=== PATIENT | female | born 1955 | race Caucasian/White ===

== ENCOUNTER 2022-01-23 13:53 | Inpatient (IN) | payer OTHER, SELFPAY ==
[2022-01-23] VITALS (9 sets, daily range): BP systolic 102–128; BP diastolic 35–80; PULSE 83–95; RESP 15–20; TEMP 36.3–36.8; O2SAT 94–96; BMI 39.2
--- NOTE | ~2022-01-23 | XR_ITS ---
EXAMINATION: XR chest 1V portable Exam Date/Time: 01/26/2022 15:45 CDT HISTORY: Hypoxia Comparison: 01/23/2022. RESULT: Lines, tubes, and devices: None. Lungs and pleura: Somewhat improved aeration, persistent reticular and ill-defined patchy groundglas s opacities. Cardiomediastinal silhouette: Stable. Other: No acute osseous or upper abdominal finding. IMPRESSION: Persistent findings of bronchiolitis versus atypical/viral pneumonia. Reviewed, dictated and finalized at location K.
--- NOTE | ~2022-01-23 | MR_ITS ---
EXAMINATION: MR brain/brain stem wo/w con DATE: 01/24/2022 13:14 INDICATION: New onset seizure. TECHNIQUE: Magnetic resonance imaging (MRI) of the brain and brainstem was performed without intraven ous contrast. The patient was unable to complete the imaging. COMPARISON: Head CT 01/23/2022 FINDINGS: There is no intracranial hemorrhage, acute infarction, or abnormal intracranial mass lesion . The ventricles are normal in size. The paranasal sinuses are clear. The orbits are normal. The mast oid air cells are normal. IMPRESSION: 1. Normal brain. Not all of the typical sequences were performed, which mildly decreases sensitivity. Reviewed, dictated and finalized at location A.
--- NOTE | ~2022-01-23 | XR_ITS ---
EXAMINATION: XR chest 1V portable DATE: 01/30/2022 06:19 INDICATION: Abnormal chest radiograph. TECHNIQUE: A single frontal view of the chest was obtained. COMPARISON: Chest single view 01/26/2022 FINDINGS: There is mild atelectasis at left lung base. No pleural effusion or pneumothorax. The heart size is normal. IMPRESSION: 1. Mild atelectasis at left lung base. Reviewed, dictated and finalized at location A.
--- NOTE | ~2022-01-23 | XR_ITS ---
XR chest 1V portable INDICATION: Seizure-like activity TECHNIQUE: 2 view chest. FINDINGS: 01/01/2005 There is mild bilateral interstitial prominence and peribronchial cuffing. There is no focal consoli dation, pleural effusion, or pneumothorax. The cardiomediastinal silhouette is normal. Shallow inspiration. IMPRESSION: 1. Findings most consistent with bronchiolitis versus an atypical or viral pneumonia. Reviewed, dictated and finalized at location B. IMPRESSION: 1. Findings most consistent with bronchiolitis versus an atypical or viral pne [facility].
--- NOTE | ~2022-01-23 | CT_ITS ---
EXAMINATION: CT brain wo con DATE: 01/23/2022 15:07 INDICATION: New onset seizure TECHNIQUE: Computed tomography (CT) of the head was performed without intravenous contrast. The mA wa s adjusted according to patient size. Iterative reconstruction technique was employed. Exam dose: 60 5.33 mGy-cm total exam DLP. COMPARISON: 07/20/2013 CT brain FINDINGS: No intracranial mass lesion or hemorrhage or cerebrovascular accident. No midline shift or mass effect normal ventricular size. No subdural or epidural hematoma. No fracture or bone destruction of the cranial vault. Mastoid air cells and paranasal sinuses are nor sanjuana developed and aerated. IMPRESSION: No significant abnormality Reviewed, dictated and finalized at Location A. Reviewed, dictated and finalized at location A. IMPRESSION: No significant abnormality
--- NOTE | 2022-01-23 14:09 | ECG_ITS ---
Measurements Intervals [place] Rate: 88 P: 46 NE: 127 QRS: 59 QRSD: 93 T: 31 QT: 375 QTc: 454 Interpretive Statements SINUS RHYTHM WITH FREQUENT VENTRICULAR PREMATURE COMPLEXES ABNORMAL RHYTHM ECG NO PREVIOUS ECG AVAILABLE FOR COMPARISON Electronically Signed On 01-23-2022 14:41:29 CDT by Juventino Aquino M.D.
--- NOTE | 2022-01-23 14:32 | ED.SEIZURE ---
HPI - Seizure General Chief Complaint: Seizure Stated Complaint: witnessed seizure like activity Time Seen by Provider: 01/23/22 14:31 History of Present Illness HPI Narrative: 66 years old white female came by ambulance from residential with new onset seizure. Patient was found sitting in her chair by housekeeping at the facility with seizure-like activities, tonic-clonic, lasted approximately 30 seconds, Followed by confusion and change of mental status. Patient is awake, alert and oriented to her name only on arrival to the emergency room. Her baseline is awake and oriented x4. Patient denies any fever, chills, nausea, vomiting, complaining of headache and cramps of the lower extremities MD complaint: other Related Data Home Medications Medication Instructions Recorded Confirmed calcium carbonate 600 mg-vitamin tablet 01/23/22 01/23/22 D3 20 mcg (800 unit) tablet (Caltrate with Vitamin D3) ergocalciferol (vitamin D2) 1,250 01/23/22 mcg (50,000 unit) capsule (Vitamin D2) rosuvastatin 40 mg tablet 40 mg PO DAILY 01/23/22 01/23/22 Review of Systems Review of Systems: All systems reviewed & are unremarkable except as noted in HPI and below Exam Narrative: General appearance: Well-developed, well-nourished Skin: Normal color Head: Normocephalic, nontraumatic Eyes: Clear conjunctiva ENT: Oropharynx normal, ears normal, nose normal Neck: Supple, nontender Chest and respiratory: Airway patent, no respiratory distress, no accessory muscle use Heart: Regular rate/rhythm Abdomen: Soft, nontender, no organomegaly, quiet bowel sounds Vascular: Normal peripheral pulses, normal capillary refill. Musculoskeletal: Normal range of motion, nontender back Neurologic: Alert and oriented to her name only Course Consultations Consultation #1: Dr. Zheng Date: 01/23/22 Time: 16:24 Vital Signs Vital signs: Vital Signs Temperature 36.5 C 01/23/22 13:55 Pulse Rate 95 01/23/22 13:55 Respiratory Rate 16 01/23/22 13:55 Pulse Oximetry 96 01/23/22 13:55 Oxygen Delivery Room Air 01/23/22 13:55 Temperature 36.5 C 01/23/22 13:55 Pulse Rate 95 01/23/22 14:05 Respiratory Rate 16 01/23/22 14:05 Blood Pressure 107/35 L 01/23/22 14:05 Pulse Oximetry 94 01/23/22 14:05 Oxygen Delivery Room Air 01/23/22 13:55 MDM - Seizure Differential Diagnosis Differential diagnosis: Likely generalized seizure and new onset seizure Lab Data Result diagrams: 01/23/22 14:27 01/23/22 14:27 Labs: Lab Results 01/23/22 01/23/22 01/23/22 Range/Units 14:27 14:27 14:27 WBC 4.6 (4.5-10.0) K/mm3 RBC 3.58 L (4.2-5.4) M/mm3 Hgb 11.8 L (12.0-15.0) g/dL Hct 34.5 L (37.0-47.0) % MCV 96.4 (80-100) fl MCH 33.0 (26-34) pg MCHC 34.2 (32-36) g/dl RDW 15.1 H (11.5-14.5) % Plt Count 105 L (150-375) k/mm3 MPV 10.8 H (7.4-10.4) fl Immature Gran % (Auto) 0.4 (0-0.5) % Neut % (Auto) 74.8 H (45.5-73.1) % Lymph % (Auto) 17.1 L (18.3-44.2) % [place] % (Auto) 7.1 (2.6-8.5) % Eos % (Auto) 0.2 (0-4.4) % Baso % (Auto) 0.4 (0.2-1.2) % Lymph # (Auto) 0.79 L (0.9-3.2) K/mm3 [place] # (Auto) 0.3 (0.1-0.6) K/mm3 Eos # (Auto) 0.0 (0-0.3) K/mm3 Baso # (Auto) 0.0 (0.0-0.1) K/mm3 Abs Immat Gran (auto) 0.02 (0.00-0.031) K/mm3 Absolute Neuts (auto) 3.5 (1.3-6.7) K/mm3 Absolute Nucleated RBC 0.0 (0.0-0.012) K/mm3 Nucleated RBC % 0.4 H (0.0-0.2) % PT 19.0 H (11.1-14.7) Seconds INR 1.7 APTT 31.7 (22.3-36.8) SECONDS Sodium 133 L (137-145) mmol/L Potassium 3.3 L (3.4-5.0) mmol/L Chloride
[2022-01-23 14:35] LABS: Basophils Percent Auto 0.4 % (0.2-1.2); Eosinophils Percent Auto 0.2 % (0-4.4); Hematocrit 34.5 % (37.0-47.0); Hemoglobin 11.8 g/dL (12.0-15.0); Immature Granulocyte Absolute 0.02 K/mm3 (0.00-0.031); Immature Granulocyte Percent A 0.4 % (0-0.5); Lymphocytes Absolute Auto 0.79 K/mm3 (0.9-3.2); Lymphocytes Percent Auto 17.1 % (18.3-44.2); Mean Corpuscular HGB Conc 34.2 g/dl (32-36); Mean Corpuscular Volume 96.4 fl (80-100); Mean Platelet Volume 10.8 fl (7.4-10.4); Monocytes Absolute Auto 0.3 K/mm3 (0.1-0.6); Monocytes Percent Auto 7.1 % (2.6-8.5); Neutrophils Absolute Auto 3.5 K/mm3 (1.3-6.7); Neutrophils Percent Auto 74.8 % (45.5-73.1); Nucleated Red Blood Cells Perc 0.4 % (0.0-0.2); Platelet Count Result 105 k/mm3 (150-375); Red Blood Count 3.58 M/mm3 (4.2-5.4); Red Cell Distribution Width 15.1 % (11.5-14.5); White Blood Count 4.6 K/mm3 (4.5-10.0)
[2022-01-23 14:45] LABS: Alanine Aminotransferase 22 U/L (6-35); Albumin Level 3.5 g/dL (3.5-5.1); Alkaline Phosphatase 71 U/L (38-126); Anion Gap 13 mmol/L (8-16); Aspartate Amino Transferase 80 U/L (14-36); Bilirubin,Total 0.4 mg/dL (0.2-1.3); Blood Urea Nitrogen 15 mg/dL (7-17); Calcium 7.5 mg/dL (8.4-10.2); Carbon Dioxide 22 mmol/L (22-30); Chloride 98 mmol/L (98-107); Estimated Glomerular Filt Rate > 60; Glucose 105 mg/dL (65-110); Potassium 3.3 mmol/L (3.4-5.0); Sodium 133 mmol/L (137-145)
[2022-01-23 14:49] LABS: INR 1.7
[2022-01-23 14:50] LABS: Partial Thromboplastin Time 31.7 SECONDS (22.3-36.8)
[2022-01-23 16:26] LABS: Add Urine Microscopic? YES; Appearance Urine Clear (Clear); Bilirubin Urine Negative (Negative); Blood Urine 2+ (Negative); Color Urine Yellow (Yellow); Glucose Urine UA Negative (Negative); Ketones Urine 2+ mg/dL (Negative); Leukocyte Esterase Ur Negative LEU/UL (Negative); Nitrate Urine Negative (Negative); Protein Urine 1+ mg/dL (Negative); Specific Grav Ur 1.025 (1.001-1.035); Urobilinogen Urine Negative mg/dL (<2.0); WBC Urine 0-3 /hpf
[2022-01-23] MEDS: CALCIUM GLUC 2,000 MG/NS 100ML 2,000 MG/100 ML BAG 100 MG IVPB (17:38)
--- NOTE | 2022-01-23 18:16 | ADMGEN ---
This patient, Samantha Rojas, was admitted to Medical Room 258-. Patient/family oriented to hospital policies and general routines including ID bracelet, bed and alarms, visiting hours, pain management, procedures, bathroom and other care routines, personal items, smoking policy, room service/diet, and visiting hours. Information on how to activate the Rapid Response Team has been discussed. Patient/Family are encouraged to report perceived risks to care and to ask questions if they do not understand what they are told or what they should do.
--- NOTE | 2022-01-23 23:45 | PM.IMHP ---
H&P: HPI History of Present Illness Date/Time: 01/23/22 23:45 Chief Complaint: Seizure Narrative: This is a 66-year-old female patient who is very hard of hearing and comes from [facility]. She has no prior history of having any seizures. The patient was found sitting in her chair by housekeeping at the facility where she comes from with the seizure-like activity. They noted that it was tonic clonic and lasted for about 30 seconds. Patient was followed by confusion and change of mental status. She is awake and orientated upon arrival to the emergency room. Her baseline is a and O x4. She denies any fever chills. H&H is 11.8 and 34.5. Her sodium is 133 and her potassium is 3.3. Her calcium was found to be 7.5. Her UA was negative for UTI. Chest x-ray was read as findings most consistent with bronchiolectasis versus an atypical or viral pneumonia. Head CT was read as no significant abnormality. The patient tells me that she was just having a coughing fit at the half-way. She stated she was not having seizures she was just having a coughing fit. However the patient does not remember much about what happened after that. The patient was given potassium, calcium carbonate and calcium gluconate. Neurology has been consulted. The patient was being admitted for observation status on the date of service of 01/23/2022. Review of Systems Review of Systems: See HPI All systems reviewed & are unremarkable except as noted in HPI and below Constitutional: Constitutional: Reports as per HPI and Reports no additional constitutional complaints Eyes: Eyes: Reports as per HPI and Reports no additional eye complaints ENT: Reports system reviewed and no additional complaints, except as documented and Reports Normal hearing present Cardiovascular: Cardiovascular: Reports no additional cardiovascular complaints Respiratory: Respiratory: Reports no additional respiratory complaints and Reports no additional respiratory complaints Gastrointestinal: Gastrointestinal: Reports as per HPI and Reports no additional gastrointestinal complaints Musculoskeletal: Musculoskeletal: Reports no additional musculoskeletal complaints Integumentary/Breasts: Skin/Breast: Reports system reviewed and no additional complaints, except as docu and Reports as per HPI Neurologic: Reports system reviewed and no additional complaints, except as documented, Reports as per HPI and Reports Normal hearing present Psychiatric: Psychiatric: Reports no additional psychiatric complaints and Reports as per HPI Endocrine: Endocrine: Reports no additional endocrine complaints Hematologic/Lymphatic: Hematologic/Lymphatic: Reports no additional hematologic/lymphatic complaints Allergic/Immunologic: Allergic/Immunologic: Reports no additional allergic/immunologic complaints [facility] Past Medical History Medical History (Updated 01/24/22 @ 00:05 by Vi Parker NP) History of CVA (cerebrovascular accident) History of hypertension Hyperlipidemia Surgical History Surgical History (Updated 01/24/22 @ 00:05 by Vi Parker NP) H/O right wrist surgery H/O tubal ligation Family History Family History (Updated 01/24/22 @ 00:07 by Vi Parker NP) Father Cancer Mother Cancer Social History Social History (Updated 01/24/22 @ 00:08 by Vi Parker NP) Social History: The patient is single. She has 1 child. Patient quit smoking many years ago. She does not use any alcohol marijuana or illicit drugs. The patient does not have a durable power title attorney for healthcare. The patient stated that she has from [facility]. 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 Code status full code Smoking status: Former smoker Tobacco type: cigarettes Alcohol intake: never Substance use: never Has the Lack of Transportation Kept You From Medical Appointments or From Getting Medications?: No Within the Past 12 Months, Were Y
[2022-01-24] VITALS (9 sets, daily range): BP systolic 116–120; BP diastolic 34–68; PULSE 71–97; RESP 16–20; TEMP 36.1–36.4; O2SAT 91–95
[2022-01-24 01:16] LABS: Basophils Percent Auto 0.2 % (0.2-1.2); Eosinophils Percent Auto 0.2 % (0-4.4); Hematocrit 33.3 % (37.0-47.0); Hemoglobin 11.3 g/dL (12.0-15.0); Immature Granulocyte Absolute 0.01 K/mm3 (0.00-0.031); Immature Granulocyte Percent A 0.2 % (0-0.5); Lymphocytes Absolute Auto 1.25 K/mm3 (0.9-3.2); Lymphocytes Percent Auto 25.8 % (18.3-44.2); Mean Corpuscular HGB Conc 33.9 g/dl (32-36); Mean Corpuscular Hemoglobin 32.6 pg (26-34); Mean Platelet Volume 11.3 fl (7.4-10.4); Monocytes Absolute Auto 0.5 K/mm3 (0.1-0.6); Monocytes Percent Auto 9.9 % (2.6-8.5); Neutrophils Absolute Auto 3.1 K/mm3 (1.3-6.7); Neutrophils Percent Auto 63.7 % (45.5-73.1); Nucleated Red Blood Cells Perc 0.4 % (0.0-0.2); Platelet Count Result 102 k/mm3 (150-375); Red Blood Count 3.47 M/mm3 (4.2-5.4); Red Cell Distribution Width 15.1 % (11.5-14.5); White Blood Count 4.8 K/mm3 (4.5-10.0)
[2022-01-24 01:28] LABS: Lactic Acid Reflex 0.9 mmol/L (0.7-2.0)
[2022-01-24 01:31] LABS: Alanine Aminotransferase 23 U/L (6-35); Albumin Level 3.5 g/dL (3.5-5.1); Alkaline Phosphatase 61 U/L (38-126); Anion Gap 17 mmol/L (8-16); Aspartate Amino Transferase 57 U/L (14-36); Bilirubin,Total 0.4 mg/dL (0.2-1.3); Blood Urea Nitrogen 16 mg/dL (7-17); Calcium 5.8 mg/dL (8.4-10.2); Carbon Dioxide 20 mmol/L (22-30); Chloride 97 mmol/L (98-107); Estimated CRCL calculation 74 ml/min; Estimated Glomerular Filt Rate > 60; Glucose 96 mg/dL (65-110); Magnesium 2.3 mg/dL (1.6-2.3); Potassium 7.2 mmol/L (3.4-5.0); Sodium 134 mmol/L (137-145)
[2022-01-24 02:19] LABS: Potassium 2.9 mmol/L (3.4-5.0)
[2022-01-24 02:51] LABS: Thyroid Stimulating Hormone Reflex 0.061 uIU/mL (0.465-4.68)
--- NOTE | 2022-01-24 03:31 | PC.NURSE ---
critical potassium level received from lab. Results called to Dr. Xie. Result outside of expected range due to previously low potassium. Dr Xie ordered repeat lab draw stat and lokelma to be available but held until 2nd result received. Redraw of potassium came back low. New orders received. Beny d/c.
[2022-01-24 03:56] LABS: Vitamin D 25 Hydroxy 30.1 ng/mL
[2022-01-24] MEDS: POTASSIUM CHLORIDE 20 MEQ TABLET 40 MEQ PO (04:15)
[2022-01-24 06:03] LABS: Free T4 Free Thyroxine Reflex 1.27 ng/dL (0.78-2.19)
[2022-01-24] MEDS: ROSUVASTATIN 10 MG TABLET 40 MG PO (08:42)
[2022-01-24 09:01] LABS: Parathyroid Intact 116.6 pg/mL (7.5-53.5)
[2022-01-24 09:25] LABS: Total Triiodothyronine (T3) 0.48 NG/ML (0.97-1.69)
[2022-01-24] MEDS: CALCIUM GLUC 2,000 MG/NS 100ML 2,000 MG/100 ML BAG 100 MG IVPB (10:43)
[2022-01-24] MEDS: POTASSIUM CHLORIDE INJ 40 MEQ in SODIUM CHLORIDE 0.9% IV 500 ML 130 MEQ IVPB (10:44)
[2022-01-24 11:29] LABS: Phosphorus 2.4 mg/dL (2.5-4.5)
--- NOTE | 2022-01-24 11:49 | WPDNEURCNPN ---
Assessment and Plan Assessment and plan (1) New onset seizure: Code(s): R56.9 - Unspecified convulsions Status: Acute (2) Hypocalcemia: Code(s): E83.51 - Hypocalcemia Status: Acute (3) History of CVA (cerebrovascular accident): Code(s): Z86.73 - Personal history of transient ischemic attack (TIA), and cerebral infarction without residual deficits Status: Acute Plan Ms. Roajs is a 66 year old female with a reported history of prior stroke presenting with first time seizure. Seemingly unprovoked. Calcium was a little low on day of presentation at 7.5, but doesn't seem significant enough to cause seizure. Patient is at increased risk for seizures given prior history of stroke. - Start Keppra 500mg BID - MRI brain w/o contrast - Routine EEG can be done as outpatient - Follow-up in Neurology clinic in 3 months Consult date: 01/24/22 Time Seen: 11:49 Reason for consult: Seizure HPI: Samantha Rojas is a 66 year old female with a history of hearing loss, prior stroke, HTN, and HLD who presented due to concerns for seizure. [facility] a [facility]. Per chart review she is AOx4 at baseline. She has no recollection of having a seizure yesterday. She remembers going to the dining room to eat her meal, and the next thing she remembers is being in the ambulance. Staff at [facility] witnessed seizure described as generalized tonic-clonic activity that resolved after 30 seconds. Afterwards she seemed to be post-ictal. On arrival to the emergency department she was only oriented to self. Basic labs were obtained, she had calcium of 7.5 on admission, which dropped to 5.8 this morning. Other labs including UA were negative. CT head was negative as well. There is no prior history of seizure and there is no family history of seizure as far as patient is aware. Review of Systems Constitutional: Constitutional: Reports no additional constitutional complaints Eyes: Eyes: Reports no additional eye complaints ENT: Comments: hearing loss (chronic) Cardiovascular: Cardiovascular: Reports no additional cardiovascular complaints Respiratory: Respiratory: Reports no additional respiratory complaints Gastrointestinal: Gastrointestinal: Reports no additional gastrointestinal complaints Genitourinary: Genitourinary: Reports no additional female genitourinary complaints Musculoskeletal: Musculoskeletal: Reports arthralgias Integumentary/Breasts: Skin/Breast: Reports system reviewed and no additional complaints, except as docu Neurologic: Reports as per HPI Psychiatric: Psychiatric: Reports no additional psychiatric complaints PMF Past Medical History Medical History (Updated 01/24/22 @ 11:58 by Riya Zheng MD) History of CVA (cerebrovascular accident) History of hypertension Hyperlipidemia Surgical History Surgical History H/O right wrist surgery H/O tubal ligation Family History Family History Father Cancer Mother Cancer Social History Social History (Updated 01/24/22 @ 00:08 by Vi Parker NP) Social History: The patient is single. She has 1 child. Patient quit smoking many years ago. She does not use any alcohol marijuana or illicit drugs. The patient does not have a durable power attorney law clerk for healthcare. The patient stated that she has from [employer]. 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 Code status full code Smoking status: Former smoker Tobacco type: cigarettes Alcohol intake: never Substance use: never Has the Lack of Transportation Kept You From Medical Appointments or From Getting Medications?: No Within the Past 12 Months, Were You Worried Whether Your Food Would Run Out Before You Got Money to Buy More?: Never True What is Your Housing Situation Today?: I Have Housing Are You Worried That in the Next 2 Month
--- NOTE | 2022-01-24 16:56 | PM.IMPN ---
Progress Note: A&P Assessment and Plan (1) New onset seizure: Code(s): R56.9 - Unspecified convulsions Status: Acute Assessment and Plan: Witnessed seizure-like activity at assisted living facility Head CT with no acute finding Brain MRI shows normal brain Appreciate neurology consultation Begin Keppra 500 mg b.i.d. Seizure precautions Will need outpatient EEG Etiology of seizure unclear. No alcohol use. No hypoglycemia. Patient is at risk for seizures due to history of CVA (2) Hypocalcemia: Code(s): E83.51 - Hypocalcemia Status: Acute Assessment and Plan: Acute hypocalcemia. Calcium 7.5 on presentation, declined to 5.8 today 2 g IV Calcium gluconate Ionized calcium pending Vitamin-D levels are sufficient PTH level slightly increased, which is expected date hypocalcemia Not on any medications that would lower calcium. Albumin is normal Magnesium is normal Calcium improved with supplementation to 8.7 this afternoon (3) Hypokalemia: Code(s): E87.6 - Hypokalemia Status: Acute Assessment and Plan: Potassium 3.3 on presentation and was supplemented. Repeat potassium level was 7.2, however suspect this was hemolyzed specimen. Repeat potassium 2.9. 40 mEq IV Kcl Repeat potassium this afternoon stable at 4.2 Monitor BMP (4) Abnormal TSH: Code(s): R79.89 - Other specified abnormal findings of blood chemistry Status: Acute Assessment and Plan: TSH is low at 0.061 with T4 Will need outpatient reflex TSH in 4-6 weeks (5) Generalized weakness: Code(s): R53.1 - Weakness Status: Acute Assessment and Plan: Noted by nursing staff to have difficulty with ambulation. Appreciate PT/OT evals Implement fall precautions (6) History of CVA (cerebrovascular accident): Code(s): Z86.73 - Personal history of transient ischemic attack (TIA), and cerebral infarction without residual deficits Status: Chronic Assessment and Plan: Appears to have residual aphasia Subjective Date/time seen: 01/24/22 16:56 Interval history: Date of service: 01/24/2022 Samantha Rojas is a 66-year-old female with a history of CVA, hypertension, hyperlipidemia who is seen in follow-up for suspected seizure. The patient is a fairly poor historian. She states she is here in the hospital because of a fall. She has some expressive aphasia. She denies headache, confusion, dizziness, lightheadedness, weakness, visual changes, speech changes, dysphagia, shortness of breath, cough, chest pain, palpitations, nausea, vomiting, abdominal pain, dysuria. She does note some difficulty with ambulation and feels unsteady when walking. Review of Systems Review of Systems: All systems reviewed & are unremarkable except as noted in HPI and below Exam Narrative: General: Obese well-appearing 66-year-old female, sitting up in bed, comfortable, NARD Neuro: awake, alert and oriented x3 (initially states she is at [facility], then corrects to [facility]), speech clear, no focal neuro deficits noted, exhibit confusion. [place] sign negative. HEENMT: normocephalic, atraumatic, EOMI, sclerae anicteric, moist oral mucosa Respiratory: clear to auscultation bilaterally, nonlabored breathing Cardio: regular rate, regular rhythm with S1-S2 Abdomen: nondistended, normoactive bowel sounds, soft, nontender to palpation Extremities: no edema, erythema, or tenderness to palpation, DP pulses 2+ bilaterally Skin: no rashes or lesions, warm and dry Psych: appropriate mood and affect, judgment and insight intact Objective Data Vital Signs Vital Signs: Vital Signs - 24 hr 01/23/22 17:54 01/23/22 17:00 01/23/22 18:25 Temperature 98.3 F 97.7 F Pulse Rate 83 86 92 Respiratory Rate 18 16 15 Blood Pressure 118/64 120/68 128/60 Pulse Oximetry 95 96 94 Oxygen Delivery 01/23/22 20:00 01/23/22 20:00 01/23/22
[2022-01-24 16:59] LABS: Potassium 4.2 mmol/L (3.4-5.0)
[2022-01-24 17:02] LABS: Calcium 8.7 mg/dL (8.4-10.2)
[2022-01-24] MEDS: ACETAMINOPHEN 325 MG TABLET 650 MG PO ×2 (18:04→21:24)
[2022-01-24] MEDS: levETIRAcetam 500 MG TABLET PO (21:24)
[2022-01-25] VITALS (9 sets, daily range): BP systolic 123–150; BP diastolic 37–68; PULSE 70–85; RESP 14–22; TEMP 36.1–36.6; O2SAT 90–92
[2022-01-25 06:21] LABS: Hematocrit 33.6 % (37.0-47.0); Immature Platelet Fraction Pct 12.6 % (0.9-11.2); Mean Corpuscular HGB Conc 32.7 g/dl (32-36); Mean Corpuscular Hemoglobin 32.4 pg (26-34); Mean Corpuscular Volume 99.1 fl (80-100); Mean Platelet Volume 11.8 fl (7.4-10.4); Platelet Count Result 104 k/mm3 (150-375); Red Blood Count 3.39 M/mm3 (4.2-5.4); Red Cell Distribution Width 15.2 % (11.5-14.5); White Blood Count 5.8 K/mm3 (4.5-10.0)
[2022-01-25 06:39] LABS: Alanine Aminotransferase 20 U/L (6-35); Albumin Level 3.5 g/dL (3.5-5.1); Alkaline Phosphatase 57 U/L (38-126); Anion Gap 9 mmol/L (8-16); Aspartate Amino Transferase 55 U/L (14-36); Bilirubin,Total 0.3 mg/dL (0.2-1.3); Blood Urea Nitrogen 18 mg/dL (7-17); Calcium 8.1 mg/dL (8.4-10.2); Carbon Dioxide 26 mmol/L (22-30); Chloride 99 mmol/L (98-107); Estimated CRCL calculation 74 ml/min; Estimated Glomerular Filt Rate > 60; Glucose 89 mg/dL (65-110); Magnesium 2.1 mg/dL (1.6-2.3); Phosphorus 2.7 mg/dL (2.5-4.5); Potassium 3.3 mmol/L (3.4-5.0); Sodium 134 mmol/L (137-145)
[2022-01-25] MEDS: levETIRAcetam 500 MG TABLET PO ×2 (09:17→20:36)
[2022-01-25] MEDS: ROSUVASTATIN 10 MG TABLET 40 MG PO (09:18)
[2022-01-25] MEDS: POTASSIUM CHLORIDE 20 MEQ TABLET 40 MEQ PO (09:18)
--- NOTE | 2022-01-25 14:40 | PM.IMPN ---
Progress Note: A&P Assessment and Plan (1) New onset seizure: Code(s): R56.9 - Unspecified convulsions Status: Acute Assessment and Plan: Witnessed seizure-like activity at assisted living facility Head CT with no acute finding Brain MRI shows normal brain Appreciate neurology consultation Started on Keppra 500 mg b.i.d. per neurology recommendations Seizure precautions Will need outpatient EEG Etiology of seizure unclear. No alcohol use. No hypoglycemia. Possibly due to history of CVA (2) Generalized weakness: Code(s): R53.1 - Weakness Status: Acute Assessment and Plan: Noted by nursing staff to have difficulty with ambulation. Appreciate PT/OT evals Implement fall precautions Patient not at functional level to return to assisted living. Will need SNF placement. Appreciate care coordination assistance (3) Hypocalcemia: Code(s): E83.51 - Hypocalcemia Status: Acute Assessment and Plan: Resolved. Ionized calcium pending Vitamin-D levels are sufficient PTH level slightly increased, which is expected date hypocalcemia Not on any medications that would lower calcium. Albumin is normal Magnesium is normal Calcium improved with supplementation Continue home PO calcium supplement (4) Hypokalemia: Code(s): E87.6 - Hypokalemia Status: Acute Assessment and Plan: Potassium 3.3 today Supplement potassium 40 mEq PO Kcl Monitor BMP (5) Hemorrhoid: Code(s): K64.9 - Unspecified hemorrhoids Status: Acute Assessment and Plan: Patient complains of pain from hemorrhoids with bleeding per rectum on tissue with wiping Supportive care. Anusol suppository prn Colace bid No active bleeding with stable H&H (6) Abnormal TSH: Code(s): R79.89 - Other specified abnormal findings of blood chemistry Status: Acute Assessment and Plan: TSH is low at 0.061 with T4 Will need outpatient reflex TSH in 4-6 weeks (7) History of CVA (cerebrovascular accident): Code(s): Z86.73 - Personal history of transient ischemic attack (TIA), and cerebral infarction without residual deficits Status: Chronic Assessment and Plan: Appears to have residual expressive aphasia Subjective Date/time seen: 01/25/22 14:40 Interval history: Date of service: 01/25/2022 Samantha Rojas is a 66-year-old female with a history of CVA, hypertension, hyperlipidemia who is seen in follow-up for suspected seizure. The patient is a fairly poor historian. Today she complains of rectal pain secondary to hemorrhoids. When asked about blood in stools, the patient is not able to answer and she turned to the occupational therapist who was present in the room to answer for her. OT reports she had blood on her tissue paper when she wiped today. Patient reports her last bowel movement was yesterday. She reports normal, formed stool. Denies straining or passage of hard bowel movements. Patient feels very weak. She is having difficulty with ambulation. She denies shortness breath, cough, chest pain, dizziness, lightheadedness, palpitations. Reports a fair appetite. Denies urinary symptoms. Review of Systems Review of Systems: All systems reviewed & are unremarkable except as noted in HPI and below Exam Narrative: General: Obese well-appearing 66-year-old female, sitting up in a chair by the bedside, comfortable, NARD Neuro: awake, alert and oriented x3, speech clear, no focal neuro deficits noted, exhibit confusion HEENMT: normocephalic, atraumatic, EOMI, sclerae anicteric, moist oral mucosa Respiratory: clear to auscultation bilaterally, nonlabored breathing Cardio: regular rate, regular rhythm with S1-S2 Abdomen: nondistended, normoactive bowel sounds, soft, nontender to palpation Extremities: no edema, erythema, or tenderness to palpation, DP pulses 2+ bilaterally Skin: no rashes or lesi
[2022-01-25] MEDS: ACETAMINOPHEN 325 MG TABLET 650 MG PO (17:55)
[2022-01-25] MEDS: DOCUSATE SODIUM 100 MG CAPSULE PO (20:36)
[2022-01-25 20:45] LABS: Glucose Point of Care 108 mg/dl (65-105)
[2022-01-26] VITALS (12 sets, daily range): BP systolic 109–116; BP diastolic 45–64; PULSE 71–85; RESP 18–22; TEMP 36.4–36.9; O2SAT 90–99
[2022-01-26 05:21] LABS: Hematocrit 33.5 % (37.0-47.0); Hemoglobin 10.6 g/dL (12.0-15.0); Immature Platelet Fraction Pct 12.6 % (0.9-11.2); Mean Corpuscular HGB Conc 31.6 g/dl (32-36); Mean Corpuscular Hemoglobin 32.1 pg (26-34); Mean Corpuscular Volume 101.5 fl (80-100); Mean Platelet Volume 11.8 fl (7.4-10.4); Platelet Count Result 94 k/mm3 (150-375); Red Cell Distribution Width 15.2 % (11.5-14.5); White Blood Count 4.7 K/mm3 (4.5-10.0)
[2022-01-26 05:38] LABS: Alanine Aminotransferase 19 U/L (6-35); Albumin Level 3.3 g/dL (3.5-5.1); Alkaline Phosphatase 63 U/L (38-126); Anion Gap 11 mmol/L (8-16); Aspartate Amino Transferase 45 U/L (14-36); Bilirubin,Total 0.2 mg/dL (0.2-1.3); Blood Urea Nitrogen 13 mg/dL (7-17); Calcium 8.2 mg/dL (8.4-10.2); Carbon Dioxide 27 mmol/L (22-30); Chloride 99 mmol/L (98-107); Estimated CRCL calculation 85 ml/min; Estimated Glomerular Filt Rate > 60; Glucose 96 mg/dL (65-110); Magnesium 1.9 mg/dL (1.6-2.3); Potassium 3.8 mmol/L (3.4-5.0); Sodium 137 mmol/L (137-145)
[2022-01-26] MEDS: ROSUVASTATIN 10 MG TABLET 40 MG PO (08:53)
[2022-01-26] MEDS: DOCUSATE SODIUM 100 MG CAPSULE PO (08:53)
[2022-01-26] MEDS: levETIRAcetam 500 MG TABLET PO ×2 (08:53→20:50)
[2022-01-26] MEDS: ACETAMINOPHEN 325 MG TABLET 650 MG PO (08:53)
[2022-01-26] MEDS: ALBUTEROL SULFATE (*SP) AEROSOL 1 PUFF 2 PUFF INHALATION (13:33)
--- NOTE | 2022-01-26 14:01 | PM.IMPN ---
Progress Note: A&P Assessment and Plan (1) New onset seizure: Code(s): R56.9 - Unspecified convulsions Status: Acute Assessment and Plan: Witnessed seizure-like activity at assisted living facility Head CT with no acute finding Brain MRI shows normal brain Appreciate neurology consultation Started on Keppra 500 mg b.i.d. per neurology recommendations Seizure precautions Will need outpatient EEG Etiology of seizure unclear. No alcohol use. No hypoglycemia. Possibly due to history of CVA (2) Generalized weakness: Code(s): R53.1 - Weakness Status: Acute Assessment and Plan: Noted by nursing staff to have difficulty with ambulation. Appreciate PT/OT evals Implement fall precautions Patient not at functional level to return to assisted living. Will need SNF placement. Appreciate care coordination assistance. Not able to start SNF authorization until tomorrow (3) Hypocalcemia: Code(s): E83.51 - Hypocalcemia Status: Acute Assessment and Plan: Resolved. Ionized calcium pending Vitamin-D levels are sufficient PTH level slightly increased, which is expected date hypocalcemial Calcium improved with supplementation Continue home PO calcium supplement (4) Hypokalemia: Code(s): E87.6 - Hypokalemia Status: Acute Assessment and Plan: Resolved. Potassium 3.8 today Monitor BMP (5) Hemorrhoid: Code(s): K64.9 - Unspecified hemorrhoids Status: Acute Assessment and Plan: Patient complains of pain from hemorrhoids with bleeding per rectum on tissue with wiping Supportive care. Anusol suppository prn Colace bid No active bleeding with stable H&H (6) Abnormal TSH: Code(s): R79.89 - Other specified abnormal findings of blood chemistry Status: Acute Assessment and Plan: TSH is low at 0.061 with normal free T4 Will need outpatient reflex TSH in 4-6 weeks (7) History of CVA (cerebrovascular accident): Code(s): Z86.73 - Personal history of transient ischemic attack (TIA), and cerebral infarction without residual deficits Status: Chronic Assessment and Plan: Appears to have residual expressive aphasia Subjective Date/time seen: 01/26/22 14:01 Interval history: Date of service: 01/26/2022 Samantha Rojas is a 66-year-old female with a history of CVA, hypertension, hyperlipidemia who is seen in follow-up for suspected seizure. The patient is a poor historian. She is doing well today and offers no complaints. Her hemorrhoids are not bothersome today. She has not noticed any rectal bleeding. States she has not really been out of bed today. She did not eat much for breakfast because she states she did not like it. She denies abdominal pain, nausea, vomiting, fever, chills, shortness of breath, chest pain, dizziness, lightheadedness. She does endorse feeling weak and having difficulty getting around. Review of Systems Review of Systems: All systems reviewed & are unremarkable except as noted in HPI and below Exam Narrative: General: Obese well-appearing 66-year-old female, sitting up in bed, comfortable, NARD Neuro: awake, alert and oriented x3 (initially stated the year was 1921, then corrected to 2021), speech clear, expressive aphasia noted, no focal neuro deficits noted HEENMT: normocephalic, atraumatic, EOMI, sclerae anicteric, moist oral mucosa Respiratory: clear to auscultation bilaterally, nonlabored breathing Cardio: regular rate, regular rhythm with S1-S2 Abdomen: nondistended, normoactive bowel sounds, soft, nontender to palpation Extremities: no edema, erythema, or tenderness to palpation, DP pulses 2+ bilaterally Skin: no rashes or lesions, warm and dry Psych: appropriate mood, odd affect, judgment and insight fair Objective Data Vital Signs Vital Signs: Vital Signs - 24 hr 01/25/22 16:00 01/25/22 20:00 01/25/22 20:00 Temper
[2022-01-26] MEDS: IPRATROPIUM BR 0.02% INH SOLN 0.5 MG/2.5 ML VIAL INHALATION (20:10)
[2022-01-26] MEDS: ALBUTEROL SULFATE NEB 2.5 MG/3 ML INH INHALATION (20:10)
[2022-01-27] VITALS (13 sets, daily range): BP systolic 104–151; BP diastolic 53–59; PULSE 70–89; RESP 18–20; TEMP 36.8–37.1; O2SAT 92–97
[2022-01-27] MEDS: IPRATROPIUM BR 0.02% INH SOLN 0.5 MG/2.5 ML VIAL INHALATION ×4 (02:30→20:43)
[2022-01-27] MEDS: ALBUTEROL SULFATE NEB 2.5 MG/3 ML INH INHALATION ×4 (02:30→20:43)
[2022-01-27] MEDS: ACETAMINOPHEN 325 MG TABLET 650 MG PO ×2 (03:24→23:13)
[2022-01-27 06:47] LABS: Hematocrit 32.4 % (37.0-47.0); Hemoglobin 10.5 g/dL (12.0-15.0); Immature Platelet Fraction Pct 13.2 % (0.9-11.2); Mean Corpuscular HGB Conc 32.4 g/dl (32-36); Mean Corpuscular Volume 101.9 fl (80-100); Platelet Count Result 94 k/mm3 (150-375); Red Blood Count 3.18 M/mm3 (4.2-5.4); Red Cell Distribution Width 14.7 % (11.5-14.5); White Blood Count 4.7 K/mm3 (4.5-10.0)
[2022-01-27 06:51] LABS: Alanine Aminotransferase 19 U/L (6-35); Albumin Level 3.2 g/dL (3.5-5.1); Alkaline Phosphatase 64 U/L (38-126); Anion Gap 6 mmol/L (8-16); Aspartate Amino Transferase 28 U/L (14-36); Bilirubin,Total 0.3 mg/dL (0.2-1.3); Blood Urea Nitrogen 12 mg/dL (7-17); Calcium 8.3 mg/dL (8.4-10.2); Carbon Dioxide 29 mmol/L (22-30); Chloride 99 mmol/L (98-107); Estimated CRCL calculation 85 ml/min; Estimated Glomerular Filt Rate > 60; Glucose 96 mg/dL (65-110); Magnesium 1.7 mg/dL (1.6-2.3); Potassium 4.2 mmol/L (3.4-5.0); Sodium 134 mmol/L (137-145)
[2022-01-27 08:25] LABS: Influenza Control Positive
[2022-01-27 08:48] LABS: SARS-CoV-2 RNA PCR Negative
[2022-01-27] MEDS: DOCUSATE SODIUM 100 MG CAPSULE PO (10:01)
[2022-01-27] MEDS: levETIRAcetam 500 MG TABLET PO ×2 (10:01→20:58)
[2022-01-27] MEDS: ROSUVASTATIN 10 MG TABLET 40 MG PO (10:01)
--- NOTE | 2022-01-27 10:33 | WPDNEUROLOGY ---
Neurology EEG Report General Information Date of Study: 01/27/22 TEST EEG DIAGNOSIS seizure CONDITION OF RECORDING awake and drowsy EEG NUMBER [id number] CLINICAL HISTORY patient unable to give any history, slept most of the setup and tracing. EEG DESCRIPTION background rhythm consists of low to medium voltage 5 to 7 hertz per 2nd theta admixed with low to medium voltage 3 to 4 hertz per 2nd delta activity, bilateral symmetrical sleep activity seen during sleep, hyperventilation not done, photic stimulation not done, non paroxysmal .nonfocal .nonlateralizing. IMPRESSION abnormal record due to the absence of normal background rhythm and due to the presence of bihemispheric theta and delta activity, these abnormalities are consistent with diffuse organic or metabolic encephalopathy or postictal state. clinical correlation recommended .there is no evidence of paroxysmal activity throughout the tracing.
--- NOTE | 2022-01-27 12:11 | WPDNEUROPN ---
Subjective Date/time seen: 01/27/22 12:11 Interval history: 66 years old right-handed female admitted to the hospital with ongoing diagnosis of 1. Previous stroke 2. Unprovoked seizure and initial calcium of 7.5 3 started on Keppra 500 mg p.o. b.i.d. 4 initial some confusion on neurological examination. Normal MRI of the brain on 01/[address] scan of the head on 01/23 x-ray chest revealing persistent findings of atypical viral pneumonia or bronchiolitis and EEG consistent with postictal state or encephalopathy. Continues to have non for neuro exam with generalized deconditioning. Objective Data Vital Signs Vital Signs: Vital Signs - 24 hr 01/26/22 15:09 01/26/22 15:18 01/26/22 20:10 Temperature 36.4 C L Pulse Rate 83 80 Respiratory Rate 22 H 20 Blood Pressure 109/54 L Pulse Oximetry 90 97 Oxygen Delivery Nasal Cannula Oxygen Flow Rate 1 01/26/22 20:25 01/26/22 20:20 01/26/22 22:00 Temperature 36.6 C Pulse Rate 83 80 79 Respiratory Rate 20 18 Blood Pressure 111/45 L Pulse Oximetry 92 98 Oxygen Delivery Oxygen Flow Rate 1 01/26/22 20:47 01/27/22 02:30 01/27/22 02:37 Temperature Pulse Rate 84 83 Respiratory Rate 20 20 Blood Pressure Pulse Oximetry 99 Oxygen Delivery Nasal Cannula Oxygen Flow Rate 1 01/27/22 06:00 01/27/22 10:28 01/27/22 10:29 Temperature 36.9 C Pulse Rate 72 76 Respiratory Rate 20 18 Blood Pressure 104/59 L Pulse Oximetry 94 93 Oxygen Delivery Nasal Cannula Oxygen Flow Rate 1 01/27/22 10:37 01/27/22 10:01 Temperature Pulse Rate 70 70 Respiratory Rate 18 18 Blood Pressure Pulse Oximetry 93 Oxygen Delivery Nasal Cannula Oxygen Flow Rate 1 Intake/Output Intake/Output: Intake & Output 01/24/22 01/25/22 01/26/22 01/27/22 23:59 23:59 23:59 23:59 Intake Total 2230 1110 1400 Output Total 400 850 400 Balance 2230 710 550 -400 Meds/Results Medications: Active Medications Generic Name Dose Route Start Last Admin Trade Name Freq PRN Reason Stop Dose Admin Acetaminophen 650 mg 01/23/22 16:31 01/27/22 03:24 Acetaminophen 325 Mg Tablet PO 650 mg Q4H PRN Administration Mild Pain (1-3) or Fever Albuterol 2 puff 01/25/22 14:51 01/26/22 13:33 Albuterol Sulfate (*Sp) Aerosol 1 Puff INHALATION 2 puff Q6HRT PRN Administration Shortness Of Breath Albuterol 2.5 mg 01/26/22 20:00 01/27/22 10:27 Albuterol Sulfate Neb 2.5 Mg/3 Ml Inh INHALATION 2.5 mg Q6HRT SOFIYA Administration Calcium Carbonate 500 mg 01/24/22 09:00 01/27/22 10:01 Calcium/Vitamin D 500 Mg Tablet PO 500 mg QAM SOFIYA Administration Docusate Sodium 100 mg 01/25/22 21:00 01/27/22 10:01 Docusate Sodium 100 Mg Capsule PO 100 mg Q12HR SOFIYA Administration Ergocalciferol 50,000 units 01/29/22 09:00 Ergocalciferol 50,000 Units Capsule PO We@0900 [facility] Hydrocortisone Acetate 25 mg 01/25/22 14:46 Hydrocortisone Acetate 25 Mg Suppository RECTAL Q12HR PRN Hemorrhoids Ipratropium [place] 0.5 mg 01/26/22 20:00 01/27/22 10:27 Ipratropium Br 0.02% Inh Soln 0.5 Mg/2.5 Ml Vial INHALATION 0.5 mg Q6HRT SOFIYA Administration Levetiracetam 500 mg 01/24/22 21:00 01/27/22 10:01 Levetiracetam 500 Mg Tablet PO 500 mg Q12HR [facility] Administration Lorazepam 0.5 mg 01/24/22 00:11 Lorazepam Inj (*Crx) 2 Mg/Ml Vial IV PUSH Q6H PRN Anxiety Rosuvastatin Calcium 40 mg 01/24/22 09:00 01/27/22 10:01 Rosuvastatin 10 Mg Tablet PO 40 mg DAILY SOFIYA Administration Radiology Results: ITS Impressions Head CT 01/23/22 15:09 IMPRESSION: No significant abnormality Brain MRI 01/24/22 13:32 IMPRESSION: 1. Normal brain. Not all of the typical sequences were performed, which mildly decreases sensitivity. Chest X-Ray 01/26/22 16:59 IMPRESSION: Persistent findings of bronchiolitis versus atypical/viral pneumonia.
--- NOTE | 2022-01-27 13:08 | P.PNIM_ITS ---
Progress Note: A&P Assessment and Plan (1) New onset seizure: Code(s): R56.9 - Unspecified convulsions Status: Acute Assessment and Plan: Witnessed seizure-like activity at assisted living facility * Etiology of seizure unclear. No alcohol use. No hypoglycemia. Possibly due to history of CVA * Head CT with no acute finding * Brain MRI shows normal brain * EEG completed today which was abnormal, findings may be related to metabolic encephalopathy vs post-ictal state * Appreciate neurology consultation * Started on Keppra 500 mg b.i.d. per neurology recommendations * Seizure precautions (2) Hypoxia: Code(s): R09.02 - Hypoxemia Status: Acute Assessment and Plan: Patient hypoxic yesterday in the upper 80s, currently requiring 1 L supplemental O2 * CXR reveals findings of bronchiolitis vs atypical/viral pneumonia * COVID and influenza negative * No signs/symptoms to suggest acute infection. No indication for antibiotics. * Patient with diffuse wheezing on exam, concerning for COPD exacerbation. No formal diagnosis of COPD, however reports smoking history and wheezing episodes * Will begin albuterol and ipratropium nebs q6h * Will give a dose of prednisone 40 mg * Supportive care. Expectorants, incentive spirometry, Cornet valve * Continue supplemental oxygen as needed. Wean to goal 92% or above (3) Generalized weakness: Code(s): R53.1 - Weakness Status: Acute Assessment and Plan: Noted by nursing staff to have difficulty with ambulation. * Appreciate PT/OT evals * Implement fall precautions * Patient not at functional level to return to assisted living. Will need SNF placement. Appreciate care coordination assistance. (4) Hypocalcemia: Code(s): E83.51 - Hypocalcemia Status: Acute Assessment and Plan: Resolved. * Ionized calcium pending * Vitamin-D levels are sufficient * PTH level slightly increased, which is expected date hypocalcemial * Calcium improved with supplementation * Continue home PO calcium supplement (5) Hypokalemia: Code(s): E87.6 - Hypokalemia Status: Acute Assessment and Plan: Resolved. Potassium 4.2 today * Monitor BMP (6) Hemorrhoid: Code(s): K64.9 - Unspecified hemorrhoids Status: Acute Assessment and Plan: Patient complains of pain from hemorrhoids with bleeding per rectum on tissue with wiping * Supportive care. * Anusol suppository prn * Begin metamucil daily * No active bleeding with stable H&H (7) Abnormal TSH: Code(s): R79.89 - Other specified abnormal findings of blood chemistry Status: Acute Assessment and Plan: TSH is low at 0.061 with normal free T4 * Will need outpatient reflex TSH in 4-6 weeks (8) History of CVA (cerebrovascular accident): Code(s): Z86.73 - Personal history of transient ischemic attack (TIA), and cerebral infarction without residual deficits Status: Chronic Assessment and Plan: Appears to have residual expressive aphasia Subjective Date/time seen: 01/27/22 13:08 Interval history: Date of service: 01/27/2022 Samantha Rojas is a 66-year-old female with a history of CVA, hypertension, hyperlipidemia who is seen in follow-up for suspected seizure. The patient is a somewhat poor historian. Her 3 sisters are present at the bedside today.Samantha states she is doing fairly well today. Yesterday she felt short of breath after getting up and
--- NOTE | 2022-01-27 13:08 | PM.IMPN ---
Progress Note: A&P Assessment and Plan (1) New onset seizure: Code(s): R56.9 - Unspecified convulsions Status: Acute Assessment and Plan: Witnessed seizure-like activity at assisted living facility Etiology of seizure unclear. No alcohol use. No hypoglycemia. Possibly due to history of CVA Head CT with no acute finding Brain MRI shows normal brain EEG completed today which was abnormal, findings may be related to metabolic encephalopathy vs post-ictal state Appreciate neurology consultation Started on Keppra 500 mg b.i.d. per neurology recommendations Seizure precautions (2) Hypoxia: Code(s): R09.02 - Hypoxemia Status: Acute Assessment and Plan: Patient hypoxic yesterday in the upper 80s, currently requiring 1 L supplemental O2 CXR reveals findings of bronchiolitis vs atypical/viral pneumonia COVID and influenza negative No signs/symptoms to suggest acute infection. No indication for antibiotics. Patient with diffuse wheezing on exam, concerning for COPD exacerbation. No formal diagnosis of COPD, however reports smoking history and wheezing episodes Will begin albuterol and ipratropium nebs q6h Will give a dose of prednisone 40 mg Supportive care. Expectorants, incentive spirometry, Cornet valve Continue supplemental oxygen as needed. Wean to goal 92% or above (3) Generalized weakness: Code(s): R53.1 - Weakness Status: Acute Assessment and Plan: Noted by nursing staff to have difficulty with ambulation. Appreciate PT/OT evals Implement fall precautions Patient not at functional level to return to assisted living. Will need SNF placement. Appreciate care coordination assistance. (4) Hypocalcemia: Code(s): E83.51 - Hypocalcemia Status: Acute Assessment and Plan: Resolved. Ionized calcium pending Vitamin-D levels are sufficient PTH level slightly increased, which is expected date hypocalcemial Calcium improved with supplementation Continue home PO calcium supplement (5) Hypokalemia: Code(s): E87.6 - Hypokalemia Status: Acute Assessment and Plan: Resolved. Potassium 4.2 today Monitor BMP (6) Hemorrhoid: Code(s): K64.9 - Unspecified hemorrhoids Status: Acute Assessment and Plan: Patient complains of pain from hemorrhoids with bleeding per rectum on tissue with wiping Supportive care. Anusol suppository prn Begin metamucil daily No active bleeding with stable H&H (7) Abnormal TSH: Code(s): R79.89 - Other specified abnormal findings of blood chemistry Status: Acute Assessment and Plan: TSH is low at 0.061 with normal free T4 Will need outpatient reflex TSH in 4-6 weeks (8) History of CVA (cerebrovascular accident): Code(s): Z86.73 - Personal history of transient ischemic attack (TIA), and cerebral infarction without residual deficits Status: Chronic Assessment and Plan: Appears to have residual expressive aphasia Subjective Date/time seen: 01/27/22 13:08 Interval history: Date of service: 01/27/2022 Samantha Rojas is a 66-year-old female with a history of CVA, hypertension, hyperlipidemia who is seen in follow-up for suspected seizure. The patient is a somewhat poor historian. Her 3 sisters are present at the bedside today.Samantha states she is doing fairly well today. Yesterday she felt short of breath after getting up and walking to and from the bathroom. Today she complains of wheezing. She denies cough. No chest pain. She still endorses weakness. Had a headache yesterday that has resolved. Denies confusion. No N/V/F/C. Denies dizziness or lightheadedness. Still having some hemorrhoid related pain which she states is worse with wiping her bottom. Review of Systems Review of Systems: All systems reviewed & are unremarkable except as noted in HPI and below Exam Narrative: General: Obese w
[2022-01-27] MEDS: predniSONE 20 MG TABLET 40 MG PO (14:42)
[2022-01-27 17:53] LABS: Ionized Calcium 4.7 mg/dL (4.8-5.6)
[2022-01-27] MEDS: guaiFENesin 12 HR 600 MG TABCR PO (20:58)
[2022-01-28] VITALS (15 sets, daily range): BP systolic 133–144; BP diastolic 48–67; PULSE 70–791; RESP 16–20; TEMP 36–36.6; O2SAT 93–98
[2022-01-28] MEDS: ALBUTEROL SULFATE NEB 2.5 MG/3 ML INH INHALATION ×4 (02:22→22:25)
[2022-01-28] MEDS: IPRATROPIUM BR 0.02% INH SOLN 0.5 MG/2.5 ML VIAL INHALATION ×4 (02:22→22:25)
[2022-01-28 05:33] LABS: Hematocrit 35.8 % (37.0-47.0); Hemoglobin 11.5 g/dL (12.0-15.0); Immature Platelet Fraction Pct 12.8 % (0.9-11.2); Mean Corpuscular HGB Conc 32.1 g/dl (32-36); Mean Corpuscular Hemoglobin 32.8 pg (26-34); Mean Platelet Volume 11.8 fl (7.4-10.4); Platelet Count Result 100 k/mm3 (150-375); Red Blood Count 3.51 M/mm3 (4.2-5.4); Red Cell Distribution Width 14.6 % (11.5-14.5); White Blood Count 4.3 K/mm3 (4.5-10.0)
[2022-01-28 05:37] LABS: Anion Gap 8 mmol/L (8-16); Blood Urea Nitrogen 10 mg/dL (7-17); Carbon Dioxide 28 mmol/L (22-30); Chloride 98 mmol/L (98-107); Estimated CRCL calculation 85 ml/min; Estimated Glomerular Filt Rate > 60; Glucose 152 mg/dL (65-110); Potassium 4.4 mmol/L (3.4-5.0); Sodium 134 mmol/L (137-145)
[2022-01-28] MEDS: levETIRAcetam 500 MG TABLET PO ×2 (08:36→20:18)
[2022-01-28] MEDS: ROSUVASTATIN 10 MG TABLET 40 MG PO (08:37)
[2022-01-28] MEDS: predniSONE 20 MG TABLET 40 MG PO (08:37)
[2022-01-28] MEDS: guaiFENesin 12 HR 600 MG TABCR PO ×2 (08:37→20:18)
[2022-01-28] MEDS: PSYLLIUM POWDER PACKET 1 PACKET PO (08:37)
--- NOTE | 2022-01-28 15:22 | PCOTNOTE ---
Patient not seen for OT this date. Will continue plan of care.
[2022-01-28] MEDS: ACETAMINOPHEN 325 MG TABLET 650 MG PO (15:50)
--- NOTE | 2022-01-28 15:52 | P.PNIM_ITS ---
Progress Note: A&P Assessment and Plan (1) New onset seizure: Code(s): R56.9 - Unspecified convulsions Status: Acute Assessment and Plan: Witnessed seizure-like activity at assisted living facility * Etiology of seizure unclear. No alcohol use. No hypoglycemia. Possibly due to history of CVA * Head CT with no acute finding * Brain MRI shows normal brain * EEG completed 01/27 which was abnormal, findings may be related to metabolic encephalopathy vs post-ictal state * Appreciate neurology consultation * Started on Keppra 500 mg b.i.d. per neurology recommendations * Seizure precautions (2) Hypoxia: Code(s): R09.02 - Hypoxemia Status: Acute Assessment and Plan: Patient hypoxic in the upper 80s requiring 1 L supplemental O2 * CXR reveals findings of bronchiolitis vs atypical/viral pneumonia * COVID and influenza negative * No signs/symptoms to suggest acute infection. No indication for antibiotics. * Patient with diffuse wheezing on exam, concerning for COPD exacerbation. No formal diagnosis of COPD, however reports smoking history and wheezing episo henrietta * Symptomatic improvement with albuterol and ipratropium nebs q6h * Continue prednisone 40 mg daily x5 days. First dose 01/27 * Supportive care. Expectorants, incentive spirometry, Cornet valve * Weaned to room air today and maintaing adequate O2 sats. * Continue supplemental oxygen as needed with goal sats 92% or above (3) Generalized weakness: Code(s): R53.1 - Weakness Status: Acute Assessment and Plan: Noted by nursing staff to have difficulty with ambulation. * Appreciate PT/OT evals * Implement fall precautions * Patient not at functional level to return to assisted living. Will need SNF placement. Appreciate care coordination assistance. Awaiting insurance authorization (4) Hypocalcemia: Code(s): E83.51 - Hypocalcemia Status: Acute Assessment and Plan: Resolved. * Ionized calcium 4.7 * Vitamin-D levels are sufficient * PTH level slightly increased, which is expected date hypocalcemial * Calcium improved with supplementation. 9.0 today * Continue home PO calcium supplement (5) Hypokalemia: Code(s): E87.6 - Hypokalemia Status: Acute Assessment and Plan: Resolved. Potassium 4.4 today * Monitor BMP (6) Hemorrhoid: Code(s): K64.9 - Unspecified hemorrhoids Status: Acute Assessment and Plan: Patient complains of pain from hemorrhoids with bleeding per rectum on tissue with wiping * Supportive care. * Anusol suppository prn * Metamucil daily * No active bleeding with stable H&H (7) Abnormal TSH: Code(s): R79.89 - Other specified abnormal findings of blood chemistry Status: Acute Assessment and Plan: TSH is low at 0.061 with normal free T4 * Will need outpatient reflex TSH in 4-6 weeks (8) History of CVA (cerebrovascular accident): Code(s): Z86.73 - Personal history of transient ischemic attack (TIA), and cerebral infarction without residual deficits Status: Chronic Assessment and Plan: Appears to have residual expressive aphasia Subjective Date/time seen: 01/28/22 15:52 Interval history: Date of service: 01/28/2022 Samantha Rojas is a 66-year-old female with a history of CVA, hypertension, hyperlipidemia who is seen in follow-up for suspected seizure. She is feeling well today. She states that her breathing is much improved. sh
--- NOTE | 2022-01-28 15:52 | PM.IMPN ---
Progress Note: A&P Assessment and Plan (1) New onset seizure: Code(s): R56.9 - Unspecified convulsions Status: Acute Assessment and Plan: Witnessed seizure-like activity at assisted living facility Etiology of seizure unclear. No alcohol use. No hypoglycemia. Possibly due to history of CVA Head CT with no acute finding Brain MRI shows normal brain EEG completed 01/27 which was abnormal, findings may be related to metabolic encephalopathy vs post-ictal state Appreciate neurology consultation Started on Keppra 500 mg b.i.d. per neurology recommendations Seizure precautions (2) Hypoxia: Code(s): R09.02 - Hypoxemia Status: Acute Assessment and Plan: Patient hypoxic in the upper 80s requiring 1 L supplemental O2 CXR reveals findings of bronchiolitis vs atypical/viral pneumonia COVID and influenza negative No signs/symptoms to suggest acute infection. No indication for antibiotics. Patient with diffuse wheezing on exam, concerning for COPD exacerbation. No formal diagnosis of COPD, however reports smoking history and wheezing episodes Symptomatic improvement with albuterol and ipratropium nebs q6h Continue prednisone 40 mg daily x5 days. First dose 01/27 Supportive care. Expectorants, incentive spirometry, Cornet valve Weaned to room air today and maintaing adequate O2 sats. Continue supplemental oxygen as needed with goal sats 92% or above (3) Generalized weakness: Code(s): R53.1 - Weakness Status: Acute Assessment and Plan: Noted by nursing staff to have difficulty with ambulation. Appreciate PT/OT evals Implement fall precautions Patient not at functional level to return to assisted living. Will need SNF placement. Appreciate care coordination assistance. Awaiting insurance authorization (4) Hypocalcemia: Code(s): E83.51 - Hypocalcemia Status: Acute Assessment and Plan: Resolved. Ionized calcium 4.7 Vitamin-D levels are sufficient PTH level slightly increased, which is expected date hypocalcemial Calcium improved with supplementation. 9.0 today Continue home PO calcium supplement (5) Hypokalemia: Code(s): E87.6 - Hypokalemia Status: Acute Assessment and Plan: Resolved. Potassium 4.4 today Monitor BMP (6) Hemorrhoid: Code(s): K64.9 - Unspecified hemorrhoids Status: Acute Assessment and Plan: Patient complains of pain from hemorrhoids with bleeding per rectum on tissue with wiping Supportive care. Anusol suppository prn Metamucil daily No active bleeding with stable H&H (7) Abnormal TSH: Code(s): R79.89 - Other specified abnormal findings of blood chemistry Status: Acute Assessment and Plan: TSH is low at 0.061 with normal free T4 Will need outpatient reflex TSH in 4-6 weeks (8) History of CVA (cerebrovascular accident): Code(s): Z86.73 - Personal history of transient ischemic attack (TIA), and cerebral infarction without residual deficits Status: Chronic Assessment and Plan: Appears to have residual expressive aphasia Subjective Date/time seen: 01/28/22 15:52 Interval history: Date of service: 01/28/2022 Samantha Rojas is a 66-year-old female with a history of CVA, hypertension, hyperlipidemia who is seen in follow-up for suspected seizure. She is feeling well today. She states that her breathing is much improved. she notes improvement with breathing treatments.She denies wheezing. She does have an occasional cough that is not very bothersome to her. She is tolerating her diet. Still feeling weak and having some trouble with ambulation. She denies dizziness or lightheadedness. No headache. No nausea, vomiting, fever, chills. Review of Systems Review of Systems: All systems reviewed & are unremarkable except as noted in HPI and below Exam Narrative: General: Obese well-appearin
[2022-01-29] VITALS (16 sets, daily range): BP systolic 125–132; BP diastolic 40–48; PULSE 70–78; RESP 12–20; TEMP 36.1–36.5; O2SAT 93–99
[2022-01-29] MEDS: IPRATROPIUM BR 0.02% INH SOLN 0.5 MG/2.5 ML VIAL INHALATION ×4 (03:07→20:25)
[2022-01-29] MEDS: ALBUTEROL SULFATE NEB 2.5 MG/3 ML INH INHALATION ×4 (03:07→20:25)
[2022-01-29 04:03] LABS: Prolactin 13.2 ng/mL (***)
[2022-01-29 09:05] LABS: Alanine Aminotransferase 18 U/L (6-35); Albumin Level 3.7 g/dL (3.5-5.1); Alkaline Phosphatase 63 U/L (38-126); Anion Gap 9 mmol/L (8-16); Aspartate Amino Transferase 18 U/L (14-36); Bilirubin,Total 0.3 mg/dL (0.2-1.3); Blood Urea Nitrogen 11 mg/dL (7-17); Calcium 8.9 mg/dL (8.4-10.2); Carbon Dioxide 33 mmol/L (22-30); Chloride 95 mmol/L (98-107); Estimated CRCL calculation 74 ml/min; Estimated Glomerular Filt Rate > 60; Glucose 92 mg/dL (65-110); Potassium 4.3 mmol/L (3.4-5.0); Sodium 137 mmol/L (137-145)
[2022-01-29 09:20] LABS: Hematocrit 37.6 % (37.0-47.0); Hemoglobin 11.7 g/dL (12.0-15.0); Immature Platelet Fraction Pct 14.5 % (0.9-11.2); Mean Corpuscular HGB Conc 31.1 g/dl (32-36); Mean Corpuscular Hemoglobin 32.5 pg (26-34); Mean Corpuscular Volume 104.4 fl (80-100); Mean Platelet Volume 12.2 fl (7.4-10.4); Platelet Count Result 106 k/mm3 (150-375); Red Cell Distribution Width 14.8 % (11.5-14.5); White Blood Count 7.6 K/mm3 (4.5-10.0)
[2022-01-29] MEDS: predniSONE 20 MG TABLET 40 MG PO (09:21)
[2022-01-29] MEDS: ROSUVASTATIN 10 MG TABLET 40 MG PO (09:22)
[2022-01-29] MEDS: levETIRAcetam 500 MG TABLET PO ×2 (09:22→21:33)
[2022-01-29] MEDS: ERGOCALCIFEROL 50,000 UNITS CAPSULE 50000 UNITS PO (09:22)
[2022-01-29] MEDS: guaiFENesin 12 HR 600 MG TABCR PO ×2 (09:22→21:33)
[2022-01-29] MEDS: PSYLLIUM POWDER PACKET 1 PACKET PO (09:22)
--- NOTE | 2022-01-29 12:59 | PC.NURSE ---
On 01/29/22, the student, [Tano Tony], provided care and completed [facility] documentation on this patient. I have reviewed the student's documentation and agree with the findings.
--- NOTE | 2022-01-29 13:39 | P.PNIM_ITS ---
Progress Note: A&P Assessment and Plan (1) New onset seizure: Code(s): R56.9 - Unspecified convulsions Status: Acute Assessment and Plan: Witnessed seizure-like activity at assisted living facility * Etiology of seizure unclear. No alcohol use. No hypoglycemia. Likely due to history of CVA * Head CT with no acute finding * Brain MRI shows normal brain and no acute findings * EEG completed 01/27 which was abnormal, findings may be related to metabolic encephalopathy vs post-ictal state * Neurology consulted and appreciate recommendations. * Continue Keppra 500 mg b.i.d. per neurology recommendations * Seizure precautions * Follow up in the Neurology clinic in 3 months (2) Hypoxia: Code(s): R09.02 - Hypoxemia Status: Acute Assessment and Plan: Patient hypoxic in the upper 80s requiring 1 L supplemental O2 * CXR reveals findings of bronchiolitis vs atypical/viral pneumonia * COVID and influenza negative * Patient is afebrile without sputum changes or leukocytosis to suggest acute infection. No indication for antibiotics. * Patient with diffuse wheezing on exam. No formal diagnosis of COPD, however reports smoking history and wheezing episodes * Continue albuterol and ipratropium nebs q4h scheduled. * Continue prednisone 40 mg daily x5 days. First dose 01/27 (day 3 of 5) * Supportive care. Expectorants, incentive spirometry, Cornet valve * Weaned supplemental oxygen to keep sats>92%. * Repeat chest x-ray in am. (3) Generalized weakness: Code(s): R53.1 - Weakness Status: Acute Assessment and Plan: Noted by nursing staff to have difficulty with ambulation. * Appreciate PT/OT evals * Implement fall precautions * Patient not at functional level to return to assisted living. Will need SNF placement. Appreciate care coordination assistance. Awaiting insurance authorization (4) Hypocalcemia: Code(s): E83.51 - Hypocalcemia Status: Acute Assessment and Plan: Resolved. * Ionized calcium 4.7 * Vitamin D 25-OH level 30. * PTH level slightly increased, which is expected date hypocalcemia * Calcium improved with supplementation. 9.0 today * Continue home PO calcium/vitamin D3 daily supplement (5) Hypokalemia: Code(s): E87.6 - Hypokalemia Status: Acute Assessment and Plan: Resolved. Potassium 4.4 today * Monitor BMP (6) Hemorrhoid: Qualifiers: Hemorrhoid type: unspecified Qualified Code(s): K64.9 - Unspecified hemorrhoids Code(s): K64.9 - Unspecified hemorrhoids Status: Acute Assessment and Plan: Patient complains of pain from hemorrhoids with bleeding per rectum on tissue with wiping * Supportive care. * Anusol suppository prn * Metamucil daily * No active bleeding with stable H&H (7) Abnormal TSH: Code(s): R79.89 - Other specified abnormal findings of blood chemistry Status: Acute Assessment and Plan: TSH is low at 0.061 with normal free T4 and low total T3. * repeat reflex TSH in 4-6 weeks for further monitoring outpatient. (8) History of CVA (cerebrovascular accident): Code(s): Z86.73 - Personal history of transient ischemic attack (TIA), and cerebral infarction without residual deficits Status: Chronic Assessment and Plan: Appears to have residual expressive aphasia. appears at baseline. Plan CODE STATUS; FULL CODE Disposition: [facility] pending authorization Time Spent With Patient Time with patient: 15 - 25 minutes
--- NOTE | 2022-01-29 13:39 | PM.IMPN ---
Progress Note: A&P Assessment and Plan (1) New onset seizure: Code(s): R56.9 - Unspecified convulsions Status: Acute Assessment and Plan: Witnessed seizure-like activity at assisted living facility Etiology of seizure unclear. No alcohol use. No hypoglycemia. Likely due to history of CVA Head CT with no acute finding Brain MRI shows normal brain and no acute findings EEG completed 01/27 which was abnormal, findings may be related to metabolic encephalopathy vs post-ictal state Neurology consulted and appreciate recommendations. Continue Keppra 500 mg b.i.d. per neurology recommendations Seizure precautions Follow up in the Neurology clinic in 3 months (2) Hypoxia: Code(s): R09.02 - Hypoxemia Status: Acute Assessment and Plan: Patient hypoxic in the upper 80s requiring 1 L supplemental O2 CXR reveals findings of bronchiolitis vs atypical/viral pneumonia COVID and influenza negative Patient is afebrile without sputum changes or leukocytosis to suggest acute infection. No indication for antibiotics. Patient with diffuse wheezing on exam. No formal diagnosis of COPD, however reports smoking history and wheezing episodes Continue albuterol and ipratropium nebs q4h scheduled. Continue prednisone 40 mg daily x5 days. First dose 01/27 (day 3 of 5) Supportive care. Expectorants, incentive spirometry, Cornet valve Weaned supplemental oxygen to keep sats>92%. Repeat chest x-ray in am. (3) Generalized weakness: Code(s): R53.1 - Weakness Status: Acute Assessment and Plan: Noted by nursing staff to have difficulty with ambulation. Appreciate PT/OT evals Implement fall precautions Patient not at functional level to return to assisted living. Will need SNF placement. Appreciate care coordination assistance. Awaiting insurance authorization (4) Hypocalcemia: Code(s): E83.51 - Hypocalcemia Status: Acute Assessment and Plan: Resolved. Ionized calcium 4.7 Vitamin D 25-OH level 30. PTH level slightly increased, which is expected date hypocalcemia Calcium improved with supplementation. 9.0 today Continue home PO calcium/vitamin D3 daily supplement (5) Hypokalemia: Code(s): E87.6 - Hypokalemia Status: Acute Assessment and Plan: Resolved. Potassium 4.4 today Monitor BMP (6) Hemorrhoid: Qualifiers: Hemorrhoid type: unspecified Qualified Code(s): K64.9 - Unspecified hemorrhoids Code(s): K64.9 - Unspecified hemorrhoids Status: Acute Assessment and Plan: Patient complains of pain from hemorrhoids with bleeding per rectum on tissue with wiping Supportive care. Anusol suppository prn Metamucil daily No active bleeding with stable H&H (7) Abnormal TSH: Code(s): R79.89 - Other specified abnormal findings of blood chemistry Status: Acute Assessment and Plan: TSH is low at 0.061 with normal free T4 and low total T3. repeat reflex TSH in 4-6 weeks for further monitoring outpatient. (8) History of CVA (cerebrovascular accident): Code(s): Z86.73 - Personal history of transient ischemic attack (TIA), and cerebral infarction without residual deficits Status: Chronic Assessment and Plan: Appears to have residual expressive aphasia. appears at baseline. Plan CODE STATUS; FULL CODE Disposition: [facility] pending authorization Time Spent With Patient Time with patient: 15 - 25 minutes Subjective Date/time seen: 01/29/22 13:39 Interval history: Patient sitting up in the bed. She reports persistent wheezing. No chest pain. Her cough is nonproductive. No fever, chills, rigors or diaphoresis. Review of Systems Review of Systems: All systems reviewed & are unremarkable except as noted in HPI and below Exam Narrative: General: Well-developed older adult female, sitting up in bed, no acute distress. Neuro: awake, alert and kevin
[2022-01-30] VITALS (11 sets, daily range): BP systolic 135–154; BP diastolic 51–67; PULSE 65–87; RESP 16–20; TEMP 35.5–36.6; O2SAT 91–98
[2022-01-30] MEDS: ALBUTEROL SULFATE NEB 2.5 MG/3 ML INH INHALATION ×4 (00:48→11:39)
[2022-01-30] MEDS: IPRATROPIUM BR 0.02% INH SOLN 0.5 MG/2.5 ML VIAL INHALATION ×4 (00:48→11:39)
[2022-01-30] MEDS: ACETAMINOPHEN 325 MG TABLET 650 MG PO (04:34)
[2022-01-30] MEDS: guaiFENesin 12 HR 600 MG TABCR PO ×2 (08:34→20:46)
[2022-01-30] MEDS: predniSONE 20 MG TABLET 40 MG PO (08:34)
[2022-01-30] MEDS: levETIRAcetam 500 MG TABLET PO ×2 (08:35→20:46)
[2022-01-30] MEDS: PSYLLIUM POWDER PACKET 1 PACKET PO (08:35)
[2022-01-30] MEDS: ROSUVASTATIN 10 MG TABLET 40 MG PO (08:35)
--- NOTE | 2022-01-30 14:44 | PC.NURSE ---
On 01/30/22, the student, [Kay Santos], provided care and completed [facility] documentation on this patient. I have reviewed the student's documentation and agree with the findings.
--- NOTE | 2022-01-30 15:38 | P.PNIM_ITS ---
Progress Note: A&P Assessment and Plan (1) New onset seizure: Code(s): R56.9 - Unspecified convulsions Status: Acute Assessment and Plan: Witnessed seizure-like activity at assisted living facility * Etiology of seizure unclear. No alcohol use. No hypoglycemia. Likely due to history of CVA * Head CT with no acute finding * Brain MRI shows normal brain and no acute findings * EEG completed 01/27 which was abnormal, findings may be related to metabolic encephalopathy vs post-ictal state * Neurology consulted and appreciate recommendations. * Continue Keppra 500 mg b.i.d. per neurology recommendations * Seizure precautions * Follow up in the Neurology clinic in 3 months (2) Bronchiolitis: Code(s): J21.9 - Acute bronchiolitis, unspecified Status: Acute Assessment and Plan: Patient hypoxic in the upper 80s requiring 1 L supplemental O2 * CXR reveals findings of bronchiolitis vs atypical/viral pneumonia * COVID and influenza negative * Patient is afebrile without sputum changes or leukocytosis to suggest acute infection. No indication for antibiotics. * Patient with diffuse wheezing on exam. No formal diagnosis of COPD, however reports smoking history and wheezing episodes * Continue albuterol and ipratropium nebs q4h scheduled. * Continue prednisone 40 mg daily x5 days. First dose 01/27 (day 4 of 5) * Supportive care. Expectorants, incentive spirometry, Cornet valve * Weaned supplemental oxygen to keep sats>92%. * 01/30/22 Repeat chest x-ray with mild atelectasis in left lung base, but no acute infection * 01/30/22 Add Incruse Ellipta 1 puff daily. She reports smoking 2 packs of cigarettes since age 16 yo and quit several months ago, suggesting underlying COPD. Continue duonebs QID PRN. * Recommend outpatient PFT testing at discharge (3) Hypoxia: Code(s): R09.02 - Hypoxemia Status: Acute (4) Generalized weakness: Code(s): R53.1 - Weakness Status: Acute Assessment and Plan: Noted by nursing staff to have difficulty with ambulation. * Appreciate PT/OT evals * Implement fall precautions * Patient not at functional level to return to assisted living. Will need SNF placement. Appreciate care coordination assistance. Awaiting insurance authorization (5) Hypocalcemia: Code(s): E83.51 - Hypocalcemia Status: Acute Assessment and Plan: Resolved. * Ionized calcium 4.7 * Vitamin D 25-OH level 30. * PTH level slightly increased, which is expected date hypocalcemia * Calcium improved with supplementation. 9.0 today * Continue home PO calcium/vitamin D3 daily supplement (6) Hypokalemia: Code(s): E87.6 - Hypokalemia Status: Acute Assessment and Plan: Potassium 4.3 * Stable. (7) Hemorrhoid: Qualifiers: Hemorrhoid type: unspecified Qualified Code(s): K64.9 - Unspecified hemorrhoids Code(s): K64.9 - Unspecified hemorrhoids Status: Acute Assessment and Plan: Patient complains of pain from hemorrhoids with bleeding per rectum on tissue with wiping * Supportive care. * Anusol suppository prn * Metamucil daily * No active bleeding with stable H&H (8) Abnormal TSH: Code(s): R79.89 - Other specified abnormal findings of blood chemistry Status: Acute Assessment and Plan: TSH is low at 0.061 with normal free T4 and low total T3. * repeat reflex TSH in 4-6 weeks for further monitoring outpatient. (9) History of CVA (cerebrovascular accident): Code(s):
--- NOTE | 2022-01-30 15:38 | PM.IMPN ---
Progress Note: A&P Assessment and Plan (1) New onset seizure: Code(s): R56.9 - Unspecified convulsions Status: Acute Assessment and Plan: Witnessed seizure-like activity at assisted living facility Etiology of seizure unclear. No alcohol use. No hypoglycemia. Likely due to history of CVA Head CT with no acute finding Brain MRI shows normal brain and no acute findings EEG completed 01/27 which was abnormal, findings may be related to metabolic encephalopathy vs post-ictal state Neurology consulted and appreciate recommendations. Continue Keppra 500 mg b.i.d. per neurology recommendations Seizure precautions Follow up in the Neurology clinic in 3 months (2) Bronchiolitis: Code(s): J21.9 - Acute bronchiolitis, unspecified Status: Acute Assessment and Plan: Patient hypoxic in the upper 80s requiring 1 L supplemental O2 CXR reveals findings of bronchiolitis vs atypical/viral pneumonia COVID and influenza negative Patient is afebrile without sputum changes or leukocytosis to suggest acute infection. No indication for antibiotics. Patient with diffuse wheezing on exam. No formal diagnosis of COPD, however reports smoking history and wheezing episodes Continue albuterol and ipratropium nebs q4h scheduled. Continue prednisone 40 mg daily x5 days. First dose 01/27 (day 4 of 5) Supportive care. Expectorants, incentive spirometry, Cornet valve Weaned supplemental oxygen to keep sats>92%. 01/30/22 Repeat chest x-ray with mild atelectasis in left lung base, but no acute infection 01/30/22 Add Incruse Ellipta 1 puff daily. She reports smoking 2 packs of cigarettes since age 16 yo and quit several months ago, suggesting underlying COPD. Continue duonebs QID PRN. Recommend outpatient PFT testing at discharge (3) Hypoxia: Code(s): R09.02 - Hypoxemia Status: Acute (4) Generalized weakness: Code(s): R53.1 - Weakness Status: Acute Assessment and Plan: Noted by nursing staff to have difficulty with ambulation. Appreciate PT/OT evals Implement fall precautions Patient not at functional level to return to assisted living. Will need SNF placement. Appreciate care coordination assistance. Awaiting insurance authorization (5) Hypocalcemia: Code(s): E83.51 - Hypocalcemia Status: Acute Assessment and Plan: Resolved. Ionized calcium 4.7 Vitamin D 25-OH level 30. PTH level slightly increased, which is expected date hypocalcemia Calcium improved with supplementation. 9.0 today Continue home PO calcium/vitamin D3 daily supplement (6) Hypokalemia: Code(s): E87.6 - Hypokalemia Status: Acute Assessment and Plan: Potassium 4.3 Stable. (7) Hemorrhoid: Qualifiers: Hemorrhoid type: unspecified Qualified Code(s): K64.9 - Unspecified hemorrhoids Code(s): K64.9 - Unspecified hemorrhoids Status: Acute Assessment and Plan: Patient complains of pain from hemorrhoids with bleeding per rectum on tissue with wiping Supportive care. Anusol suppository prn Metamucil daily No active bleeding with stable H&H (8) Abnormal TSH: Code(s): R79.89 - Other specified abnormal findings of blood chemistry Status: Acute Assessment and Plan: TSH is low at 0.061 with normal free T4 and low total T3. repeat reflex TSH in 4-6 weeks for further monitoring outpatient. (9) History of CVA (cerebrovascular accident): Code(s): Z86.73 - Personal history of transient ischemic attack (TIA), and cerebral infarction without residual deficits Status: Chronic Assessment and Plan: Appears to have residual expressive aphasia. appears at baseline. Plan CODE STATUS; FULL CODE Disposition: SNF pending authorization Subjective Date/time seen: 01/30/22 15:38 Interval history: Patient sitting up in the bed. She reports her breathing is improved today and she
[2022-01-31 04:30] VITALS: BP 100/73; PULSE 83; RESP 18; TEMP 36; O2SAT 98
--- NOTE | 2022-01-31 08:21 | PM.DS ---
DS: Admitting Diagnosis Discharge Date 01/31/22820 Admitting Diagnosis New onset seizure Hypocalcemia Hypokalemia TIA, history of Hypertension, chronic Hyperlipidemia, chronic DS: Discharge Diagnosis Discharge Diagnosis (1) New onset seizure: Code(s): R56.9 - Unspecified convulsions Status: Acute (2) Bronchiectasis: Qualifiers: Bronchiectasis type: with acute exacerbation Qualified Code(s): J47.1 - Bronchiectasis with (acute) exacerbation Code(s): J47.9 - Bronchiectasis, uncomplicated Status: Acute (3) Hypoxia: Code(s): R09.02 - Hypoxemia Status: Acute (4) Generalized weakness: Code(s): R53.1 - Weakness Status: Acute (5) Hypocalcemia: Code(s): E83.51 - Hypocalcemia Status: Acute (6) Hypokalemia: Code(s): E87.6 - Hypokalemia Status: Acute (7) Hemorrhoid: Qualifiers: Hemorrhoid type: unspecified Qualified Code(s): K64.9 - Unspecified hemorrhoids Code(s): K64.9 - Unspecified hemorrhoids Status: Acute (8) Abnormal TSH: Code(s): R79.89 - Other specified abnormal findings of blood chemistry Status: Acute (9) History of CVA (cerebrovascular accident): Code(s): Z86.73 - Personal history of transient ischemic attack (TIA), and cerebral infarction without residual deficits Status: Chronic DS: Summary Hospital Course Reason for hospitalization: Seizure Hospital Course: Samantha Rojas is a ?66-year-old female patient with history of TIA, hypertension and hyperlipidemia. She is a former smoker with approximate 100 pack-year smoking history. She presented to the ED for evaluation of possible seizure. The patient was found sitting in her chair by housekeeping at [facility] [employer] and thought to have had seizure-like activity.?Reportedly, she had tonic-clonic activity, lasting for about 30 seconds.?She has no prior history of seizures. Following this, the patient was confused. Upon arrival to the ED, she was awake and orientated. Her baseline is a and O x4.? She denied fever or chills.? Lab work showed H&H is 11.8 and 34.5, sodium is 133 and potassium is 3.3.? Her calcium was 7.5.? Her UA was negative for acute infection.? Chest x-ray was consistent with bronchiolectasis versus an atypical or viral pneumonia.? Head CT was negative to acute abnormality.? The patient reported she was just having a coughing fit and not having seizures, however the patient does not remember much about what happened after that.? She was given potassium, calcium carbonate and calcium gluconate.? Neurology was consulted in the ED.? She was admitted to the medical floor for further evaluation of possible new onset seizures. New onset seizure The patient presented to the ED with witnessed seizure-like activity at assisted living facility. Initial etiology of seizure unclear but thought to be related to prior stroke. The patient has no alcohol use and was not hypoglycemic. Head CT was with no acute finding. Brain MRI showed normal brain and no acute findings. EEG completed 01/27 was abnormal, showed findings possibly related to metabolic encephalopathy vs post-ictal state. Neurology was consulted and assisted with management. She was continued on keppra 1000 mg po BID. She had no further seizure-like activity. She was recommended to follow- up in the Neurology clinic in 3 months. Bronchiectasis The patient was reportedly hypoxic with SpO2 in the upper 80s requiring 1 L supplemental O2. Chest x-ray revealed findings of bronchiolitis vs atypical/viral pneumonia. COVID and influenza testes were negative. Patient was afebrile without sputum changes or leukocytosis to suggest acute infection.? No indication for antibiotics was found. She was noted to have diffuse wheezing on exam, however.? No formal diagnosis of COPD has been made, however, she has an extensive smoking history of 2 packs per day since the age of 16. She report
[2022-01-31] MEDS: ROSUVASTATIN 10 MG TABLET 40 MG PO (08:41)
[2022-01-31] MEDS: levETIRAcetam 500 MG TABLET PO (08:41)
[2022-01-31] MEDS: PSYLLIUM POWDER PACKET 1 PACKET PO (08:41)
[2022-01-31] MEDS: predniSONE 20 MG TABLET 40 MG PO (08:41)
[2022-01-31] MEDS: guaiFENesin 12 HR 600 MG TABCR PO (08:41)
[2022-01-31] MEDS: UMECLIDINIUM BROMIDE 62.5 MCG ELLIPTA 1 PUFF INHALATION (09:28)
[2022-01-31] MEDS: ACETAMINOPHEN 325 MG TABLET 650 MG PO (09:58)
[2022-01-31 11:33] LABS: EDCOVIDSCREEN Negative (Negative)
--- NOTE | 2022-01-31 13:17 | PC.NURSE ---
On 01/31/22, the student, [Clemencia Mayorga], provided care and completed [facility] documentation on this patient. I have reviewed the student's documentation and agree with the findings.
== END 2022-01-31 13:25 | DRG 192 ==
LOC: ANHED 16:14 → ANH2MED 17:37
PROVIDERS: Internal Medicine; Nurse Practitioner; Physician Assistant; Admitting Provider Student in an Organized Health Care Education/Training Program; Emergency Provider Emergency Medicine; PCP Internal Medicine Infectious Disease; Visit Provider Nurse Practitioner Family
DX: J47.1 Bronchiectasis with (acute) exacerbation (principal); I69.398 Other sequelae of cerebral infarction; R56.9 Unspecified convulsions; R09.02 Hypoxemia; R53.1 Weakness; I10 Essential (primary) hypertension; E78.5 Hyperlipidemia, unspecified; E83.51 Hypocalcemia; E87.6 Hypokalemia; K64.9 Unspecified hemorrhoids; R79.89 Other specified abnormal findings of blood chemistry; Z20.822 Contact with and (suspected) exposure to COVID-19; Z87.891 Personal history of nicotine dependence
CPT/HCPCS: 36415; 51701; 70450; 70553; 71045; 80048; 80053; 80069; 81001; 82306; 82310; 82330; 82948; 83605; 83735; 83970; 84100; 84132; 84146; 84439; 84443; 84480; 85025; 85027; 85055; 85610; 85730; 87426; 87804; 93005; 94640; 94667; 94668; 95816; 96366; 96367; 96374; 97110; 97161; 97165; 97530; 97535; 99285; A9270; C9803; G0378; J0610; J3480; J7040; J7512; U0003; U0005

== ENCOUNTER 2024-02-19 02:05 | Inpatient (IN) | payer OTHER, SELFPAY ==
[2024-02-19] VITALS (34 sets, daily range): BP systolic 79–139; BP diastolic 35–110; PULSE 74–178; RESP 15–25; TEMP 36.2–37.1; O2SAT 86–100; BMI 35.9
--- NOTE | 2024-02-19 | ECHO_ITS ---
Patient Info Name: Samantha Rojas Age: 68 years : 1955 Gender: Female Ht: 63 in Wt: 202 lbs BSA: 2.06 m2 HR: 82 bpm BP: 134 / 40 mmHg Technical Quality: Poor Exam Date: 02/19/2024 4:02 PM Exam Location: Echo Lab Patient Status: Outpatient Admit Date: 02/19/2024 Staff Ordering Physician: Vasyl Michaels MD Coat Repair Inspector: Alondra Marin RDCS Attending Provider: Teddy Xie MD Exam Type: CA echo dop color flow w con Study Info Indications - A-FIB Complete two-dimensional, color flow and Doppler transthoracic echocardiogram is performed with contrast to opacify the left ventricle and to improve the deliniation of the left ventricle endocardial borders. Contrast/Agitated Saline Contrast/Ag. Saline: Definity Amount: 2.00 ml Existing IV Access: Yes Reason for Poor Study: patient body habitus Summary 1. This is a technically difficult study. 2. The left and right ventricular systolic function is normal in the available views. 3. There is no significant valvular disease in available views. Left Ventricle The left ventricle is normal in size and systolic function. The left ventricular ejection fraction is visually estimated to be 50-55%. Right Ventricle The right ventricle is normal in size and systolic function. Left Atria Left atrium was not well visualized. Right Atria Right atrium was not well visualized. Atrial Septum The atrial septum visually appears intact. Aortic Valve The aortic valve is probably trileaflet and opens well. There is no aortic regurgitation. Pulmonic Valve The pulmonic valve is not well visualized. There is no color Doppler evidence of pulmonic valve regurgitation. Mitral Valve The mitral valve is grossly normal. There is no mitral regurgitation. Tricuspid Valve The tricuspid valve is grossly normal. There is trace tricuspid regurgitation. Pericardium/Pleural Pericardium is normal in appearance with no evidence for significant pericardial effusion. Inferior Vena Cava Dilated inferior vena cava with <50% collapse upon inspiration consistent with elevated right atrial pressure, 10 mmHg. Aorta The aortic root is not well visualized. Left Ventricular Outflow Tract Name Value Normal LVOT 2D LVOT Diameter 1.77 cm LVOT Doppler LVOT Peak Gradient 2 mmHg LVOT Mean Gradient 1 mmHg LVOT VTI 15.93 cm LVOT VTI/AV VTI Ratio 0.81 LVOT Stroke Volume 39.22 ml LVOT CO 3.44 l/min LVOT CI 1.67 L/min/m2 Pulmonic Valve Name Value Normal RVOT Doppler RVOT Peak Gradient 1 mmHg PV Doppler PV Peak Gradient 2 mmHg Mitral Valve Name Value Normal MV Doppler MV Decel [place] 693.64 cm/s2 MV PHT 0 s MV Area (PHT) 6.41 cm2 4.00-5.00 MV Diastolic Function MV E Peak Velocity 82.04 cm/s MV A Peak Velocity 75.11 cm/s MV E/A 1.09 MV Decel Time 0 s Tricuspid Valve Name Value Normal TV Regurgitation Doppler TR Peak Velocity 274.16 cm/s TR Peak Gradient 30 mmHg Estimated PAP/RSVP RA Pressure 10 mmHg <=5 PA Systolic Pressure 40 mmHg <36 RV Systolic Pressure 40 mmHg <36 Aorta Name Value Normal Ascending Aorta Ao Root Diameter (MM) 2.66 cm Ao Root Diam Index (MM) 1.29 cm/m2 Aortic Valve Name Value Normal AV Doppler AV Peak Velocity 95.11 cm/s AV Peak Gradient 3 mmHg AV Mean Gradient 1 mmHg AV VTI 19.67 cm AV Area (Cont Eq VTI) 1.99 cm2 >=3.00 AV Area (Cont Eq Reza) 2.16 cm2 AV Regurgitation 2D LVOT Area 2.46 cm2 Ventricles Name Value Normal LV Dimensions 2D/MM IVS Diastolic Thickness (2D) 0.98 cm 0.60-1.00 LVID Diastole (2D) 4.24 cm 3.80-5.20 LVIW Diastolic Thickness (2D) 1.42 cm 0.60-0.90 LVID Systole (2D) 2.94 cm 2.20-3.50 LVOT Diameter 1.77 cm LV Mass (2D Cubed) 181.17 g 67.00-162.00 LV Mass Index (2D Cubed) 0.01 g/cm2 0.00-0.01 Relative Wall Thickness (2D) 0.67 LV Fractional Shortening/Ejection Fraction 2D/MM LV Fractional Shortening (2D) 35 % 27-45 LV EF (2D Teicholz) 65 % 54-74 LV Diastolic Volume (4C MOD) 91.51 ml LV EF (4C MOD) 53 % LV Diastolic Volume (2C MOD) 60.31 ml LV EF (2C MOD) 69 % LV Diastolic Volume (BP MOD) 74.35 ml 46.00-106.00 LV Diastolic Volume Index (BP MOD) 0.04 l/m2 0.03-0.06 LV Systolic Volume (BP MOD) 29.25 ml 14.00-42.00 LV Systolic Volume Index (BP MOD) 0.01 l/m2 0.01-0.02 LV EF (BP MOD) 61 % 54-74 LV Diastolic Length (4C) 7.18 cm LV Systolic Length (4C) 6.41 cm LV Stroke Volume (4C MOD) 48.38 ml Atria Name Value Normal LA Dimensions LA Dimension (MM) 4.07 cm 2.70-3.80 Report Signatures
--- NOTE | ~2024-02-19 | CT_ITS ---
Non-contrast Head CT History: Head injury COMPARISON: 01/23/2022 Technique: Axial non-contrast imaging of the brain was performed. Dose reduction technique was used on this scan by utilizing automated exposure control and iterative reconstruction technique. The dose -length product (DLP) was 681.00 mGy-cm. Findings: There is no evidence of intracranial hemorrhage, mass lesion, or acute infarct. Brain par enchyma appears normal. The ventricles and subarachnoid spaces are normal in size. The calvarium ap pears normal. The visualized paranasal sinuses and mastoid air cells are clear. Impression: No significant abnormality seen. Reviewed, dictated and finalized at location . MACY TECHNICIAN TRAINEE Impression: No significant abnormality seen.
--- NOTE | ~2024-02-19 | US_ITS ---
EXAMINATION: US abdomen limited DATE: 02/22/2024 18:51 INDICATION: Increased AST and LFT TECHNIQUE: Multiple grayscale and Doppler ultrasound images of limited portions of the abdomen were o btained. COMPARISON: None available. FINDINGS: Pancreas poorly visualized. Liver poorly visualized. Normal hepatopetal flow in the main po rtal vein. The gallbladder is grossly normal with no abnormal wall thickening, pericholecystic fluid or stones. Likely gallbladder sludge. The common bile duct measures 3 mm. There was no sonographic Mu rphy sign. IMPRESSION: Limited visualization of the pancreas and liver. Biliary sludge, otherwise normal-appearing gallbladd er. Reviewed, dictated and finalized at location K. S SUPPORT ADMINISTRATOR IMPRESSION: Limited visualization of the pancreas and liver. Biliary sludge, otherwise norm al-appearing gallbladder.
--- NOTE | ~2024-02-19 | XR_ITS ---
Lumbosacral Spine: AP and lateral views Clinical History: Pain Findings: There is mild dextroscoliosis. There is moderate compression fracture of what is probably L 1. There is severe facet arthropathy throughout the lumbar spine. There is moderate advanced degenera tive disc change throughout the lumbar spine. There is extensive atherosclerotic change of the aorta. The sacroiliac joints are normally outlined. Impression: Moderate compression fracture of probably L1. Severe degenerative spondylosis in the lumbar spine. Reviewed, dictated and finalized at location M. STORE MANAGER Impression: Moderate compression fracture of probably L1. Severe degenerative spondylosis in the lumbar spine.
--- NOTE | ~2024-02-19 | XR_ITS ---
Clinical Indication: Palpitations AP and lateral views of the chest: Comparison: 01/30/2022 Findings: The lungs are clear, without evidence of focal consolidation or pleural effusion. Cardiome diastinal silhouette is within normal limits. Bones and soft tissues are unremarkable. Impression: Normal chest. Reviewed, dictated and finalized at [facility]. TY COURT JUDGE Impression: Normal chest.
[2024-02-19] MEDS: dilTIAZem HCl INJ 25 MG/5 ML VIAL 10 MG IV PUSH (02:19)
[2024-02-19 02:28] LABS: Basophils Percent Auto 0.2 % (0.2-1.2); Eosinophils Absolute Auto 0.1 K/mm3 (0-0.3); Eosinophils Percent Auto 0.3 % (0-4.4); Hematocrit 36.9 % (37.0-47.0); Hemoglobin 12.5 g/dL (12.0-15.0); Lymphocytes Absolute Auto 1.46 K/mm3 (0.9-3.2); Lymphocytes Percent Auto 7.6 % (18.3-44.2); Mean Corpuscular HGB Conc 33.9 g/dl (32-36); Mean Corpuscular Hemoglobin 33.4 pg (26-34); Mean Corpuscular Volume 98.7 fl (80-100); Mean Platelet Volume 10.4 fl (7.4-10.4); Monocytes Absolute Auto 1.9 K/mm3 (0.1-0.6); Monocytes Percent Auto 9.9 % (2.6-8.5); Neutrophils Absolute Auto 15.6 K/mm3 (1.3-6.7); Platelet Count Result 229 k/mm3 (150-375); Red Blood Count 3.74 M/mm3 (4.2-5.4); Red Cell Distribution Width 14.7 % (11.5-14.5); White Blood Count 19.2 K/mm3 (4.5-10.0)
[2024-02-19 02:41] LABS: Albumin Level 3.6 g/dL (3.5-5.1); Alkaline Phosphatase 100 U/L (38-126); Anion Gap 14 mmol/L (4-12); Aspartate Amino Transferase 82 U/L (14-36); Bilirubin,Total 1.2 mg/dL (0.2-1.3); Blood Urea Nitrogen 7 mg/dL (7-17); Calcium 8.5 mg/dL (8.4-10.2); Carbon Dioxide 22 mmol/L (22-30); Chloride 85 mmol/L (98-107); Estimated CRCL calculation 81 ml/min; Estimated Glomerular Filt Rate > 60; Glucose 129 mg/dL (65-110); Potassium 3.4 mmol/L (3.4-5.0); Sodium 121 mmol/L (137-145)
[2024-02-19] MEDS: SODIUM CHLORIDE 0.9% IV 1,000 ML 999 ML IV CONT ×2 (02:43→05:21)
[2024-02-19 02:44] LABS: Alanine Aminotransferase 33 U/L (6-35)
[2024-02-19 02:52] LABS: NT Pro B Type Natriuretic Pept 5470 pg/mL (19.9-100)
[2024-02-19] MEDS: AMIODARONE 150 MG/D5W 100 ML 150 MG/100 ML BAG 600 MG IV CONT (03:07)
[2024-02-19 03:16] LABS: Add Urine Microscopic? YES; Appearance Urine Cloudy (Clear); Bacteria Urine 4+ /hpf; Bilirubin Urine Negative (Negative); Blood Urine 3+ (Negative); Budding Yeast Urine Present /hpf; Color Urine Yellow (Yellow); Glucose Urine UA Negative (Negative); Hyaline Casts Urine Present /lpf; Ketones Urine 2+ mg/dL (Negative); Leukocyte Esterase Ur 1+ LEU/UL (Negative); Mucus Urine Present /lpf; Need Manual Microscopic Reviewed; Nitrate Urine Positive (Negative); Non Pathogenic Casts 0-2; Protein Urine 2+ mg/dL (Negative); RBC Urine 21-50 /hpf (0-2); Specific Grav Ur 1.015 (1.001-1.035); Squamous Epithelial Cell Urine None Seen /hpf (Few); WBC Urine 21-50 /hpf (0-3); pH Urine 6.5 (5.0-9.0)
[2024-02-19] MEDS: AMIODARONE 360 MG/D5W 200 ML 360 MG/200 ML BAG 33.33 MG IV CONT (03:16)
--- NOTE | 2024-02-19 03:21 | ECG_ITS ---
Test Date: 2024-02-19 02:10:51 Measurements Intervals [place] Rate: 185 P: 0 ID: 0 QRS: 68 QRSD: 91 T: 26 QT: 233 QTc: 409 Interpretive Statements ATRIAL FIBRILLATION WITH RAPID VENTRICULAR RESPONSE WITH FREQUENT ABERRANT CONDUCTION OR VENTRICULAR PREMATURE COMPLEXES INCOMPLETE RIGHT BUNDLE BRANCH BLOCK NONSPECIFIC ST & T-WAVE ABNORMALITY- INFERIOR LEADS ABNORMAL ECG No previous ECG available for comparison Electronically Signed On 02-19-2024 06:24:54 DIRECTOR ERP by Lemuel Thompson D.O.
[2024-02-19 04:02] LABS: Lactic Acid Reflex 2.7 mmol/L (0.7-2.0)
--- NOTE | 2024-02-19 04:27 | ED_ITS ---
HPI - General Adult General Chief complaint: Weakness Stated complaint: weakness x 3d, diarrhea Time Seen by Provider: 02/19/24 02:10 Related Data Allergies Allergy/AdvReac Type Severity Reaction Status Date / Time No Known Allergies Allergy Verified 02/16/24 11:06 [facility] Past Medical History Medical History History of CVA (cerebrovascular accident) History of hypertension Hyperlipidemia Surgical History Surgical History H/O right wrist surgery H/O tubal ligation Family History Family History Father Cancer Mother Cancer Grandparent Diabetes mellitus Social History Social History Social History: The patient is single. She has 1 child. Patient quit smoking many years ago. She does not use any alcohol marijuana or illicit drugs. The patient does not have a durable power associate attorney for healthcare. The patient stated that she has from [facility]. 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 Code status full code Smoking status: Former smoker Tobacco type: cigarettes Alcohol intake: never Substance use: never Do You Feel Safe in your Home?: Yes Lack of Transportation: No Lack of Food: Never True Current Housing: I Have Housing Concerned About Future Housing: No Difficulty Paying Gas/Electric Bills: No Difficulty Paying for Meds: No Currently Unemployed: No Education: High School Diploma/GED Difficulty w/ Childcare or Family Care: No Spiritual care concerns: No Course Course Emergency Course: Heart rate improved with amiodarone. Blood pressure also improved with rate control. IV antibiotics started in regards to patient's UTI, elevated lactate, and white blood cell count. 30 milliliter/kilogram bolus was not initially given due to concerns for potential heart failure, but now we have rate control and we will give the remaining fluid. Vital Signs Vital signs: Vital Signs Temperature 98.7 F 02/19/24 02:06 Pulse Rate 178 H 02/19/24 02:06 Respiratory Rate 20 02/19/24 02:06 Blood Pressure 132/110 H 02/19/24 02:06 Pulse Oximetry 100 02/19/24 02:06 Oxygen Delivery Room Air 11/22/24 02:06 Temperature 98.7 F 02/19/24 02:06 Pulse Rate 80 02/19/24 06:48 Respiratory Rate 18 02/19/24 06:48 Blood Pressure 97/46 L 02/19/24 06:48 Pulse Oximetry 97 02/19/24 06:48 Oxygen Delivery Room Air 02/19/24 06:08 Oxygen Flow Rate 2 02/19/24 05:30 Medical Decision Making Vital Signs Vital Signs: Vital Signs Temperature 98.7 F 02/19/24 02:06 Pulse Rate 178 H 02/19/24 02:06 Respiratory Rate 20 02/19/24 02:06 Blood Pressure 132/110 H 02/19/24 02:06 Pulse Oximetry 100 02/19/24 02:06 Oxygen Delivery Room Air 02/19/24 02:06 Temperature 98.7 F 02/19/24 02:06 Pulse Rate 80 02/19/24 06:48 Respiratory Rate 18 02/19/24 06:48 Blood Pressure 97/46 L 02/19/24 06:48 Pulse Oximetry 97 02/19/24 06:48 Oxygen Delivery Room Air 02/19/24 06:08 Oxygen Flow Rate 2 02/19/24 05:30 Lab Data 02/19/24 02:20 02/19/24 02:20 Labs: Lab Results 02/19/24 02/19/24 02/19/24 Range/Units 02:20 02:55 03:48 WBC 19.2 H (4.5-10.0) K/mm3 RBC 3.74 L (4.2-5.4) M/mm3 Hgb 12.5 (12.0-15.0) g/dL Hct 36.9 L (37.0-47.0) % MCV 98.7 (80-100) fl MCH 33.4 (26-34) pg MCHC 33.9 (32-36) g/dl RDW 14.7 H (11.5-14.5) % Plt Count 229 D (150-375) k/mm3 MPV 10.4 (7.4-10.4) fl Immature Gran % (Auto) 1.0 H (0-0.5) % Neut % (Auto) 81.0 H (45.5-73.1) % Lymph % (Auto) 7.6 L (18.3-44.2) % [place] % (Auto) 9.9 H (2.6-8.5) % Eos % (Auto) 0.3 (0-4.4) % Baso % (Auto) 0.2 (0.2-1.2) % Lymph # (Auto) 1.46 (0.9-3.2) K/mm3 [place] # (Auto) 1.9 H (0.1-0.6) K/mm3 Eos # (Auto) 0.1 (0-0.3) K/mm3 Baso # (Auto) 0.0 (0.0-0.1) K/mm3 Abs Immat Gran (auto) 0.20 H (0.00-0.031) K/mm3 Absolute Neuts (auto) 15.6 H (1.3-6.7) K/mm3 Absolute Nucleated RBC 0.000 (0.0-0.012) K/mm3 Nucleated RBC % 0.0 (0.0-0.2) % Sodium 121 L (137-145) mmol/L Potassium 3.4 (3.4-5.0) mmol/L Chloride 85 L (98-107) mmol/L Carbon Dioxide 22 (22-30) mmol/L Anion Gap 14 H (4-12) mmol/L BUN 7 (7-17) mg/dL Creatinine 0.60 L (0.7-1.0) mg/dL Estim Creat Clear Calc 81 ml/min Estimated GFR > 60 (59 - ) Glucose 129 H (65-110) mg/dL Lactic Acid 2.7 H (0.7-2.0) mmol/L Calcium 8.5 (8.4-10.2) mg/dL Total Bilirubin 1.2 (0.2-1.3) mg/dL AST 82 H (14-36) U/L ALT 33 (6-35) U/L Alkaline Phosphatase 100 (38-126) U/L Troponin I 0.060 H* (0.000-0.034) ng/mL NT-Pro-B Natriuret Pep 5470 H (19.9-100) pg/mL Total Protein 7.0 (6.3-8.2) g/dL Albumin 3.6 (3.5-5.1) g/dL Urine Color Yellow (Yellow) Urine Appearance Cloudy H (Clear) Urine pH 6.5 (5.0-9.0) Ur Specific [place] 1.015 (1.001-1.035) Urine Protein 2+ H (Negative) mg/dL Urine Glucose (UA) Negative (Negative) mg/dL Urine Ketones 2+ H (Negative) mg/dL Ur Blood (Man) 3+ H (Negative) Urine Nitrate Positive H (Negative) Urine Bilirubin Negative (Negative) Urine Urobilinogen 1.0 (<2.0) mg/dL Add Ur Microanalysis Reviewed Leukocyte Esterase Rfl 1+ H (Negative) [place]/UL Urine RBC 21-50 H (0-2) /hpf Urine WBC 21-50 H (0-3) /hpf Ur Squamous Epith Cells None seen (Few) /hpf Urine Bacteria 4+ H /hpf Urine Casts 0-2 Hyaline Casts Present (None) /lpf Urine Mucus Present /lpf Urine Yeast (Budding) Present H (None) /hpf Imaging Data Radiologist's impression: CT head: No ICH, mass effect or edema, no skull fracture. Lumbar x-ray: No acute fracture noted. Chest x-ray: No acute cardiopulmonary process. ECG Data EKG #1: ECG completion date: 02/19/24 ECG completion time: 02:10 EKG Interpretation: tachycardia (185), atrial fibrillation, PVCs, non- specific ST changes, normal QT and NL axis Critical Care Time Critical Care Time Critical Care Time: Yes Total Critical Care Time: 35 Discharge Plan Discharge Clinical Impression: Acute UTI, Atrial fibrillation with RVR, Elevated troponin Patient Disposition: Still a Patient Condition: Stable
--- NOTE | 2024-02-19 04:38 | ECG_ITS ---
Test Date: 2024-02-19 04:43:41 Measurements Intervals [place] Rate: 89 P: 20 ND: 130 QRS: 60 QRSD: 97 T: 35 QT: 383 QTc: 467 Interpretive Statements SINUS RHYTHM WITH FREQUENT VENTRICULAR PREMATURE COMPLEXES INCOMPLETE RIGHT BUNDLE BRANCH BLOCK BASELINE ARTIFACT- I, II, AVR ABNORMAL ECG Compared to ECG 02/19/2024 02:10:51 Atrial fibrillation no longer present Electronically Signed On 02-19-2024 06:26:58 [employer] [employer] [place] by Lemuel Thompson D.O.
[2024-02-19] MEDS: fentaNYL CITRATE INJ (*CRX) 100 MCG/2 ML VIAL 50 MCG IV PUSH (05:18)
[2024-02-19] MEDS: SODIUM CHLORIDE 0.9% IV 900 ML 999 ML IV CONT (05:20)
--- NOTE | 2024-02-19 05:24 | PC.NURSE ---
Patient to receive 1900 mL to sepsis protocol per EDP; total 2900 mL Normal Saline.
--- NOTE | 2024-02-19 05:31 | PC.NURSE ---
EDP aware of desaturation to 85% after Fentanyl administration; placed on 2 LPM via nasal cannula.
[2024-02-19 06:51] LABS: Reflex Lactic Acid Yes or No Add Lactic
--- NOTE | 2024-02-19 07:00 | ADMGEN ---
This patient, Samantha Rojas, was admitted to IMU Room 231-01. Patient/family oriented to hospital policies and general routines including ID bracelet, bed and alarms, visiting hours, pain management, procedures, bathroom and other care routines, personal items, smoking policy, room service/diet, and visiting hours. Information on how to activate the Rapid Response Team has been discussed. Patient/Family are encouraged to report perceived risks to care and to ask questions if they do not understand what they are told or what they should do.
[2024-02-19 07:52] LABS: Lactic Acid 1.5 mmol/L (0.7-2.0)
[2024-02-19] MEDS: AMIODARONE 360 MG/D5W 200 ML 360 MG/200 ML BAG 16.67 MG IV CONT (09:21)
[2024-02-19] MEDS: ACETAMINOPHEN 325 MG TABLET 650 MG PO (11:25)
[2024-02-19] MEDS: SODIUM CHLORIDE 0.9% IV 1,000 ML 125 ML IV CONT ×2 (13:26→21:02)
[2024-02-19] MEDS: ENOXAPARIN 100 MG/ML SYRINGE 90 MG SUB-Q ×2 (13:27→23:41)
--- NOTE | 2024-02-19 15:24 | P.HP_ITS ---
H&P: HPI History of Present Illness Date/Time: 02/19/24 15:24 Chief Complaint: Weakness Narrative: patient is 68 y/o female a resident of assisted living came to ER with c/o weakness upon arrival patient was found to A. Fib with RVR rate of 185 and was started amiodarone and patient concerted to NSR and today after discssing with the handmade tile artist patient was started on Lovenox for anticoagulation. the amiodar one was discontinued and started patient on metoprolol and rate is uncontrolled, patient stats she had one episode of seizures several years ago and taking keppra. patient UA is suspicious for UTI and being treated with ceftriaxone will follow up on urine c/s [facility] Past Medical History Medical History History of CVA (cerebrovascular accident) History of hypertension Hyperlipidemia Surgical History Surgical History H/O right wrist surgery H/O tubal ligation Family History Family History Father Cancer Mother Cancer Grandparent Diabetes mellitus Social History Social History Social History: The patient is single. She has 1 child. Patient quit smoking many years ago. She does not use any alcohol marijuana or illicit drugs. The patient does not have a durable power vessel specialist for healthcare. The patient stated that she has from [facility]. 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 Code status full code Smoking packs per day: 2 Smoking cigarettes per day: 40.0 Years smoked: 45 Smoking pack-years: 90.00 Smoking status: Former smoker Tobacco type: cigarettes Alcohol intake: never Substance use: never Substance use type: does not use Do You Feel Safe in your Home?: Yes Lack of Transportation: No Lack of Food: Never True Current Housing: I Have Housing Concerned About Future Housing: No Difficulty Paying Gas/Electric Bills: No Difficulty Paying for Meds: No Currently Unemployed: No Education: High School Diploma/GED Difficulty w/ Childcare or Family Care: No Spiritual care concerns: No Meds Home Medications and Allergies Home Medications Medication Instructions Recorded Confirmed Type atorvastatin 80 mg tablet 80 mg PO QHS #30 tabs 02/16/24 02/19/24 Rx calcium 600 mg (as 1 tablet PO DAILY #30 tabs 02/16/24 02/19/24 Rx carbonate)-vitamin D3 20 mcg (800 unit) tablet (Caltrate with Vitamin D3) ergocalciferol (vitamin D2) 1,250 1 unit PO WEEKLY #7 caps 02/16/24 02/19/24 Rx mcg (50,000 unit) capsule (Vitamin D2) levetiracetam 500 mg tablet 500 mg PO Q12HR #60 tabs 02/16/24 02/19/24 Rx (Keppra) acetaminophen 325 mg tablet 650 mg PO Q6H PRN fever or pain 02/17/24 02/19/24 Rx #180 tabs umeclidinium 62.5 mcg/actuation 1 inh inhalation Q24H #30 ea 02/17/24 02/19/24 Rx blister powder for inhalation (Incruse Ellipta) albuterol sulfate 2.5 mg/3 mL 2.5 mg inhalation Q4H PRN sob 02/19/24 02/19/24 History (0.083 %) solution for nebulization bisacodyl 10 mg rectal suppository 10 mg RECTAL DAILY PRN constipation 02/19/24 02/19/24 History hydrocortisone acetate 25 mg 25 mg RECTAL DAILY PRN hemmorids 02/19/24 02/19/24 History rectal suppository (Anusol-HC) magnesium citrate 150 ml PO DAILY PRN constipation 02/19/24 02/19/24 History pseudoephedrine-guaifenesin ER 60 1 tablet PO Q12H PRN congestion 02/19/24 02/19/24 History mg-600 mg tablet,extend release 12hr (Mucinex D) psyllium 1 packet PO DAILY 02/19/24 02/19/24 History sodium phosphates 19 gram-7 118 ml RECTAL DAILY PRN 02/19/24 02/19/24 History gram/118 mL enema (Fleet Enema) Constipation Allergies Allergy/AdvReac Type Severity Reaction Status Date / Time No Known Allergies Allergy Verified 02/16/24 11:06 Vital Signs Vital Signs - 24 hr 02/19/24 02:06 02/19/24 02:59 02/19/24 03:07 Temperature 37.1 C Pulse Rate 178 H 161 H 166 H Respiratory Rate 20 20 Blood Pressure 132/110 H 86/60 L 79/35 L Pulse Oximetry 100 97 Oxygen Delivery Room Air Oxygen Flow Rate 02/19/24 03:16 02/19/24 03:19 02/19/24 03:19 Temperature Pulse Rate 138 H 126 H 138 H Respiratory Rate 19 Blood Pressure 92/42 L 92/42 L 92/42 L Pulse Oximetry 99 Oxygen Delivery Oxygen Flow Rate 02/19/24 04:47 02/19/24 04:54 02/19/24 05:27 Temperature Pulse Rate 90 91 Respiratory Rate 15 15 Blood Pressure 94/46 L 102/42 L Pulse Oximetry 97 97 86 L Oxygen Delivery Room Air Oxygen Flow Rate 02/19/24 05:31 02/19/24 05:30 02/19/24 06:08 Temperature Pulse Rate 76 Respiratory Rate 15 Blood Pressure 102/42 L Pulse Oximetry 99 97 97 Oxygen Delivery Nasal Cannula Room Air Oxygen Flow Rate 2 02/19/24 06:20 02/19/24 06:48 02/19/24 07:12 Temperature Pulse Rate 74 80 80 Respiratory Rate 18 18 Blood Pressure 94/52 L 97/46 L 116/56 L Pulse Oximetry 97 97 Oxygen Delivery Oxygen Flow Rate 02/19/24 07:00 02/19/24 06:51 02/19/24 09:21 Temperature 36.9 C Pulse Rate 81 89 Respiratory Rate 18 Blood Pressure 116/56 L 126/43 L Pulse Oximetry 91 Oxygen Delivery Room Air Oxygen Flow Rate 02/19/24 09:22 02/19/24 09:00 02/19/24 10:00 Temperature Pulse Rate 90 90 Respiratory Rate Blood Pressure Pulse Oximetry 96 Oxygen Delivery Room Air Oxygen Flow Rate 02/19/24 10:00 02/19/24 11:57 02/19/24 14:00 Temperature 36.3 C L Pulse Rate 84 82 75 Respiratory Rate 20 18 Blood Pressure 124/49 L 134/40 L 101/38 L Pulse Oximetry 100 Oxygen Delivery Oxygen Flow Rate Exam Narrative: Patient is comfortable, NAD HEENT: eyes are clear and none icteric LUNGS: Bilateral fair air with rales and rhonchi HEART: RR S1S2 ABD: BS+, Soft and nontender Lower extremities: edema SKIN: nonjaundiced Neuro: grossly intact. H&P: Results Labs Labs: Short CBC 02/19/24 Range/Units 02:20 WBC 19.2 H (4.5-10.0) K/mm3 Hgb 12.5 (12.0-15.0) g/dL Hct 36.9 L (37.0-47.0) % Plt Count 229 D (150-375) k/mm3 BMP 02/19/24 02:20 Sodium 121 L Potassium 3.4 Chloride 85 L Carbon Dioxide 22 BUN 7 Creatinine 0.60 L Glucose 129 H Calcium 8.5 Cardiac Enzymes 02/19/24 Range/Units 02:20 Troponin I 0.060 H* (0.000-0.034) ng/mL Liver Function 02/19/24 Range/Units 02:20 Total Bilirubin 1.2 (0.2-1.3) mg/dL AST 82 H (14-36) U/L ALT 33 (6-35) U/L Alkaline Phosphatase 100 (38-126) U/L Albumin 3.6 (3.5-5.1) g/dL Urine 02/19/24 Range/Units 02:55 Urine Color Yellow (Yellow) Urine Appearance Cloudy H (Clear) Urine pH 6.5 (5.0-9.0) Ur Specific [place] 1.015 (1.001-1.035) Urine Protein 2+ H (Negative) mg/dL Urine Glucose (UA) Negative (Negative) mg/dL Assessment and Plan Assessment and plan (1) Atrial fibrillation with RVR: Code(s): I48.91 - Unspecified atrial fibrillation Status: Acute Assessment and Plan: patient is 68 y/o female a resident of assisted living came to ER with c/o weakness upon arrival patient was found to A. Fib with RVR rate of 185 and was started amiodarone and patient concerted to NSR and today after discssing with the handmade tile artist patient was started on Lovenox for anticoagulation. the amiodarone was discontinued and started patient on metoprolol and rate is uncontrolled, (2) Seizure: Code(s): R56.9 - Unspecified convulsions Status: Acute Assessment and Plan: patient stats she had one episode of seizures several years ago and taking keppra. patient UA is suspicious for UTI and being treated with ceftriaxone will follow up on urine c/s (3) Acute UTI: Code(s): N39.0 - Urinary tract infection, site not specified Status: Acute Assessment and Plan: patient UA is suspicious for UTI and being treated with ceftriaxone will follow up on urine c/s (4) Pressure ulcer of left buttock: Code(s): L89.329 - Pressure ulcer of left buttock, unspecified stage Status: Acute Assessment and Plan: patient is bedridden and has wound on her buttock and feet, will have wound team evaluate the patient. (5) Generalized weakness: Code(s): R53.1 - Weakness Status: Acute Assessment and Plan: Mostlikely multifactorial with A. Fib RVR, UTI, and several skin lesions, will have PT/OT evaluate the patient. Plan patient is 68 y/o female a resident of assisted living came to ER with c/o weakness upon arrival patient was found to A. Fib with RVR rate of 185 and was started amiodarone and patient concerted to NSR and today after discssing with the handmade tile artist patient was started on Lovenox for anticoagulation. the amiodarone was discontinued and started patient on metoprolol and rate is uncontrolled, patient stats she had one episode of seizures several years ago and taking keppra. patient UA is suspicious for UTI and being treated with ceftriaxone will follow up on urine c/s Quality VTE Prophylaxis VTE prophylaxis: pharmacologic ordered Hospitalist [facility] Advance Care Plan I have confirmed that the patient's Advanced Care Plan is present, code status is documented, or surrogate decision maker is listed in patient medical record.: Yes Medication Reconciliation The patient is not eligible for med reconciliation; the patient is in a emergent medical situation where delaying treatment would jeopardize the patients health.: Yes
--- NOTE | 2024-02-19 15:52 | PM.CNCAR ---
Assessment and Plan Assessment and plan (1) Atrial fibrillation with RVR: Code(s): I48.91 - Unspecified atrial fibrillation Status: Acute (2) Elevated troponin: Code(s): R79.89 - Other specified abnormal findings of blood chemistry Status: Acute (3) History of CVA (cerebrovascular accident): Code(s): Z86.73 - Personal history of transient ischemic attack (TIA), and cerebral infarction without residual deficits Status: Chronic Plan 1. Paroxysmal AFib CHADS2 Vasc 5 2. NSTEMI, most likely type 2 LA - She has most likely type 2 LA in the setting of AFib RVR. No chest pain. Repeat 1 more troponin level - Will keep on aspirin, start beta-rosalind and statin - Will DC amiodarone - Consider starting DOAC from tomorrow, apixaban 5 mg twice daily. Patient is currently on therapeutic Lovenox - Echo History of Present Illness History of Present Illness Consult date/time: 02/19/24 15:52 Reason For Visit: Afib RVR/ UTI/Elevated Troponin Narrative: Ms Samantha Rojas is a pleasant 68-year-old lady is known to have hypertension, hyperlipidemia and a prior history of stroke. She was admitted from the ED after episodes of diarrhea. At presentation she was found to be in AFib RVR and was given amiodarone in the ED. the EKG showed AFib with RVR and the subsequent ECG showed normal sinus rhythm with no ST Or T-wave changes She denies any chest pain No dizziness, lightheadedness, syncope No prior CAD No bleeding from any source ON LICENSE OF [facility] Past Medical History Medical History History of CVA (cerebrovascular accident) History of hypertension Hyperlipidemia Surgical History Surgical History H/O right wrist surgery H/O tubal ligation Family History Family History Father Cancer Mother Cancer Grandparent Diabetes mellitus Social History Social History Social History: The patient is single. She has 1 child. Patient quit smoking many years ago. She does not use any alcohol marijuana or illicit drugs. The patient does not have a durable power consumer attorney for healthcare. The patient stated that she has from [facility]. 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 Code status full code Smoking packs per day: 2 Smoking cigarettes per day: 40.0 Years smoked: 45 Smoking pack-years: 90.00 Smoking status: Former smoker Tobacco type: cigarettes Alcohol intake: never Substance use: never Substance use type: does not use Do You Feel Safe in your Home?: Yes Lack of Transportation: No Lack of Food: Never True Current Housing: I Have Housing Concerned About Future Housing: No Difficulty Paying Gas/Electric Bills: No Difficulty Paying for Meds: No Currently Unemployed: No Education: High School Diploma/GED Difficulty w/ Childcare or Family Care: No Spiritual care concerns: No Meds Home Medications and Allergies Home Medications Medication Instructions Recorded Confirmed Type atorvastatin 80 mg tablet 80 mg PO QHS #30 tabs 02/16/24 02/19/24 Rx calcium 600 mg (as 1 tablet PO DAILY #30 tabs 02/16/24 02/19/24 Rx carbonate)-vitamin D3 20 mcg (800 unit) tablet (Caltrate with Vitamin D3) ergocalciferol (vitamin D2) 1,250 1 unit PO WEEKLY #7 caps 02/16/24 02/19/24 Rx mcg (50,000 unit) capsule (Vitamin D2) levetiracetam 500 mg tablet 500 mg PO Q12HR #60 tabs 02/16/24 02/19/24 Rx (Keppra) acetaminophen 325 mg tablet 650 mg PO Q6H PRN fever or pain 02/17/24 02/19/24 Rx #180 tabs umeclidinium 62.5 mcg/actuation 1 inh inhalation Q24H #30 ea 02/17/24 02/19/24 Rx blister powder for inhalation (Incruse Ellipta) albuterol sulfate 2.5 mg/3 mL 2.5 mg inhalation Q4H PRN sob 02/19/24 02/19/24 History (0.083 %) solution for nebulization bisacodyl 10 mg rectal suppository 10 mg RECTAL DAILY PRN constipation 02/19/24 02/19/24 History hydrocortisone acetate 25 mg 25 mg RECTAL DAILY PRN hemmorids 02/19/24 02/19/24 History rectal suppository (Anusol-HC) magnesium citrate 150 ml PO DAILY PRN constipation 02/19/24 02/19/24 History pseudoephedrine-guaifenesin ER 60 1 tablet PO Q12H PRN congestion 02/19/24 02/19/24 History mg-600 mg tablet,extend release 12hr (Mucinex D) psyllium 1 packet PO DAILY 02/19/24 02/19/24 History sodium phosphates 19 gram-7 118 ml RECTAL DAILY PRN 02/19/24 02/19/24 History gram/118 mL enema (Fleet Enema) Constipation Allergies Allergy/AdvReac Type Severity Reaction Status Date / Time No Known Allergies Allergy Verified 02/16/24 11:06 Vital Signs Vital Signs - 24 hr 02/19/24 02:06 02/19/24 02:59 02/19/24 03:07 Temperature 37.1 C Pulse Rate 178 H 161 H 166 H Respiratory Rate 20 20 Blood Pressure 132/110 H 86/60 L 79/35 L Pulse Oximetry 100 97 Oxygen Delivery Room Air Oxygen Flow Rate 02/19/24 03:16 02/19/24 03:19 02/19/24 03:19 Temperature Pulse Rate 138 H 126 H 138 H Respiratory Rate 19 Blood Pressure 92/42 L 92/42 L 92/42 L Pulse Oximetry 99 Oxygen Delivery Oxygen Flow Rate 02/19/24 04:47 02/19/24 04:54 02/19/24 05:27 Temperature Pulse Rate 90 91 Respiratory Rate 15 15 Blood Pressure 94/46 L 102/42 L Pulse Oximetry 97 97 86 L Oxygen Delivery Room Air Oxygen Flow Rate 02/19/24 05:31 02/19/24 05:30 02/19/24 06:08 Temperature Pulse Rate 76 Respiratory Rate 15 Blood Pressure 102/42 L Pulse Oximetry 99 97 97 Oxygen Delivery Nasal Cannula Room Air Oxygen Flow Rate 2 02/19/24 06:20 02/19/24 06:48 02/19/24 07:12 Temperature Pulse Rate 74 80 80 Respiratory Rate 18 18 Blood Pressure 94/52 L 97/46 L 116/56 L Pulse Oximetry 97 97 Oxygen Delivery Oxygen Flow Rate 02/19/24 07:00 02/19/24 06:51 02/19/24 09:21 Temperature 36.9 C Pulse Rate 81 89 Respiratory Rate 18 Blood Pressure 116/56 L 126/43 L Pulse Oximetry 91 Oxygen Delivery Room Air Oxygen Flow Rate 02/19/24 09:22 02/19/24 09:00 02/19/24 10:00 Temperature Pulse Rate 90 90 Respiratory Rate Blood Pressure Pulse Oximetry 96 Oxygen Delivery Room Air Oxygen Flow Rate 02/19/24 10:00 02/19/24 11:57 02/19/24 14:00 Temperature 36.3 C L Pulse Rate 84 82 75 Respiratory Rate 20 18 Blood Pressure 124/49 L 134/40 L 101/38 L Pulse Oximetry 100 Oxygen Delivery Oxygen Flow Rate Exam Narrative: Const General: cooperative, comfortable and no acute distress [facility] Head: normocephalic and atraumatic Ears: hearing grossly normal bilaterally Eyes General: appearance normal, both eyes and all related structures Neck General: Yes normal visual inspection Resp Effort/Inspection: normal respiratory effort and able to speak in complete sentences Auscultation: clear to auscultation bilaterally Cardio Rate: Yes regular rate Rhythm: regular rhythm Heart Sounds: Yes normal heart sounds Skin General: normal color, no rashes or lesions noted and turgor normal Extrem General: No edema Psych Appearance: grossly normal Results Labs and Meds 02/19/24 02:20 02/19/24 02:20 Lab results: Cardiac Enzymes 02/19/24 Range/Units 02:20 AST 82 H (14-36) U/L Troponin I 0.060 H* (0.000-0.034) ng/mL CBC 02/19/24 Range/Units 02:20 WBC 19.2 H (4.5-10.0) K/mm3 RBC 3.74 L (4.2-5.4) M/mm3 Hgb 12.5 (12.0-15.0) g/dL Hct 36.9 L (37.0-47.0) % Plt Count 229 D (150-375) k/mm3 Lymph # (Auto) 1.46 (0.9-3.2) K/mm3 [place] # (Auto) 1.9 H (0.1-0.6) K/mm3 Eos # (Auto) 0.1 (0-0.3) K/mm3 Baso # (Auto) 0.0 (0.0-0.1) K/mm3 Comprehensive Metabolic Panel 02/19/24 Range/Units 02:20 Sodium 121 L (137-145) mmol/L Potassium 3.4 (3.4-5.0) mmol/L Chloride 85 L (98-107) mmol/L Carbon Dioxide 22 (22-30) mmol/L BUN 7 (7-17) mg/dL Creatinine 0.60 L (0.7-1.0) mg/dL Glucose 129 H (65-110) mg/dL Calcium 8.5 (8.4-10.2) mg/dL AST 82 H (14-36) U/L ALT 33 (6-35) U/L Alkaline Phosphatase 100 (38-126) U/L Total Protein 7.0 (6.3-8.2) g/dL Albumin 3.6 (3.5-5.1) g/dL Intake and Output 02/18/24 02/19/24 02/19/24 23:59 07:59 15:59 Intake Total 3181.1 120 Balance 3181.1 120 Intake: IV 3181.1 Amiodarone 150 mg/D5w 100 ml 100 150 mg In 100 ml @ 15 MG/MIN 600 mls/hr IV CONT .Q10M STA Rx #:[id number] Amiodarone 360 mg/D5w 200 ml 131.1 360 mg In 200 ml @ 1 MG/MIN 33. 333 mls/hr IV CONT .Q6H ONE Rx# :[id number] Sodium Chloride 0.9% IV 900 ml 2900 @ 999 mls/hr IV CONT .Q55M STA Rx#:[id number] cefTRIAXone 1 GM/NS 50 ML 1 gm 50 In 50 ml @ 100 mls/hr IVPB ONCE STA Rx#:[id number] Oral 120 Patient Weight 02/19/24 23:59 Weight 91.9 kg
[2024-02-19] MEDS: PERFLUTREN LIPID MICROSPHERES 1.5 ML VIAL DILUTED TO 10 ML TOTAL VOLUME IV PUSH (16:40)
--- NOTE | 2024-02-19 16:52 | IVDEFINITY ---
Prior to administration of IV Definity the patient was educated on the risks and benefits of the imaging enhancing agent including potential adverse side effects. The patient verbalized understanding. Allergies were verified. No exclusion criteria were identified and at least one of the following inclusion criteria were met: 1) physician request, 2) patient technically difficult to image (per the [place] [employer] guidelines of two or more segments not discernable within the apical view), or 3) questionable left ventricular function. ?
[2024-02-19] MEDS: HYDROcodone/acetaminophen (*CRX) 5-325 MG TABLET 1 TAB PO ×2 (17:13→21:01)
[2024-02-19 19:09] LABS: Troponin I 0.081 ng/mL (0.000-0.034)
[2024-02-19] MEDS: levETIRAcetam 500 MG TABLET PO (20:25)
[2024-02-19] MEDS: METOPROLOL TARTRATE 25 MG TABLET PO (20:25)
[2024-02-19] MEDS: ATORVASTATIN 40 MG TABLET 80 MG PO (20:25)
[2024-02-19 20:39] LABS: Glucose Point of Care 81 mg/dl (65-105)
[2024-02-19] MEDS: ALBUTEROL SULFATE NEB 2.5 MG/3 ML INH INHALATION (20:42)
[2024-02-19] MEDS: PHARMACIST COMMUNICATION ORDER 1 EACH XX (21:04)
[2024-02-20] VITALS (25 sets, daily range): BP systolic 102–128; BP diastolic 23–62; PULSE 80–150; RESP 19–22; TEMP 36.3–37.1; O2SAT 97–98
[2024-02-20] MEDS: HYDROcodone/acetaminophen (*CRX) 5-325 MG TABLET 1 TAB PO ×5 (01:33→21:07)
[2024-02-20 05:00] LABS: Hematocrit 32.7 % (37.0-47.0); Hemoglobin 10.9 g/dL (12.0-15.0); Mean Corpuscular HGB Conc 33.3 g/dl (32-36); Mean Corpuscular Hemoglobin 32.9 pg (26-34); Mean Corpuscular Volume 98.8 fl (80-100); Mean Platelet Volume 10.6 fl (7.4-10.4); Platelet Count Result 178 k/mm3 (150-375); Red Blood Count 3.31 M/mm3 (4.2-5.4); Red Cell Distribution Width 14.5 % (11.5-14.5); White Blood Count 13.7 K/mm3 (4.5-10.0)
[2024-02-20 05:10] LABS: Anion Gap 5 mmol/L (4-12); Blood Urea Nitrogen 8 mg/dL (7-17); Carbon Dioxide 26 mmol/L (22-30); Chloride 93 mmol/L (98-107); Estimated CRCL calculation 118 ml/min; Estimated Glomerular Filt Rate > 60; Glucose 103 mg/dL (65-110); Potassium 3.2 mmol/L (3.4-5.0); Sodium 124 mmol/L (137-145)
[2024-02-20] MEDS: UMECLIDINIUM BROMIDE 62.5 MCG ELLIPTA 1 PUFF INHALATION (06:56)
[2024-02-20 07:30] LABS: Toxigenic C. Diff NEGATIVE (NEGATIVE)
[2024-02-20] MEDS: levETIRAcetam 500 MG TABLET PO ×2 (08:34→21:07)
[2024-02-20] MEDS: CALCIUM/VITAMIN D 500 MG/5 MCG (200 I.U.) TABLET PO (08:35)
[2024-02-20] MEDS: METOPROLOL TARTRATE 25 MG TABLET PO ×2 (08:44→09:10)
[2024-02-20] MEDS: ENOXAPARIN 100 MG/ML SYRINGE 90 MG SUB-Q (09:11)
[2024-02-20] MEDS: METOPROLOL TARTRATE INJ 5 MG/5 ML VIAL IV PUSH (10:12)
--- NOTE | 2024-02-20 13:06 | P.PNCA_ITS ---
Progress Note: A&P Assessment and Plan (1) Atrial fibrillation with RVR: Code(s): I48.91 - Unspecified atrial fibrillation Status: Acute (2) Elevated troponin: Code(s): R79.89 - Other specified abnormal findings of blood chemistry Status: Acute (3) History of CVA (cerebrovascular accident): Code(s): Z86.73 - Personal history of transient ischemic attack (TIA), and cerebral infarction without residual deficits Status: Chronic Plan 1. Paroxysmal AFib CHADS2 Vasc 5 2. NSTEMI, most likely type 2 MA - Continue ASA, statin - Increase metoprolol to 50 mg BID - Switch to apixaban 5 mg BID - Will consider a ERUM CV if remains in Afib Subjective Date/time seen: 02/20/24 13:06 Interval history: Feels better HR was controlled in the morning. She then went into Afib/RVR and received 5 mg IV metoprolol. Converted to sinus before a diltiazem bolus//infusion were to be started Exam Narrative: Const General: cooperative, comfortable and no acute distress [facility] Head: normocephalic and atraumatic Ears: hearing grossly normal bilaterally Eyes General: appearance normal, both eyes and all related structures Neck General: Yes normal visual inspection Resp Effort/Inspection: normal respiratory effort and able to speak in complete sentences Auscultation: clear to auscultation bilaterally Cardio Rate: Yes regular rate Rhythm: regular rhythm Heart Sounds: Yes normal heart sounds Skin General: normal color, no rashes or lesions noted and turgor normal Extrem General: No edema Psych Appearance: grossly normal Objective Data Vital Signs Vital Signs: Vital Signs - 24 hr 02/19/24 14:00 02/19/24 16:00 02/19/24 14:00 Temperature 36.4 C L Pulse Rate 75 87 75 Respiratory Rate 25 H Blood Pressure 101/38 L 116/68 101/38 L Pulse Oximetry 100 Oxygen Delivery Oxygen Flow Rate 02/19/24 16:00 02/19/24 16:30 02/19/24 16:30 Temperature Pulse Rate 75 87 Respiratory Rate Blood Pressure 116/68 Pulse Oximetry Oxygen Delivery Room Air Oxygen Flow Rate 02/19/24 18:00 02/19/24 20:08 02/19/24 20:25 Temperature 36.2 C L 36.2 C L Pulse Rate 87 84 96 Respiratory Rate 20 20 Blood Pressure 139/38 L 132/45 L Pulse Oximetry 98 98 Oxygen Delivery Oxygen Flow Rate 02/19/24 20:42 02/19/24 20:46 02/19/24 20:47 Temperature Pulse Rate 110 H 97 Respiratory Rate 24 H 24 H Blood Pressure Pulse Oximetry 91 Oxygen Delivery Room Air Oxygen Flow Rate 02/19/24 21:04 02/19/24 22:11 02/20/24 00:07 Temperature 36.2 C L 36.3 C L Pulse Rate 97 88 86 Respiratory Rate 22 H 22 H Blood Pressure 132/45 L 120/55 L 124/58 L Pulse Oximetry 98 98 Oxygen Delivery Oxygen Flow Rate 02/20/24 02:40 02/19/24 20:00 02/20/24 04:45 Temperature 36.3 C L 36.3 C L Pulse Rate 80 95 Respiratory Rate 22 H 22 H Blood Pressure 120/56 L 118/62 Pulse Oximetry 98 98 Oxygen Delivery Room Air Oxygen Flow Rate 02/20/24 00:00 02/20/24 04:00 02/19/24 20:00 Temperature Pulse Rate 97 Respiratory Rate Blood Pressure Pulse Oximetry 98 98 Oxygen Delivery Nasal Cannula Nasal Cannula Oxygen Flow Rate 2 2 02/19/24 22:00 02/20/24 00:00 02/20/24 02:00 Temperature Pulse Rate 101 H 86 93 Respiratory Rate Blood Pressure Pulse Oximetry Oxygen Delivery Oxygen Flow Rate 02/20/24 04:00 02/20/24 06:00 02/20/24 07:39 Temperature 36.7 C Pulse Rate 92 90 102 H Respiratory Rate 20 Blood Pressure 108/23 L Pulse Oximetry 98 Oxygen Delivery Oxygen Flow Rate 02/20/24 08:44 02/20/24 09:10 02/20/24 10:12 Temperature Pulse Rate 99 122 H 145 H Respiratory Rate Blood Pressure Pulse Oximetry Oxygen Delivery Oxygen Flow Rate 02/20/24 11:34 Temperature 36.8 C Pulse Rate 87 Respiratory Rate 22 H Blood Pressure 102/57 L Pulse Oximetry 98 Oxygen Delivery Oxygen Flow Rate Intake/Output Intake/Output: Intake & Output 02/17/24 02/18/24 02/19/24 02/20/24 23:59 23:59 23:59 23:59 Intake Total 4696.9 590 Output Total 1200 Balance 4696.9 -610 Meds/Results Medications: Active Medications Generic Name Dose Route Start Last Admin Trade Name Freq PRN Reason Stop Dose Admin Acetaminophen 650 mg 02/19/24 10:28 02/19/24 11:25 Acetaminophen 325 Mg Tablet PO 650 mg Q6H PRN Administration fever or pain 1-3 Hydrocodone Bitart/Acetaminophen 1 tab 02/19/24 05:31 02/20/24 11:33 Hydrocodone/Acetaminophen (*Crx) 5-325 Mg Tablet PO 1 tab Q4H PRN Administration Pain Rated 4-6 Albuterol 2.5 mg 02/19/24 10:28 02/19/24 20:42 Albuterol Sulfate Neb 2.5 Mg/3 Ml Inh INHALATION 2.5 mg Q4H PRN Administration sob Atorvastatin Calcium 80 mg 02/19/24 21:00 02/19/24 20:25 Atorvastatin 40 Mg Tablet PO 80 mg QHS SOFIYA Administration Bisacodyl 10 mg 02/19/24 10:28 Bisacodyl 10 Mg Suppository RECTAL DAILY PRN constipation Calcium Carbonate 500 mg 02/20/24 09:00 02/20/24 08:35 Calcium/Vitamin D 500 Mg/5 Mcg (200 I.U.) Tablet PO 500 mg QAM SOFIYA Administration Enoxaparin Sodium 90 mg 02/19/24 12:45 02/20/24 09:11 Enoxaparin 100 Mg/Ml Syringe SUB-Q 90 mg Q12HR SOFIYA Administration Ergocalciferol 50,000 units 02/24/24 09:00 Ergocalciferol 50,000 Units Capsule PO WEEKLY SOFIYA Guaifenesin 600 mg 02/19/24 10:42 Guaifenesin 12 Hr 600 Mg Tabcr PO Q12H PRN congestion Ceftriaxone Sodium 1 gm in 50 mls @ 100 mls/hr 02/20/24 05:00 02/20/24 07:00 Rocephin 1 Gm/Ns 50 Ml IVPB Infused Q24H SOFIYA Infusion Diltiazem HCl 100 mg in 100 mls @ 5 mls/hr 02/20/24 10:30 Cardizem 100 Mg/100 Ml IV CONT .Q20H SOFIYA 5 MG/HR Levetiracetam 500 mg 02/19/24 21:00 02/20/24 08:34 Levetiracetam 500 Mg Tablet PO 500 mg Q12HR SOFIYA Administration Magnesium Citrate 150 ml 02/19/24 10:28 Magnesium Citrate 300 Ml Btl PO DAILY PRN constipation Metoprolol Tartrate 50 mg 02/20/24 21:00 Metoprolol Tartrate 50 Mg Tab PO Q12HR SOFIYA Ondansetron HCl 4 mg 02/19/24 05:31 Ondansetron Inj 4 Mg/2 Ml Vial IV PUSH Q4H PRN Nausea Pseudoephedrine HCl 60 mg 02/19/24 10:40 Pseudoephedrine Hcl 30 Mg Tablet PO Q12H PRN congestion Psyllium Hydrophilic Mucilloid 1 packet 02/20/24 09:00 02/20/24 08:36 Psyllium Powder Packet PO Not Given DAILY SOFIYA Umeclidinium [place] 1 puff 02/20/24 08:00 02/20/24 06:56 Umeclidinium [place] 62.5 Mcg Ellipta INHALATION 1 puff DAILYRT SOFIYA Administration Radiology Results: ITS Impressions Head CT 02/19/24 06:00 Impression: No significant abnormality seen. Chest X-Ray 02/19/24 06:18 Impression: Normal chest. Lumbar Spine X-Ray 02/19/24 06:19 Impression: Moderate compression fracture of probably L1. Severe degenerative spondylosis in the lumbar spine. Labs Labs: Laboratory Results - last 24 hr 02/19/24 02/19/24 02/20/24 17:58 20:36 04:50 WBC 13.7 H RBC 3.31 L Hgb 10.9 L Hct 32.7 L MCV 98.8 MCH 32.9 MCHC 33.3 RDW 14.5 Plt Count 178 MPV 10.6 H Sodium 124 L Potassium 3.2 L Chloride 93 L Carbon Dioxide 26 Anion Gap 5 BUN 8 Creatinine 0.40 L Estim Creat Clear Calc 118 Estimated GFR > 60 Glucose 103 POC Capillary Glucose 81 Calcium 8.0 L Magnesium 2.0 Troponin I 0.081 H* C. difficile (PCR) 02/20/24 06:40 WBC RBC Hgb Hct MCV MCH MCHC RDW Plt Count MPV Sodium Potassium Chloride Carbon Dioxide Anion Gap BUN Creatinine Estim Creat Clear Calc Estimated GFR Glucose POC Capillary Glucose Calcium Magnesium Troponin I C. difficile (PCR) Negative
--- NOTE | 2024-02-20 14:43 | PC.NURSE ---
1150- DR. ROLAND CALLED - PT CONVERTED TO SR @ 80-90 AT 1035 AND REMAINS IN SR- ORDERS TO HOLD DILTIAZEM ORDERS
--- NOTE | 2024-02-20 14:45 | PC.NURSE ---
1005 - DR. ROLAND NOTIFIED PT REMAINS IN ATRIAL FIBRILLATION RATE 140'S -160'S - NEW ORDER RECEIVED AND MED GIVEN
[2024-02-20] MEDS: MORPHINE SULFATE (*CRX) 2 MG/ML INJ IV PUSH (16:34)
--- NOTE | 2024-02-20 16:35 | PM.IMPN ---
Progress Note: A&P Assessment and Plan (1) Atrial fibrillation with RVR: Code(s): I48.91 - Unspecified atrial fibrillation Status: Acute Assessment and Plan: -Started on Metoprolol 50 mg PO BID -Cardizem drip on hold -Possible DC if necessary -DC Lovenox -Started abixan PO 5 mg BI (2) Seizure: Code(s): R56.9 - Unspecified convulsions Status: Acute Assessment and Plan: patient stats she had one episode of seizures several years ago and taking keppra. patient UA is suspicious for UTI and being treated with ceftriaxone will follow up on urine c/s (3) Acute UTI: Code(s): N39.0 - Urinary tract infection, site not specified Status: Acute Assessment and Plan: patient UA is suspicious for UTI and being treated with ceftriaxone will follow up on urine c/s (4) Pressure ulcer of left buttock: Code(s): L89.329 - Pressure ulcer of left buttock, unspecified stage Status: Acute Assessment and Plan: patient is bedridden and has wound on her buttock and feet, will have wound team evaluate the patient. (5) Generalized weakness: Code(s): R53.1 - Weakness Status: Acute Assessment and Plan: Mostlikely multifactorial with A. Fib RVR, UTI, and several skin lesions, will have PT/OT evaluate the patient. Subjective Date/time seen: 02/20/24 16:35 Interval history: Metoprolol has been increased to 50 mg b.i.d.. Cardiology we consider cardioversion if patient remains in AFib. Patient received 1 dose of diltiazem 15 mg IV Exam Narrative: Patient is comfortable, NAD HEENT: eyes are clear and none icteric LUNGS: Bilateral fair air with rales and rhonchi HEART: RR S1S2 ABD: BS+, Soft and nontender Lower extremities: edema SKIN: nonjaundiced Neuro: grossly intact. Objective Data Vital Signs Vital Signs: Vital Signs - 24 hr 02/19/24 18:00 02/19/24 20:08 02/19/24 20:25 Temperature 97.1 F L 97.2 F L Pulse Rate 87 84 96 Respiratory Rate 20 20 Blood Pressure 139/38 L 132/45 L Pulse Oximetry 98 98 Oxygen Delivery Oxygen Flow Rate 02/19/24 20:42 02/19/24 20:46 02/19/24 20:47 Temperature Pulse Rate 110 H 97 Respiratory Rate 24 H 24 H Blood Pressure Pulse Oximetry 91 Oxygen Delivery Room Air Oxygen Flow Rate 02/19/24 21:04 02/19/24 22:11 02/20/24 00:07 Temperature 97.2 F L 97.3 F L Pulse Rate 97 88 86 Respiratory Rate 22 H 22 H Blood Pressure 132/45 L 120/55 L 124/58 L Pulse Oximetry 98 98 Oxygen Delivery Oxygen Flow Rate 02/20/24 02:40 02/19/24 20:00 02/20/24 04:45 Temperature 97.4 F L 97.3 F L Pulse Rate 80 95 Respiratory Rate 22 H 22 H Blood Pressure 120/56 L 118/62 Pulse Oximetry 98 98 Oxygen Delivery Room Air Oxygen Flow Rate 02/20/24 00:00 02/20/24 04:00 02/19/24 20:00 Temperature Pulse Rate 97 Respiratory Rate Blood Pressure Pulse Oximetry 98 98 Oxygen Delivery Nasal Cannula Nasal Cannula Oxygen Flow Rate 2 2 02/19/24 22:00 02/20/24 00:00 02/20/24 02:00 Temperature Pulse Rate 101 H 86 93 Respiratory Rate Blood Pressure Pulse Oximetry Oxygen Delivery Oxygen Flow Rate 02/20/24 04:00 02/20/24 06:00 02/20/24 07:39 Temperature 98.0 F Pulse Rate 92 90 102 H Respiratory Rate 20 Blood Pressure 108/23 L Pulse Oximetry 98 Oxygen Delivery Oxygen Flow Rate 02/20/24 08:44 02/20/24 09:10 02/20/24 10:12 Temperature Pulse Rate 99 122 H 145 H Respiratory Rate Blood Pressure Pulse Oximetry Oxygen Delivery Oxygen Flow Rate 02/20/24 11:34 02/20/24 08:00 02/20/24 08:00 Temperature 98.2 F Pulse Rate 87 89 Respiratory Rate 22 H Blood Pressure 102/57 L Pulse Oximetry 98 98 Oxygen Delivery Nasal Cannula Oxygen Flow Rate 2 02/20/24 09:30 02/20/24 10:00 02/20/24 12:00 Temperature Pulse Rate 140 H 150 H Respiratory Rate Blood Pressure Pulse Oximetry 98 Oxygen Delivery Nasal Cannula Oxygen Flow Rate 2 02/20/24 12:00 02/20/24 14:00 02/20/24 10:35 Temperature Pulse Rate 91 87 88 Respiratory Rate Blood Pressure Pulse Oximetry Oxygen Delivery Oxygen Flow Rate 02/20/24 16:00 Temperature 98.7 F Pulse Rate 90 Respiratory Rate 20 Blood Pressure 128/36 L Pulse Oximetry 98 Oxygen Delivery Oxygen Flow Rate Intake/Output Intake/Output: Intake & Output 02/17/24 02/18/24 02/19/24 02/20/24 23:59 23:59 23:59 23:59 Intake Total 4696.9 590 Output Total 2900 Balance 4696.9 -2310 Meds/Results Medications: Active Medications Generic Name Dose Route Start Last Admin Trade Name Freq PRN Reason Stop Dose Admin Acetaminophen 650 mg 02/19/24 10:28 02/19/24 11:25 Acetaminophen 325 Mg Tablet PO 650 mg Q6H PRN Administration fever or pain 1-3 Hydrocodone Bitart/Acetaminophen 1 tab 02/19/24 05:31 02/20/24 15:41 Hydrocodone/Acetaminophen (*Crx) 5-325 Mg Tablet PO 1 tab Q4H PRN Administration Pain Rated 4-6 Albuterol 2.5 mg 02/19/24 10:28 02/19/24 20:42 Albuterol Sulfate Neb 2.5 Mg/3 Ml Inh INHALATION 2.5 mg Q4H PRN Administration sob Apixaban 5 mg 02/20/24 21:00 Apixaban 5 Mg Tablet PO Q12HR SOFIYA Atorvastatin Calcium 80 mg 02/19/24 21:00 02/19/24 20:25 Atorvastatin 40 Mg Tablet PO 80 mg QHS SOFIYA Administration Bisacodyl 10 mg 02/19/24 10:28 Bisacodyl 10 Mg Suppository RECTAL DAILY PRN constipation Calcium Carbonate 500 mg 02/20/24 09:00 02/20/24 08:35 Calcium/Vitamin D 500 Mg/5 Mcg (200 I.U.) Tablet PO 500 mg QAM SOFIYA Administration Enoxaparin Sodium 90 mg 02/19/24 12:45 02/20/24 09:11 Enoxaparin 100 Mg/Ml Syringe SUB-Q 90 mg Q12HR SOFIYA Administration Ergocalciferol 50,000 units 02/24/24 09:00 Ergocalciferol 50,000 Units Capsule PO WEEKLY SOFIYA Guaifenesin 600 mg 02/19/24 10:42 Guaifenesin 12 Hr 600 Mg Tabcr PO Q12H PRN congestion Ceftriaxone Sodium 1 gm in 50 mls @ 100 mls/hr 02/20/24 05:00 02/20/24 07:00 Rocephin 1 Gm/Ns 50 Ml IVPB Infused Q24H [facility] Infusion Diltiazem HCl 100 mg in 100 mls @ 5 mls/hr 02/20/24 10:30 02/20/24 14:47 Cardizem 100 Mg/100 Ml IV CONT Not Given .Q20H SOFIYA 5 MG/HR Levetiracetam 500 mg 02/19/24 21:00 02/20/24 08:34 Levetiracetam 500 Mg Tablet PO 500 mg Q12HR SOFIYA Administration Magnesium Citrate 150 ml 02/19/24 10:28 Magnesium Citrate 300 Ml Btl PO DAILY PRN constipation Metoprolol Tartrate 50 mg 02/20/24 21:00 Metoprolol Tartrate 50 Mg Tab PO Q12HR [facility] Morphine Sulfate 2 mg 02/20/24 16:30 02/20/24 16:34 Morphine Sulfate (*Crx) 2 Mg/Ml Inj IV PUSH 2 mg Q4H PRN Administration Pain Rated 7-10 Ondansetron HCl 4 mg 02/19/24 05:31 Ondansetron Inj 4 Mg/2 Ml Vial IV PUSH Q4H PRN Nausea Pseudoephedrine HCl 60 mg 02/19/24 10:40 Pseudoephedrine Hcl 30 Mg Tablet PO Q12H PRN congestion Psyllium Hydrophilic Mucilloid 1 packet 02/20/24 09:00 02/20/24 08:36 Psyllium Powder Packet PO Not Given DAILY [facility] Umeclidinium [place] 1 puff 02/20/24 08:00 02/20/24 06:56 Umeclidinium [place] 62.5 Mcg Ellipta INHALATION 1 puff DAILYRT SOFIYA Administration Radiology Results: ITS Impressions Head CT 02/19/24 06:00 Impression: No significant abnormality seen. Chest X-Ray 02/19/24 06:18 Impression: Normal chest. Lumbar Spine X-Ray 02/19/24 06:19 Impression: Moderate compression fracture of probably L1. Severe degenerative spondylosis in the lumbar spine. Labs Labs: Laboratory Results - last 24 hr 02/19/24 02/19/24 02/20/24 17:58 20:36 04:50 WBC 13.7 H RBC 3.31 L Hgb 10.9 L Hct 32.7 L MCV 98.8 MCH 32.9 MCHC 33.3 RDW 14.5 Plt Count 178 MPV 10.6 H Sodium 124 L Potassium 3.2 L Chloride 93 L Carbon Dioxide 26 Anion Gap 5 BUN 8 Creatinine 0.40 L Estim Creat Clear Calc 118 Estimated GFR > 60 Glucose 103 POC Capillary Glucose 81 Calcium 8.0 L Magnesium 2.0 Troponin I 0.081 H* C. difficile (PCR) 02/20/24 06:40 WBC RBC Hgb Hct MCV MCH MCHC RDW Plt Count MPV Sodium Potassium Chloride Carbon Dioxide Anion Gap BUN Creatinine Estim Creat Clear Calc Estimated GFR Glucose POC Capillary Glucose Calcium Magnesium Troponin I C. difficile (PCR) Negative Quality VTE Prophylaxis VTE prophylaxis: pharmacologic ordered Hospitalist MIPS Advance Care Plan I have confirmed that the patient's Advanced Care Plan is present, code status is documented, or surrogate decision maker is listed in patient medical record.: Yes Medication Reconciliation I have utilized all available resources to obtain, update and review the patients current medications (includes all prescriptions, OTC, herbals, cannabis, and nutritional supplements).: Yes
--- NOTE | 2024-02-20 18:14 | PC.NURSE ---
1630- pt incontinent of stool- cleaned and changed linens - pt in pain 01/06 - unable to console- new order obtained for pain
[2024-02-20] MEDS: APIXABAN 5 MG TABLET PO (21:07)
[2024-02-20] MEDS: ATORVASTATIN 40 MG TABLET 80 MG PO (21:07)
[2024-02-20] MEDS: METOPROLOL TARTRATE 50 MG TAB PO (21:08)
[2024-02-21] VITALS (14 sets, daily range): BP systolic 92–142; BP diastolic 39–90; PULSE 73–100; RESP 18–22; TEMP 36.1–37.7; O2SAT 91–99
[2024-02-21 05:08] LABS: Hematocrit 35.1 % (37.0-47.0); Hemoglobin 11.6 g/dL (12.0-15.0); Mean Corpuscular Hemoglobin 33.1 pg (26-34); Mean Corpuscular Volume 100.3 fl (80-100); Mean Platelet Volume 10.8 fl (7.4-10.4); Platelet Count Result 187 k/mm3 (150-375); Red Cell Distribution Width 14.6 % (11.5-14.5); White Blood Count 11.7 K/mm3 (4.5-10.0)
[2024-02-21 05:33] LABS: Alanine Aminotransferase 51 U/L (6-35); Albumin Level 2.9 g/dL (3.5-5.1); Alkaline Phosphatase 87 U/L (38-126); Anion Gap 4 mmol/L (4-12); Aspartate Amino Transferase 148 U/L (14-36); Bilirubin,Total 0.6 mg/dL (0.2-1.3); Blood Urea Nitrogen 14 mg/dL (7-17); Calcium 8.7 mg/dL (8.4-10.2); Carbon Dioxide 31 mmol/L (22-30); Chloride 92 mmol/L (98-107); Estimated CRCL calculation 98 ml/min; Estimated Glomerular Filt Rate > 60; Glucose 99 mg/dL (65-110); Potassium 3.4 mmol/L (3.4-5.0); Sodium 127 mmol/L (137-145)
[2024-02-21] MEDS: UMECLIDINIUM BROMIDE 62.5 MCG ELLIPTA 1 PUFF INHALATION (08:41)
[2024-02-21] MEDS: CALCIUM/VITAMIN D 500 MG/5 MCG (200 I.U.) TABLET PO (09:12)
[2024-02-21] MEDS: APIXABAN 5 MG TABLET PO ×2 (09:12→20:30)
[2024-02-21] MEDS: levETIRAcetam 500 MG TABLET PO ×2 (09:12→20:30)
[2024-02-21] MEDS: HYDROcodone/acetaminophen (*CRX) 5-325 MG TABLET 1 TAB PO (10:43)
[2024-02-21] MEDS: METOPROLOL TARTRATE 50 MG TAB PO ×2 (10:43→20:30)
[2024-02-21] MEDS: MORPHINE SULFATE (*CRX) 2 MG/ML INJ IV PUSH (12:12)
[2024-02-21] MEDS: MORPHINE SULFATE (*CRX) 4 MG/ML INJ IV PUSH (13:10)
--- NOTE | 2024-02-21 14:35 | P.PNCA_ITS ---
Progress Note: A&P Assessment and Plan (1) Atrial fibrillation with RVR: Code(s): I48.91 - Unspecified atrial fibrillation Status: Acute (2) Elevated troponin: Code(s): R79.89 - Other specified abnormal findings of blood chemistry Status: Acute (3) History of CVA (cerebrovascular accident): Code(s): Z86.73 - Personal history of transient ischemic attack (TIA), and cerebral infarction without residual deficits Status: Chronic Plan 1. Paroxysmal AFib CHADS2 Vasc 5 2. NSTEMI, most likely type 2 [place] - Continue ASA, statin - Continue metoprolol to 50 mg BID - Continue apixaban 5 mg BID - Cardiology will sign off, please call me with any questions Subjective Date/time seen: 02/21/24 14:35 Interval history: HR controlled Has low backache/buttock pain Exam Narrative: Const General: cooperative, comfortable and no acute distress HENMT Head: normocephalic and atraumatic Ears: hearing grossly normal bilaterally Eyes General: appearance normal, both eyes and all related structures Neck General: Yes normal visual inspection Resp Effort/Inspection: normal respiratory effort and able to speak in complete sentences Auscultation: clear to auscultation bilaterally Cardio Rate: Yes regular rate Rhythm: regular rhythm Heart Sounds: Yes normal heart sounds Skin General: normal color, no rashes or lesions noted and turgor normal Extrem General: No edema Psych Appearance: grossly normal Objective Data Vital Signs Vital Signs: Vital Signs - 24 hr 02/20/24 16:00 02/20/24 16:30 02/20/24 16:30 Temperature 37.1 C Pulse Rate 90 96 Respiratory Rate 20 Blood Pressure 128/36 L Pulse Oximetry 98 97 Oxygen Delivery Nasal Cannula Oxygen Flow Rate 2 02/20/24 18:00 02/20/24 20:00 02/20/24 21:05 Temperature 36.7 C Pulse Rate 88 95 Respiratory Rate 19 Blood Pressure 110/33 L 102/47 L Pulse Oximetry 97 Oxygen Delivery Oxygen Flow Rate 02/20/24 21:08 02/20/24 20:00 02/21/24 00:00 Temperature 36.6 C Pulse Rate 91 77 Respiratory Rate 18 Blood Pressure 109/39 L Pulse Oximetry 98 98 Oxygen Delivery Nasal Cannula Oxygen Flow Rate 2 02/21/24 04:00 02/21/24 00:00 02/21/24 04:00 Temperature 36.7 C Pulse Rate 89 Respiratory Rate 18 Blood Pressure 125/41 L Pulse Oximetry 96 99 Oxygen Delivery Nasal Cannula Room Air Oxygen Flow Rate 2 02/20/24 20:00 02/20/24 22:00 02/21/24 00:00 Temperature Pulse Rate 89 84 73 Respiratory Rate Blood Pressure Pulse Oximetry Oxygen Delivery Oxygen Flow Rate 02/21/24 02:00 02/21/24 04:00 02/21/24 06:00 Temperature Pulse Rate 78 80 84 Respiratory Rate Blood Pressure Pulse Oximetry Oxygen Delivery Oxygen Flow Rate 02/21/24 08:00 02/21/24 08:41 02/21/24 09:50 Temperature 37.7 C H 37.3 C Pulse Rate 97 78 Respiratory Rate 18 22 H Blood Pressure 92/42 L 141/63 H Pulse Oximetry 97 95 92 Oxygen Delivery Nasal Cannula Oxygen Flow Rate 2 02/21/24 08:00 02/21/24 08:00 02/21/24 10:00 Temperature Pulse Rate 100 99 Respiratory Rate Blood Pressure Pulse Oximetry 92 Oxygen Delivery Nasal Cannula Oxygen Flow Rate 2 02/21/24 10:56 02/21/24 11:11 02/21/24 11:59 Temperature Pulse Rate Respiratory Rate Blood Pressure 122/90 Pulse Oximetry Oxygen Delivery Nasal Cannula Nasal Cannula Oxygen Flow Rate 2 2 02/21/24 12:00 02/21/24 12:00 02/21/24 12:00 Temperature 37.4 C Pulse Rate 89 86 Respiratory Rate 20 Blood Pressure 112/86 Pulse Oximetry 98 98 Oxygen Delivery Nasal Cannula Oxygen Flow Rate 2 Intake/Output Intake/Output: Intake & Output 02/18/24 02/19/24 02/20/24 02/21/24 23:59 23:59 23:59 23:59 Intake Total 4696.9 1310 1160 Output Total 3400 1250 Balance 4696.9 -2090 -90 Meds/Results Medications: Active Medications Generic Name Dose Route Start Last Admin Trade Name Freq PRN Reason Stop Dose Admin Acetaminophen 650 mg 02/19/24 10:28 02/19/24 11:25 Acetaminophen 325 Mg Tablet PO 650 mg Q6H PRN Administration fever or pain 1-3 Hydrocodone Bitart/Acetaminophen 1 tab 02/19/24 05:31 02/21/24 10:43 Hydrocodone/Acetaminophen (*Crx) 5-325 Mg Tablet PO 1 tab Q4H PRN Administration Pain Rated 4-6 Albuterol 2.5 mg 02/19/24 10:28 02/19/24 20:42 Albuterol Sulfate Neb 2.5 Mg/3 Ml Inh INHALATION 2.5 mg Q4H PRN Administration sob Apixaban 5 mg 02/20/24 21:00 02/21/24 09:12 Apixaban 5 Mg Tablet PO 5 mg Q12HR SOFIYA Administration Atorvastatin Calcium 80 mg 02/19/24 21:00 02/20/24 21:07 Atorvastatin 40 Mg Tablet PO 80 mg QHS SOFIYA Administration Bisacodyl 10 mg 02/19/24 10:28 Bisacodyl 10 Mg Suppository RECTAL DAILY PRN constipation Calcium Carbonate 500 mg 02/20/24 09:00 02/21/24 09:12 Calcium/Vitamin D 500 Mg/5 Mcg (200 I.U.) Tablet PO 500 mg QAM SOFIYA Administration Ergocalciferol 50,000 units 02/24/24 09:00 Ergocalciferol 50,000 Units Capsule PO WEEKLY SOFIYA Guaifenesin 600 mg 02/19/24 10:42 Guaifenesin 12 Hr 600 Mg Tabcr PO Q12H PRN congestion Ceftriaxone Sodium 1 gm in 50 mls @ 100 mls/hr 02/20/24 05:00 02/21/24 06:18 Rocephin 1 Gm/Ns 50 Ml IVPB 100 mls/hr Q24H SOFIYA Administration Diltiazem HCl 100 mg in 100 mls @ 5 mls/hr 02/20/24 10:30 02/20/24 14:47 Cardizem 100 Mg/100 Ml IV CONT Not Given .Q20H SOFIYA 5 MG/HR Levetiracetam 500 mg 02/19/24 21:00 02/21/24 09:12 Levetiracetam 500 Mg Tablet PO 500 mg Q12HR SOFIYA Administration Magnesium Citrate 150 ml 02/19/24 10:28 Magnesium Citrate 300 Ml Btl PO DAILY PRN constipation Metoprolol Tartrate 50 mg 02/20/24 21:00 02/21/24 10:43 Metoprolol Tartrate 50 Mg Tab PO 50 mg Q12HR SOFIYA Administration Morphine Sulfate 2 mg 02/20/24 16:30 02/21/24 12:12 Morphine Sulfate (*Crx) 2 Mg/Ml Inj IV PUSH 2 mg Q4H PRN Administration Pain Rated 7-10 Ondansetron HCl 4 mg 02/19/24 05:31 Ondansetron Inj 4 Mg/2 Ml Vial IV PUSH Q4H PRN Nausea Pseudoephedrine HCl 60 mg 02/19/24 10:40 Pseudoephedrine Hcl 30 Mg Tablet PO Q12H PRN congestion Psyllium Hydrophilic Mucilloid 1 packet 02/20/24 09:00 02/21/24 09:14 Psyllium Powder Packet PO Not Given DAILY SOFIYA Umeclidinium [place] 1 puff 02/20/24 08:00 02/21/24 08:41 Umeclidinium [place] 62.5 Mcg Ellipta INHALATION 1 puff DAILYRT SOFIYA Administration Radiology Results: ITS Impressions Head CT 02/19/24 06:00 Impression: No significant abnormality seen. Chest X-Ray 02/19/24 06:18 Impression: Normal chest. Lumbar Spine X-Ray 02/19/24 06:19 Impression: Moderate compression fracture of probably L1. Severe degenerative spondylosis in the lumbar spine. Labs Labs: Laboratory Results - last 24 hr 02/21/24 04:47 WBC 11.7 H RBC 3.50 L Hgb 11.6 L Hct 35.1 L MCV 100.3 H MCH 33.1 MCHC 33.0 RDW 14.6 H Plt Count 187 MPV 10.8 H Sodium 127 L Potassium 3.4 Chloride 92 L Carbon Dioxide 31 H Anion Gap 4 BUN 14 D Creatinine 0.50 L Estim Creat Clear Calc 98 Estimated GFR > 60 Glucose 99 Calcium 8.7 Magnesium 2.0 Total Bilirubin 0.6 AST 148 H ALT 51 H Alkaline Phosphatase 87 Total Protein 6.0 L Albumin 2.9 L
--- NOTE | 2024-02-21 15:11 | PM.IMPN ---
Progress Note: A&P Assessment and Plan (1) Atrial fibrillation with RVR: Code(s): I48.91 - Unspecified atrial fibrillation Status: Acute Assessment and Plan: -Started on Metoprolol 50 mg PO BID -Cardizem drip on hold -Possible DC if necessary -DC Lovenox -Started abixan PO 5 mg BI (2) Seizure: Code(s): R56.9 - Unspecified convulsions Status: Acute Assessment and Plan: patient stats she had one episode of seizures several years ago and taking keppra. patient UA is suspicious for UTI and being treated with ceftriaxone will follow up on urine c/s (3) Acute UTI: Code(s): N39.0 - Urinary tract infection, site not specified Status: Acute Assessment and Plan: patient UA is suspicious for UTI and being treated with ceftriaxone will follow up on urine c/s (4) Pressure ulcer of left buttock: Code(s): L89.329 - Pressure ulcer of left buttock, unspecified stage Status: Acute Assessment and Plan: patient is bedridden and has wound on her buttock and feet, will have wound team evaluate the patient. (5) Generalized weakness: Code(s): R53.1 - Weakness Status: Acute Assessment and Plan: Mostlikely multifactorial with A. Fib RVR, UTI, and several skin lesions, will have PT/OT evaluate the patient. Subjective Date/time seen: 02/21/24 15:11 Interval history: No acute events overnight. Patient converted to sinus rhythm. Patient is pending placement. Exam Narrative: Patient is comfortable, NAD HEENT: eyes are clear and none icteric LUNGS: Bilateral fair air with rales and rhonchi HEART: RR S1S2 ABD: BS+, Soft and nontender Lower extremities: edema SKIN: nonjaundiced Neuro: grossly intact. Objective Data Vital Signs Vital Signs: Vital Signs - 24 hr 02/20/24 16:00 02/20/24 16:30 02/20/24 16:30 Temperature 98.7 F Pulse Rate 90 96 Respiratory Rate 20 Blood Pressure 128/36 L Pulse Oximetry 98 97 Oxygen Delivery Nasal Cannula Oxygen Flow Rate 2 02/20/24 18:00 02/20/24 20:00 02/20/24 21:05 Temperature 98.0 F Pulse Rate 88 95 Respiratory Rate 19 Blood Pressure 110/33 L 102/47 L Pulse Oximetry 97 Oxygen Delivery Oxygen Flow Rate 02/20/24 21:08 02/20/24 20:00 02/21/24 00:00 Temperature 97.8 F Pulse Rate 91 77 Respiratory Rate 18 Blood Pressure 109/39 L Pulse Oximetry 98 98 Oxygen Delivery Nasal Cannula Oxygen Flow Rate 2 02/21/24 04:00 02/21/24 00:00 02/21/24 04:00 Temperature 98.1 F Pulse Rate 89 Respiratory Rate 18 Blood Pressure 125/41 L Pulse Oximetry 96 99 Oxygen Delivery Nasal Cannula Room Air Oxygen Flow Rate 2 02/20/24 20:00 02/20/24 22:00 02/21/24 00:00 Temperature Pulse Rate 89 84 73 Respiratory Rate Blood Pressure Pulse Oximetry Oxygen Delivery Oxygen Flow Rate 02/21/24 02:00 02/21/24 04:00 02/21/24 06:00 Temperature Pulse Rate 78 80 84 Respiratory Rate Blood Pressure Pulse Oximetry Oxygen Delivery Oxygen Flow Rate 02/21/24 08:00 02/21/24 08:41 02/21/24 09:50 Temperature 99.9 F H 99.2 F Pulse Rate 97 78 Respiratory Rate 18 22 H Blood Pressure 92/42 L 141/63 H Pulse Oximetry 97 95 92 Oxygen Delivery Nasal Cannula Oxygen Flow Rate 2 02/21/24 08:00 02/21/24 08:00 02/21/24 10:00 Temperature Pulse Rate 100 99 Respiratory Rate Blood Pressure Pulse Oximetry 92 Oxygen Delivery Nasal Cannula Oxygen Flow Rate 2 02/21/24 10:56 02/21/24 11:11 02/21/24 11:59 Temperature Pulse Rate Respiratory Rate Blood Pressure 122/90 Pulse Oximetry Oxygen Delivery Nasal Cannula Nasal Cannula Oxygen Flow Rate 2 2 02/21/24 12:00 02/21/24 12:00 02/21/24 12:00 Temperature 99.3 F Pulse Rate 89 86 Respiratory Rate 20 Blood Pressure 112/86 Pulse Oximetry 98 98 Oxygen Delivery Nasal Cannula Oxygen Flow Rate 2 02/21/24 14:00 Temperature Pulse Rate 75 Respiratory Rate Blood Pressure Pulse Oximetry Oxygen Delivery Oxygen Flow Rate Intake/Output Intake/Output: Intake & Output 02/18/24 02/19/24 02/20/24 02/21/24 23:59 23:59 23:59 23:59 Intake Total 4696.9 1310 1160 Output Total 3400 1250 Balance 4696.9 -2090 -90 Meds/Results Medications: Active Medications Generic Name Dose Route Start Last Admin Trade Name Freq PRN Reason Stop Dose Admin Acetaminophen 650 mg 02/19/24 10:28 02/19/24 11:25 Acetaminophen 325 Mg Tablet PO 650 mg Q6H PRN Administration fever or pain 1-3 Hydrocodone Bitart/Acetaminophen 1 tab 02/19/24 05:31 02/21/24 10:43 Hydrocodone/Acetaminophen (*Crx) 5-325 Mg Tablet PO 1 tab Q4H PRN Administration Pain Rated 4-6 Albuterol 2.5 mg 02/19/24 10:28 02/19/24 20:42 Albuterol Sulfate Neb 2.5 Mg/3 Ml Inh INHALATION 2.5 mg Q4H PRN Administration sob Apixaban 5 mg 02/20/24 21:00 02/21/24 09:12 Apixaban 5 Mg Tablet PO 5 mg Q12HR SOFIYA Administration Atorvastatin Calcium 80 mg 02/19/24 21:00 02/20/24 21:07 Atorvastatin 40 Mg Tablet PO 80 mg QHS SOFIYA Administration Bisacodyl 10 mg 02/19/24 10:28 Bisacodyl 10 Mg Suppository RECTAL DAILY PRN constipation Calcium Carbonate 500 mg 02/20/24 09:00 02/21/24 09:12 Calcium/Vitamin D 500 Mg/5 Mcg (200 I.U.) Tablet PO 500 mg QAM SOFIYA Administration Ergocalciferol 50,000 units 02/24/24 09:00 Ergocalciferol 50,000 Units Capsule PO WEEKLY SOFIYA Guaifenesin 600 mg 02/19/24 10:42 Guaifenesin 12 Hr 600 Mg Tabcr PO Q12H PRN congestion Ceftriaxone Sodium 1 gm in 50 mls @ 100 mls/hr 02/20/24 05:00 02/21/24 06:18 Rocephin 1 Gm/Ns 50 Ml IVPB 100 mls/hr Q24H SOFIYA Administration Diltiazem HCl 100 mg in 100 mls @ 5 mls/hr 02/20/24 10:30 02/20/24 14:47 Cardizem 100 Mg/100 Ml IV CONT Not Given .Q20H SOFIYA 5 MG/HR Levetiracetam 500 mg 02/19/24 21:00 02/21/24 09:12 Levetiracetam 500 Mg Tablet PO 500 mg Q12HR SOFIYA Administration Magnesium Citrate 150 ml 02/19/24 10:28 Magnesium Citrate 300 Ml Btl PO DAILY PRN constipation Metoprolol Tartrate 50 mg 02/20/24 21:00 02/21/24 10:43 Metoprolol Tartrate 50 Mg Tab PO 50 mg Q12HR SOFIYA Administration Morphine Sulfate 2 mg 02/20/24 16:30 02/21/24 12:12 Morphine Sulfate (*Crx) 2 Mg/Ml Inj IV PUSH 2 mg Q4H PRN Administration Pain Rated 7-10 Ondansetron HCl 4 mg 02/19/24 05:31 Ondansetron Inj 4 Mg/2 Ml Vial IV PUSH Q4H PRN Nausea Pseudoephedrine HCl 60 mg 02/19/24 10:40 Pseudoephedrine Hcl 30 Mg Tablet PO Q12H PRN congestion Psyllium Hydrophilic Mucilloid 1 packet 02/20/24 09:00 02/21/24 09:14 Psyllium Powder Packet PO Not Given DAILY SOFIYA Umeclidinium [place] 1 puff 02/20/24 08:00 02/21/24 08:41 Umeclidinium [place] 62.5 Mcg Ellipta INHALATION 1 puff DAILYRT SOFIYA Administration Radiology Results: ITS Impressions Head CT 02/19/24 06:00 Impression: No significant abnormality seen. Chest X-Ray 02/19/24 06:18 Impression: Normal chest. Lumbar Spine X-Ray 02/19/24 06:19 Impression: Moderate compression fracture of probably L1. Severe degenerative spondylosis in the lumbar spine. Labs Labs: Laboratory Results - last 24 hr 02/21/24 04:47 WBC 11.7 H RBC 3.50 L Hgb 11.6 L Hct 35.1 L MCV 100.3 H MCH 33.1 MCHC 33.0 RDW 14.6 H Plt Count 187 MPV 10.8 H Sodium 127 L Potassium 3.4 Chloride 92 L Carbon Dioxide 31 H Anion Gap 4 BUN 14 D Creatinine 0.50 L Estim Creat Clear Calc 98 Estimated GFR > 60 Glucose 99 Calcium 8.7 Magnesium 2.0 Total Bilirubin 0.6 AST 148 H ALT 51 H Alkaline Phosphatase 87 Total Protein 6.0 L Albumin 2.9 L Quality VTE Prophylaxis VTE prophylaxis: pharmacologic ordered Hospitalist [facility] Advance Care Plan I have confirmed that the patient's Advanced Care Plan is present, code status is documented, or surrogate decision maker is listed in patient medical record.: Yes Medication Reconciliation I have utilized all available resources to obtain, update and review the patients current medications (includes all prescriptions, OTC, herbals, cannabis, and nutritional supplements).: Yes
--- NOTE | 2024-02-21 15:46 | PC.NURSE ---
This patient, Samantha Rojas, was transferred to [facility] on 02/21/24 at 1526. Personal belongings sent with patient. Report given to Haydee. Appropriate documentation sent with patient.
[2024-02-21] MEDS: ATORVASTATIN 40 MG TABLET 80 MG PO (20:30)
[2024-02-22] VITALS (10 sets, daily range): BP systolic 124–168; BP diastolic 40–72; PULSE 80–118; RESP 16–22; TEMP 36.7–37.2; O2SAT 88–99
[2024-02-22 07:17] LABS: Hematocrit 34.1 % (37.0-47.0); Hemoglobin 11.3 g/dL (12.0-15.0); Mean Corpuscular HGB Conc 33.1 g/dl (32-36); Mean Corpuscular Hemoglobin 32.8 pg (26-34); Mean Corpuscular Volume 99.1 fl (80-100); Mean Platelet Volume 10.9 fl (7.4-10.4); Platelet Count Result 223 k/mm3 (150-375); Red Blood Count 3.44 M/mm3 (4.2-5.4); Red Cell Distribution Width 14.4 % (11.5-14.5); White Blood Count 10.1 K/mm3 (4.5-10.0)
[2024-02-22 07:49] LABS: Alanine Aminotransferase 48 U/L (6-35); Albumin Level 2.9 g/dL (3.5-5.1); Alkaline Phosphatase 102 U/L (38-126); Anion Gap 2 mmol/L (4-12); Aspartate Amino Transferase 100 U/L (14-36); Bilirubin,Total 0.5 mg/dL (0.2-1.3); Blood Urea Nitrogen 8 mg/dL (7-17); Calcium 8.6 mg/dL (8.4-10.2); Carbon Dioxide 34 mmol/L (22-30); Chloride 93 mmol/L (98-107); Estimated CRCL calculation 97 ml/min; Estimated Glomerular Filt Rate > 60; Glucose 104 mg/dL (65-110); Magnesium 2.1 mg/dL (1.6-2.3); Potassium 3.2 mmol/L (3.4-5.0); Sodium 129 mmol/L (137-145)
[2024-02-22] MEDS: levETIRAcetam 500 MG TABLET PO ×2 (08:25→22:03)
[2024-02-22] MEDS: CALCIUM/VITAMIN D 500 MG/5 MCG (200 I.U.) TABLET PO (08:25)
[2024-02-22] MEDS: METOPROLOL TARTRATE 50 MG TAB PO ×2 (08:25→22:02)
[2024-02-22] MEDS: APIXABAN 5 MG TABLET PO ×2 (08:26→22:03)
[2024-02-22] MEDS: UMECLIDINIUM BROMIDE 62.5 MCG ELLIPTA 1 PUFF INHALATION (08:28)
[2024-02-22] MEDS: POTASSIUM CHLORIDE 20 MEQ ER TABLET 60 MEQ PO (08:30)
[2024-02-22 09:39] LABS: Hemoglobin A1C 5.4 % (<5.7)
[2024-02-22 10:31] LABS: Hepatitis B Surface Antigen Negative (Negative)
[2024-02-22 10:39] LABS: HAV RESULT Negative (Negative); Hepatitis B Core IgM Result Negative (Negative)
[2024-02-22 10:48] LABS: Hepatitis C Virus Antibody Negative (Negative)
--- NOTE | 2024-02-22 12:39 | P.PNIM_ITS ---
Progress Note: A&P Assessment and Plan (1) Atrial fibrillation with RVR: Code(s): I48.91 - Unspecified atrial fibrillation Status: Acute Assessment and Plan: -Started on Metoprolol 50 mg PO BID -Cardizem drip on hold -Possible DC if necessary -DC Lovenox -Started abixan PO 5 mg BID (2) Seizure: Code(s): R56.9 - Unspecified convulsions Status: Acute Assessment and Plan: patient stats she had one episode of seizures several years ago and taking keppra. patient UA is suspicious for UTI and being treated with ceftriaxone will follow up on urine c/s -02/21: Will do Keflex for 7 days upon discharge (3) Acute UTI: Code(s): N39.0 - Urinary tract infection, site not specified Status: Acute Assessment and Plan: -02/21: Will do Keflex for 7 days upon discharge (4) Pressure ulcer of left buttock: Code(s): L89.329 - Pressure ulcer of left buttock, unspecified stage Status: Acute Assessment and Plan: patient is bedridden and has wound on her buttock and feet, will have wound team evaluate the patient. (5) Generalized weakness: Code(s): R53.1 - Weakness Status: Acute Assessment and Plan: Mostlikely multifactorial with A. Fib RVR, UTI, and several skin lesions, will have PT/OT evaluate the patient. (6) Increased liver enzymes: Code(s): R74.8 - Abnormal levels of other serum enzymes Status: Acute Assessment and Plan: Ordered ultrasound of the liver Ordered hepatitis panel Ordered HbA1c Possibly due to dehydration and infectious process Patient is morbidly obesity Possibly NAFLD Subjective Date/time seen: 02/22/24 12:39 Interval history: Patient heart rate has been stable. Cardiology signed off. Patient urinary culture resulted. Since is a pansensitive patient will complete a course of Keflex for 7 days upon discharge tomorrow. Patient had increased LFTs. Ordered ultrasound of the liver, hepatitis panel and HbA1c. Patient is currently doing well and reports no complaints. Pending placement Exam Narrative: Patient is comfortable, NAD HEENT: eyes are clear and none icteric LUNGS: Bilateral fair air with rales and rhonchi HEART: RR S1S2 ABD: BS+, Soft and nontender Lower extremities: edema SKIN: nonjaundiced Neuro: grossly intact. Objective Data Vital Signs Vital Signs: Vital Signs - 24 hr 02/21/24 14:00 02/21/24 16:00 02/21/24 16:00 Temperature 97 F L Pulse Rate 75 80 82 Respiratory Rate 18 Blood Pressure 116/55 L Pulse Oximetry 99 Oxygen Delivery Oxygen Flow Rate Fraction of Inspired Oxygen 02/21/24 20:00 02/21/24 20:30 02/21/24 20:00 Temperature 97.3 F L Pulse Rate 96 94 Respiratory Rate 20 Blood Pressure 142/44 H Pulse Oximetry 91 99 Oxygen Delivery Nasal Cannula Oxygen Flow Rate 2 Fraction of Inspired Oxygen 02/22/24 00:00 02/21/24 20:00 02/22/24 00:00 Temperature 98.1 F Pulse Rate 81 93 82 Respiratory Rate 22 H Blood Pressure 124/40 L Pulse Oximetry 97 Oxygen Delivery Oxygen Flow Rate Fraction of Inspired Oxygen 02/22/24 04:00 02/22/24 04:00 02/22/24 08:25 Temperature 98.2 F Pulse Rate 80 81 80 Respiratory Rate 22 H Blood Pressure 130/48 L Pulse Oximetry 98 Oxygen Delivery Oxygen Flow Rate Fraction of Inspired Oxygen 02/22/24 08:28 02/22/24 08:30 02/22/24 08:00 Temperature 98.9 F Pulse Rate 93 Respiratory Rate 16 Blood Pressure 152/72 H Pulse Oximetry 88 L 93 97 Oxygen Delivery Room Air Nasal Cannula Oxygen Flow Rate 1 Fraction of Inspired Oxygen 02/22/24 08:00 Temperature Pulse Rate Respiratory Rate Blood Pressure Pulse Oximetry 94 Oxygen Delivery Nasal Cannula Oxygen Flow Rate 1 Fraction of Inspired Oxygen Intake/Output Intake/Output: Intake & Output 02/19/24 02/20/24 02/21/24 02/22/24 23:59 23:59 23:59 23:59 Intake Total 4696.9 1310 2070 1940 Output Total 3400 1250 2425 Balance 4696.9 2090 820 -485 Meds/Results Medications: Active Medications Generic Name Dose Route Start Last Admin Trade Name Freq PRN Reason Stop Dose Admin Acetaminophen 650 mg 02/19/24 10:28 02/19/24 11:25 Acetaminophen 325 Mg Tablet PO 650 mg Q6H PRN Administration fever or pain 1-3 Hydrocodone Bitart/Acetaminophen 1 tab 02/19/24 05:31 02/21/24 10:43 Hydrocodone/Acetaminophen (*Crx) 5-325 Mg Tablet PO 1 tab Q4H PRN Administration Pain Rated 4-6 Albuterol 2.5 mg 02/19/24 10:28 02/19/24 20:42 Albuterol Sulfate Neb 2.5 Mg/3 Ml Inh INHALATION 2.5 mg Q4H PRN Administration sob Apixaban 5 mg 02/20/24 21:00 02/22/24 08:26 Apixaban 5 Mg Tablet PO 5 mg Q12HR SOFIYA Administration Atorvastatin Calcium 80 mg 02/19/24 21:00 02/21/24 20:30 Atorvastatin 40 Mg Tablet PO 80 mg QHS SOFIYA Administration Bisacodyl 10 mg 02/19/24 10:28 Bisacodyl 10 Mg Suppository RECTAL DAILY PRN constipation Calcium Carbonate 500 mg 02/20/24 09:00 02/22/24 08:25 Calcium/Vitamin D 500 Mg/5 Mcg (200 I.U.) Tablet PO 500 mg QAM SOFIYA Administration Cephalexin HCl 500 mg 02/23/24 07:00 Cephalexin 500 Mg Capsule PO 02/25/24 21:01 Q12HR SOFIYA Ergocalciferol 50,000 units 02/24/24 09:00 Ergocalciferol 50,000 Units Capsule PO WEEKLY SOFIYA Guaifenesin 600 mg 02/19/24 10:42 Guaifenesin 12 Hr 600 Mg Tabcr PO Q12H PRN congestion Diltiazem HCl 100 mg in 100 mls @ 5 mls/hr 02/20/24 10:30 02/20/24 14:47 Cardizem 100 Mg/100 Ml IV CONT Not Given .Q20H SOFIYA 5 MG/HR Levetiracetam 500 mg 02/19/24 21:00 02/22/24 08:25 Levetiracetam 500 Mg Tablet PO 500 mg Q12HR SOFIYA Administration Magnesium Citrate 150 ml 02/19/24 10:28 Magnesium Citrate 300 Ml Btl PO DAILY PRN constipation Metoprolol Tartrate 50 mg 02/20/24 21:00 02/22/24 08:25 Metoprolol Tartrate 50 Mg Tab PO 50 mg Q12HR SOFIYA Administration Morphine Sulfate 2 mg 02/20/24 16:30 02/21/24 12:12 Morphine Sulfate (*Crx) 2 Mg/Ml Inj IV PUSH 2 mg Q4H PRN Administration Pain Rated 7-10 Ondansetron HCl 4 mg 02/19/24 05:31 Ondansetron Inj 4 Mg/2 Ml Vial IV PUSH Q4H PRN Nausea Pseudoephedrine HCl 60 mg 02/19/24 10:40 Pseudoephedrine Hcl 30 Mg Tablet PO Q12H PRN congestion Psyllium Hydrophilic Mucilloid 1 packet 02/20/24 09:00 02/22/24 09:29 Psyllium Powder Packet PO Not Given DAILY SOFIYA Umeclidinium [place] 1 puff 02/20/24 08:00 02/22/24 08:28 Umeclidinium [place] 62.5 Mcg Ellipta INHALATION 1 puff DAILYRT SOFIYA Administration Radiology Results: ITS Impressions Head CT 02/19/24 06:00 Impression: No significant abnormality seen. Chest X-Ray 02/19/24 06:18 Impression: Normal chest. Lumbar Spine X-Ray 02/19/24 06:19 Impression: Moderate compression fracture of probably L1. Severe degenerative spondylosis in the lumbar spine. Labs Labs: Laboratory Results - last 24 hr 02/22/24 02/22/24 06:30 06:32 WBC 10.1 H RBC 3.44 L Hgb 11.3 L Hct 34.1 L MCV 99.1 MCH 32.8 MCHC 33.1 RDW 14.4 Plt Count 223 MPV 10.9 H Sodium 129 L Potassium 3.2 L Chloride 93 L Carbon Dioxide 34 H Anion Gap 2 L BUN 8 D Creatinine 0.50 L Estim Creat Clear Calc 97 Estimated GFR > 60 Glucose 104 Hemoglobin A1c 5.4 Calcium 8.6 Magnesium 2.1 Total Bilirubin 0.5 AST 100 H ALT 48 H Alkaline Phosphatase 102 Total Protein 6.0 L Albumin 2.9 L Hepatitis A IgM Ab Negative Hep Bs Antigen Negative Hep B Core IgM Ab Negative Hepatitis C Ab Screen Negative Quality VTE Prophylaxis VTE prophylaxis: pharmacologic ordered Hospitalist [facility] Advance Care Plan I have confirmed that the patient's Advanced Care Plan is present, code status is documented, or surrogate decision maker is listed in patient medical record.: Yes Medication Reconciliation I have utilized all available resources to obtain, update and review the patients current medications (includes all prescriptions, OTC, herbals, cannabis, and nutritional supplements).: Yes
[2024-02-22] MEDS: ATORVASTATIN 40 MG TABLET 80 MG PO (22:01)
[2024-02-23] VITALS (13 sets, daily range): BP systolic 137–169; BP diastolic 40–59; PULSE 53–103; RESP 16–26; TEMP 36.2–36.6; O2SAT 92–96
[2024-02-23] MEDS: HYDROcodone/acetaminophen (*CRX) 5-325 MG TABLET 1 TAB PO ×3 (02:29→20:53)
[2024-02-23 07:02] LABS: Hemoglobin 11.4 g/dL (12.0-15.0); Mean Corpuscular HGB Conc 32.6 g/dl (32-36); Mean Corpuscular Hemoglobin 32.6 pg (26-34); Mean Platelet Volume 10.6 fl (7.4-10.4); Platelet Count Result 230 k/mm3 (150-375); Red Cell Distribution Width 14.4 % (11.5-14.5); White Blood Count 8.7 K/mm3 (4.5-10.0)
[2024-02-23 07:13] LABS: Alanine Aminotransferase 58 U/L (6-35); Albumin Level 2.9 g/dL (3.5-5.1); Alkaline Phosphatase 92 U/L (38-126); Anion Gap 0 mmol/L (4-12); Aspartate Amino Transferase 86 U/L (14-36); Bilirubin,Total 0.5 mg/dL (0.2-1.3); Blood Urea Nitrogen 6 mg/dL (7-17); Calcium 8.5 mg/dL (8.4-10.2); Carbon Dioxide 35 mmol/L (22-30); Chloride 93 mmol/L (98-107); Estimated CRCL calculation 98 ml/min; Estimated Glomerular Filt Rate > 60; Glucose 104 mg/dL (65-110); Magnesium 2.1 mg/dL (1.6-2.3); Potassium 3.6 mmol/L (3.4-5.0); Sodium 128 mmol/L (137-145)
[2024-02-23] MEDS: UMECLIDINIUM BROMIDE 62.5 MCG ELLIPTA 1 PUFF INHALATION (08:17)
[2024-02-23] MEDS: CEPHALEXIN 500 MG CAPSULE PO ×2 (08:18→20:53)
[2024-02-23] MEDS: APIXABAN 5 MG TABLET PO ×2 (08:18→20:53)
[2024-02-23] MEDS: levETIRAcetam 500 MG TABLET PO ×2 (08:18→20:51)
[2024-02-23] MEDS: CALCIUM/VITAMIN D 500 MG/5 MCG (200 I.U.) TABLET PO (08:18)
[2024-02-23] MEDS: METOPROLOL TARTRATE 50 MG TAB PO ×2 (08:19→20:52)
[2024-02-23] MEDS: SODIUM CHLORIDE 1 GM TABLET PO ×2 (12:13→18:14)
--- NOTE | 2024-02-23 14:22 | PCOTNOTE ---
Attempted to see Patient at this time. Patient refused any therapy, stated we are the reason she is having so many problems. The more I move the worse it gets. Patient stated no one is helping with this horrible pain I'm having. Patient yelling out in pain off/on with communicating. RN notified and stated Patient has had medication and she will speak with her.
--- NOTE | 2024-02-23 16:07 | P.PNIM_ITS ---
Progress Note: A&P Assessment and Plan (1) Atrial fibrillation with RVR: Code(s): I48.91 - Unspecified atrial fibrillation Status: Acute Assessment and Plan: -Started on Metoprolol 50 mg PO BID -Cardizem drip on hold -Possible DC if necessary -DC Lovenox -Started abixan PO 5 mg BID (2) Seizure: Code(s): R56.9 - Unspecified convulsions Status: Acute Assessment and Plan: patient stats she had one episode of seizures several years ago and taking keppra. patient UA is suspicious for UTI and being treated with ceftriaxone will follow up on urine c/s -02/21: Will do Keflex for 7 days upon discharge (3) Acute UTI: Code(s): N39.0 - Urinary tract infection, site not specified Status: Acute Assessment and Plan: -02/21: Will do Keflex for 7 days upon discharge (4) Pressure ulcer of left buttock: Code(s): L89.329 - Pressure ulcer of left buttock, unspecified stage Status: Acute Assessment and Plan: patient is bedridden and has wound on her buttock and feet, will have wound team evaluate the patient. (5) Generalized weakness: Code(s): R53.1 - Weakness Status: Acute Assessment and Plan: Mostlikely multifactorial with A. Fib RVR, UTI, and several skin lesions, will have PT/OT evaluate the patient. (6) Increased liver enzymes: Code(s): R74.8 - Abnormal levels of other serum enzymes Status: Acute Assessment and Plan: Liver ultrasound showed limited visualization of the pancreas and liver however showed biliary sludge otherwise normal appearing gallbladder. Hepatitis viral panel negative Liver enzymes improving AST 86 ALT 58 today Possibly due to dehydration and infectious process Patient is morbidly obesity Plan Hyponatremia Sodium is 128 Start patient on salt tablets 1 tablet t.i.d.. Monitor. DVT prophylaxis on Eliquis. Subjective Date/time seen: 02/23/24 16:07 Interval history: Comfortable at bedside, awaiting insurance authorization for discharge. Exam Narrative: Patient is comfortable, NAD HEENT: eyes are clear and none icteric LUNGS: Bilateral fair air with rales and rhonchi HEART: RR S1S2 ABD: BS+, Soft and nontender Lower extremities: edema SKIN: nonjaundiced Neuro: grossly intact. Objective Data Vital Signs Vital Signs: Vital Signs - 24 hr 02/22/24 20:00 02/22/24 22:02 02/22/24 20:00 Temperature 98.3 F Pulse Rate 96 95 118 H Respiratory Rate 22 H Blood Pressure 144/54 H Pulse Oximetry 96 Oxygen Delivery Oxygen Flow Rate Fraction of Inspired Oxygen 02/23/24 01:54 02/23/24 00:00 02/23/24 04:00 Temperature Pulse Rate 75 82 Respiratory Rate Blood Pressure Pulse Oximetry 96 Oxygen Delivery Oxygen Flow Rate 1 Fraction of Inspired Oxygen 02/23/24 05:14 02/23/24 08:19 02/23/24 08:21 Temperature 97.4 F L Pulse Rate 73 76 Respiratory Rate 16 Blood Pressure 137/40 L Pulse Oximetry 96 92 Oxygen Delivery Room Air Oxygen Flow Rate Fraction of Inspired Oxygen 02/23/24 08:21 02/23/24 08:00 02/23/24 08:00 Temperature Pulse Rate 81 82 81 Respiratory Rate 18 18 Blood Pressure Pulse Oximetry 92 Oxygen Delivery Room Air Oxygen Flow Rate Fraction of Inspired Oxygen 02/23/24 12:00 02/23/24 14:00 02/23/24 12:00 Temperature 97.2 F L Pulse Rate 81 84 96 Respiratory Rate 16 Blood Pressure 169/59 H Pulse Oximetry 95 Oxygen Delivery Oxygen Flow Rate Fraction of Inspired Oxygen Intake/Output Intake/Output: Intake & Output 02/20/24 02/21/24 02/22/24 02/23/24 23:59 23:59 23:59 23:59 Intake Total 1310 2070 2648 2440 Output Total 3400 1250 4425 3850 Balance -2090 820 -3562 -3950 Meds/Results Medications: Active Medications Generic Name Dose Route Start Last Admin Trade Name Freq PRN Reason Stop Dose Admin Acetaminophen 650 mg 02/19/24 10:28 02/19/24 11:25 Acetaminophen 325 Mg Tablet PO 650 mg Q6H PRN Administration fever or pain 1-3 Hydrocodone Bitart/Acetaminophen 1 tab 02/19/24 05:31 02/23/24 12:13 Hydrocodone/Acetaminophen (*Crx) 5-325 Mg Tablet PO 1 tab Q4H PRN Administration Pain Rated 4-6 Albuterol 2.5 mg 02/19/24 10:28 02/19/24 20:42 Albuterol Sulfate Neb 2.5 Mg/3 Ml Inh INHALATION 2.5 mg Q4H PRN Administration sob Apixaban 5 mg 02/20/24 21:00 02/23/24 08:18 Apixaban 5 Mg Tablet PO 5 mg Q12HR SOFIYA Administration Atorvastatin Calcium 80 mg 02/19/24 21:00 02/22/24 22:01 Atorvastatin 40 Mg Tablet PO 80 mg QHS SOFIYA Administration Bisacodyl 10 mg 02/19/24 10:28 Bisacodyl 10 Mg Suppository RECTAL DAILY PRN constipation Calcium Carbonate 500 mg 02/20/24 09:00 02/23/24 08:18 Calcium/Vitamin D 500 Mg/5 Mcg (200 I.U.) Tablet PO 500 mg QAM SOFIYA Administration Cephalexin HCl 500 mg 02/23/24 07:00 02/23/24 08:18 Cephalexin 500 Mg Capsule PO 02/25/24 21:01 500 mg Q12HR SOFIYA Administration Ergocalciferol 50,000 units 02/24/24 09:00 Ergocalciferol 50,000 Units Capsule PO WEEKLY SOFIYA Guaifenesin 600 mg 02/19/24 10:42 Guaifenesin 12 Hr 600 Mg Tabcr PO Q12H PRN congestion Diltiazem HCl 100 mg in 100 mls @ 5 mls/hr 02/20/24 10:30 02/20/24 14:47 Cardizem 100 Mg/100 Ml IV CONT Not Given .Q20H SOFIYA 5 MG/HR Levetiracetam 500 mg 02/19/24 21:00 02/23/24 08:18 Levetiracetam 500 Mg Tablet PO 500 mg Q12HR SOFIYA Administration Magnesium Citrate 150 ml 02/19/24 10:28 Magnesium Citrate 300 Ml Btl PO DAILY PRN constipation Metoprolol Tartrate 50 mg 02/20/24 21:00 02/23/24 08:19 Metoprolol Tartrate 50 Mg Tab PO 50 mg Q12HR SOFIYA Administration Morphine Sulfate 2 mg 02/20/24 16:30 02/21/24 12:12 Morphine Sulfate (*Crx) 2 Mg/Ml Inj IV PUSH 2 mg Q4H PRN Administration Pain Rated 7-10 Ondansetron HCl 4 mg 02/19/24 05:31 Ondansetron Inj 4 Mg/2 Ml Vial IV PUSH Q4H PRN Nausea Pseudoephedrine HCl 60 mg 02/19/24 10:40 Pseudoephedrine Hcl 30 Mg Tablet PO Q12H PRN congestion Psyllium Hydrophilic Mucilloid 1 packet 02/20/24 09:00 02/23/24 08:19 Psyllium Powder Packet PO Not Given DAILY SOFIYA Sodium Chloride 1 gm 02/23/24 13:00 02/23/24 12:13 Sodium Chloride 1 Gm Tablet PO 1 gm TID SOFIYA Administration Umeclidinium [place] 1 puff 02/20/24 08:00 02/23/24 08:17 Umeclidinium [place] 62.5 Mcg Ellipta INHALATION 1 puff DAILYRT SOFIYA Administration Radiology Results: ITS Impressions Head CT 02/19/24 06:00 Impression: No significant abnormality seen. Chest X-Ray 02/19/24 06:18 Impression: Normal chest. Lumbar Spine X-Ray 02/19/24 06:19 Impression: Moderate compression fracture of probably L1. Severe degenerative spondylosis in the lumbar spine. Abdomen Ultrasound 02/22/24 19:22 IMPRESSION: Limited visualization of the pancreas and liver. Biliary sludge, otherwise normal-appearing gallbladder. Labs Labs: Laboratory Results - last 24 hr 02/23/24 06:21 WBC 8.7 RBC 3.50 L Hgb 11.4 L Hct 35.0 L MCV 100.0 MCH 32.6 MCHC 32.6 RDW 14.4 Plt Count 230 MPV 10.6 H Sodium 128 L Potassium 3.6 Chloride 93 L Carbon Dioxide 35 H Anion Gap 0 L BUN 6 L Creatinine 0.50 L Estim Creat Clear Calc 98 Estimated GFR > 60 Glucose 104 Calcium 8.5 Magnesium 2.1 Total Bilirubin 0.5 AST 86 H ALT 58 H Alkaline Phosphatase 92 Total Protein 6.0 L Albumin 2.9 L Quality VTE Prophylaxis VTE prophylaxis: pharmacologic ordered
--- NOTE | 2024-02-23 20:46 | ECG_ITS ---
Test Date: 2024-02-23 21:16:25 Measurements Intervals Erhard Rate: 96 P: 45 RI: 131 QRS: 56 QRSD: 97 T: 30 QT: 353 QTc: 446 Interpretive Statements SINUS RHYTHM WITH VENTRICULAR TRIGEMINY ABNORMAL ECG Compared to ECG 02/19/2024 04:43:41 VENTRICULAR TRIGEMINY NOW PRESSENT Electronically Signed On 02-24-2024 06:25:27 STEREOPTICIAN by Lemuel Thompson D.O.
[2024-02-23] MEDS: ATORVASTATIN 40 MG TABLET 80 MG PO (20:51)
[2024-02-23 21:23] LABS: Anion Gap 4 mmol/L (4-12); Blood Urea Nitrogen 7 mg/dL (7-17); Calcium 8.4 mg/dL (8.4-10.2); Carbon Dioxide 33 mmol/L (22-30); Chloride 90 mmol/L (98-107); Estimated CRCL calculation 119 ml/min; Estimated Glomerular Filt Rate > 60; Glucose 112 mg/dL (65-110); Magnesium 1.9 mg/dL (1.6-2.3); Phosphorus 2.7 mg/dL (2.5-4.5); Potassium 3.7 mmol/L (3.4-5.0); Sodium 127 mmol/L (137-145)
[2024-02-24] VITALS (9 sets, daily range): BP systolic 147–161; BP diastolic 55–60; PULSE 72–82; RESP 16–20; TEMP 36.8–37.2; O2SAT 90–97
[2024-02-24 07:25] LABS: Basophils Percent Auto 0.3 % (0.2-1.2); Eosinophils Absolute Auto 0.1 K/mm3 (0-0.3); Eosinophils Percent Auto 1.2 % (0-4.4); Hematocrit 36.4 % (37.0-47.0); Hemoglobin 12.2 g/dL (12.0-15.0); Lymphocytes Absolute Auto 1.13 K/mm3 (0.9-3.2); Lymphocytes Percent Auto 11.3 % (18.3-44.2); Mean Corpuscular HGB Conc 33.5 g/dl (32-36); Mean Corpuscular Hemoglobin 33.5 pg (26-34); Mean Platelet Volume 10.2 fl (7.4-10.4); Monocytes Percent Auto 10.1 % (2.6-8.5); Neutrophils Absolute Auto 7.6 K/mm3 (1.3-6.7); Neutrophils Percent Auto 76.1 % (45.5-73.1); Platelet Count Result 247 k/mm3 (150-375); Red Blood Count 3.64 M/mm3 (4.2-5.4); Red Cell Distribution Width 14.4 % (11.5-14.5)
[2024-02-24 07:41] LABS: Alanine Aminotransferase 57 U/L (6-35); Albumin Level 3.1 g/dL (3.5-5.1); Alkaline Phosphatase 95 U/L (38-126); Anion Gap 3 mmol/L (4-12); Aspartate Amino Transferase 59 U/L (14-36); Bilirubin,Total 0.8 mg/dL (0.2-1.3); Blood Urea Nitrogen 6 mg/dL (7-17); Calcium 8.7 mg/dL (8.4-10.2); Carbon Dioxide 37 mmol/L (22-30); Chloride 91 mmol/L (98-107); Estimated CRCL calculation 97 ml/min; Estimated Glomerular Filt Rate > 60; Glucose 108 mg/dL (65-110); Magnesium 2.1 mg/dL (1.6-2.3); Sodium 131 mmol/L (137-145)
[2024-02-24] MEDS: UMECLIDINIUM BROMIDE 62.5 MCG ELLIPTA 1 PUFF INHALATION (08:38)
[2024-02-24] MEDS: SODIUM CHLORIDE 1 GM TABLET PO (09:12)
[2024-02-24] MEDS: ERGOCALCIFEROL 50,000 UNITS CAPSULE 50000 UNITS PO (09:12)
[2024-02-24] MEDS: CALCIUM/VITAMIN D 500 MG/5 MCG (200 I.U.) TABLET PO (09:12)
[2024-02-24] MEDS: METOPROLOL TARTRATE 50 MG TAB PO (09:12)
[2024-02-24] MEDS: lisinopriL 5 MG TABLET PO (09:12)
[2024-02-24] MEDS: levETIRAcetam 500 MG TABLET PO (09:12)
[2024-02-24] MEDS: CEPHALEXIN 500 MG CAPSULE PO (09:12)
[2024-02-24] MEDS: APIXABAN 5 MG TABLET PO (09:12)
--- NOTE | 2024-02-24 09:32 | PCNFU ---
Nutrition Follow-Up Complete: Increased protein energy needs related to wound healing as evidenced by multiple pressure injuries present on admission Goal:Adequate PO intake at least 75% meals and supplements to support wound healing Pt meeting goal, continue with same goal. Pt current nutrition is heart healthy, Ensure Enlive BID, GEETHA BID. Nutrition recommendation: continue with current plan of care Last recorded weight is 93 kg. Bowel Motility: +BM 02/22 Labs Reviewed: Hct:36.4, Alb:3.1, Na:131, BUN:6, Cr:0.5 Meds Noted: eliquis, dulcolax, zofran Skin: Stage III, unstageable, DTPI all to buttocks area Additional Notes: Pt continues on a heart healthy diet, Ensure Enlive BID and GEETHA BID both ordered. PO intake good at 75-100% of meals. Agree with orders, encourage good po intake to continue. Monitoring intakes, weights, labs, skin, wound healing, supplement tolerance, plan of care Follow up in 7 days
--- NOTE | 2024-02-24 12:47 | PM.DS ---
DS: Admitting Diagnosis Discharge Date 02/24/2024 Admitting Diagnosis Gen weakness DS: Discharge Diagnosis Discharge Diagnosis (1) Atrial fibrillation with RVR: Code(s): I48.91 - Unspecified atrial fibrillation Status: Acute DS: Summary Hospital Course Hospital Course: patient is 68 y/o female a resident of assisted living came to ER with c/o weakness upon arrival patient was found to A. Fib with RVR rate of 185 and was started amiodarone and patient concerted to NSR and today after discssing with the biology manager patient was started on Lovenox for anticoagulation. the amiodarone was discontinued and started patient on metoprolol and rate is uncontrolled, patient stats she had one episode of seizures several years ago and taking keppra. patient UA is suspicious for UTI and being treated with ceftriaxone will follow up on urine c/s S/p Cardizem infusion and Heart rate was controlled with Metoprolol 50mg bid, and Apixaban 5mg bid. ECHO showed normal left and right function. Patient will follow up with cardiology. Urinary culture resulted on Pansensitive Klebsiella pneumonia, patient discharged on 2 more days of Cephalexin to complete 7 days of Cephalexin. Sodium decreased with hyponatremia with na 128, was started on Sodium tablets and improved to 131. discharged Lisinopril 5mg for Elevated Blood pressure of 161/55. Since is a pansensitive patient will complete a course of Keflex for 7 days upon discharge tomorrow. Patient had increased LFTs. Ordered ultrasound of the liver, hepatitis panel and HbA1c. Patient will follow up with PCP in 3-5 days, and with cardiology as instructed Topical management Assessment and Plan (1) Atrial fibrillation with RVR: Code(s): I48.91 - Unspecified atrial fibrillation Status: Acute Assessment and Plan: -on Metoprolol 50 mg PO BID -S/p Cardizem infusion -DC Lovenox -Started abixan PO 5 mg BID (2) Seizure: Code(s): R56.9 - Unspecified convulsions Status: Acute Assessment and Plan: patient stats she had one episode of seizures several years ago and taking keppra. patient UA is suspicious for UTI and being treated with ceftriaxone will follow up on urine c/s -02/21: Will do Keflex for 7 days total abx upon discharge (3) Acute UTI: Code(s): N39.0 - Urinary tract infection, site not specified Status: Acute Assessment and Plan: -02/21: Will do Keflex for 7 days upon discharge (4) Pressure ulcer of left buttock: Code(s): L89.329 - Pressure ulcer of left buttock, unspecified stage Status: Acute Assessment and Plan: patient is bedridden and has wound on her buttock and feet, will have wound team evaluate the patient. (5) Generalized weakness: Code(s): R53.1 - Weakness Status: Acute Assessment and Plan: Mostlikely multifactorial with A. Fib RVR, UTI, and several skin lesions, will have PT/OT evaluate the patient. (6) Increased liver enzymes: Code(s): R74.8 - Abnormal levels of other serum enzymes Status: Acute Assessment and Plan: Liver ultrasound showed limited visualization of the pancreas and liver however showed biliary sludge otherwise normal appearing gallbladder. Hepatitis viral panel negative Liver enzymes improving AST 86 ALT 58 Possibly due to dehydration and infectious process Patient is morbidly obesity Time Spent with Patient Time attestation: Total time spent providing and/or coordinating discharge services: DS: Data Data Completed and Pending Labs on day of discharge: Labs from last 24 hours 02/24/24 02/23/24 07:10 21:02 WBC 10.0 RBC 3.64 L Hgb 12.2 Hct 36.4 L MCV 100.0 MCH 33.5 MCHC 33.5 RDW 14.4 Plt Count 247 MPV 10.2 Immature Gran % (Auto) 1.0 H Neut % (Auto) 76.1 H Lymph % (Auto) 11.3 L [place] % (Auto) 10.1 H Eos % (Auto) 1.2 Baso % (Auto) 0.3 Lymph # (Auto) 1.13 [place] # (Auto) 1.0 H Eos # (Auto) 0.1 Baso # (Auto) 0.0 Abs Immat Gran (auto) 0.10 H Absolute Neuts (auto) 7.6 H Absolute Nucleated RBC 0.000 Nucleated RBC % 0.0 Sodium 131 L 127 L Potassium 4.0 3.7 Chloride 91 L 90 L Carbon Dioxide 37 H 33 H Anion Gap 3 L 4 BUN 6 L 7 Creatinine 0.50 L 0.40 L Estim Creat Clear Calc 97 119 Estimated GFR > 60 > 60 Glucose 108 112 H Calcium 8.7 8.4 Phosphorus 2.7 Magnesium 2.1 1.9 Total Bilirubin 0.8 AST 59 H ALT 57 H Alkaline Phosphatase 95 Total Protein 6.0 L Albumin 3.1 L Discharge Plan Discharge Attending physician on discharge: Melissa Betancur Consulting providers: Ashok Macedo Discharging Clinician: Melissa Betancur Anticipated Discharge Date/Time: 02/24/24 12:39 Patient Disposition: [facility] Senior Living[facility] Activity: as tolerated Diet: as tolerated Patient Instructions: Antibiotic Form, Apixaban (By mouth) Stand Alone Forms: General Discharge Information Follow-up/Referrals: Ashok Macedo MD [Physician] - (F/u with cardiology as instructed ) Royce Day DO [Primary Care Provider] - (F/u with PCP in 3-5 days ) Discharge Medications: New metoprolol tartrate 50 mg Tablet 50 mg PO Q12HR 30 Days Qty: 60 0RF Eliquis 5 mg Tablet 5 mg PO Q12HR 30 Days Qty: 60 1RF cephalexin 500 mg Capsule 500 mg PO Q12HR 2 Days Qty: 4 0RF sodium chloride 1,000 mg Tablet,Soluble 1,000 mg PO BID 3 Days Qty: 6 0RF lisinopril 5 mg Tablet 5 mg PO QAM 30 Days Qty: 30 0RF Continued atorvastatin 80 mg tablet 80 mg PO QHS Qty: 30 0RF calcium carbonate-vitamin D3 [Caltrate with Vitamin D3] 600 mg-20 mcg (800 unit) tablet 1 tablet PO DAILY Qty: 30 0RF ergocalciferol (vitamin D2) [Vitamin D2] 1,250 mcg (50,000 unit) capsule 1 unit PO WEEKLY Qty: 7 0RF Rx Instructions: take every thursday levetiracetam [Keppra] 500 mg tablet 500 mg PO Q12HR Qty: 60 0RF albuterol sulfate 2.5 mg /3 mL (0.083 %) Solution For Nebulization 2.5 mg INHALATION Q4H PRN (Reason: sob) Metamucil Packet 1 packet PO DAILY Rx Instructions: mix into at least 8 oz of water or juice before administering pseudoephedrine-guaifenesin [Mucinex D] 60-600 mg Tablet Extended Release 12 Hr 1 tablet PO Q12H PRN (Reason: congestion) bisacodyl 10 mg Suppository 10 mg RECTAL DAILY PRN (Reason: constipation) Fleet Enema 19-7 gram/118 mL Enema 118 ml RECTAL DAILY PRN (Reason: Constipation) magnesium citrate Solution 150 ml PO DAILY PRN (Reason: constipation) Patient Comments: if no results from enema hydrocortisone acetate [Anusol-HC] 25 mg Suppository 25 mg RECTAL DAILY PRN (Reason: hemmorids) Incruse Ellipta 62.5 mcg/actuation blister with device 1 inh inhalation Q24H Qty: 30 0RF acetaminophen 325 mg tablet 650 mg PO Q6H PRN (Reason: fever or pain) Qty: 180 0RF Date of admission: 02/21/24 13:51 Primary Care Provider: Royce Day Admitting Provider: Teddy Xie V. Attending physician on admission: Teddy Xie V. Condition: Stable
== END 2024-02-24 16:40 | DRG 280 ==
LOC: ANHED 04:11 → ANHIMU 06:22 → ANH3MEDSUR 02-22 09:55 → ANHIMU 02-29 11:16
PROVIDERS: Family Medicine; General Practice; Internal Medicine Interventional Cardiology; Nurse Practitioner Gerontology; Admitting Provider Internal Medicine; Emergency Provider Emergency Medicine; PCP Family Medicine; Visit Provider Internal Medicine
DX: I48.0 Paroxysmal atrial fibrillation (principal); L89.313 Pressure ulcer of right buttock, stage 3; I21.A1 Myocardial infarction type 2; L89.323 Pressure ulcer of left buttock, stage 3; E87.1 Hypo-osmolality and hyponatremia; N39.0 Urinary tract infection, site not specified; N17.9 Acute kidney failure, unspecified; B96.1 Klebsiella pneumoniae [K. pneumoniae] as the cause of diseases classified elsewhere; R56.9 Unspecified convulsions; E86.0 Dehydration; R74.8 Abnormal levels of other serum enzymes; E66.01 Morbid (severe) obesity due to excess calories; Z68.36 Body mass index [BMI] 36.0-36.9, adult; I10 Essential (primary) hypertension; E78.5 Hyperlipidemia, unspecified; Z86.73 Personal history of transient ischemic attack (TIA), and cerebral infarction without residual deficits; Z87.891 Personal history of nicotine dependence; Z74.01 Bed confinement status
CPT/HCPCS: 36415; 70450; 71046; 72100; 76705; 80048; 80053; 80074; 81001; 82948; 83036; 83605; 83735; 83880; 84100; 84484; 85025; 85027; 87040; 87077; 87086; 87088; 87186; 87493; 93005; 94640; 96365; 96366; 96368; 96372; 96375; 97110; 97162; 97165; 97530; 97535; 99213; 99285; A9270; C8929; G0378; G0463; J0282; J0696; J1650; J2270; J3010; J7030; Q9957

== ENCOUNTER 2024-02-29 12:50 | Inpatient (IN) | payer OTHER, SELFPAY ==
[2024-02-29] VITALS (20 sets, daily range): BP systolic 96–140; BP diastolic 43–120; PULSE 86–139; RESP 18–33; TEMP 36.4–36.9; O2SAT 91–100; BMI 37.0
--- NOTE | ~2024-02-29 | XR_ITS ---
EXAMINATION: XR chest 1V portable DATE: 03/03/2024 09:26 INDICATION: Shortness of breath. TECHNIQUE: A single frontal view of the chest was obtained. COMPARISON: Chest single view 02/29/2024 FINDINGS: There is no pneumonia, pleural effusion, or pneumothorax. The heart size is normal. IMPRESSION: 1. No acute cardiopulmonary disease. Reviewed, dictated and finalized at location A. [employer]
--- NOTE | ~2024-02-29 | XR_ITS ---
XR chest 1V portable Ordering provider: Latanya Zaldivar MD History: 68 years Female with . SOB . Comparison: None. FINDINGS: MEDIASTINUM: The cardiac silhouette is not enlarged. LUNGS: No infiltrates, effusions or pneumothorax. Underlying fibrotic changes. OTHER: No free air under the diaphragm. Degenerative changes of the spine. IMPRESSION: No acute cardiopulmonary pathology. Reviewed, dictated and finalized at location A. PICKUP DRIVER
--- NOTE | ~2024-02-29 | CT_ITS ---
EXAMINATION: CT abdomen pelvis w con DATE: 02/29/2024 15:53 INDICATION: Sacral decubitus ulcer. TECHNIQUE: Computed tomography (CT) of the abdomen and pelvis was performed with 100 mL Omnipaque 350 intravenous contrast. Automated exposure control and iterative reconstruction technique were employe d. The dose-length product was 1264.17 mGy-cm. COMPARISON: None. FINDINGS: The visualized portions of the lung bases demonstrate mild atelectasis. No pleural effusion . The heart size is normal. There are coronary artery calcifications. No pericardial effusion. Calcif ications in the liver and spleen are consistent with old granulomatous disease. The gallbladder, panc reas, adrenal glands, and kidneys are normal. There is a Guerrero catheter in expected position. There i s diverticulosis of the colon without evidence of diverticulitis. There are no dilated loops of bowel . The appendix is normal. There is subcutaneous soft tissue gas inferior to the coccyx. There is calc ified atherosclerosis of the aorta and many of the other arteries. There is moderate stenosis of the abdominal aorta. Lumbar dextroscoliosis is noted. There is a chronic compression fracture of T12. The re is mild chronic height loss of multiple vertebral bodies. There is severe lower lumbar spondylosis . There is no evidence of osteomyelitis. There is an old healed fracture of proximal left femur with advanced left hip osteoarthritis. There is severe right hip osteoarthrosis. IMPRESSION: 1. Subcutaneous soft tissue gas inferior to the coccyx. No evidence of osteomyelitis. Reviewed, dictated and finalized at location A. GENERATING MACHINE TENDER IMPRESSION: 1. Subcutaneous soft tissue gas inferior to the coccyx. No evidence of osteomye litis.
--- NOTE | ~2024-02-29 | US_ITS ---
EXAMINATION: US renal BI DATE: 03/04/2024 16:33 INDICATION: Worsening acute kidney injury. TECHNIQUE: Multiple ultrasound grayscale images of the kidneys were obtained. COMPARISON: CT abdomen and pelvis 02/29/2024 FINDINGS: The right kidney measures 10.2 x 4.7 x 5.6 cm. The left kidney measures 10.4 x 5.8 x 5.8 cm. The kidn eys demonstrate normal parenchymal echogenicity. There is no hydronephrosis. The bladder is decompres sed by a Guerrero catheter. IMPRESSION: 1. Normal kidney sizes. No hydronephrosis. Reviewed, dictated and finalized at location A. MBLER BODY
--- NOTE | 2024-02-29 13:11 | ED.WOUNDLAC ---
HPI - Wound/Laceration General Chief Complaint: Wound/Laceration <Carolina Rodriguez APRN - Last Filed: 02/29/24 13:14> Stated Complaint: really bad wounds on her buttocks <Carolina Rodriguez APRN - Last Filed: 02/29/24 13:14> Time Seen by Provider: 02/29/24 13:00 <Carolina Rodriguez APRN - Last Filed: 02/29/24 13:14> Focused HPI: patient is a 60-year-old female who presents to the ER with a worsening coccyx wound. She reports she was evaluated by her wound doctor this morning who sent me here. Patient reports the wound started before . She endorses pain and reports she takes Tylenol 4 for pain management at home. Patient denies any recent chest pain or fevers. She endorses slight shortness of breath at the time of examination. GENERAL: Well-appearing, well-nourished, and in no acute distress. HEAD: Normocephalic, atraumatic. CHEST: Clear to auscultation. ?Tachypnea. Mild respiratory distress. HEART: Regular rate and rhythm.? NEURO: ?Alert and oriented x3. Patient screened in triage and initial orders placed.? ?Additional care and disposition to be based upon?diagnostic testing and treatment. <Carolina Rodriguez APRN - Last Filed: 02/29/24 13:14> History of Present Illness HPI narrative: Agree with above <Latanya Zaldivar MD - Last Filed: 03/01/24 18:43> Related Data Home Medications: Home Medications Medication Instructions Recorded Confirmed albuterol sulfate 2.5 mg/3 mL 2.5 mg inhalation Q4H PRN sob 02/19/24 02/29/24 (0.083 %) solution for nebulization bisacodyl 10 mg rectal suppository 10 mg RECTAL DAILY PRN constipation 02/19/24 02/29/24 hydrocortisone acetate 25 mg 25 mg RECTAL DAILY PRN hemmorids 02/19/24 02/29/24 rectal suppository (Anusol-HC) magnesium citrate 150 ml PO DAILY PRN constipation 02/19/24 02/29/24 pseudoephedrine-guaifenesin ER 60 1 tablet PO Q12H PRN congestion 02/19/24 02/29/24 mg-600 mg tablet,extend release 12hr (Mucinex D) psyllium 1 packet PO DAILY 02/19/24 02/29/24 sodium phosphates 19 gram-7 118 ml RECTAL DAILY PRN 02/19/24 02/29/24 gram/118 mL enema (Fleet Enema) Constipation acetaminophen 325 mg tablet 650 mg PO Q6H PRN Pain (Scale 02/29/24 02/29/24 Score 1-3) atorvastatin 80 mg tablet 60 mg PO QHS 02/29/24 02/29/24 <Carolina Rodriguez APRN - Last Filed: 02/29/24 13:14> Allergies/Adverse Reactions: Allergies Allergy/AdvReac Type Severity Reaction Status Date / Time No Known Allergies Allergy Verified 03/01/24 16:15 <Carolina Rodriguez APRN - Last Filed: 02/29/24 13:14> Review of Systems Review of Systems: All systems reviewed & are unremarkable except as noted in HPI and below <Latanya Zaldivar MD - Last Filed: 03/01/24 18:43> [facility] Past Medical History Medical History: Medical History History of atrial fibrillation History of CVA (cerebrovascular accident) History of hypertension Hyperlipidemia <Carolina Rodriguez APRN - Last Filed: 02/29/24 13:14> Surgical History Surgical History: Surgical History H/O right wrist surgery H/O tubal ligation <Carolina Rodriguez APRN - Last Filed: 02/29/24 13:14> Family History Family History: Family History Father Cancer Mother Cancer Grandparent Diabetes mellitus <Carolina Rodirguez APRN - Last Filed: 02/29/24 13:14> Social History Social History: Social History Social History: The patient is single. She has 1 child. Patient quit smoking many years ago. She does not use any alcohol marijuana or illicit drugs. The patient does not have a durable power ip technology transactions attorney for healthcare. The patient stated that she has from [facility]. 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 Code status full code Smoking packs per day: 2 Smoking cigarettes per day: 40.0 Years smoked: 45 Smoking pack-years: 90.00 Smoking status: Former smoker Tobacco type: cigarettes Alcohol intake: never Substance use: never Substance use type: does not use Do You Feel Safe in your Home?: Yes Lack of Transportation: No Lack of Food: Never True Current Housing: I Have Housing Concerned About Future Housing: No Difficulty Paying Gas/Electric Bills: No Difficulty Paying for Meds: No Currently Unemployed: No Education: High School Diploma/GED Difficulty w/ Childcare or Family Care: No Spiritual care concerns: No <Carolina Rodriguez APRN - Last Filed: 02/29/24 13:14> Exam Narrative: GENERAL: Chronically ill-appearing, no acute distress, pleasant cooperative HEAD: Normocephalic, atraumatic. EYES: PERRLA and EOMI. ENT: Mucous membranes dry NECK: Supple. CHEST: Diminished breath sounds bilaterally, on 2 L nasal cannula HEART: Regular rate and rhythm ABDOMEN: Soft, nontender, nondistended BACK: unstageable sacral wound EXTREMITIES: Normal range of motion. SKIN: Warm, dry, sacral wound as above NEURO: Alert and oriented x3. PSYCH: Normal mood and affect. <Latanya Zaldivar MD - Last Filed: 03/01/24 18:43> Course Vital Signs Vital signs: Vital Signs Temperature 97.6 F 02/29/24 12:51 Pulse Rate 94 02/29/24 12:51 Respiratory Rate 24 H 02/29/24 12:51 Blood Pressure 140/120 H 02/29/24 12:51 Pulse Oximetry 95 02/29/24 12:51 Oxygen Delivery Room Air 02/29/24 12:51 Temperature 98.3 F 03/01/24 17:36 Pulse Rate 74 03/01/24 18:30 Respiratory Rate 20 03/01/24 18:30 Blood Pressure 107/77 03/01/24 18:30 Pulse Oximetry 100 03/01/24 18:30 Oxygen Delivery Nasal Cannula 03/01/24 18:30 Oxygen Flow Rate 2 03/01/24 18:30 <Carolina Rodriguez APRN - Last Filed: 02/29/24 13:14> Vital Signs Temperature 97.6 F 02/29/24 12:51 Pulse Rate 94 02/29/24 12:51 Respiratory Rate 24 H 02/29/24 12:51 Blood Pressure 140/120 H 02/29/24 12:51 Pulse Oximetry 95 02/29/24 12:51 Oxygen Delivery Room Air 02/29/24 12:51 Temperature 98.3 F 03/01/24 17:36 Pulse Rate 74 03/01/24 18:30 Respiratory Rate 20 03/01/24 18:30 Blood Pressure 107/77 03/01/24 18:30 Pulse Oximetry 100 03/01/24 18:30 Oxygen Delivery Nasal Cannula 03/01/24 18:30 Oxygen Flow Rate 2 03/01/24 18:30 <Latanya Zaldivar MD - Last Filed: 03/01/24 18:43> MDM - Wound/Laceration MDM Narrative Medical decision making narrative: 68-year-old female presenting with large sacral wound. Patient tachycardic with some soft pressures upon my evaluation. Sepsis protocol has been ordered with 30 cc/kilos bolus and broad-spectrum antibiotics. Exam remarkable for the above. Blood work with a white count of 22.3. Sodium is 125, similar to prior levels. CT abdomen pelvis does not show evidence of necrotizing fasciitis or osteomyelitis. Patient requires admission for debridement and wound care. She is agreeable this plan. Spoke with the hospitalist who has accepted her for admission. <Latanya Zaldivar MD - Last Filed: 03/01/24 18:43> Differential Diagnosis Differential diagnosis: Likely other ( Sacral ulcer, necrotizing infection, osteomyelitis, sepsis) <Latanya Zaldivar MD - Last Filed: 03/01/24 18:43> Medical Records Attestation: I reviewed the patient's medical records. <Latanya Zaldivar MD - Last Filed: 03/01/24 18:43> Lab Data Attestation: I reviewed the patient's lab results. <Latanya Zaldivar MD - Last Filed: 03/01/24 18:43> Result diagrams: 03/01/24 06:03 12/03/24 06:03 <Carolina Rodriguez, ELECTRONIC INTELLIGENCE OFFICER - Last Filed: 02/29/24 13:14> Labs: Lab Results 02/29/24 03/01/24 Range/Units 14:35 06:03 WBC 22.3 H 16.9 H (4.5-10.0) K/mm3 RBC 3.65 L 3.18 L (4.2-5.4) M/mm3 Hgb 12.0 10.2 L (12.0-15.0) g/dL Hct 36.2 L 32.4 L (37.0-47.0) % MCV 99.2 101.9 H (80-100) fl MCH 32.9 32.1 (26-34) pg MCHC 33.1 31.5 L (32-36) g/dl RDW 14.5 14.6 H (11.5-14.5) % Plt Count 304 260 (150-375) k/mm3 MPV 10.1 10.4 (7.4-10.4) fl Immature Gran % (Auto) 0.8 H 0.9 H (0-0.5) % Neut % (Auto) 89.8 H 86.6 H (45.5-73.1) % Lymph % (Auto) 3.4 L 4.4 L (18.3-44.2) % [place] % (Auto) 5.7 7.8 (2.6-8.5) % Eos % (Auto) 0.1 0.1 (0-4.4) % Baso % (Auto) 0.2 0.2 (0.2-1.2) % Lymph # (Auto) 0.75 L 0.74 L (0.9-3.2) K/mm3 [place] # (Auto) 1.3 H 1.3 H (0.1-0.6) K/mm3 Eos # (Auto) 0.0 0.0 (0-0.3) K/mm3 Baso # (Auto) 0.0 0.0 (0.0-0.1) K/mm3 Abs Immat Gran (auto) 0.18 H 0.15 H (0.00-0.031) K/mm3 Absolute Neuts (auto) 20.0 H 14.7 H (1.3-6.7) K/mm3 Absolute Nucleated RBC 0.000 0.000 (0.0-0.012) K/mm3 Nucleated RBC % 0.0 0.0 (0.0-0.2) % PT 15.8 H (11.1-14.7) Seconds INR 1.2 APTT 33.2 (22.3-36.8) Seconds Sodium 125 L 129 L (137-145) mmol/L Potassium 4.0 4.1 (3.4-5.0) mmol/L Chloride 90 L 98 (98-107) mmol/L Carbon Dioxide 29 28 (22-30) mmol/L Anion Gap 6 3 L (4-12) mmol/L BUN 7 4 L (7-17) mg/dL Creatinine 0.40 L 0.40 L (0.7-1.0) mg/dL Estim Creat Clear Calc 112 115 ml/min Estimated GFR > 60 > 60 (59 - ) Glucose 109 112 H (65-110) mg/dL Lactic Acid 1.3 (0.7-2.0) mmol/L Calcium 8.9 8.0 L (8.4-10.2) mg/dL Total Bilirubin 0.8 0.7 (0.2-1.3) mg/dL AST 35 36 (14-36) U/L ALT 25 20 (6-35) U/L Alkaline Phosphatase 103 87 (38-126) U/L C-Reactive Protein 33.8 H (<1.0) mg/dL Total Protein 7.0 6.0 L (6.3-8.2) g/dL Albumin 3.1 L 2.6 L (3.5-5.1) g/dL Urine Color Yellow (Yellow) Urine Appearance Clear (Clear) Urine pH 6.5 (5.0-9.0) Ur Specific [place] 1.016 (1.001-1.035) Urine Protein 1+ H (Negative) mg/dL Urine Glucose (UA) Negative (Negative) mg/dL Urine Ketones Trace H (Negative) mg/dL Ur Blood (Man) 3+ H (Negative) Urine Nitrate Negative (Negative) Urine Bilirubin Negative (Negative) Urine Urobilinogen 1.0 (<2.0) mg/dL Leukocyte Esterase Rfl 2+ H (Negative) [place]/UL Urine RBC >100 H (0-2) /hpf Urine WBC 11-20 H (0-3) /hpf Ur Squamous Epith Cells Occasional (Few) /hpf Urine Bacteria Rare /hpf Urine Casts 0-2 <Carolina Rodriguez, ELECTRONIC INTELLIGENCE OFFICER - Last Filed: 02/29/24 13:14> Lab Results 02/29/24 03/01/24 Range/Units 14:35 06:03 WBC 22.3 H 16.9 H (4.5-10.0) K/mm3 RBC 3.65 L 3.18 L (4.2-5.4) M/mm3 Hgb 12.0 10.2 L (12.0-15.0) g/dL Hct 36.2 L 32.4 L (37.0-47.0) % MCV 99.2 101.9 H (80-100) fl MCH 32.9 32.1 (26-34) pg MCHC 33.1 31.5 L (32-36) g/dl RDW 14.5 14.6 H (11.5-14.5) % Plt Count 304 260 (150-375) k/mm3 MPV 10.1 10.4 (7.4-10.4) fl Immature Gran % (Auto) 0.8 H 0.9 H (0-0.5) % Neut % (Auto) 89.8 H 86.6 H (45.5-73.1) % Lymph % (Auto) 3.4 L 4.4 L (18.3-44.2) % [place] % (Auto) 5.7 7.8 (2.6-8.5) % Eos % (Auto) 0.1 0.1 (0-4.4) % Baso % (Auto) 0.2 0.2 (0.2-1.2) % Lymph # (Auto) 0.75 L 0.74 L (0.9-3.2) K/mm3 [place] # (Auto) 1.3 H 1.3 H (0.1-0.6) K/mm3 Eos # (Auto) 0.0 0.0 (0-0.3) K/mm3 Baso # (Auto) 0.0 0.0 (0.0-0.1) K/mm3 Abs Immat Gran (auto) 0.18 H 0.15 H (0.00-0.031) K/mm3 Absolute Neuts (auto) 20.0 H 14.7 H (1.3-6.7) K/mm3 Absolute Nucleated RBC 0.000 0.000 (0.0-0.012) K/mm3 Nucleated RBC % 0.0 0.0 (0.0-0.2) % PT 15.8 H (11.1-14.7) Seconds INR 1.2 APTT 33.2 (22.3-36.8) Seconds Sodium 125 L 129 L (137-145) mmol/L Potassium 4.0 4.1 (3.4-5.0) mmol/L Chloride 90 L 98 (98-107) mmol/L Carbon Dioxide 29 28 (22-30) mmol/L Anion Gap 6 3 L (4-12) mmol/L BUN 7 4 L (7-17) mg/dL Creatinine 0.40 L 0.40 L (0.7-1.0) mg/dL Estim Creat Clear Calc 112 115 ml/min Estimated GFR > 60 > 60 (59 - ) Glucose 109 112 H (65-110) mg/dL Lactic Acid 1.3 (0.7-2.0) mmol/L Calcium 8.9 8.0 L (8.4-10.2) mg/dL Total Bilirubin 0.8 0.7 (0.2-1.3) mg/dL AST 35 36 (14-36) U/L ALT 25 20 (6-35) U/L Alkaline Phosphatase 103 87 (38-126) U/L C-Reactive Protein 33.8 H (<1.0) mg/dL Total Protein 7.0 6.0 L (6.3-8.2) g/dL Albumin 3.1 L 2.6 L (3.5-5.1) g/dL Urine Color Yellow (Yellow) Urine Appearance Clear (Clear) Urine pH 6.5 (5.0-9.0) Ur Specific [place] 1.016 (1.001-1.035) Urine Protein 1+ H (Negative) mg/dL Urine Glucose (UA) Negative (Negative) mg/dL Urine Ketones Trace H (Negative) mg/dL Ur Blood (Man) 3+ H (Negative) Urine Nitrate Negative (Negative) Urine Bilirubin Negative (Negative) Urine Urobilinogen 1.0 (<2.0) mg/dL Leukocyte Esterase Rfl 2+ H (Negative) [place]/UL Urine RBC >100 H (0-2) /hpf Urine WBC 11-20 H (0-3) /hpf Ur Squamous Epith Cells Occasional (Few) /hpf Urine Bacteria Rare /hpf Urine Casts 0-2 <Latanya Zaldivar MD - Last Filed: 03/01/24 18:43> Imaging Data Radiologist's impression: ITS Impressions Abdomen/Pelvis CT 02/29/24 15:55 IMPRESSION: 1. Subcutaneous soft tissue gas inferior to the coccyx. No evidence of osteomyelitis. Chest X-Ray 02/29/24 19:36 IMPRESSION: No acute cardiopulmonary pathology. <Latanya Zaldivar MD - Last Filed: 03/01/24 18:43> Critical Care Time Critical Care Time Critical Care Time: Yes <Latanya Zaldivar MD - Last Filed: 03/01/24 18:43> Total Critical Care Time: 32 <Latanya Zaldivar MD - Last Filed: 03/01/24 18:43> Discharge Plan Discharge Clinical Impression: Decubitus ulcer of sacral region, unstageable, SIRS (systemic inflammatory response syndrome) <Carolina Rodriguez APRN - Last Filed: 02/29/24 13:14> Patient Disposition: Still a Patient <Carolina Rodriguez APRN - Last Filed: 02/29/24 13:14> Condition: Serious <Carolina Rodriguez APRN - Last Filed: 02/29/24 13:14>
[2024-02-29 14:42] LABS: Basophils Percent Auto 0.2 % (0.2-1.2); Eosinophils Percent Auto 0.1 % (0-4.4); Hematocrit 36.2 % (37.0-47.0); Immature Granulocyte Absolute 0.18 K/mm3 (0.00-0.031); Immature Granulocyte Percent A 0.8 % (0-0.5); Lymphocytes Absolute Auto 0.75 K/mm3 (0.9-3.2); Lymphocytes Percent Auto 3.4 % (18.3-44.2); Mean Corpuscular HGB Conc 33.1 g/dl (32-36); Mean Corpuscular Hemoglobin 32.9 pg (26-34); Mean Corpuscular Volume 99.2 fl (80-100); Mean Platelet Volume 10.1 fl (7.4-10.4); Monocytes Absolute Auto 1.3 K/mm3 (0.1-0.6); Monocytes Percent Auto 5.7 % (2.6-8.5); Neutrophils Percent Auto 89.8 % (45.5-73.1); Platelet Count Result 304 k/mm3 (150-375); Red Blood Count 3.65 M/mm3 (4.2-5.4); Red Cell Distribution Width 14.5 % (11.5-14.5); White Blood Count 22.3 K/mm3 (4.5-10.0)
--- NOTE | 2024-02-29 14:43 | PC.NURSE ---
Pt reports she has not received wound care over the weekend at [facility] states they just put some cream on it at bedtime. Pt refuses to lay on sides. She states when I lay on my side it hurts my boobs then everything hurts. Wound care nurses came to ED to evaluate
[2024-02-29 14:46] LABS: Add Urine Microscopic? YES; Appearance Urine Clear (Clear); Bacteria Urine Rare /hpf; Bilirubin Urine Negative (Negative); Blood Urine 3+ (Negative); Color Urine Yellow (Yellow); Glucose Urine UA Negative (Negative); Ketones Urine Trace mg/dL (Negative); Leukocyte Esterase Ur 2+ LEU/UL (Negative); Nitrate Urine Negative (Negative); Non Pathogenic Casts 0-2; Protein Urine 1+ mg/dL (Negative); RBC Urine >100 /hpf (0-2); Specific Grav Ur 1.016 (1.001-1.035); Squamous Epithelial Cell Urine Occasional /hpf (Few); pH Urine 6.5 (5.0-9.0)
[2024-02-29 14:51] LABS: Lactic Acid Reflex 1.3 mmol/L (0.7-2.0)
[2024-02-29 14:57] LABS: Alanine Aminotransferase 25 U/L (6-35); Albumin Level 3.1 g/dL (3.5-5.1); Alkaline Phosphatase 103 U/L (38-126); Anion Gap 6 mmol/L (4-12); Aspartate Amino Transferase 35 U/L (14-36); Bilirubin,Total 0.8 mg/dL (0.2-1.3); Blood Urea Nitrogen 7 mg/dL (7-17); Calcium 8.9 mg/dL (8.4-10.2); Carbon Dioxide 29 mmol/L (22-30); Chloride 90 mmol/L (98-107); Estimated CRCL calculation 112 ml/min; Estimated Glomerular Filt Rate > 60; Glucose 109 mg/dL (65-110); Sodium 125 mmol/L (137-145)
[2024-02-29 15:11] LABS: INR 1.2; Prothrombin Time 15.8 Seconds (11.1-14.7)
[2024-02-29 15:12] LABS: Partial Thromboplastin Time 33.2 Seconds (22.3-36.8)
[2024-02-29 16:05] LABS: CRP 33.8 mg/dL (<1.0)
[2024-02-29] MEDS: MORPHINE SULFATE (*CRX) 4 MG/ML INJ IV PUSH (17:18)
[2024-02-29] MEDS: ONDANSETRON INJ 4 MG/2 ML VIAL IV PUSH (17:18)
[2024-02-29] MEDS: ALBUTEROL SULFATE NEB 2.5 MG/3 ML INH 10 MG INHALATION (18:41)
[2024-02-29] MEDS: IPRATROPIUM BR 0.02% INH SOLN 0.5 MG/2.5 ML VIAL INHALATION (18:41)
[2024-02-29] MEDS: MORPHINE SULFATE (*CRX) 4 MG/ML INJ (18:46)
[2024-02-29] MEDS: SODIUM CHLORIDE 0.9% IV 1,000 ML 999 ML (18:46)
[2024-02-29] MEDS: CEFEPIME 2 GM/NS 50 ML 2 GM/50 ML BAG IVPB (18:46)
[2024-02-29] MEDS: VANCOMYCIN 1,250 MG/NS 250 ML 1,250 MG/250 ML BAG 166.67 MG IVPB (19:36)
--- NOTE | 2024-02-29 19:46 | PC.NURSE ---
ok by edp to give drink of water until midnight.
--- NOTE | 2024-02-29 20:02 | PC.NURSE ---
assumed care of pt at 1930. Pt continually calling out in pain and when asked if she is having pain she goes between laughing and saying My body is being cut in half.
--- NOTE | 2024-02-29 20:51 | PC.NURSE ---
pt to 3m via stretcher with [facility] pct. pt on 2lnc, iv infusing vancomycin. No current distress noted. pt has phone in hand.
[2024-02-29] MEDS: VANCOMYCIN 1,000 MG/NS 250 ML 1,000 MG/250 ML BAG 250 MG IVPB (21:31)
--- NOTE | 2024-02-29 21:32 | P.HP_ITS ---
H&P: HPI History of Present Illness Date/Time: 02/29/24 21:32 Chief Complaint: 1. Left buttocks wound Narrative: Samantha Rojas is a 68 yo F with a mHx significant for obesity, A-fib, physical deconditioning, UTI, Seizures, A resident of [facility], where she was discharged to after an inpatient evaluation and management of UTI and A-fib with a sacral region pressure ulcer stemming from prolong immobility for physical rehabilitation. she was transferred back to the [facility] for expert evaluation after an evaluation of the wound at the [facility] uncovered a worsening picture. Except for pain, she denies fevers, chills, nausea, vomiting, chest pain or changes in her bowel habits. Work-up findings: WBC 22 Hb 12 PLT 304 Na 125 K 4 Cl 90 HCO3 29 AG 6 Cr 0.40 GFR 112 AST 35 ALP 25 ALP 103 CRP 33 UA: LE 2+, 11-20 WBC, rare bacteria CTAP: Subcutaneous soft tissue gas inferior to the coccyx. No evidence of osteomyelitis. CXR: No acute cardiopulmonary pathology. Samantha Rojas will be admitted, evaluated and managed for a sacral region pressure wound Review of Systems Constitutional: Constitutional: Reports fatigue ENT: Reports Normal hearing present, Denies dysphagia, Denies epistaxis and Denies nasal congestion Cardiovascular: Cardiovascular: Reports no additional cardiovascular com plaints Respiratory: Respiratory: Denies hemoptysis, Denies dyspnea and Reports dyspnea on exertion Gastrointestinal: Gastrointestinal: Reports no additional gastrointestinal complaints Musculoskeletal: Musculoskeletal: Reports back pain Neurologic: Reports confusion, Denies vertigo and Denies headache(s) Psychiatric: Psychiatric: Reports anxiety, Reports behavioral changes and Reports confusion [facility] Past Medical History Medical History History of CVA (cerebrovascular accident) History of hypertension Hyperlipidemia Surgical History Surgical History H/O right wrist surgery H/O tubal ligation Family History Family History Father Cancer Mother Cancer Grandparent Diabetes mellitus Social History Social History Social History: The patient is single. She has 1 child. Patient quit smoking many years ago. She does not use any alcohol marijuana or illicit drugs. The patient does not have a durable power securities attorney for healthcare. The patient stated that she has from [facility]. 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 Code status full code Smoking packs per day: 2 Smoking cigarettes per day: 40.0 Years smoked: 45 Smoking pack-years: 90.00 Smoking status: Former smoker Tobacco type: cigarettes Alcohol intake: never Substance use: never Substance use type: does not use Do You Feel Safe in your Home?: Yes Lack of Transportation: No Lack of Food: Never True Current Housing: I Have Housing Concerned About Future Housing: No Difficulty Paying Gas/Electric Bills: No Difficulty Paying for Meds: No Currently Unemployed: No Education: High School Diploma/GED Difficulty w/ Childcare or Family Care: No Spiritual care concerns: No Meds Home Medications and Allergies Home Medications Medication Instructions Recorded Confirmed Type calcium 600 mg (as 1 tablet PO DAILY #30 tabs 02/16/24 02/29/24 Rx carbonate)-vitamin D3 20 mcg (800 unit) tablet (Caltrate with Vitamin D3) ergocalciferol (vitamin D2) 1,250 1 unit PO WEEKLY #7 caps 02/16/24 02/29/24 Rx mcg (50,000 unit) capsule (Vitamin D2) levetiracetam 500 mg tablet 500 mg PO Q12HR #60 tabs 02/16/24 02/29/24 Rx (Keppra) umeclidinium 62.5 mcg/actuation 1 inh inhalation Q24H #30 ea 02/17/24 02/29/24 Rx blister powder for inhalation (Incruse Ellipta) albuterol sulfate 2.5 mg/3 mL 2.5 mg inhalation Q4H PRN sob 02/19/24 02/29/24 History (0.083 %) solution for nebulization bisacodyl 10 mg rectal suppository 10 mg RECTAL DAILY PRN constipation 02/19/24 02/29/24 History hydrocortisone acetate 25 mg 25 mg RECTAL DAILY PRN hemmorids 02/19/24 02/29/24 History rectal suppository (Anusol-HC) magnesium citrate 150 ml PO DAILY PRN constipation 02/19/24 02/29/24 History pseudoephedrine-guaifenesin ER 60 1 tablet PO Q12H PRN congestion 02/19/24 02/29/24 History mg-600 mg tablet,extend release 12hr (Mucinex D) psyllium 1 packet PO DAILY 02/19/24 02/29/24 History sodium phosphates 19 gram-7 118 ml RECTAL DAILY PRN 02/19/24 02/29/24 History gram/118 mL enema (Fleet Enema) Constipation apixaban 5 mg tablet (Eliquis) 5 mg PO Q12HR 30 days #60 tabs 02/24/24 02/29/24 Rx lisinopril 5 mg tablet 5 mg PO QAM 30 days #30 tabs 02/24/24 02/29/24 Rx metoprolol tartrate 50 mg tablet 50 mg PO Q12HR 30 days #60 tabs 02/24/24 02/29/24 Rx sodium chloride 1,000 mg soluble 1,000 mg PO BID 3 days #6 tabs 02/24/24 02/29/24 Rx tablet acetaminophen 325 mg tablet 650 mg PO Q6H PRN Pain (Scale 02/29/24 02/29/24 History Score 1-3) atorvastatin 80 mg tablet 60 mg PO QHS 02/29/24 02/29/24 History Allergies Allergy/AdvReac Type Severity Reaction Status Date / Time No Known Allergies Allergy Verified 02/16/24 11:06 Vital Signs Vital Signs - 24 hr 02/29/24 12:51 02/29/24 14:31 02/29/24 16:00 Temperature 97.6 F 97.8 F 97.6 F Pulse Rate 94 98 102 H Respiratory Rate 24 H 18 20 Blood Pressure 140/120 H 129/43 L 104/58 L Pulse Oximetry 95 91 96 Oxygen Delivery Room Air Oxygen Flow Rate 02/29/24 14:47 02/29/24 15:30 02/29/24 17:00 Temperature 97.8 F 97.7 F 97.7 F Pulse Rate 100 103 H 103 H Respiratory Rate 24 H 20 20 Blood Pressure 98/64 L Pulse Oximetry 96 95 96 Oxygen Delivery Oxygen Flow Rate 02/29/24 18:42 02/29/24 18:42 02/29/24 17:48 Temperature 97.8 F Pulse Rate 113 H 96 Respiratory Rate 24 H 20 Blood Pressure 98/64 L Pulse Oximetry 95 100 Oxygen Delivery Nasal Cannula Oxygen Flow Rate 2 02/29/24 18:53 02/29/24 19:31 02/29/24 19:44 Temperature Pulse Rate 109 H 91 128 H Respiratory Rate 18 22 H 33 H Blood Pressure 96/66 L 105/90 Pulse Oximetry 100 94 Oxygen Delivery Oxygen Flow Rate 02/29/24 19:45 02/29/24 20:13 02/29/24 20:15 Temperature Pulse Rate 99 138 H 139 H Respiratory Rate 18 23 H 23 H Blood Pressure Pulse Oximetry 97 95 96 Oxygen Delivery Oxygen Flow Rate 02/29/24 20:30 02/29/24 20:50 02/29/24 20:50 Temperature Pulse Rate 126 H 86 86 Respiratory Rate 24 H 24 H 24 H Blood Pressure 105/90 105/90 Pulse Oximetry 94 94 Oxygen Delivery Oxygen Flow Rate 02/29/24 20:45 02/29/24 20:46 02/29/24 20:47 Temperature Pulse Rate 133 H 136 H 136 H Respiratory Rate 27 H 29 H 24 H Blood Pressure Pulse Oximetry 93 95 95 Oxygen Delivery Oxygen Flow Rate Exam Const: General: comfortable and no acute distress HENMT: Face/Nose/Sinus: Normal nares present and no epistaxis Eyes: Sclera: sclerae normal Pupils: Equal, round and reactive pupils present EOM: EOMs intact bilaterally Neck: Neck: supple Resp: Effort & Inspection: normal respiratory effort Cardio: Rate: regular rate Rhythm: abnormal rhythm GI: GI Palp: Yes Soft to palpation Skin: General skin exam: normal color Wounds: wounds noted (Sacral/Left buttock) Neuro: Speech: normal speech Motor exam (neuro): 5/5 motor strength present throughout and Abnormal motor strength present Extrem: General: normal to inspection Psych: Affect: Anxious affect present Attitude: Belligerent attititude/behavior present H&P: Results Labs Labs: Short CBC 02/29/24 Range/Units 14:35 WBC 22.3 H (4.5-10.0) K/mm3 Hgb 12.0 (12.0-15.0) g/dL Hct 36.2 L (37.0-47.0) % Plt Count 304 (150-375) k/mm3 BMP 02/29/24 14:35 Sodium 125 L Potassium 4.0 Chloride 90 L Carbon Dioxide 29 BUN 7 Creatinine 0.40 L Glucose 109 Calcium 8.9 Liver Function 12/02/24 Range/Units 14:35 Total Bilirubin 0.8 (0.2-1.3) mg/dL AST 35 (14-36) U/L ALT 25 (6-35) U/L Alkaline Phosphatase 103 (38-126) U/L Albumin 3.1 L (3.5-5.1) g/dL Urine 02/29/24 Range/Units 14:35 Urine Color Yellow (Yellow) Urine Appearance Clear (Clear) Urine pH 6.5 (5.0-9.0) Ur Specific [place] 1.016 (1.001-1.035) Urine Protein 1+ H (Negative) mg/dL Urine Glucose (UA) Negative (Negative) mg/dL Assessment and Plan Assessment and plan (1) Pressure injury of sacral region, stage 3: Code(s): L89.153 - Pressure ulcer of sacral region, stage 3 Status: Acute (2) Physical deconditioning: Code(s): R53.81 - Other malaise Status: Acute (3) Acute UTI: Code(s): N39.0 - Urinary tract infection, site not specified Status: Acute Plan Acute and principal conditions 1. Stage 3 sacral region/Left buttocks ulcer. 2. UTI 3. Physical deconditioning IVFs; Urine cultures Vancomycin, Zosyn General surgery consulted for debridement Chronic and stable conditions 1. Physical deconditioning/Sedentary status 2. Hypertension. On Losartan 3. Seizures. on Levetiracetam 4. Hx of A-fib. on Metoprolol, Apixaban Code status. Full Nutrition. NPO Quality VTE Prophylaxis VTE prophylaxis: mechanical ordered and pharmacologic ordered Hospitalist MIPS Advance Care Plan I have confirmed that the patient's Advanced Care Plan is present, code status is documented, or surrogate decision maker is listed in patient medical record.: Yes Medication Reconciliation I have utilized all available resources to obtain, update and review the patients current medications (includes all prescriptions, OTC, herbals, cannabis, and nutritional supplements).: Yes The patient is not eligible for med reconciliation; the patient is in a emergent medical situation where delaying treatment would jeopardize the patients health.: Yes
--- NOTE | 2024-02-29 21:32 | ADMGEN ---
This patient, Samantha Rojas, was admitted to Medical Room 348-. Patient/family oriented to hospital policies and general routines including ID bracelet, bed and alarms, visiting hours, pain management, procedures, bathroom and other care routines, personal items, smoking policy, room service/diet, and visiting hours. Information on how to activate the Rapid Response Team has been discussed. Patient/Family are encouraged to report perceived risks to care and to ask questions if they do not understand what they are told or what they should do.
--- NOTE | 2024-02-29 21:48 | PC.NURSE ---
Admission report to JOSIE Mariee.
[2024-02-29] MEDS: HEPARIN SODIUM 5,000 UNITS/ML VIAL 5000 UNITS SUB-Q (23:28)
[2024-02-29] MEDS: SODIUM CHLORIDE 0.9% IV 1,000 ML 100 ML IV CONT (23:28)
[2024-03-01] VITALS (20 sets, daily range): BP systolic 104–118; BP diastolic 38–92; PULSE 62–107; RESP 18–20; TEMP 36.2–37; O2SAT 93–100
[2024-03-01] MEDS: PIPERACILLN/TAZ 3.375GM/NS50ML 3.375 GM/50 ML BAG IVPB ×3 (06:22→23:37)
[2024-03-01 06:25] LABS: Basophils Percent Auto 0.2 % (0.2-1.2); Eosinophils Percent Auto 0.1 % (0-4.4); Hematocrit 32.4 % (37.0-47.0); Hemoglobin 10.2 g/dL (12.0-15.0); Immature Granulocyte Absolute 0.15 K/mm3 (0.00-0.031); Immature Granulocyte Percent A 0.9 % (0-0.5); Lymphocytes Absolute Auto 0.74 K/mm3 (0.9-3.2); Lymphocytes Percent Auto 4.4 % (18.3-44.2); Mean Corpuscular HGB Conc 31.5 g/dl (32-36); Mean Corpuscular Hemoglobin 32.1 pg (26-34); Mean Corpuscular Volume 101.9 fl (80-100); Mean Platelet Volume 10.4 fl (7.4-10.4); Monocytes Absolute Auto 1.3 K/mm3 (0.1-0.6); Monocytes Percent Auto 7.8 % (2.6-8.5); Neutrophils Absolute Auto 14.7 K/mm3 (1.3-6.7); Neutrophils Percent Auto 86.6 % (45.5-73.1); Platelet Count Result 260 k/mm3 (150-375); Red Blood Count 3.18 M/mm3 (4.2-5.4); Red Cell Distribution Width 14.6 % (11.5-14.5); White Blood Count 16.9 K/mm3 (4.5-10.0)
[2024-03-01 06:32] LABS: Alanine Aminotransferase 20 U/L (6-35); Albumin Level 2.6 g/dL (3.5-5.1); Alkaline Phosphatase 87 U/L (38-126); Anion Gap 3 mmol/L (4-12); Aspartate Amino Transferase 36 U/L (14-36); Bilirubin,Total 0.7 mg/dL (0.2-1.3); Blood Urea Nitrogen 4 mg/dL (7-17); Carbon Dioxide 28 mmol/L (22-30); Chloride 98 mmol/L (98-107); Estimated CRCL calculation 115 ml/min; Estimated Glomerular Filt Rate > 60; Glucose 112 mg/dL (65-110); Potassium 4.1 mmol/L (3.4-5.0); Sodium 129 mmol/L (137-145)
[2024-03-01] MEDS: UMECLIDINIUM BROMIDE 62.5 MCG ELLIPTA 1 PUFF INHALATION (08:33)
[2024-03-01] MEDS: SODIUM CHLORIDE 0.9% IV 1,000 ML 100 ML IV CONT ×2 (09:01→21:05)
--- NOTE | 2024-03-01 09:36 | P.CONGS_ITS ---
Assessment and Plan Assessment and plan (1) Decubitus ulcer of sacral region, unstageable: Code(s): L89.150 - Pressure ulcer of sacral region, unstageable Status: Acute Assessment and Plan: She has an unstageable sacral decubitus ulcer that has soft necrotic tissue with a foul odor and a small area of crepitus on exam. CT scan shows some soft tissue gas inferior to the coccyx, but no evidence of osteomyelitis. Continue broad- spectrum IV antibiotics. This sacral wound will need surgical debridement, which was discussed with Dr. Leblanc. Description of the procedure, risks, benefits, alternatives, and expected postop wound care/recovery were discussed with the patient. She agrees to proceed. I will keep her NPO for now in case of surgery and try adding her onto the surgery schedule. She will need frequent turning at least every 2 hours. Physical therapy is going to work with the patient to see if she is able to bear weight for transfer or ambulate. I will start local wound care with Dakin's dressing changes for now. (2) SIRS (systemic inflammatory response syndrome): Code(s): R65.10 - Systemic inflammatory response syndrome (SIRS) of non-infectious origin without acute organ dysfunction Status: Acute Assessment and Plan: Tachycardia and leukocytosis on admission. Likely secondary to the sacral decubitus ulcer. See above plan. Continue IV antibiotics. Blood cx pending. (3) Physical deconditioning: Code(s): R53.81 - Other malaise Status: Acute Assessment and Plan: Patient lived in assisted living prior to her last Hospitalization last month and was discharged to a shelter. She has not been ambulating since she was discharged. PT/OT ordered. Asked nursing to get a specialty mattress for her pressure ulcer. (4) History of atrial fibrillation: Code(s): Z86.79 - Personal history of other diseases of the circulatory system Status: Acute Assessment and Plan: Recent hospitalization for new onset atrial fibrillation. Currently regular rate and rhythm on exam. (5) Hyponatremia: Code(s): E87.1 - Hypo-osmolality and hyponatremia Status: Acute Assessment and Plan: In review of labs, he sodium has been low for the past few weeks. She was started on sodium tablets during her last hospitalization. Sodium is 129 today. 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 (7) History of CVA (cerebrovascular accident): Code(s): Z86.73 - Personal history of transient ischemic attack (TIA), and cerebral infarction without residual deficits Status: Chronic Plan I have discussed the patient's case and plan of care with Dr. Leblanc. History of Present Illness Consult details Consult date: 03/01/24 Reason for consult: other (Sacral decubitus ulcer) Requesting physician: Latanya Zaldivar MD Narrative: This is a 68-year-old woman with PMH hypertension, recently diagnosed with atrial fibrillation, remote history of CVA, and seizures, who we have been asked to see in surgical consultation for a sacral decubitus ulcer. She was recently admitted from 02/19/2024 -02/24/2024 for atrial fibrillation with RVR. She was evaluated by cardiology and started on Eliquis. She was eventually discharged to a shelter, where prior to this hospitalization she was in assisted living. She reports she has not walked since she was last in the hospital. While she was in the hospital in January, she was found to have a stage III pressure ulcer of her buttocks. The shelter was concerned with the appearance of the sacral wound yesterday and sent her back to the ED for evaluation. Labs showed her white blood cell count was up to 22,000. CT scan of the abdomen and pelvis showed subcutaneous soft tissue gas inferior to the bisi cyx. No evidence of osteomyelitis. She was tachycardic with a mildly low blood pressure in the ER. She was fluid resuscitated and blood cultures were drawn. She was admitted and started on broad-spectrum IV antibiotics. She is now seen in surgical consultation. Review of Systems Review of Systems: All systems reviewed & are unremarkable except as noted in HPI and below PMFSH Past Medical History Medical History (Updated 03/01/24 @ 10:13 by CINDY Su) History of atrial fibrillation History of CVA (cerebrovascular accident) History of hypertension Hyperlipidemia Surgical History Surgical History H/O right wrist surgery H/O tubal ligation Family History Family History Father Cancer Mother Cancer Grandparent Diabetes mellitus Social History Social History Social History: The patient is single. She has 1 child. Patient quit smoking many years ago. She does not use any alcohol marijuana or illicit drugs. The patient does not have a durable power deputy attorney general for healthcare. The patient stated that she has from [facility]. 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 Code status full code Smoking packs per day: 2 Smoking cigarettes per day: 40.0 Years smoked: 45 Smoking pack-years: 90.00 Smoking status: Former smoker Tobacco type: cigarettes Alcohol intake: never Substance use: never Substance use type: does not use Do You Feel Safe in your Home?: Yes Lack of Transportation: No Lack of Food: Never True Current Housing: I Have Housing Concerned About Future Housing: No Difficulty Paying Gas/Electric Bills: No Difficulty Paying for Meds: No Currently Unemployed: No Education: High School Diploma/GED Difficulty w/ Childcare or Family Care: No Spiritual care concerns: No Meds Home Medications and Allergies Home Medications Medication Instructions Recorded Confirmed Type calcium 600 mg (as 1 tablet PO DAILY #30 tabs 02/16/24 02/29/24 Rx carbonate)-vitamin D3 20 mcg (800 unit) tablet (Caltrate with Vitamin D3) ergocalciferol (vitamin D2) 1,250 1 unit PO WEEKLY #7 caps 02/16/24 02/29/24 Rx mcg (50,000 unit) capsule (Vitamin D2) levetiracetam 500 mg tablet 500 mg PO Q12HR #60 tabs 02/16/24 02/29/24 Rx (Keppra) umeclidinium 62.5 mcg/actuation 1 inh inhalation Q24H #30 ea 02/17/24 02/29/24 Rx blister powder for inhalation (Incruse Ellipta) albuterol sulfate 2.5 mg/3 mL 2.5 mg inhalation Q4H PRN sob 02/19/24 02/29/24 History (0.083 %) solution for nebulization bisacodyl 10 mg rectal suppository 10 mg RECTAL DAILY PRN constipation 02/19/24 02/29/24 History hydrocortisone acetate 25 mg 25 mg RECTAL DAILY PRN hemmorids 02/19/24 02/29/24 History rectal suppository (Anusol-HC) magnesium citrate 150 ml PO DAILY PRN constipation 02/19/24 02/29/24 History pseudoephedrine-guaifenesin ER 60 1 tablet PO Q12H PRN congestion 02/19/24 History mg-600 mg tablet,extend release 12hr (Mucinex D) psyllium 1 packet PO DAILY 02/19/24 02/29/24 History sodium phosphates 19 gram-7 118 ml RECTAL DAILY PRN 02/19/24 02/29/24 History gram/118 mL enema (Fleet Enema) Constipation apixaban 5 mg tablet (Eliquis) 5 mg PO Q12HR 30 days #60 tabs 02/24/24 02/29/24 Rx lisinopril 5 mg tablet 5 mg PO QAM 30 days #30 tabs 02/24/24 02/29/24 Rx metoprolol tartrate 50 mg tablet 50 mg PO Q12HR 30 days #60 tabs 02/24/24 Rx sodium chloride 1,000 mg soluble 1,000 mg PO BID 3 days #6 tabs 02/24/24 02/29/24 Rx tablet acetaminophen 325 mg tablet 650 mg PO Q6H PRN Pain (Scale 02/29/24 02/29/24 History Score 1-3) atorvastatin 80 mg tablet 60 mg PO QHS 02/29/24 02/29/24 History Allergies Allergy/AdvReac Type Severity Reaction Status Date / Time No Known Allergies Allergy Verified 02/16/24 11:06 Vital Signs Vital Signs - 24 hr 02/29/24 12:51 02/29/24 14:31 02/29/24 16:00 Temperature 97.6 F 97.8 F 97.6 F Pulse Rate 94 98 102 H Respiratory Rate 24 H 18 20 Blood Pressure 140/120 H 129/43 L 104/58 L Pulse Oximetry 95 91 96 Oxygen Delivery Room Air Oxygen Flow Rate 02/29/24 14:47 02/29/24 15:30 02/29/24 17:00 Temperature 97.8 F 97.7 F 97.7 F Pulse Rate 100 103 H 103 H Respiratory Rate 24 H 20 20 Blood Pressure 98/64 L Pulse Oximetry 96 95 96 Oxygen Delivery Oxygen Flow Rate 02/29/24 18:42 02/29/24 18:42 02/29/24 17:48 Temperature 97.8 F Pulse Rate 113 H 96 Respiratory Rate 24 H 20 Blood Pressure 98/64 L Pulse Oximetry 95 100 Oxygen Delivery Nasal Cannula Oxygen Flow Rate 2 02/29/24 18:53 02/29/24 19:31 02/29/24 19:44 Temperature Pulse Rate 109 H 91 128 H Respiratory Rate 18 22 H 33 H Blood Pressure 96/66 L 105/90 Pulse Oximetry 100 94 Oxygen Delivery Oxygen Flow Rate 02/29/24 19:45 02/29/24 20:13 02/29/24 20:15 Temperature Pulse Rate 99 138 H 139 H Respiratory Rate 18 23 H 23 H Blood Pressure Pulse Oximetry 97 95 96 Oxygen Delivery Oxygen Flow Rate 02/29/24 20:30 02/29/24 20:50 02/29/24 20:50 Temperature Pulse Rate 126 H 86 86 Respiratory Rate 24 H 24 H 24 H Blood Pressure 105/90 105/90 Pulse Oximetry 94 94 Oxygen Delivery Oxygen Flow Rate 02/29/24 20:45 02/29/24 20:46 02/29/24 20:47 Temperature Pulse Rate 133 H 136 H 136 H Respiratory Rate 27 H 29 H 24 H Blood Pressure Pulse Oximetry 93 95 95 Oxygen Delivery Oxygen Flow Rate 02/29/24 22:05 03/01/24 00:00 03/01/24 03:03 Temperature 98.4 F Pulse Rate 113 H 107 H Respiratory Rate 18 Blood Pressure 109/43 L Pulse Oximetry 96 97 Oxygen Delivery Nasal Cannula Oxygen Flow Rate 2 03/01/24 04:00 03/01/24 06:00 03/01/24 08:33 Temperature 97.2 F L Pulse Rate 99 62 Respiratory Rate 20 Blood Pressure 116/92 H Pulse Oximetry 98 95 Oxygen Delivery Nasal Cannula Oxygen Flow Rate 2 Exam Const: General: comfortable and no acute distress Nutritional Appearance: overweight Orientation/consciousness: patient oriented x3 HENMT: Head: normocephalic and atraumatic Ears: hearing grossly normal bilaterally Mouth: Yes moist mucous membranes Eyes: General: appearance normal, both eyes and all related structures Pupils: Equal, round and reactive pupils present Neck: Neck: normal visual inspection and full ROM Resp: Effort & Inspection: no respiratory distress Auscultation: clear to auscultation bilaterally Cardio: Rate: regular rate Rhythm: regular rhythm GI: Inspection: non-distended, Pannus present, obesity and no visible herniation GI Palp: Yes Soft to palpation, No Tenderness to palpation present (GI), No Guarding due to palpation present (GI) and No Rebound tenderness present Percussion: Yes normal to percussion Auscultation: normal bowel sounds Rectal Exam: deferred Skin: Other: Sacral decubitus ulcer with 100% soft patrick necrotic tissue covering the wound with a small area of crepitus at the bottom of the wound in the gluteal cleft, foul odor. The wound extends to about 4 cm above the anal verge. Surrounding skin appears erythematous and macerated. She also has a few small superficial ulcers with minimal yellow slough in her inner upper thighs and groin with surrounding dermatitis from moisture. Neuro: General: moves all extremities and no focal motor deficits Speech: normal speech Motor exam (neuro): 5/5 motor strength present throughout Extrem: General: normal to inspection, no calf tenderness and no edema Psych: Mental Status: mental status grossly normal Attitude: cooperative Insight: Good insight present (Psych) Results Labs 03/01/24 06:03 03/01/24 06:03 Labs: Abnormal lab results 02/29/24 03/01/24 Range/Units 14:35 06:03 WBC 22.3 H 16.9 H (4.5-10.0) K/mm3 RBC 3.65 L 3.18 L (4.2-5.4) M/mm3 Hgb 10.2 L (12.0-15.0) g/dL Hct 36.2 L 32.4 L (37.0-47.0) % MCV 101.9 H (80-100) fl MCHC 31.5 L (32-36) g/dl RDW 14.6 H (11.5-14.5) % Immature Gran % (Auto) 0.8 H 0.9 H (0-0.5) % Neut % (Auto) 89.8 H 86.6 H (45.5-73.1) % Lymph % (Auto) 3.4 L 4.4 L (18.3-44.2) % Lymph # (Auto) 0.75 L 0.74 L (0.9-3.2) K/mm3 [place] # (Auto) 1.3 H 1.3 H (0.1-0.6) K/mm3 Abs Immat Gran (auto) 0.18 H 0.15 H (0.00-0.031) K/mm3 Absolute Neuts (auto) 20.0 H 14.7 H (1.3-6.7) K/mm3 PT 15.8 H (11.1-14.7) Seconds Sodium 125 L 129 L (137-145) mmol/L Chloride 90 L (98-107) mmol/L Anion Gap 3 L (4-12) mmol/L BUN 4 L (7-17) mg/dL Creatinine 0.40 L 0.40 L (0.7-1.0) mg/dL Glucose 112 H (65-110) mg/dL Calcium 8.0 L (8.4-10.2) mg/dL C-Reactive Protein 33.8 H (<1.0) mg/dL Total Protein 6.0 L (6.3-8.2) g/dL Albumin 3.1 L 2.6 L (3.5-5.1) g/dL Urine Protein 1+ H (Negative) mg/dL Urine Ketones Trace H (Negative) mg/dL Ur Blood (Man) 3+ H (Negative) Leukocyte Esterase Rfl 2+ H (Negative) [place]/UL Urine RBC >100 H (0-2) /hpf Urine WBC 11-20 H (0-3) /hpf Diabetes panel 02/29/24 03/01/24 Range/Units 14:35 06:03 Sodium 125 L 129 L (137-145) mmol/L Potassium 4.0 4.1 (3.4-5.0) mmol/L Chloride 90 L 98 (98-107) mmol/L Carbon Dioxide 29 28 (22-30) mmol/L BUN 7 4 L (7-17) mg/dL Creatinine 0.40 L 0.40 L (0.7-1.0) mg/dL Glucose 109 112 H (65-110) mg/dL Calcium 8.9 8.0 L (8.4-10.2) mg/dL AST 35 36 (14-36) U/L ALT 25 20 (6-35) U/L Alkaline Phosphatase 103 87 (38-126) U/L Total Protein 7.0 6.0 L (6.3-8.2) g/dL Albumin 3.1 L 2.6 L (3.5-5.1) g/dL Calcium panel 02/29/24 03/01/24 Range/Units 14:35 06:03 Calcium 8.9 8.0 L (8.4-10.2) mg/dL Albumin 3.1 L 2.6 L (3.5-5.1) g/dL Pituitary panel 02/29/24 03/01/24 Range/Units 14:35 06:03 Sodium 125 L 129 L (137-145) mmol/L Potassium 4.0 4.1 (3.4-5.0) mmol/L Chloride 90 L 98 (98-107) mmol/L Carbon Dioxide 29 28 (22-30) mmol/L BUN 7 4 L (7-17) mg/dL Creatinine 0.40 L 0.40 L (0.7-1.0) mg/dL Glucose 109 112 H (65-110) mg/dL Calcium 8.9 8.0 L (8.4-10.2) mg/dL Adrenal panel 02/29/24 03/01/24 Range/Units 14:35 06:03 Sodium 125 L 129 L (137-145) mmol/L Potassium 4.0 4.1 (3.4-5.0) mmol/L Chloride 90 L 98 (98-107) mmol/L Carbon Dioxide 29 28 (22-30) mmol/L BUN 7 4 L (7-17) mg/dL Creatinine 0.40 L 0.40 L (0.7-1.0) mg/dL Glucose 109 112 H (65-110) mg/dL Calcium 8.9 8.0 L (8.4-10.2) mg/dL Total Bilirubin 0.8 0.7 (0.2-1.3) mg/dL AST 35 36 (14-36) U/L ALT 25 20 (6-35) U/L Alkaline Phosphatase 103 87 (38-126) U/L Total Protein 7.0 6.0 L (6.3-8.2) g/dL Albumin 3.1 L 2.6 L (3.5-5.1) g/dL All other labs normal. Imaging Additional studies: ITS Impressions Abdomen/Pelvis CT 02/29/24 15:55 IMPRESSION: 1. Subcutaneous soft tissue gas inferior to the coccyx. No evidence of osteomyelitis. Chest X-Ray 02/29/24 19:36 IMPRESSION: No acute cardiopulmonary pathology.
[2024-03-01] MEDS: VANCOMYCIN 1,500 MG/NS 500 ML 1,500 MG/500 ML BAG 250 MG IVPB (09:56)
[2024-03-01] MEDS: levETIRAcetam 500 MG TABLET PO ×2 (10:02→21:06)
[2024-03-01] MEDS: METOPROLOL TARTRATE 50 MG TAB PO ×2 (10:06→21:06)
[2024-03-01] MEDS: DOCUSATE SODIUM 100 MG CAPSULE PO ×2 (10:06→21:06)
--- NOTE | 2024-03-01 12:25 | PM.IMPN ---
Progress Note: A&P Assessment and Plan (1) Pressure injury of sacral region, stage 3: Code(s): L89.153 - Pressure ulcer of sacral region, stage 3 Status: Acute Assessment and Plan: 03/01: Patient going to OR today at [address] Leblanc for debridement, Patient on Vanc/Zosyn, added clindamycin for possible necrotizing fasciitis. (2) Physical deconditioning: Code(s): R53.81 - Other malaise Status: Acute Assessment and Plan: 03/01: Anticipate need for prolonged recovery/SNF vs LTACH on discharge (3) Acute UTI: Code(s): N39.0 - Urinary tract infection, site not specified Status: Acute Assessment and Plan: 03/01: Culture pending, WBC from 22.3 to 16.9 Plan Acute and principal conditions 1. Stage 3 sacral region/Left buttocks ulcer. 2. UTI 3. Physical deconditioning IVFs; Urine cultures Vancomycin, Zosyn General surgery consulted, going to OR for debridement 03/01 at 1600 Chronic and stable conditions 1. Physical deconditioning/Sedentary status 2. Hypertension. On Losartan 3. Seizures. on Levetiracetam 4. Hx of A-fib. on Metoprolol, Apixaban Code status. Full Nutrition. NPO Time Spent With Patient Time with patient: Greater than 35 minutes Subjective Date/time seen: 03/01/24 12:25 Interval history: Patient was here recently and had a bruise on backside, now large tunneled wound with gas on XR and apparent osteomyelitis. Patient on Vanc/Zosyn, add clindamycin for possible necrotizing fasciitis. Patient going to OR today at 1600. Patient on supplemental oxygen due to hypoxia which is new and finding of UTI, urine culture in process. Patient only complaining of pain to backside. Review of Systems Review of Systems: All systems reviewed & are unremarkable except as noted in HPI and below Exam Const: General: comfortable and no acute distress Orientation/consciousness: confusion HENMT: Face/Nose/Sinus: Normal nares present and no epistaxis Eyes: Sclera: sclerae normal Pupils: Equal, round and reactive pupils present EOM: EOMs intact bilaterally Neck: Neck: supple Resp: Effort & Inspection: normal respiratory effort Cardio: Rate: regular rate Rhythm: abnormal rhythm Skin: General skin exam: normal color and wounds noted (Sacral/Left buttock) Wounds: wounds noted (Sacral/Left buttock) Neuro: General: confusion Cranial nerves: Yes Equal, round and reactive pupils present and Yes Normal hearing present Speech: normal speech Motor exam (neuro): 5/5 motor strength present throughout and Abnormal motor strength present Extrem: General: normal to inspection Psych: Affect: Anxious affect present Objective Data Vital Signs Vital Signs: Vital Signs - 24 hr 02/29/24 12:51 02/29/24 14:31 02/29/24 16:00 Temperature 36.4 C 36.6 C 36.4 C Pulse Rate 94 98 102 H Respiratory Rate 24 H 18 20 Blood Pressure 140/120 H 129/43 L 104/58 L Pulse Oximetry 95 91 96 Oxygen Delivery Room Air Oxygen Flow Rate 02/29/24 14:47 02/29/24 15:30 02/29/24 17:00 Temperature 36.6 C 36.5 C 36.5 C Pulse Rate 100 103 H 103 H Respiratory Rate 24 H 20 20 Blood Pressure 98/64 L Pulse Oximetry 96 95 96 Oxygen Delivery Oxygen Flow Rate 02/29/24 18:42 02/29/24 18:42 02/29/24 17:48 Temperature 36.6 C Pulse Rate 113 H 96 Respiratory Rate 24 H 20 Blood Pressure 98/64 L Pulse Oximetry 95 100 Oxygen Delivery Nasal Cannula Oxygen Flow Rate 2 02/29/24 18:53 02/29/24 19:31 02/29/24 19:44 Temperature Pulse Rate 109 H 91 128 H Respiratory Rate 18 22 H 33 H Blood Pressure 96/66 L 105/90 Pulse Oximetry 100 94 Oxygen Delivery Oxygen Flow Rate 02/29/24 19:45 02/29/24 20:13 02/29/24 20:15 Temperature Pulse Rate 99 138 H 139 H Respiratory Rate 18 23 H 23 H Blood Pressure Pulse Oximetry 97 95 96 Oxygen Delivery Oxygen Flow Rate 02/29/24 20:30 02/29/24 20:50 02/29/24 20:50 Temperature Pulse Rate 126 H 86 86 Respiratory Rate 24 H 24 H 24 H Blood Pressure 105/90 105/90 Pulse Oximetry 94 94 Oxygen Delivery Oxygen Flow Rate 02/29/24 20:45 02/29/24 20:46 02/29/24 20:47 Temperature Pulse Rate 133 H 136 H 136 H Respiratory Rate 27 H 29 H 24 H Blood Pressure Pulse Oximetry 93 95 95 Oxygen Delivery Oxygen Flow Rate 02/29/24 22:05 03/01/24 00:00 03/01/24 03:03 Temperature 36.9 C Pulse Rate 113 H 107 H Respiratory Rate 18 Blood Pressure 109/43 L Pulse Oximetry 96 97 Oxygen Delivery Nasal Cannula Oxygen Flow Rate 2 03/01/24 04:00 03/01/24 06:00 03/01/24 08:33 Temperature 36.2 C L Pulse Rate 99 62 Respiratory Rate 20 Blood Pressure 116/92 H Pulse Oximetry 98 95 Oxygen Delivery Nasal Cannula Oxygen Flow Rate 2 03/01/24 10:06 Temperature Pulse Rate 87 Respiratory Rate Blood Pressure Pulse Oximetry Oxygen Delivery Oxygen Flow Rate Intake/Output Intake/Output: Intake & Output 02/27/24 02/28/24 02/29/24 03/01/24 23:59 23:59 23:59 23:59 Intake Total 1050 1005 Output Total 500 Balance 1050 505 Meds/Results Medications: Active Medications Generic Name Dose Route Start Last Admin Trade Name Freq PRN Reason Stop Dose Admin Acetaminophen 650 mg 02/29/24 21:00 Acetaminophen 325 Mg Tablet PO Q4H PRN Mild Pain (1-3) or Fever Apixaban 5 mg 03/01/24 09:00 03/01/24 10:06 Apixaban 5 Mg Tablet PO Not Given Q12HR [facility] Atorvastatin Calcium 60 mg 03/01/24 21:00 Atorvastatin 20 Mg Tablet PO QHS SOFIYA Bisacodyl 5 mg 02/29/24 21:00 Bisacodyl 5 Mg Tablet Ec PO DAILY PRN Constipation Docusate Sodium 100 mg 03/01/24 09:00 03/01/24 10:06 Docusate Sodium 100 Mg Capsule PO 100 mg Q12HR SOFIYA Administration Sodium Chloride 1,000 mls @ 100 mls/hr 02/29/24 21:00 03/01/24 09:01 Normal Saline Iv IV CONT 100 mls/hr .Q10H SOFIYA Administration Vancomycin HCl 1,500 mg in 500 mls @ 250 mls/hr 03/01/24 08:00 03/01/24 09:56 Vancomycin 1,500 Mg/Ns 500 Ml IVPB 250 mls/hr Q12H SOFIYA Administration Piperacillin/Tazobactam/Dextrose 3.375 gm in 50 mls @ 100 mls/hr 03/01/24 06:00 03/01/24 06:52 Zosyn 3.375 Gm/Ns 50 Ml IVPB Infused Q6HR [facility] Infusion Levetiracetam 500 mg 03/01/24 09:00 03/01/24 10:02 Levetiracetam 500 Mg Tablet PO 500 mg Q12HR SOFIYA Administration Lisinopril 5 mg 03/01/24 09:00 03/01/24 10:07 Lisinopril 5 Mg Tablet PO Not Given QAM [facility] Metoprolol Tartrate 50 mg 03/01/24 09:00 03/01/24 10:06 Metoprolol Tartrate 50 Mg Tab PO 50 mg Q12HR SOFIYA Administration Sodium Hypochlorite 1 applic 03/01/24 09:00 Sod Hypochlorite 1/4 Strength 473 Ml TOPICAL Q12HR SOFIYA Umeclidinium [place] 1 puff 03/01/24 08:00 03/01/24 08:33 Umeclidinium [place] 62.5 Mcg Ellipta INHALATION 1 puff DAILYRT SOFIYA Administration Radiology Results: ITS Impressions Abdomen/Pelvis CT 02/29/24 15:55 IMPRESSION: 1. Subcutaneous soft tissue gas inferior to the coccyx. No evidence of osteomyelitis. Chest X-Ray 02/29/24 19:36 IMPRESSION: No acute cardiopulmonary pathology. Labs Labs: Laboratory Results - last 24 hr 02/29/24 03/01/24 14:35 06:03 WBC 22.3 H 16.9 H RBC 3.65 L 3.18 L Hgb 12.0 10.2 L Hct 36.2 L 32.4 L MCV 99.2 101.9 H MCH 32.9 32.1 MCHC 33.1 31.5 L RDW 14.5 14.6 H Plt Count 304 260 MPV 10.1 10.4 Immature Gran % (Auto) 0.8 H 0.9 H Neut % (Auto) 89.8 H 86.6 H Lymph % (Auto) 3.4 L 4.4 L [place] % (Auto) 5.7 7.8 Eos % (Auto) 0.1 0.1 Baso % (Auto) 0.2 0.2 Lymph # (Auto) 0.75 L 0.74 L [place] # (Auto) 1.3 H 1.3 H Eos # (Auto) 0.0 0.0 Baso # (Auto) 0.0 0.0 Abs Immat Gran (auto) 0.18 H 0.15 H Absolute Neuts (auto) 20.0 H 14.7 H Absolute Nucleated RBC 0.000 0.000 Nucleated RBC % 0.0 0.0 PT 15.8 H INR 1.2 APTT 33.2 Sodium 125 L 129 L Potassium 4.0 4.1 Chloride 90 L 98 Carbon Dioxide 29 28 Anion Gap 6 3 L BUN 7 4 L Creatinine 0.40 L 0.40 L Estim Creat Clear Calc 112 115 Estimated GFR > 60 > 60 Glucose 109 112 H Lactic Acid 1.3 Calcium 8.9 8.0 L Total Bilirubin 0.8 0.7 AST 35 36 ALT 25 20 Alkaline Phosphatase 103 87 C-Reactive Protein 33.8 H Total Protein 7.0 6.0 L Albumin 3.1 L 2.6 L Urine Color Yellow Urine Appearance Clear Urine pH 6.5 Ur Specific [place] 1.016 Urine Protein 1+ H Urine Glucose (UA) Negative Urine Ketones Trace H Ur Blood (Man) 3+ H Urine Nitrate Negative Urine Bilirubin Negative Urine Urobilinogen 1.0 Leukocyte Esterase Rfl 2+ H Urine RBC >100 H Urine WBC 11-20 H Ur Squamous Epith Cells Occasional Urine Bacteria Rare Urine Casts 0-2 Pulse Oximetry SpO2 results: 93-97% on 2 LPM NC Attestation: I personally reviewed and interpreted this pulse oximetry as follows: Interpretation: Patient continues to require oxygen Quality VTE Prophylaxis VTE prophylaxis: mechanical ordered and pharmacologic ordered Hospitalist [facility] Advance Care Plan I have confirmed that the patient's Advanced Care Plan is present, code status is documented, or surrogate decision maker is listed in patient medical record.: Yes Medication Reconciliation I have utilized all available resources to obtain, update and review the patients current medications (includes all prescriptions, OTC, herbals, cannabis, and nutritional supplements).: Yes
--- NOTE | 2024-03-01 14:37 | WPDHPUPDATE1 ---
History and Physical Update Update Date/Time: 03/01/24 14:37 History and Physical has been reviewed, including an updated exam of the patient. There are NO changes in the patient's condition. Risks, benefits, and alternatives have been discussed and questions answered. Patient agrees to proceed with procedure.
--- NOTE | 2024-03-01 16:00 | PC.NURSE ---
Patient off of unit to surgery
--- NOTE | 2024-03-01 16:05 | SUR.PREOP ---
Patient oxygen saturation 87% on room air upon arrival to pre-op. Patient placed on 2L NC and saturation wanda to 96%.
[2024-03-01] MEDS: CLINDAMYCIN 900 MG/D5W 50 ML 900 MG/50 ML PIGGYBACK 50 MG IVPB (16:21)
--- NOTE | 2024-03-01 16:37 | P.PNAN_ITS ---
Anes - Initial Pre Proc Eval Procedure: Operation Date: 03/01/24 16:00 Proposed Procedures p Debridement Sacral Decubitus Ulcer - Dario Leblanc DO Date/Time: 03/01/24 16:37 Surgeon: Kevin Martínez MD Pre Op Diagnosis: Unstageable sacral wound Patient Data Age: 68 Gender: F Height: 1.57 m Weight: 92 kg Last Vital Signs Temp 98.6 F 03/01/24 16:16 Pulse 79 03/01/24 16:16 Resp 20 03/01/24 16:16 BP 110/45 L 03/01/24 16:16 Pulse Ox 96 03/01/24 16:16 O2 Del Method Nasal Cannula 03/01/24 16:16 O2 Flow Rate 2 03/01/24 16:16 Allergies Allergy/AdvReac Type Severity Reaction Status Date / Time No Known Allergies Allergy Verified 03/01/24 16:15 Home Medications Medication Instructions Recorded Confirmed Type calcium 600 mg (as 1 tablet PO DAILY #30 tabs 02/16/24 02/29/24 Rx carbonate)-vitamin D3 20 mcg (800 unit) tablet (Caltrate with Vitamin D3) ergocalciferol (vitamin D2) 1,250 1 unit PO WEEKLY #7 caps 02/16/24 02/29/24 Rx mcg (50,000 unit) capsule (Vitamin D2) levetiracetam 500 mg tablet 500 mg PO Q12HR #60 tabs 02/16/24 02/29/24 Rx (Keppra) umeclidinium 62.5 mcg/actuation 1 inh inhalation Q24H #30 ea 02/17/24 02/29/24 Rx blister powder for inhalation (Incruse Ellipta) albuterol sulfate 2.5 mg/3 mL 2.5 mg inhalation Q4H PRN sob 02/19/24 02/29/24 History (0.083 %) solution for nebulization bisacodyl 10 mg rectal suppository 10 mg RECTAL DAILY PRN constipation 02/19/24 02/29/24 History hydrocortisone acetate 25 mg 25 mg RECTAL DAILY PRN hemmorids 02/19/24 02/29/24 History rectal suppository (Anusol-HC) magnesium citrate 150 ml PO DAILY PRN constipation 02/19/24 02/29/24 History pseudoephedrine-guaifenesin ER 60 1 tablet PO Q12H PRN congestion 02/19/24 02/29/24 History mg-600 mg tablet,extend release 12hr (Mucinex D) psyllium 1 packet PO DAILY 02/19/24 02/29/24 History sodium phosphates 19 gram-7 118 ml RECTAL DAILY PRN 02/19/24 02/29/24 History gram/118 mL enema (Fleet Enema) Constipation apixaban 5 mg tablet (Eliquis) 5 mg PO Q12HR 30 days #60 tabs 02/24/24 02/29/24 Rx lisinopril 5 mg tablet 5 mg PO QAM 30 days #30 tabs 02/24/24 02/29/24 Rx metoprolol tartrate 50 mg tablet 50 mg PO Q12HR 30 days #60 tabs 02/24/24 02/29/24 Rx sodium chloride 1,000 mg soluble 1,000 mg PO BID 3 days #6 tabs 02/24/24 02/29/24 Rx tablet acetaminophen 325 mg tablet 650 mg PO Q6H PRN Pain (Scale 02/29/24 02/29/24 History Score 1-3) atorvastatin 80 mg tablet 60 mg PO QHS 02/29/24 02/29/24 History Laboratory Tests 03/01/24 06:03 WBC 16.9 H K/mm3 (4.5-10.0) RBC 3.18 L M/mm3 (4.2-5.4) Hgb 10.2 L g/dL (12.0-15.0) Hct 32.4 L % (37.0-47.0) MCV 101.9 H fl (80-100) MCH 32.1 pg (26-34) MCHC 31.5 L g/dl (32-36) RDW 14.6 H % (11.5-14.5) Plt Count 260 k/mm3 (150-375) MPV 10.4 fl (7.4-10.4) Immature Gran % (Auto) 0.9 H % (0-0.5) Neut % (Auto) 86.6 H % (45.5-73.1) Lymph % (Auto) 4.4 L % (18.3-44.2) [place] % (Auto) 7.8 % (2.6-8.5) Eos % (Auto) 0.1 % (0-4.4) Baso % (Auto) 0.2 % (0.2-1.2) Lymph # (Auto) 0.74 L K/mm3 (0.9-3.2) [place] # (Auto) 1.3 H K/mm3 (0.1-0.6) Eos # (Auto) 0.0 K/mm3 (0-0.3) Baso # (Auto) 0.0 K/mm3 (0.0-0.1) Abs Immat Gran (auto) 0.15 H K/mm3 (0.00-0.031) Absolute Neuts (auto) 14.7 H K/mm3 (1.3-6.7) Absolute Nucleated RBC 0.000 K/mm3 (0.0-0.012) Nucleated RBC % 0.0 % (0.0-0.2) Sodium 129 L mmol/L (137-145) Potassium 4.1 mmol/L (3.4-5.0) Chloride 98 mmol/L (98-107) Carbon Dioxide 28 mmol/L (22-30) Anion Gap 3 L mmol/L (4-12) BUN 4 L mg/dL (7-17) Creatinine 0.40 L mg/dL (0.7-1.0) Estim Creat Clear Calc 115 ml/min Estimated GFR > 60 (59 - ) Glucose 112 H mg/dL (65-110) Calcium 8.0 L mg/dL (8.4-10.2) Total Bilirubin 0.7 mg/dL (0.2-1.3) AST 36 U/L (14-36) ALT 20 U/L (6-35) Alkaline Phosphatase 87 U/L (38-126) Total Protein 6.0 L g/dL (6.3-8.2) Albumin 2.6 L g/dL (3.5-5.1) Patient hx anesthesia problems: none Family hx anesthesia problems: none Results Review: All pre-operative results and documents have been reviewed as part of the pre- operative evaluation. [facility], [facility] Past Medical History Medical History History of atrial fibrillation History of CVA (cerebrovascular accident) History of hypertension Hyperlipidemia Surgical History Surgical History H/O right wrist surgery H/O tubal ligation Family History Family History Father Cancer Mother Cancer Grandparent Diabetes mellitus Social History Social History Social History: The patient is single. She has 1 child. Patient quit smoking many years ago. She does not use any alcohol marijuana or illicit drugs. The patient does not have a durable power workers compensation attorney for healthcare. The patient stated that she has from [facility]. 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 Code status full code Smoking packs per day: 2 Smoking cigarettes per day: 40.0 Years smoked: 45 Smoking pack-years: 90.00 Smoking status: Former smoker Tobacco type: cigarettes Alcohol intake: never Substance use: never Substance use type: does not use Do You Feel Safe in your Home?: Yes Lack of Transportation: No Lack of Food: Never True Current Housing: I Have Housing Concerned About Future Housing: No Difficulty Paying Gas/Electric Bills: No Difficulty Paying for Meds: No Currently Unemployed: No Education: High School Diploma/GED Difficulty w/ Childcare or Family Care: No Spiritual care concerns: No Anes - Eval Final PreProcedure Day of Procedure 03/01/24 16:37 Patient weight: obese Heart: regular rate and rhythm Lungs: clear to auscultation Airway: Mallampati scale and special considerations (Upper dentures, partial lower. No other loose teeth. ) Neurological: alert and oriented Last oral intake: >/= 8 hours ASA classification: IV Emergent: no Anesthetic plan: proceed Anesthesia type and monitoring: general LMA and standard monitoring Results Review: All pre-operative results and documents have been reviewed as part of the pre- operative evaluation. HTN, afib, hx of CVA, severe physical deconditioning. Informed Consent: The patient's anesthetic plan and its attendant risks and benefits were discussed with the patient/family/POA. Questions were solicited and answers provided to the satisfaction of the patient/family/POA.
[2024-03-01] MEDS: LACTATED RINGERS 1,000 ML 30 ML IV CONT ×2 (16:40→17:36)
--- NOTE | 2024-03-01 17:40 | P.OP_ITS ---
Procedure Note - Detailed Date of Procedure 03/01/24 Pre-op Diagnosis Unstageable sacral wound Post-op Diagnosis Other (Stage IV sacral decubitus ulcer) Procedure Performed Sharp excisional debridement stage IV sacral decubitus ulcer measuring 15 cm x 10 cm including skin, subcutaneous fat, muscle and fascia Surgeon Dario Leblanc, DO Anesthesia General (LMA) Indications This is a 68-year-old woman who presented to the emergency department from a shelter facility with complaints of worsening wounds. She has had wounds on the buttock and sacral region that have been treated with topical treatment but continued to worsen. She was found to have a large necrotic unstageable sacral decubitus ulcer with foul smell and drainage. Discussions were made with the patient and her family about treatment options and decision was made to proceed with debridement of sacral decubitus ulcer. Findings Sharp excisional debridement of the sacral decubitus ulcer was performed. This included skin, subcutaneous fat, muscle, and fascia. It was a fairly wide wound measuring 15 cm x 10 cm with large amount of necrotic tissue and very foul smelling drainage. The wound went all the way down to the sacrum but the sacrum itself appeared firm without any definite signs of osteomyelitis. After debriding all of the necrotic tissue, the wound was then irrigated and packed with Betadine-soaked Kerlix gauze. A deep wound culture was obtained for aerobic and anaerobic culture and sensitivity. Description of Procedure Procedure as well as risks, benefits, and alternatives were discussed with the patient. Written consent was obtained and placed in chart prior to procedure. Patient was brought back to surgical suite. She was placed supine on operating table. Time-out was done to confirm patient and procedure. She was then intubated by the anesthesia department. She was then repositioned to right lateral decubitus position. Her sacral area was prepped and draped in sterile fashion using Betadine prep. A 10 blade scalpel was then used to sharply excise all of the necrotic tissue. The tissue was excised all the way back to healthy appearing bleeding subcutaneous fat. The necrotic tissue extended all the way down to the presacral fascia as well. After excising all of the necrotic tissue with a 10 blade scalpel the wound was then irrigated with sterile saline. It was then inspected for any further necrotic tissue. No other significant necrotic tissue was remaining. A deep tissue culture was obtained for aerobic and anaerobic culture and sensitivity. The wound measured 15 cm x 10 cm. The wound was then packed with Betadine-soaked 4 in Kerlix gauze. Fluff gauze was applied followed by ABD pads and Medipore tape. The patient was then awakened from anesthesia and transferred to recovery. Estimated Blood Loss 20 Packing Yes (Betadine-soaked 4 in Kerlix gauze) Complications No immediate complications Condition Stable Disposition Floor [facility] Billing Surgery - Charge Forward: Surgery Billing
[2024-03-01] MEDS: ATORVASTATIN 20 MG TABLET 60 MG PO (21:06)
[2024-03-01] MEDS: HYDROcodone/acetaminophen (*CRX) 5-325 MG TABLET 1 TAB PO (21:06)
[2024-03-01] MEDS: CLINDAMYCIN 600 MG/D5W 50 ML 600 MG/50 ML PIGGYBACK 100 MG IVPB (23:37)
[2024-03-02] VITALS (13 sets, daily range): BP systolic 109–148; BP diastolic 47–56; PULSE 71–153; RESP 19–20; TEMP 36.2–36.6; O2SAT 92–100
[2024-03-02] MEDS: SODIUM CHLORIDE 0.9% IV 1,000 ML 100 ML IV CONT (05:20)
[2024-03-02] MEDS: PIPERACILLN/TAZ 3.375GM/NS50ML 3.375 GM/50 ML BAG IVPB ×4 (05:20→22:47)
[2024-03-02] MEDS: CLINDAMYCIN 600 MG/D5W 50 ML 600 MG/50 ML PIGGYBACK 100 MG IVPB (05:22)
[2024-03-02 05:48] LABS: Basophils Percent Auto 0.3 % (0.2-1.2); Eosinophils Percent Auto 0.3 % (0-4.4); Hematocrit 30.8 % (37.0-47.0); Hemoglobin 9.6 g/dL (12.0-15.0); Immature Granulocyte Absolute 0.16 K/mm3 (0.00-0.031); Immature Granulocyte Percent A 1.1 % (0-0.5); Lymphocytes Absolute Auto 0.92 K/mm3 (0.9-3.2); Lymphocytes Percent Auto 6.5 % (18.3-44.2); Mean Corpuscular HGB Conc 31.2 g/dl (32-36); Mean Corpuscular Hemoglobin 32.7 pg (26-34); Mean Corpuscular Volume 104.8 fl (80-100); Mean Platelet Volume 10.5 fl (7.4-10.4); Monocytes Percent Auto 7.2 % (2.6-8.5); Neutrophils Absolute Auto 11.9 K/mm3 (1.3-6.7); Neutrophils Percent Auto 84.6 % (45.5-73.1); Platelet Count Result 228 k/mm3 (150-375); Red Blood Count 2.94 M/mm3 (4.2-5.4); Red Cell Distribution Width 14.7 % (11.5-14.5); White Blood Count 14.1 K/mm3 (4.5-10.0)
[2024-03-02 06:01] LABS: Alanine Aminotransferase 25 U/L (6-35); Albumin Level 2.5 g/dL (3.5-5.1); Alkaline Phosphatase 89 U/L (38-126); Anion Gap 3 mmol/L (4-12); Aspartate Amino Transferase 59 U/L (14-36); Bilirubin,Total 0.9 mg/dL (0.2-1.3); Blood Urea Nitrogen 8 mg/dL (7-17); Calcium 8.1 mg/dL (8.4-10.2); Carbon Dioxide 30 mmol/L (22-30); Chloride 98 mmol/L (98-107); Estimated CRCL calculation 81 ml/min; Estimated Glomerular Filt Rate > 60; Glucose 96 mg/dL (65-110); Potassium 3.6 mmol/L (3.4-5.0); Sodium 131 mmol/L (137-145)
--- NOTE | 2024-03-02 06:08 | ECG_ITS ---
Test Date: 2024-03-02 06:22:07 Measurements Intervals [place] Rate: 140 P: 0 AK: 0 QRS: 69 QRSD: 105 T: 8 QT: 294 QTc: 449 Interpretive Statements ATRIAL FIBRILLATION WITH RAPID VENTRICULAR RESPONSE INCOMPLETE RIGHT BUNDLE BRANCH BLOCK [90+ ms QRS DURATION, TERMINAL R IN V1/V2, 40+ ms S IN I/aVL/V4/V5/V6] MINIMAL ST DEPRESSION [0.025+ mV ST DEPRESSION] ABNORMAL ECG Compared to ECG 02/23/2024 21:16:25 Incomplete right bundle-branch block now present ST (T wave) deviation now present Sinus rhythm no longer present Ventricular premature complex(es) no longer present Electronically Signed On 03-02-2024 10:58:45 SASH CLAMP OPERATOR by Adolfo Wilson M.D.
[2024-03-02] MEDS: dilTIAZem HCl INJ 25 MG/5 ML VIAL IV PUSH (06:35)
--- NOTE | 2024-03-02 06:42 | PC.NURSE ---
heartrate went to 80s after cardizem
[2024-03-02] MEDS: UMECLIDINIUM BROMIDE 62.5 MCG ELLIPTA 1 PUFF INHALATION (07:11)
[2024-03-02] MEDS: METOPROLOL TARTRATE 50 MG TAB PO ×2 (09:36→20:29)
[2024-03-02] MEDS: CALCIUM/VITAMIN D 500 MG/5 MCG (200 I.U.) TABLET PO (09:36)
[2024-03-02] MEDS: ENOXAPARIN 40 MG/0.4 ML SYRINGE SUB-Q (09:36)
[2024-03-02] MEDS: DOCUSATE SODIUM 100 MG CAPSULE PO ×2 (09:36→20:29)
[2024-03-02] MEDS: levETIRAcetam 500 MG TABLET PO ×2 (09:36→20:29)
[2024-03-02] MEDS: SODIUM CHLORIDE 1 GM TABLET PO ×2 (09:37→18:11)
[2024-03-02] MEDS: lisinopriL 5 MG TABLET PO (09:37)
[2024-03-02] MEDS: PSYLLIUM POWDER PACKET 1 PACKET PO (09:37)
[2024-03-02] MEDS: HYDROcodone/acetaminophen (*CRX) 5-325 MG TABLET 1 TAB PO (09:37)
[2024-03-02] MEDS: ERGOCALCIFEROL 50,000 UNITS CAPSULE 50000 UNITS PO (09:37)
[2024-03-02] MEDS: SOD HYPOCHLORITE 1/4 STRENGTH 473 ML 1 APPLIC TOPICAL ×2 (09:37→20:30)
[2024-03-02] MEDS: VANCOMYCIN 1,500 MG/NS 500 ML 1,500 MG/500 ML BAG 250 MG IVPB (09:37)
--- NOTE | 2024-03-02 10:26 | P.PNIM_ITS ---
Progress Note: A&P Assessment and Plan (1) Pressure injury of sacral region, stage 3: Code(s): L89.153 - Pressure ulcer of sacral region, stage 3 Status: Acute Assessment and Plan: - CT abd/Pelvis: Subcutaneous soft tissue gas inferior to the coccyx. No evidence of osteomyelitis. - POD # 1, s/p Sharp excisional debridement stage IV sacral decubitus ulcer measuring 15 cm x 10 cm including skin, subcutaneous fat, muscle and fascia. - Continue IV abx. - Follow wound and blood cultures. - Pain meds PRN. - Wound care per surgery and nursing team. - Consider wound nurse consult. (2) Physical deconditioning: Code(s): R53.81 - Other malaise Status: Acute Assessment and Plan: - PT/OT eval and treatment. - Will need a lot of encouragement considering prolonged bedrest. (3) Acute UTI: Code(s): N39.0 - Urinary tract infection, site not specified Status: Acute Assessment and Plan: - Wound culture growing Enterococcus. - Covered by current IV abx. - Continue to follow cultures for sensitivities. (4) History of atrial fibrillation: Code(s): Z86.79 - Personal history of other diseases of the circulatory system Status: Acute Assessment and Plan: - Pt went into A-Fib early this AM. - Given IV Cardizem X1 dose and converted back to SR. - Currently in SR on telemetry. - Continue Metoprolol. - Apixaban held pre-op and we'll discuss resumption per general surgery. - Continue tele monitoring. (5) Hyponatremia: Code(s): E87.1 - Hypo-osmolality and hyponatremia Status: Acute Assessment and Plan: - Stable and slowly improving. - Continue salt tabs and monitor closely. (6) Seizure: Code(s): R56.9 - Unspecified convulsions Status: Acute Assessment and Plan: - Continue Keppra. - Seizure precautions. (7) History of CVA (cerebrovascular accident): Code(s): Z86.73 - Personal history of transient ischemic attack (TIA), and cerebral infarction without residual deficits Status: Chronic Assessment and Plan: - Continue statin and resume apixaban when ok with general surgery. (8) Hyperlipidemia: Code(s): E78.5 - Hyperlipidemia, unspecified Status: Acute Assessment and Plan: - Continue statin. Plan Acute and principal conditions 1. Stage 3 sacral region/Left buttocks ulcer. 2. UTI 3. Hx of A-fib. on Metoprolol, Apixaban 4. Physical deconditioning IVFs; Urine cultures Vancomycin, Zosyn General surgery continues to follow post-debridement. Chronic and stable conditions 1. Physical deconditioning/Sedentary status 2. Hypertension. On Losartan 3. Seizures. on Levetiracetam Code status. Full Nutrition. NPO Time Spent With Patient Time with patient: 15 - 25 minutes Subjective Date/time seen: 03/02/24 10:26 Patient on bedrest and denies pain or distress currently. Sister bedside and pt reports she hasn't gotten out of bed for the last 6 days. States she was ambulating with a walker at home prior to hospitalization but nobody came to assist her with ambulation since being admitted to the hospital about 2 weeks ago. Interval history: Patient was here recently and had a bruise on left buttock, now large coccyx tunneled wound with gas on XR, no evidence of osteomyelitis per CT abd/pelvis. Patient on Vanc/Zosyn and clindamycin for possible necrotizing fasciitis. S/P Sharp excisional debridement stage IV sacral decubitus ulcer measuring 15 cm x 10 cm including skin, subcutaneous fat, muscle and fascia. Patient currently on supplemental oxygen due to hypoxia which is new and possible UTI per UA, urine culture in process. Review of Systems Review of Systems: All systems reviewed & are unremarkable except as noted in HPI and below Exam Narrative: General: Fair appearing, generalized muscle weakness. HEENT: Atraumatic, PERRL, moist mucosa, anicteric, EOM. NECK: Supple. Lungs: Coarse bases. Heart: Irregularly irregular, no murmurs. Abdomen: Soft, non-tender, non-distended, +ve bowel sounds X4 quadrants. Extremities: Acyanotic, no edema, 2+ radial and pedal pulses. Skin: Warm and dry. Large sacral decubitus with surgical wound intact. Neuro: Well oriented, CN II-XII grossly intact. Psych: Calm and co-operative. Objective Data Vital Signs Vital Signs: Vital Signs - 24 hr 03/01/24 12:00 03/01/24 14:50 03/01/24 16:16 Temperature 97.9 F 98.6 F Pulse Rate 78 77 79 Respiratory Rate 18 20 Blood Pressure 107/38 L 110/45 L Pulse Oximetry 93 96 Oxygen Delivery Nasal Cannula Oxygen Flow Rate 2 03/01/24 17:36 03/01/24 17:50 03/01/24 18:00 Temperature 98.3 F Pulse Rate 75 76 76 Respiratory Rate 20 20 20 Blood Pressure 118/39 L 118/42 L 112/40 L Pulse Oximetry 100 100 99 Oxygen Delivery Simple Face Mask Nasal Cannula Nasal Cannula Oxygen Flow Rate 8 2 2 03/01/24 18:15 03/01/24 18:30 03/01/24 18:45 Temperature Pulse Rate 75 74 74 Respiratory Rate 20 20 20 Blood Pressure 107/77 105/70 110/42 L Pulse Oximetry 100 100 100 Oxygen Delivery Nasal Cannula Nasal Cannula Nasal Cannula Oxygen Flow Rate 2 2 2 03/01/24 18:52 03/01/24 20:39 03/01/24 20:00 Temperature 97.6 F Pulse Rate 75 81 Respiratory Rate 20 20 Blood Pressure 104/48 L 114/42 L Pulse Oximetry 100 100 100 Oxygen Delivery Nasal Cannula Nasal Cannula Oxygen Flow Rate 2 2 03/01/24 20:00 03/02/24 00:39 03/02/24 00:00 Temperature 97.7 F Pulse Rate 75 75 71 Respiratory Rate 20 Blood Pressure 109/52 L Pulse Oximetry 100 Oxygen Delivery Oxygen Flow Rate 03/02/24 04:00 03/02/24 06:29 03/02/24 07:12 Temperature 97.3 F L Pulse Rate 78 153 H Respiratory Rate 20 Blood Pressure 123/47 L Pulse Oximetry 100 92 Oxygen Delivery Nasal Cannula Nasal Cannula Oxygen Flow Rate 2 2 03/02/24 04:39 03/02/24 09:36 Temperature 97.3 F L Pulse Rate 81 97 Respiratory Rate 20 Blood Pressure 123/47 L Pulse Oximetry 100 Oxygen Delivery Oxygen Flow Rate Intake/Output Intake/Output: Intake & Output 02/28/24 02/29/24 03/01/24 03/02/24 23:59 23:59 23:59 23:59 Intake Total 1050 2778.3 2185 Output Total 925 600 Balance 1050 1853.3 1585 Meds/Results Medications: Active Medications Generic Name Dose Route Start Last Admin Trade Name Freq PRN Reason Stop Dose Admin Acetaminophen 650 mg 02/29/24 21:00 Acetaminophen 325 Mg Tablet PO Q4H PRN Mild Pain (1-3) or Fever Acetaminophen 650 mg 03/01/24 16:03 Acetaminophen 325 Mg Tablet PO Q6H PRN Pain (Scale Score 1-3) Hydrocodone Bitart/Acetaminophen 1 tab 03/01/24 18:54 03/02/24 09:37 Hydrocodone/Acetaminophen (*Crx) 5-325 Mg Tablet PO 1 tab Q4H PRN Administration Pain Rated 4-6 Hydrocodone Bitart/Acetaminophen 1 tab 03/01/24 18:54 Hydrocodone/Acetaminophen (*Crx) 7.5-325 Mg Tablet PO Q4H PRN Pain Rated 7-10 Albuterol 2.5 mg 03/01/24 16:03 Albuterol Sulfate Neb 2.5 Mg/3 Ml Inh INHALATION Q4H PRN sob Atorvastatin Calcium 60 mg 03/01/24 21:00 03/01/24 21:06 Atorvastatin 20 Mg Tablet PO 60 mg QHS SOFIYA Administration Bisacodyl 5 mg 02/29/24 21:00 Bisacodyl 5 Mg Tablet Ec PO DAILY PRN Constipation Bisacodyl 10 mg 03/01/24 16:03 Bisacodyl 10 Mg Suppository RECTAL DAILY PRN constipation Calcium Carbonate 500 mg 03/02/24 09:00 03/02/24 09:36 Calcium/Vitamin D 500 Mg/5 Mcg (200 I.U.) Tablet PO 500 mg DAILY SOFIYA Administration Docusate Sodium 100 mg 03/01/24 09:00 03/02/24 09:36 Docusate Sodium 100 Mg Capsule PO 100 mg Q12HR SOFIYA Administration Enoxaparin Sodium 40 mg 03/02/24 09:00 03/02/24 09:36 Enoxaparin 40 Mg/0.4 Ml Syringe SUB-Q 40 mg DAILY SOFIYA Administration Ergocalciferol 50,000 units 03/02/24 09:00 03/02/24 09:37 Ergocalciferol 50,000 Units Capsule PO 50,000 units We@0900 SOFIYA Administration Sodium Chloride 1,000 mls @ 100 mls/hr 02/29/24 21:00 03/02/24 05:20 Normal Saline Iv IV CONT 100 mls/hr .Q10H SOFIYA Administration Piperacillin/Tazobactam/Dextrose 3.375 gm in 50 mls @ 100 mls/hr 03/01/24 06:00 03/02/24 05:50 Zosyn 3.375 Gm/Ns 50 Ml IVPB Infused Q6HR SOFIYA Infusion Vancomycin HCl 1,500 mg in 500 mls @ 250 mls/hr 03/02/24 09:00 03/02/24 09:37 Vancomycin 1,500 Mg/Ns 500 Ml IVPB 250 mls/hr Q12H SOFIYA Administration Levetiracetam 500 mg 03/01/24 09:00 03/02/24 09:36 Levetiracetam 500 Mg Tablet PO 500 mg Q12HR SOFIYA Administration Lisinopril 5 mg 03/01/24 09:00 03/02/24 09:37 Lisinopril 5 Mg Tablet PO 5 mg QAM SOFIYA Administration Magnesium Citrate 150 ml 03/01/24 16:03 Magnesium Citrate 300 Ml Btl PO DAILY PRN constipation Metoprolol Tartrate 50 mg 03/01/24 09:00 03/02/24 09:36 Metoprolol Tartrate 50 Mg Tab PO 50 mg Q12HR SOFIYA Administration Psyllium Hydrophilic Mucilloid 1 packet 03/02/24 09:00 03/02/24 09:37 Psyllium Powder Packet PO 1 packet DAILY SOFIYA Administration Sodium Chloride 1 gm 03/01/24 17:00 03/02/24 09:37 Sodium Chloride 1 Gm Tablet PO 1 gm BID SOFIYA Administration Sodium Hypochlorite 1 applic 03/01/24 09:00 03/02/24 09:37 Sod Hypochlorite 1/4 Strength 473 Ml TOPICAL 1 applic Q12HR SOFIYA Administration Umeclidinium [place] 1 puff 03/01/24 08:00 03/02/24 07:11 Umeclidinium [place] 62.5 Mcg Ellipta INHALATION 1 puff DAILYRT SOFIYA Administration Radiology Results: ITS Impressions Abdomen/Pelvis CT 02/29/24 15:55 IMPRESSION: 1. Subcutaneous soft tissue gas inferior to the coccyx. No evidence of osteomyelitis. Chest X-Ray 02/29/24 19:36 IMPRESSION: No acute cardiopulmonary pathology. Labs Labs: Laboratory Results - last 24 hr 03/02/24 05:35 WBC 14.1 H RBC 2.94 L Hgb 9.6 L Hct 30.8 L MCV 104.8 H MCH 32.7 MCHC 31.2 L RDW 14.7 H Plt Count 228 MPV 10.5 H Immature Gran % (Auto) 1.1 H Neut % (Auto) 84.6 H Lymph % (Auto) 6.5 L [place] % (Auto) 7.2 Eos % (Auto) 0.3 Baso % (Auto) 0.3 Lymph # (Auto) 0.92 [place] # (Auto) 1.0 H Eos # (Auto) 0.0 Baso # (Auto) 0.0 Abs Immat Gran (auto) 0.16 H Absolute Neuts (auto) 11.9 H Absolute Nucleated RBC 0.000 Nucleated RBC % 0.0 Sodium 131 L Potassium 3.6 Chloride 98 Carbon Dioxide 30 Anion Gap 3 L BUN 8 Creatinine 0.60 L Estim Creat Clear Calc 81 Estimated GFR > 60 Glucose 96 Calcium 8.1 L Total Bilirubin 0.9 AST 59 H ALT 25 Alkaline Phosphatase 89 Total Protein 5.0 L Albumin 2.5 L Quality VTE Prophylaxis VTE prophylaxis: mechanical ordered and pharmacologic ordered Hospitalist MIPS Advance Care Plan I have confirmed that the patient's Advanced Care Plan is present, code status is documented, or surrogate decision maker is listed in patient medical record.: Yes Medication Reconciliation I have utilized all available resources to obtain, update and review the patients current medications (includes all prescriptions, OTC, herbals, cannabis, and nutritional supplements).: Yes
--- NOTE | 2024-03-02 12:25 | P.PNGS_ITS ---
Progress Note: A&P Assessment and Plan (1) Pressure injury of sacral region, stage 4: Code(s): L89.154 - Pressure ulcer of sacral region, stage 4 Status: Acute Assessment and Plan: * Daily dressing changes with Dakins soaked gauze. Antifungal cream/powder to other areas of skin breakdown. Continue offloading pressure with specialty mattress. PT/OT to improve strength to get out of bed. (2) Physical deconditioning: Code(s): R53.81 - Other malaise Status: Acute (3) Atrial fibrillation with RVR: Code(s): I48.91 - Unspecified atrial fibrillation Status: Acute Assessment and Plan: * OK to anticoagulate Subjective Subjective Date/Time Seen: 03/02/24 12:25 Interval history: Dressing changed at bedside with nursing staff. Having pain. No significant bleeding. PT going to work on getting patient up to chair today. Exam Back/Spine/Pelvis: Other: Sacral wound with minimal necrotic edges. No foul smelling drainage. Wound bed dry without bleeding. Multiple other buttock and thigh wounds with erythema and minor skin breakdown. Objective Data Vital Signs Vital Signs: Vital Signs - 24 hr 03/01/24 14:50 03/01/24 16:16 03/01/24 17:36 Temperature 97.9 F 98.6 F 98.3 F Pulse Rate 77 79 75 Respiratory Rate 18 20 20 Blood Pressure 107/38 L 110/45 L 118/39 L Pulse Oximetry 93 96 100 Oxygen Delivery Nasal Cannula Simple Face Mask Oxygen Flow Rate 2 8 03/01/24 17:50 03/01/24 18:00 03/01/24 18:15 Temperature Pulse Rate 76 76 75 Respiratory Rate 20 20 20 Blood Pressure 118/42 L 112/40 L 107/77 Pulse Oximetry 100 99 100 Oxygen Delivery Nasal Cannula Nasal Cannula Nasal Cannula Oxygen Flow Rate 2 2 2 03/01/24 18:30 03/01/24 18:45 03/01/24 18:52 Temperature Pulse Rate 74 74 75 Respiratory Rate 20 20 20 Blood Pressure 105/70 110/42 L 104/48 L Pulse Oximetry 100 100 100 Oxygen Delivery Nasal Cannula Nasal Cannula Nasal Cannula Oxygen Flow Rate 2 2 2 03/01/24 20:39 03/01/24 20:00 03/01/24 20:00 Temperature 97.6 F Pulse Rate 81 75 Respiratory Rate 20 Blood Pressure 114/42 L Pulse Oximetry 100 100 Oxygen Delivery Nasal Cannula Oxygen Flow Rate 2 03/02/24 00:39 03/02/24 00:00 03/02/24 04:00 Temperature 97.7 F Pulse Rate 75 71 78 Respiratory Rate 20 Blood Pressure 109/52 L Pulse Oximetry 100 Oxygen Delivery Oxygen Flow Rate 03/02/24 06:29 03/02/24 07:12 03/02/24 04:39 Temperature 97.3 F L 97.3 F L Pulse Rate 153 H 81 Respiratory Rate 20 20 Blood Pressure 123/47 L 123/47 L Pulse Oximetry 100 92 100 Oxygen Delivery Nasal Cannula Nasal Cannula Oxygen Flow Rate 2 2 03/02/24 09:36 03/02/24 08:00 03/02/24 11:16 Temperature Pulse Rate 97 80 Respiratory Rate Blood Pressure Pulse Oximetry Oxygen Delivery Room Air Oxygen Flow Rate Intake/Output Intake/Output: Intake & Output 02/28/24 02/29/24 03/01/24 03/02/24 23:59 23:59 23:59 23:59 Intake Total 1050 2778.3 2185 Output Total 925 600 Balance 1050 1853.3 1585 Meds/Results Medications: Active Medications Generic Name Dose Route Start Last Admin Trade Name Freq PRN Reason Stop Dose Admin Acetaminophen 650 mg 02/29/24 21:00 Acetaminophen 325 Mg Tablet PO Q4H PRN Mild Pain (1-3) or Fever Acetaminophen 650 mg 03/01/24 16:03 Acetaminophen 325 Mg Tablet PO Q6H PRN Pain (Scale Score 1-3) Hydrocodone Bitart/Acetaminophen 1 tab 03/01/24 18:54 03/02/24 09:37 Hydrocodone/Acetaminophen (*Crx) 5-325 Mg Tablet PO 1 tab Q4H PRN Administration Pain Rated 4-6 Hydrocodone Bitart/Acetaminophen 1 tab 03/01/24 18:54 Hydrocodone/Acetaminophen (*Crx) 7.5-325 Mg Tablet PO Q4H PRN Pain Rated 7-10 Albuterol 2.5 mg 03/01/24 16:03 Albuterol Sulfate Neb 2.5 Mg/3 Ml Inh INHALATION Q4H PRN sob Atorvastatin Calcium 60 mg 03/01/24 21:00 03/01/24 21:06 Atorvastatin 20 Mg Tablet PO 60 mg QHS SOFIYA Administration Bisacodyl 5 mg 02/29/24 21:00 Bisacodyl 5 Mg Tablet Ec PO DAILY PRN Constipation Bisacodyl 10 mg 03/01/24 16:03 Bisacodyl 10 Mg Suppository RECTAL DAILY PRN constipation Calcium Carbonate 500 mg 03/02/24 09:00 03/02/24 09:36 Calcium/Vitamin D 500 Mg/5 Mcg (200 I.U.) Tablet PO 500 mg DAILY SOFIYA Administration Docusate Sodium 100 mg 03/01/24 09:00 03/02/24 09:36 Docusate Sodium 100 Mg Capsule PO 100 mg Q12HR SOFIYA Administration Enoxaparin Sodium 40 mg 03/02/24 09:00 03/02/24 09:36 Enoxaparin 40 Mg/0.4 Ml Syringe SUB-Q 40 mg DAILY SOFIYA Administration Ergocalciferol 50,000 units 03/02/24 09:00 03/02/24 09:37 Ergocalciferol 50,000 Units Capsule PO 50,000 units We@0900 SOFIYA Administration Sodium Chloride 1,000 mls @ 100 mls/hr 02/29/24 21:00 03/02/24 05:20 Normal Saline Iv IV CONT 100 mls/hr .Q10H SOFIYA Administration Piperacillin/Tazobactam/Dextrose 3.375 gm in 50 mls @ 100 mls/hr 03/01/24 06:00 03/02/24 05:50 Zosyn 3.375 Gm/Ns 50 Ml IVPB Infused Q6HR SOFIYA Infusion Vancomycin HCl 1,500 mg in 500 mls @ 250 mls/hr 03/02/24 09:00 03/02/24 09:37 Vancomycin 1,500 Mg/Ns 500 Ml IVPB 250 mls/hr Q12H SOFIYA Administration Levetiracetam 500 mg 03/01/24 09:00 03/02/24 09:36 Levetiracetam 500 Mg Tablet PO 500 mg Q12HR SOFIYA Administration Lisinopril 5 mg 03/01/24 09:00 03/02/24 09:37 Lisinopril 5 Mg Tablet PO 5 mg QAM SOFIYA Administration Magnesium Citrate 150 ml 03/01/24 16:03 Magnesium Citrate 300 Ml Btl PO DAILY PRN constipation Metoprolol Tartrate 50 mg 03/01/24 09:00 03/02/24 09:36 Metoprolol Tartrate 50 Mg Tab PO 50 mg Q12HR SOFIYA Administration Psyllium Hydrophilic Mucilloid 1 packet 03/02/24 09:00 03/02/24 09:37 Psyllium Powder Packet PO 1 packet DAILY SOFIYA Administration Sodium Chloride 1 gm 03/01/24 17:00 03/02/24 09:37 Sodium Chloride 1 Gm Tablet PO 1 gm BID SOFIYA Administration Sodium Hypochlorite 1 applic 03/01/24 09:00 03/02/24 09:37 Sod Hypochlorite 1/4 Strength 473 Ml TOPICAL 1 applic Q12HR SOFIYA Administration Umeclidinium [place] 1 puff 03/01/24 08:00 03/02/24 07:11 Umeclidinium [place] 62.5 Mcg Ellipta INHALATION 1 puff DAILYRT SOFIYA Administration Radiology Results: ITS Impressions Abdomen/Pelvis CT 02/29/24 15:55 IMPRESSION: 1. Subcutaneous soft tissue gas inferior to the coccyx. No evidence of osteomyelitis. Chest X-Ray 02/29/24 19:36 IMPRESSION: No acute cardiopulmonary pathology. Labs Labs: Laboratory Results - last 24 hr 03/02/24 05:35 WBC 14.1 H RBC 2.94 L Hgb 9.6 L Hct 30.8 L MCV 104.8 H MCH 32.7 MCHC 31.2 L RDW 14.7 H Plt Count 228 MPV 10.5 H Immature Gran % (Auto) 1.1 H Neut % (Auto) 84.6 H Lymph % (Auto) 6.5 L [place] % (Auto) 7.2 Eos % (Auto) 0.3 Baso % (Auto) 0.3 Lymph # (Auto) 0.92 [place] # (Auto) 1.0 H Eos # (Auto) 0.0 Baso # (Auto) 0.0 Abs Immat Gran (auto) 0.16 H Absolute Neuts (auto) 11.9 H Absolute Nucleated RBC 0.000 Nucleated RBC % 0.0 Sodium 131 L Potassium 3.6 Chloride 98 Carbon Dioxide 30 Anion Gap 3 L BUN 8 Creatinine 0.60 L Estim Creat Clear Calc 81 Estimated GFR > 60 Glucose 96 Calcium 8.1 L Total Bilirubin 0.9 AST 59 H ALT 25 Alkaline Phosphatase 89 Total Protein 5.0 L Albumin 2.5 L
--- NOTE | 2024-03-02 13:01 | P.CONCA_ITS ---
Assessment and Plan Assessment and plan (1) Paroxysmal atrial fibrillation: Code(s): I48.0 - Paroxysmal atrial fibrillation Status: Acute Assessment and Plan: Chads Vasc score of at least 5. Okay with surgery to anticoagulate. Will have physical therapy evaluate her but she is a fall risk. However given significant stroke risk, I think risk benefit for now given her limited activity level would benefit anticoagulation. Will restart Eliquis 5 mg p.o. b.i.d.. Continue metoprolol. She is back in sinus rhythm at this point no further workup needed. Her potassium is low normal and will be replaced with 40 mEq of potassium chloride p.o. x1 (2) Anticoagulated by anticoagulation treatment: Code(s): Z79.01 - terminal carman (current) use of anticoagulants Status: Acute Assessment and Plan: Continue Eliquis (3) Pressure injury of sacral region, stage 4: Code(s): L89.154 - Pressure ulcer of sacral region, stage 4 Status: Acute Assessment and Plan: per surgery (4) Hypokalemia: Code(s): E87.6 - Hypokalemia Status: Acute Assessment and Plan: Will replace as above History of Present Illness History of Present Illness Consult date/time: 03/02/24 13:01 Requesting physician: Miquel Washington MD Consult reason: atrial fibrillation Reason For Visit: Unstageable sacral wound Narrative: Reason for consultation atrial fibrillation Date of service 03/02/2024 Requesting provider: Dr. Hollins History: Patient is a 68-year-old female who has a history of atrial fibrillation. During last hospitalization a couple weeks ago she was here and had an episode of atrial fibrillation. She has chads Vasc score of 5 and Eliquis was recommended. She was admitted to the hospital because decubitus ulcers. While on telemetry was noted that patient did go in atrial fibrillation with rapid ventricular response. She was given IV diltiazem which did convert back to sinus rhythm. She is asymptomatic with her atrial fibrillation and denies any chest pain, shortness of breath, syncope, presyncope, paroxysmal nocturnal dyspnea, orthopnea, edema or palpitations. Review of Systems Review of Systems: All systems reviewed & are unremarkable except as noted in HPI and below Constitutional: Constitutional: Denies body ache(s) Eyes: Eyes: Denies blurry vision ENT: Denies Normal hearing present Cardiovascular: Cardiovascular: Denies chest pain Respiratory: Respiratory: Denies dyspnea on exertion Gastrointestinal: Gastrointestinal: Reports abdominal pain Genitourinary: Genitourinary: Denies hematuria Musculoskeletal: Musculoskeletal: Denies back pain Integumentary/Breasts: Skin/Breast: Reports wounds Neurologic: Denies Abnormal speech present Psychiatric: Psychiatric: Denies anxiety Endocrine: Endocrine: Denies excessive sweating Hematologic/Lymphatic: Hematologic/Lymphatic: Denies easy bleeding Allergic/Immunologic: Allergic/Immunologic: Denies GI upset with certain foods PMFSH Past Medical History Medical History (Updated 03/02/24 @ 13:05 by Adolfo Wilson MD) History of atrial fibrillation History of CVA (cerebrovascular accident) History of hypertension Hyperlipidemia Paroxysmal atrial fibrillation Surgical History Surgical History H/O right wrist surgery H/O tubal ligation Family History Family History Father Cancer Mother Cancer Grandparent Diabetes mellitus Social History Social History Social History: The patient is single. She has 1 child. Patient quit smoking many years ago. She does not use any alcohol marijuana or illicit drugs. The patient does not have a durable power assistant district attorney for healthcare. The patient stated that she has from [facility]. 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 Code status full code Smoking packs per day: 2 Smoking cigarettes per day: 40.0 Years smoked: 45 Smoking pack-years: 90.00 Smoking status: Former smoker Tobacco type: cigarettes Alcohol intake: never Substance use: never Substance use type: does not use Do You Feel Safe in your Home?: Yes Lack of Transportation: No Lack of Food: Never True Current Housing: I Have Housing Concerned About Future Housing: No Difficulty Paying Gas/Electric Bills: No Difficulty Paying for Meds: No Currently Unemployed: No Education: High School Diploma/GED Difficulty w/ Childcare or Family Care: No Spiritual care concerns: No Meds Home Medications and Allergies Home Medications Medication Instructions Recorded Confirmed Type calcium 600 mg (as 1 tablet PO DAILY #30 tabs 02/16/24 02/29/24 Rx carbonate)-vitamin D3 20 mcg (800 unit) tablet (Caltrate with Vitamin D3) ergocalciferol (vitamin D2) 1,250 1 unit PO WEEKLY #7 caps 02/16/24 02/29/24 Rx mcg (50,000 unit) capsule (Vitamin D2) levetiracetam 500 mg tablet 500 mg PO Q12HR #60 tabs 02/16/24 02/29/24 Rx (Keppra) umeclidinium 62.5 mcg/actuation 1 inh inhalation Q24H #30 ea 02/17/24 02/29/24 Rx blister powder for inhalation (Incruse Ellipta) albuterol sulfate 2.5 mg/3 mL 2.5 mg inhalation Q4H PRN sob 02/19/24 02/29/24 History (0.083 %) solution for nebulization bisacodyl 10 mg rectal suppository 10 mg RECTAL DAILY PRN constipation 02/19/24 02/29/24 History hydrocortisone acetate 25 mg 25 mg RECTAL DAILY PRN hemmorids 02/19/24 02/29/24 History rectal suppository (Anusol-HC) magnesium citrate 150 ml PO DAILY PRN constipation 02/19/24 02/29/24 History pseudoephedrine-guaifenesin ER 60 1 tablet PO Q12H PRN congestion 02/19/24 02/29/24 History mg-600 mg tablet,extend release 12hr (Mucinex D) psyllium 1 packet PO DAILY 02/19/24 02/29/24 History sodium phosphates 19 gram-7 118 ml RECTAL DAILY PRN 02/19/24 02/29/24 History gram/118 mL enema (Fleet Enema) Constipation apixaban 5 mg tablet (Eliquis) 5 mg PO Q12HR 30 days #60 tabs 02/24/24 02/29/24 Rx lisinopril 5 mg tablet 5 mg PO QAM 30 days #30 tabs 02/24/24 02/29/24 Rx metoprolol tartrate 50 mg tablet 50 mg PO Q12HR 30 days #60 tabs 02/24/24 02/29/24 Rx sodium chloride 1,000 mg soluble 1,000 mg PO BID 3 days #6 tabs 02/24/24 02/29/24 Rx tablet acetaminophen 325 mg tablet 650 mg PO Q6H PRN Pain (Scale 02/29/24 02/29/24 History Score 1-3) atorvastatin 80 mg tablet 60 mg PO QHS 02/29/24 02/29/24 History Allergies Allergy/AdvReac Type Severity Reaction Status Date / Time No Known Allergies Allergy Verified 03/01/24 16:15 Vital Signs Vital Signs - 24 hr 03/01/24 14:50 03/01/24 16:16 03/01/24 17:36 Temperature 36.6 C 37.0 C 36.8 C Pulse Rate 77 79 75 Respiratory Rate 18 20 20 Blood Pressure 107/38 L 110/45 L 118/39 L Pulse Oximetry 93 96 100 Oxygen Delivery Nasal Cannula Simple Face Mask Oxygen Flow Rate 2 8 03/01/24 17:50 03/01/24 18:00 03/01/24 18:15 Temperature Pulse Rate 76 76 75 Respiratory Rate 20 20 20 Blood Pressure 118/42 L 112/40 L 107/77 Pulse Oximetry 100 99 100 Oxygen Delivery Nasal Cannula Nasal Cannula Nasal Cannula Oxygen Flow Rate 2 2 2 03/01/24 18:30 03/01/24 18:45 03/01/24 18:52 Temperature Pulse Rate 74 74 75 Respiratory Rate 20 20 20 Blood Pressure 105/70 110/42 L 104/48 L Pulse Oximetry 100 100 100 Oxygen Delivery Nasal Cannula Nasal Cannula Nasal Cannula Oxygen Flow Rate 2 2 2 03/01/24 20:39 03/01/24 20:00 03/01/24 20:00 Temperature 36.4 C Pulse Rate 81 75 Respiratory Rate 20 Blood Pressure 114/42 L Pulse Oximetry 100 100 Oxygen Delivery Nasal Cannula Oxygen Flow Rate 2 03/02/24 00:39 03/02/24 00:00 03/02/24 04:00 Temperature 36.5 C Pulse Rate 75 71 78 Respiratory Rate 20 Blood Pressure 109/52 L Pulse Oximetry 100 Oxygen Delivery Oxygen Flow Rate 03/02/24 06:29 03/02/24 07:12 03/02/24 04:39 Temperature 36.3 C L 36.3 C L Pulse Rate 153 H 81 Respiratory Rate 20 20 Blood Pressure 123/47 L 123/47 L Pulse Oximetry 100 92 100 Oxygen Delivery Nasal Cannula Nasal Cannula Oxygen Flow Rate 2 2 03/02/24 09:36 03/02/24 08:00 03/02/24 11:16 Temperature Pulse Rate 97 80 Respiratory Rate Blood Pressure Pulse Oximetry Oxygen Delivery Room Air Oxygen Flow Rate 03/02/24 12:00 Temperature Pulse Rate 80 Respiratory Rate Blood Pressure Pulse Oximetry Oxygen Delivery Oxygen Flow Rate Exam Narrative: Patient awake alert oriented appears stated age Const: General: comfortable and no acute distress HENMT: Face/Nose/Sinus: Normal nares present Mouth: Yes moist mucous membranes Eyes: General: appearance normal, both eyes and all related structures Sclera: sclerae normal Neck: Neck: supple and no JVD Chest: Other: No reproducible chest wall pain to palpation Resp: Effort & Inspection: normal respiratory effort Auscultation: clear to auscultation bilaterally Cardio: Rate: regular rate Rhythm: regular rhythm GI: Inspection: non-distended GI Palp: Yes Soft to palpation Skin: Wounds: wounds noted Neuro: Speech: normal speech Extrem: General: edema Other: Trivial bilateral lower extremity edema Psych: Mental Status: mental status grossly normal Affect: normal affect Results Labs and Meds 03/02/24 05:35 03/02/24 05:35 Lab results: Cardiac Enzymes 03/02/24 Range/Units 05:35 AST 59 H (14-36) U/L CBC 03/02/24 Range/Units 05:35 WBC 14.1 H (4.5-10.0) K/mm3 RBC 2.94 L (4.2-5.4) M/mm3 Hgb 9.6 L (12.0-15.0) g/dL Hct 30.8 L (37.0-47.0) % Plt Count 228 (150-375) k/mm3 Lymph # (Auto) 0.92 (0.9-3.2) K/mm3 [place] # (Auto) 1.0 H (0.1-0.6) K/mm3 Eos # (Auto) 0.0 (0-0.3) K/mm3 Baso # (Auto) 0.0 (0.0-0.1) K/mm3 Comprehensive Metabolic Panel 03/02/24 Range/Units 05:35 Sodium 131 L (137-145) mmol/L Potassium 3.6 (3.4-5.0) mmol/L Chloride 98 (98-107) mmol/L Carbon Dioxide 30 (22-30) mmol/L BUN 8 (7-17) mg/dL Creatinine 0.60 L (0.7-1.0) mg/dL Glucose 96 (65-110) mg/dL Calcium 8.1 L (8.4-10.2) mg/dL AST 59 H (14-36) U/L ALT 25 (6-35) U/L Alkaline Phosphatase 89 (38-126) U/L Total Protein 5.0 L (6.3-8.2) g/dL Albumin 2.5 L (3.5-5.1) g/dL Intake and Output 03/01/24 03/02/24 03/02/24 23:59 07:59 15:59 Intake Total 600 1465 1220 Output Total 100 600 Balance 612 358 8707 Intake: IV 600 1025 500 Lactated Ringers 1,000 ml @ 30 500 mls/hr IV CONT .Q24H [facility] Rx#: [id number] Sodium Chloride 0.9% IV 1,000 0 825 ml @ 100 mls/hr IV CONT .Q10H [facility] Rx#:[id number] Clindamycin 600 mg/D5w 50 ml 100 600 mg In 50 ml @ 100 mls/hr IVPB Q8H [facility] Rx#:[id number] Clindamycin 900 mg/D5w 50 ml 50 900 mg In 50 ml @ 50 mls/hr IVPB ONCE ONE Rx#:[id number] Piperacilln/Benny 3.375GM/Ns50ml 50 100 3.375 gm In 50 ml @ 100 mls/hr IVPB Q6HR [facility] Rx#:[id number] Vancomycin 1,500 mg/Ns 500 ml 1 500 ,500 mg In 500 ml @ 250 mls/hr IVPB Q12H [facility] Rx#:[id number] Oral 440 720 Output: Catheter Urine 100 600 Urethral Catheter 100 600 Other: Est. Blood Loss Amount 20 EKG is personally reviewed and independently interpreted showing atrial fibrillation with rapid ventricular response.
--- NOTE | 2024-03-02 13:35 | WPDANESPN ---
Anes - Prog Note Post-Op Date/Time: 03/02/24 13:35 Cardiovascular status: normal Respiratory status: normal Airway patency: baseline Mental status: baseline Post-Op hydration status: normal Vital Signs: Last Vital Signs Temp 97.3 F L 03/02/24 06:29 Pulse 80 03/02/24 12:00 Resp 20 03/02/24 06:29 BP 123/47 L 03/02/24 06:29 Pulse Ox 92 03/02/24 07:12 O2 Del Method Room Air 03/02/24 13:16 O2 Flow Rate 2 03/02/24 07:12 Pain Score (VAS): 0/10 I/O: Intake & Output 03/01/24 03/02/24 03/02/24 23:59 07:59 15:59 Intake Total 600 1465 1220 Output Total 100 600 Balance 100 632 8089 Laboratory Tests 03/02/24 05:35 03/02/24 05:35 03/02/24 05:35 WBC 14.1 H RBC 2.94 L Hgb 9.6 L Hct 30.8 L MCV 104.8 H MCH 32.7 MCHC 31.2 L RDW 14.7 H Plt Count 228 MPV 10.5 H Immature Gran % (Auto) 1.1 H Neut % (Auto) 84.6 H Lymph % (Auto) 6.5 L [place] % (Auto) 7.2 Eos % (Auto) 0.3 Baso % (Auto) 0.3 Lymph # (Auto) 0.92 [place] # (Auto) 1.0 H Eos # (Auto) 0.0 Baso # (Auto) 0.0 Abs Immat Gran (auto) 0.16 H Absolute Neuts (auto) 11.9 H Absolute Nucleated RBC 0.000 Nucleated RBC % 0.0 Sodium 131 L Potassium 3.6 Chloride 98 Carbon Dioxide 30 Anion Gap 3 L BUN 8 Creatinine 0.60 L Estim Creat Clear Calc 81 Estimated GFR > 60 Glucose 96 Calcium 8.1 L Total Bilirubin 0.9 AST 59 H ALT 25 Alkaline Phosphatase 89 Total Protein 5.0 L Albumin 2.5 L Microbiology 02/29/24 14:35 Urine Catheterized Urine Culture - Final Enterococcus species 03/01/24 17:19 Sacral Anaerobic Culture - Preliminary 02/29/24 14:57 Blood Blood Culture - Preliminary 12/02/24 15:01 Blood Blood Culture - Preliminary Post-procedural complaints: none Patient Feedback: Patient satisfied with anesthetic care.
[2024-03-02] MEDS: HYDROcodone/acetaminophen (*CRX) 7.5-325 MG TABLET 1 TAB PO ×2 (13:37→20:29)
[2024-03-02] MEDS: POTASSIUM CHLORIDE 20 MEQ ER TABLET 40 MEQ PO (13:39)
--- NOTE | 2024-03-02 13:52 | PC.NURSE ---
RN called Dr. Nguyen as patient's [facility] medical is requesting terminal care information given patient's condition. Dr. Nguyen stated he woud come and talk to patient and [facility].
[2024-03-02] MEDS: ATORVASTATIN 20 MG TABLET 60 MG PO (20:29)
[2024-03-02] MEDS: APIXABAN 5 MG TABLET PO (20:29)
[2024-03-02] MEDS: DOXYCYCLINE HYCLATE 100 MG TABLET PO (20:29)
[2024-03-03] VITALS (14 sets, daily range): BP systolic 103–137; BP diastolic 43–49; PULSE 69–85; RESP 16–19; TEMP 36.4–36.6; O2SAT 93–99
[2024-03-03] MEDS: PIPERACILLN/TAZ 3.375GM/NS50ML 3.375 GM/50 ML BAG IVPB (04:43)
[2024-03-03] MEDS: HYDROcodone/acetaminophen (*CRX) 7.5-325 MG TABLET 1 TAB PO ×3 (06:16→22:33)
[2024-03-03 07:03] LABS: Basophils Absolute Auto 0.1 K/mm3 (0.0-0.1); Basophils Percent Auto 0.4 % (0.2-1.2); Eosinophils Absolute Auto 0.1 K/mm3 (0-0.3); Eosinophils Percent Auto 0.8 % (0-4.4); Hematocrit 33.9 % (37.0-47.0); Hemoglobin 10.3 g/dL (12.0-15.0); Immature Granulocyte Absolute 0.16 K/mm3 (0.00-0.031); Immature Granulocyte Percent A 1.1 % (0-0.5); Lymphocytes Absolute Auto 1.37 K/mm3 (0.9-3.2); Lymphocytes Percent Auto 9.7 % (18.3-44.2); Mean Corpuscular HGB Conc 30.4 g/dl (32-36); Mean Corpuscular Hemoglobin 32.4 pg (26-34); Mean Corpuscular Volume 106.6 fl (80-100); Mean Platelet Volume 10.7 fl (7.4-10.4); Monocytes Absolute Auto 0.9 K/mm3 (0.1-0.6); Monocytes Percent Auto 6.2 % (2.6-8.5); Neutrophils Absolute Auto 11.6 K/mm3 (1.3-6.7); Neutrophils Percent Auto 81.8 % (45.5-73.1); Platelet Count Result 305 k/mm3 (150-375); Red Blood Count 3.18 M/mm3 (4.2-5.4); Red Cell Distribution Width 14.6 % (11.5-14.5); White Blood Count 14.2 K/mm3 (4.5-10.0)
[2024-03-03 07:13] LABS: Alanine Aminotransferase 30 U/L (6-35); Albumin Level 2.8 g/dL (3.5-5.1); Alkaline Phosphatase 111 U/L (38-126); Anion Gap 5 mmol/L (4-12); Aspartate Amino Transferase 64 U/L (14-36); Bilirubin,Total 0.7 mg/dL (0.2-1.3); Blood Urea Nitrogen 17 mg/dL (7-17); Calcium 8.4 mg/dL (8.4-10.2); Carbon Dioxide 25 mmol/L (22-30); Chloride 98 mmol/L (98-107); Estimated CRCL calculation 27 ml/min; Estimated Glomerular Filt Rate 26; Glucose 90 mg/dL (65-110); Sodium 128 mmol/L (137-145)
--- NOTE | 2024-03-03 08:40 | PM.IMPN ---
Progress Note: A&P Assessment and Plan (1) GABRIELLE (acute kidney injury): Code(s): N17.9 - Acute kidney failure, unspecified Status: Acute Assessment and Plan: IV fluids hold lisinopril Avoid nephrotoxic medications Daily BMP (2) Pressure injury of sacral region, stage 3: Code(s): L89.153 - Pressure ulcer of sacral region, stage 3 Status: Acute Assessment and Plan: - CT abd/Pelvis: Subcutaneous soft tissue gas inferior to the coccyx. No evidence of osteomyelitis. - 03/01/24, s/p Sharp excisional debridement stage IV sacral decubitus ulcer measuring 15 cm x 10 cm including skin, subcutaneous fat, muscle and fascia. - Continue IV abx. -wound culture showing bacteroides thetaiotaomicro and pseudomonas aeruginosa. -blood culture no growth today - Pain meds PRN. - Wound care per surgery and nursing team. - Consider wound nurse consult. (3) Physical deconditioning: Code(s): R53.81 - Other malaise Status: Acute Assessment and Plan: - PT/OT eval and treatment. - Will need a lot of encouragement considering prolonged bedrest. Patient is able to stand and turn herself When she was at that SNF she was extremely noncompliant with turning (4) Acute UTI: Code(s): N39.0 - Urinary tract infection, site not specified Status: Acute Assessment and Plan: - Wound culture growing Enterococcus. - Covered by current IV abx. - Continue to follow cultures for sensitivities. (5) History of atrial fibrillation: Code(s): Z86.79 - Personal history of other diseases of the circulatory system Status: Acute Assessment and Plan: - Pt went into A-Fib early 03/02 - Given IV Cardizem X1 dose and converted back to SR. - Currently in SR on telemetry. - Continue Metoprolol. - Apixaban restarted. - Continue tele monitoring. (6) Hyponatremia: Code(s): E87.1 - Hypo-osmolality and hyponatremia Status: Acute Assessment and Plan: - Stable and slowly improving. -IVF and monitor closely. Regular diet (7) Seizure: Code(s): R56.9 - Unspecified convulsions Status: Acute Assessment and Plan: - Continue Keppra. - Seizure precautions. (8) History of CVA (cerebrovascular accident): Code(s): Z86.73 - Personal history of transient ischemic attack (TIA), and cerebral infarction without residual deficits Status: Chronic Assessment and Plan: - Continue statin and resume apixaban when ok with general surgery. (9) Hyperlipidemia: Code(s): E78.5 - Hyperlipidemia, unspecified Status: Acute Assessment and Plan: - Continue statin. Plan Acute and principal conditions 1. Stage 3 sacral region/Left buttocks ulcer. 2. UTI 3. Hx of A-fib. on Metoprolol, Apixaban 4. Physical deconditioning IVFs; Urine cultures Vancomycin, Zosyn General surgery continues to follow post-debridement. Chronic and stable conditions 1. Physical deconditioning/Sedentary status 2. Hypertension. On Losartan 3. Seizures. on Levetiracetam Code status. Full Nutrition. Time Spent With Patient Time: Includes review of chart, time spent family, consulting teams and nursing. Vital signs were reviewed and they are stable. His medications will be reviewed and resumed as appropriate. Findings and treatment plan were discussed with the patient. Questions were solicited and answered to satisfaction. Care plan was discussed with nursing. Over 55 minutes Subjective Date/time seen: 03/03/24 08:40 Interval history: Patient was here recently and had a bruise on left buttock, now large coccyx tunneled wound with gas on XR, no evidence of osteomyelitis per CT abd/pelvis. Patient on Vanc/Zosyn and clindamycin for possible necrotizing fasciitis. S/P Sharp excisional debridement stage IV sacral decubitus ulcer measuring 15 cm x 10 cm including skin, subcutaneous fat, muscle and fascia. Patient currently on supplemental oxygen due to hypoxia which is new and possible UTI per UA, urine culture in process. Long discussion with patient and family about care goals, patient is not currently interested in hospice and states that she will turn and follow nursing instructions to help her decubitus ulcer heal. Na 128, GABRIELLE Cr 1.9 from 0.6 yesterday Review of Systems Review of Systems: All systems reviewed & are unremarkable except as noted in HPI and below Constitutional: Constitutional: Reports fatigue and Denies headache(s) ENT: Reports Normal hearing present, Denies dysphagia, Denies vertigo, Denies headache(s), Denies epistaxis and Denies nasal congestion Cardiovascular: Cardiovascular: Reports no additional cardiovascular complaints, Denies dyspnea and Reports dyspnea on exertion Respiratory: Respiratory: Denies hemoptysis, Denies dyspnea and Reports dyspnea on exertion Gastrointestinal: Gastrointestinal: Reports no additional gastrointestinal complaints and Denies dysphagia Musculoskeletal: Musculoskeletal: Reports back pain Neurologic: Reports Normal hearing present, Reports behavioral changes, Reports confusion, Denies vertigo and Denies headache(s) Psychiatric: Psychiatric: Reports anxiety, Reports behavioral changes and Reports confusion Endocrine: Endocrine: Reports fatigue Exam Narrative: General: Fair appearing, generalized muscle weakness. HEENT: Atraumatic, PERRL, moist mucosa, anicteric, EOM. NECK: Supple. Lungs: Coarse bases. Heart: Irregularly irregular, no murmurs. Abdomen: Soft, non-tender, non-distended, +ve bowel sounds X4 quadrants. Extremities: Acyanotic, no edema, 2+ radial and pedal pulses. Skin: Warm and dry. Large sacral decubitus with surgical wound intact. Neuro: Well oriented, CN II-XII grossly intact. Psych: Calm and co-operative. Const: General: comfortable, no acute distress and confusion Orientation/consciousness: confusion HENMT: Face/Nose/Sinus: Normal nares present and no epistaxis Eyes: Sclera: sclerae normal Pupils: Equal, round and reactive pupils present EOM: EOMs intact bilaterally Neck: Neck: supple Resp: Effort & Inspection: normal respiratory effort Cardio: Rate: regular rate Rhythm: abnormal rhythm Skin: General skin exam: normal color and wounds noted (Sacral/Left buttock) Wounds: wounds noted (Sacral/Left buttock) Neuro: General: confusion Cranial nerves: Yes Equal, round and reactive pupils present and Yes Normal hearing present Speech: normal speech Motor exam (neuro): 5/5 motor strength present throughout and Abnormal motor strength present Extrem: General: normal to inspection Psych: Affect: Anxious affect present Attitude: Belligerent attititude/behavior present Objective Data Vital Signs Vital Signs: Vital Signs - 24 hr 03/02/24 09:36 03/02/24 11:16 03/02/24 12:17 Temperature Pulse Rate 97 Respiratory Rate Blood Pressure Pulse Oximetry Oxygen Delivery Room Air Room Air 03/02/24 12:00 03/02/24 13:16 03/02/24 16:00 Temperature Pulse Rate 80 83 Respiratory Rate Blood Pressure Pulse Oximetry Oxygen Delivery Room Air 03/02/24 14:00 03/02/24 22:00 03/02/24 20:00 Temperature 97.9 F 97.2 F L Pulse Rate 92 84 Respiratory Rate 19 20 Blood Pressure 126/56 L 148/51 H Pulse Oximetry 99 94 100 Oxygen Delivery Room Air 03/02/24 20:00 03/03/24 00:00 03/03/24 04:00 Temperature Pulse Rate 79 71 69 Respiratory Rate Blood Pressure Pulse Oximetry Oxygen Delivery 03/03/24 06:00 Temperature 97.5 F L Pulse Rate 73 Respiratory Rate 16 Blood Pressure 137/46 L Pulse Oximetry 93 Oxygen Delivery Intake/Output Intake/Output: Intake & Output 02/29/24 03/01/24 03/02/24 03/03/24 23:59 23:59 23:59 23:59 Intake Total 1050 2778.3 4864 500 Output Total 925 1010 500 Balance 1050 1853.3 3854 0 Meds/Results Medications: Active Medications Generic Name Dose Route Start Last Admin Trade Name Freq PRN Reason Stop Dose Admin Acetaminophen 650 mg 02/29/24 21:00 Acetaminophen 325 Mg Tablet PO Q4H PRN Mild Pain (1-3) or Fever Acetaminophen 650 mg 03/01/24 16:03 Acetaminophen 325 Mg Tablet PO Q6H PRN Pain (Scale Score 1-3) Hydrocodone Bitart/Acetaminophen 1 tab 03/01/24 18:54 03/02/24 09:37 Hydrocodone/Acetaminophen (*Crx) 5-325 Mg Tablet PO 1 tab Q4H PRN Administration Pain Rated 4-6 Hydrocodone Bitart/Acetaminophen 1 tab 03/01/24 18:54 03/03/24 06:16 Hydrocodone/Acetaminophen (*Crx) 7.5-325 Mg Tablet PO 1 tab Q4H PRN Administration Pain Rated 7-10 Albuterol 2.5 mg 03/01/24 16:03 Albuterol Sulfate Neb 2.5 Mg/3 Ml Inh INHALATION Q4H PRN sob Apixaban 5 mg 03/02/24 21:00 03/02/24 20:29 Apixaban 5 Mg Tablet PO 5 mg Q12HR SOFIYA Administration Atorvastatin Calcium 60 mg 03/01/24 21:00 03/02/24 20:29 Atorvastatin 20 Mg Tablet PO 60 mg QHS SOFIYA Administration Bisacodyl 5 mg 02/29/24 21:00 Bisacodyl 5 Mg Tablet Ec PO DAILY PRN Constipation Bisacodyl 10 mg 03/01/24 16:03 Bisacodyl 10 Mg Suppository RECTAL DAILY PRN constipation Calcium Carbonate 500 mg 03/02/24 09:00 03/02/24 09:36 Calcium/Vitamin D 500 Mg/5 Mcg (200 I.U.) Tablet PO 500 mg DAILY SOFIYA Administration Docusate Sodium 100 mg 03/01/24 09:00 03/02/24 20:29 Docusate Sodium 100 Mg Capsule PO 100 mg Q12HR SOFIYA Administration Doxycycline Hyclate 100 mg 03/02/24 21:00 03/02/24 20:29 Doxycycline Hyclate 100 Mg Tablet PO 100 mg Q12HR SOFIYA Administration Ergocalciferol 50,000 units 03/02/24 09:00 03/02/24 09:37 Ergocalciferol 50,000 Units Capsule PO 50,000 units We@0900 SOFIYA Administration Piperacillin/Tazobactam/Dextrose 3.375 gm in 50 mls @ 100 mls/hr 03/01/24 06:00 03/03/24 04:43 Zosyn 3.375 Gm/Ns 50 Ml IVPB 100 mls/hr Q6HR SOFIYA Administration Levetiracetam 500 mg 03/01/24 09:00 03/02/24 20:29 Levetiracetam 500 Mg Tablet PO 500 mg Q12HR SOFIYA Administration Lisinopril 5 mg 03/01/24 09:00 03/02/24 09:37 Lisinopril 5 Mg Tablet PO 5 mg QAM SOFIYA Administration Magnesium Citrate 150 ml 03/01/24 16:03 Magnesium Citrate 300 Ml Btl PO DAILY PRN constipation Metoprolol Tartrate 50 mg 03/01/24 09:00 03/02/24 20:29 Metoprolol Tartrate 50 Mg Tab PO 50 mg Q12HR SOFIYA Administration Psyllium Hydrophilic Mucilloid 1 packet 03/02/24 09:00 03/02/24 09:37 Psyllium Powder Packet PO 1 packet DAILY SOFIYA Administration Sodium Chloride 1 gm 03/01/24 17:00 03/02/24 18:11 Sodium Chloride 1 Gm Tablet PO 1 gm BID SOFIYA Administration Sodium Hypochlorite 1 applic 03/01/24 09:00 03/02/24 20:30 Sod Hypochlorite 1/4 Strength 473 Ml TOPICAL 1 applic Q12HR SOFIYA Administration Umeclidinium [place] 1 puff 03/01/24 08:00 03/02/24 07:11 Umeclidinium [place] 62.5 Mcg Ellipta INHALATION 1 puff DAILYRT SOFIYA Administration Radiology Results: ITS Impressions Abdomen/Pelvis CT 02/29/24 15:55 IMPRESSION: 1. Subcutaneous soft tissue gas inferior to the coccyx. No evidence of osteomyelitis. Chest X-Ray 02/29/24 19:36 IMPRESSION: No acute cardiopulmonary pathology. Labs Labs: Laboratory Results - last 24 hr 03/03/24 06:38 WBC 14.2 H RBC 3.18 L Hgb 10.3 L Hct 33.9 L MCV 106.6 H MCH 32.4 MCHC 30.4 L RDW 14.6 H Plt Count 305 MPV 10.7 H Immature Gran % (Auto) 1.1 H Neut % (Auto) 81.8 H Lymph % (Auto) 9.7 L [place] % (Auto) 6.2 Eos % (Auto) 0.8 Baso % (Auto) 0.4 Lymph # (Auto) 1.37 [place] # (Auto) 0.9 H Eos # (Auto) 0.1 Baso # (Auto) 0.1 Abs Immat Gran (auto) 0.16 H Absolute Neuts (auto) 11.6 H Absolute Nucleated RBC 0.000 Nucleated RBC % 0.0 Sodium 128 L Potassium 4.0 Chloride 98 Carbon Dioxide 25 Anion Gap 5 BUN 17 Creatinine 1.90 H Estim Creat Clear Calc 27 Estimated GFR 26 L Glucose 90 Calcium 8.4 Total Bilirubin 0.7 AST 64 H ALT 30 Alkaline Phosphatase 111 Total Protein 6.0 L Albumin 2.8 L Quality VTE Prophylaxis VTE prophylaxis: mechanical ordered and pharmacologic ordered Hospitalist MIPS Advance Care Plan I have confirmed that the patient's Advanced Care Plan is present, code status is documented, or surrogate decision maker is listed in patient medical record.: Yes Medication Reconciliation I have utilized all available resources to obtain, update and review the patients current medications (includes all prescriptions, OTC, herbals, cannabis, and nutritional supplements).: Yes
[2024-03-03] MEDS: UMECLIDINIUM BROMIDE 62.5 MCG ELLIPTA 1 PUFF INHALATION (08:48)
[2024-03-03 09:09] LABS: Macrocytosis 1+ (NORMAL); Platelet Estimate Adequate (Adequate); Schistocytes None Seen
[2024-03-03] MEDS: APIXABAN 5 MG TABLET PO ×2 (09:28→21:24)
[2024-03-03] MEDS: DOXYCYCLINE HYCLATE 100 MG TABLET PO ×2 (09:28→21:24)
[2024-03-03] MEDS: levETIRAcetam 500 MG TABLET PO ×2 (09:28→21:24)
[2024-03-03] MEDS: PSYLLIUM POWDER PACKET 1 PACKET PO (09:29)
[2024-03-03] MEDS: SODIUM CHLORIDE 1 GM TABLET PO ×2 (09:29→17:28)
[2024-03-03] MEDS: CALCIUM/VITAMIN D 500 MG/5 MCG (200 I.U.) TABLET PO (09:29)
[2024-03-03] MEDS: SOD HYPOCHLORITE 1/4 STRENGTH 473 ML 1 APPLIC TOPICAL (09:29)
[2024-03-03] MEDS: DOCUSATE SODIUM 100 MG CAPSULE PO ×2 (09:29→21:24)
[2024-03-03] MEDS: METOPROLOL TARTRATE 50 MG TAB PO ×2 (09:30→21:24)
[2024-03-03] MEDS: SODIUM CHLORIDE 0.9% IV 1,000 ML 100 ML IV CONT ×2 (11:47→21:25)
[2024-03-03] MEDS: AMOXICILLIN/CLAVULANATE K 875-125 MG TAB 1 TABLET PO ×2 (14:19→22:34)
[2024-03-03] MEDS: ACETAMINOPHEN 325 MG TABLET 650 MG PO ×3 (14:19→23:31)
[2024-03-03] MEDS: GABAPENTIN 100 MG CAPSULE PO ×2 (14:19→17:28)
--- NOTE | 2024-03-03 14:46 | PM.PNGS ---
Progress Note: A&P Assessment and Plan (1) Pressure injury of sacral region, stage 4: Code(s): L89.154 - Pressure ulcer of sacral region, stage 4 Status: Acute Assessment and Plan: S/p surgical debridement. Continue daily dressing changes with Dakin's soaked gauze. Antifungal cream/powder to other areas of skin breakdown. Continue offloading pressure with specialty mattress. PT/OT to improve strength to get out of bed. (2) Physical deconditioning: Code(s): R53.81 - Other malaise Status: Acute Assessment and Plan: Patient is planning to have a discussion with her family and the hospitalist regarding possible hospice (3) Atrial fibrillation with RVR: Code(s): I48.91 - Unspecified atrial fibrillation Status: Acute Assessment and Plan: Apixaban was started Plan I have discussed the patient's case and plan of care with Dr. Leblanc. Subjective Subjective Date/Time Seen: 03/03/24 10:46 Post Op day: 2 (Sharp excisional debridement stage IV sacral decubitus ulcer) Interval history: Patient was able to get up to the chair with a walker and only standby assist this morning, per nursing. The patient was then seen in the chair and her only complaint was pain in her sacral wound. She otherwise has no complaints. Apparently, her sister came yesterday and they had discussed the option of Hospice. They are waiting to discuss this with the Hospitalist. She tells me today she is refusing any other surgery and does not want any further treatment. She just wants to be made comfortable. Exam Narrative: Sacral wound not evaluated as patient is in the chair and unable to see the wound. Nursing will change the dressing later today. Const: General: uncomfortable Orientation/consciousness: patient oriented x3 Objective Data Vital Signs Vital Signs: Vital Signs - 24 hr 03/02/24 16:00 03/02/24 22:00 03/02/24 20:00 Temperature 97.2 F L Pulse Rate 83 84 Respiratory Rate 20 Blood Pressure 148/51 H Pulse Oximetry 94 100 Oxygen Delivery Room Air 03/02/24 20:00 03/03/24 00:00 03/03/24 04:00 Temperature Pulse Rate 79 71 69 Respiratory Rate Blood Pressure Pulse Oximetry Oxygen Delivery 03/03/24 06:00 03/03/24 09:30 03/03/24 08:00 Temperature 97.5 F L Pulse Rate 73 85 78 Respiratory Rate 16 Blood Pressure 137/46 L Pulse Oximetry 93 Oxygen Delivery 03/03/24 12:00 03/03/24 09:29 Temperature Pulse Rate 72 Respiratory Rate Blood Pressure Pulse Oximetry Oxygen Delivery Room Air Intake/Output Intake/Output: Intake & Output 02/29/24 03/01/24 03/02/24 03/03/24 23:59 23:59 23:59 23:59 Intake Total 1050 2778.3 4864 550 Output Total 925 1010 500 Balance 1050 1853.3 3854 50 Meds/Results Medications: Active Medications Generic Name Dose Route Start Last Admin Trade Name Freq PRN Reason Stop Dose Admin Acetaminophen 650 mg 03/03/24 12:20 03/03/24 14:19 Acetaminophen 325 Mg Tablet PO 650 mg Q6H SOFIYA Administration Hydrocodone Bitart/Acetaminophen 1 tab 03/01/24 18:54 03/02/24 09:37 Hydrocodone/Acetaminophen (*Crx) 5-325 Mg Tablet PO 1 tab Q4H PRN Administration Pain Rated 4-6 Hydrocodone Bitart/Acetaminophen 1 tab 03/01/24 18:54 03/03/24 06:16 Hydrocodone/Acetaminophen (*Crx) 7.5-325 Mg Tablet PO 1 tab Q4H PRN Administration Pain Rated 7-10 Albuterol 2.5 mg 03/01/24 16:03 Albuterol Sulfate Neb 2.5 Mg/3 Ml Inh INHALATION Q4H PRN sob Albuterol/Ipratropium 3 ml 03/03/24 14:00 Ipratropium 0.5 Mg/Albuterol Sulfate 2.5 Mg Ampul.Neb 3 Ml INHALATION Q6HRT SOFIYA Amoxicillin/Clavulanate Potassium 1 tablet 03/03/24 14:00 03/03/24 14:19 Amoxicillin/Clavulanate K 875-125 Mg Tab PO 1 tablet Q12HR SOFIYA Administration Apixaban 5 mg 03/02/24 21:00 03/03/24 09:28 Apixaban 5 Mg Tablet PO 5 mg Q12HR SOFIYA Administration Atorvastatin Calcium 60 mg 03/01/24 21:00 03/02/24 20:29 Atorvastatin 20 Mg Tablet PO 60 mg QHS SOFIYA Administration Bisacodyl 5 mg 02/29/24 21:00 Bisacodyl 5 Mg Tablet Ec PO DAILY PRN Constipation Bisacodyl 10 mg 03/01/24 16:03 Bisacodyl 10 Mg Suppository RECTAL DAILY PRN constipation Calcium Carbonate 500 mg 03/02/24 09:00 03/03/24 09:29 Calcium/Vitamin D 500 Mg/5 Mcg (200 I.U.) Tablet PO 500 mg DAILY SOFIYA Administration Docusate Sodium 100 mg 03/01/24 09:00 03/03/24 09:29 Docusate Sodium 100 Mg Capsule PO 100 mg Q12HR SOFIYA Administration Doxycycline Hyclate 100 mg 03/02/24 21:00 03/03/24 09:28 Doxycycline Hyclate 100 Mg Tablet PO 100 mg Q12HR SOFIYA Administration Ergocalciferol 50,000 units 03/02/24 09:00 03/02/24 09:37 Ergocalciferol 50,000 Units Capsule PO 50,000 units We@0900 SOFIYA Administration Gabapentin 100 mg 03/03/24 13:00 03/03/24 14:19 Gabapentin 100 Mg Capsule PO 100 mg TID SOFIYA Administration Sodium Chloride 1,000 mls @ 100 mls/hr 03/03/24 08:50 03/03/24 11:47 Normal Saline Iv IV CONT 100 mls/hr .Q10H SOFIYA Administration Levetiracetam 500 mg 03/01/24 09:00 03/03/24 09:28 Levetiracetam 500 Mg Tablet PO 500 mg Q12HR SOFIYA Administration Lisinopril 5 mg 03/01/24 09:00 03/02/24 09:37 Lisinopril 5 Mg Tablet PO 5 mg QAM SOFIYA Administration Magnesium Citrate 150 ml 03/01/24 16:03 Magnesium Citrate 300 Ml Btl PO DAILY PRN constipation Metoprolol Tartrate 50 mg 03/01/24 09:00 03/03/24 09:30 Metoprolol Tartrate 50 Mg Tab PO 50 mg Q12HR SOFIYA Administration Psyllium Hydrophilic Mucilloid 1 packet 03/02/24 09:00 03/03/24 09:29 Psyllium Powder Packet PO 1 packet DAILY SOFIYA Administration Sodium Chloride 1 gm 03/01/24 17:00 03/03/24 09:29 Sodium Chloride 1 Gm Tablet PO 1 gm BID SOFIYA Administration Sodium Hypochlorite 1 applic 03/01/24 09:00 03/03/24 09:29 Sod Hypochlorite 1/4 Strength 473 Ml TOPICAL 1 applic Q12HR SOFIYA Administration Umeclidinium [place] 1 puff 03/01/24 08:00 03/03/24 08:48 Umeclidinium [place] 62.5 Mcg Ellipta INHALATION 1 puff DAILYRT SOFIYA Administration Radiology Results: ITS Impressions Abdomen/Pelvis CT 02/29/24 15:55 IMPRESSION: 1. Subcutaneous soft tissue gas inferior to the coccyx. No evidence of osteomyelitis. Chest X-Ray 03/03/24 09:27 IMPRESSION: 1. No acute cardiopulmonary disease. Labs Labs: Laboratory Results - last 24 hr 03/03/24 06:38 WBC 14.2 H RBC 3.18 L Hgb 10.3 L Hct 33.9 L MCV 106.6 H MCH 32.4 MCHC 30.4 L RDW 14.6 H Plt Count 305 MPV 10.7 H Immature Gran % (Auto) 1.1 H Neut % (Auto) 81.8 H Lymph % (Auto) 9.7 L [place] % (Auto) 6.2 Eos % (Auto) 0.8 Baso % (Auto) 0.4 Lymph # (Auto) 1.37 [place] # (Auto) 0.9 H Eos # (Auto) 0.1 Baso # (Auto) 0.1 Abs Immat Gran (auto) 0.16 H Absolute Neuts (auto) 11.6 H Absolute Nucleated RBC 0.000 Nucleated RBC % 0.0 Platelet Estimate Adequate Macrocytosis 1+ Schistocytes None seen Sodium 128 L Potassium 4.0 Chloride 98 Carbon Dioxide 25 Anion Gap 5 BUN 17 Creatinine 1.90 H Estim Creat Clear Calc 27 Estimated GFR 26 L Glucose 90 Calcium 8.4 Total Bilirubin 0.7 AST 64 H ALT 30 Alkaline Phosphatase 111 Total Protein 6.0 L Albumin 2.8 L
[2024-03-03] MEDS: IPRATROPIUM 0.5 MG/ALBUTEROL SULFATE 2.5 MG AMPUL.NEB 3 ML INHALATION ×2 (14:53→20:29)
[2024-03-03] MEDS: ATORVASTATIN 20 MG TABLET 60 MG PO (21:24)
[2024-03-04] VITALS (18 sets, daily range): BP systolic 96–140; BP diastolic 74–84; PULSE 61–92; RESP 17–20; TEMP 36.3–36.4; O2SAT 95–98
[2024-03-04] MEDS: IPRATROPIUM 0.5 MG/ALBUTEROL SULFATE 2.5 MG AMPUL.NEB 3 ML INHALATION ×4 (02:27→20:53)
[2024-03-04] MEDS: HYDROcodone/acetaminophen (*CRX) 7.5-325 MG TABLET 1 TAB PO ×3 (04:13→14:41)
[2024-03-04] MEDS: ACETAMINOPHEN 325 MG TABLET 650 MG PO ×4 (05:47→23:56)
[2024-03-04] MEDS: SODIUM CHLORIDE 0.9% IV 1,000 ML 100 ML IV CONT ×2 (05:47→21:26)
[2024-03-04 05:58] LABS: Basophils Percent Auto 0.4 % (0.2-1.2); Eosinophils Absolute Auto 0.1 K/mm3 (0-0.3); Eosinophils Percent Auto 1.1 % (0-4.4); Hematocrit 32.4 % (37.0-47.0); Hemoglobin 9.8 g/dL (12.0-15.0); Immature Granulocyte Absolute 0.13 K/mm3 (0.00-0.031); Immature Granulocyte Percent A 1.3 % (0-0.5); Lymphocytes Absolute Auto 0.86 K/mm3 (0.9-3.2); Lymphocytes Percent Auto 8.8 % (18.3-44.2); Mean Corpuscular HGB Conc 30.2 g/dl (32-36); Mean Corpuscular Hemoglobin 32.3 pg (26-34); Mean Corpuscular Volume 106.9 fl (80-100); Mean Platelet Volume 10.6 fl (7.4-10.4); Monocytes Absolute Auto 0.6 K/mm3 (0.1-0.6); Monocytes Percent Auto 6.4 % (2.6-8.5); Platelet Count Result 279 k/mm3 (150-375); Red Blood Count 3.03 M/mm3 (4.2-5.4); Red Cell Distribution Width 14.9 % (11.5-14.5); White Blood Count 9.8 K/mm3 (4.5-10.0)
[2024-03-04 06:19] LABS: Alanine Aminotransferase 28 U/L (6-35); Albumin Level 2.6 g/dL (3.5-5.1); Alkaline Phosphatase 83 U/L (38-126); Anion Gap 5 mmol/L (4-12); Aspartate Amino Transferase 59 U/L (14-36); Bilirubin,Total 0.6 mg/dL (0.2-1.3); Blood Urea Nitrogen 22 mg/dL (7-17); Calcium 8.4 mg/dL (8.4-10.2); Carbon Dioxide 24 mmol/L (22-30); Chloride 101 mmol/L (98-107); Estimated CRCL calculation 19 ml/min; Estimated Glomerular Filt Rate 18; Glucose 100 mg/dL (65-110); Potassium 4.1 mmol/L (3.4-5.0); Sodium 130 mmol/L (137-145)
[2024-03-04 07:05] LABS: Platelet Estimate Adequate (Adequate)
[2024-03-04 07:08] LABS: Macrocytosis 1+ (NORMAL)
[2024-03-04 07:40] LABS: Schistocytes None Seen
[2024-03-04] MEDS: UMECLIDINIUM BROMIDE 62.5 MCG ELLIPTA 1 PUFF INHALATION (08:18)
[2024-03-04] MEDS: CALCIUM/VITAMIN D 500 MG/5 MCG (200 I.U.) TABLET PO (08:49)
[2024-03-04] MEDS: SODIUM CHLORIDE 1 GM TABLET PO ×2 (08:49→17:36)
[2024-03-04] MEDS: AMOXICILLIN/CLAVULANATE K 875-125 MG TAB 1 TABLET PO (08:49)
[2024-03-04] MEDS: DOXYCYCLINE HYCLATE 100 MG TABLET PO (08:49)
[2024-03-04] MEDS: levETIRAcetam 500 MG TABLET PO ×2 (08:49→21:27)
[2024-03-04] MEDS: METOPROLOL TARTRATE 50 MG TAB PO ×2 (08:49→21:26)
[2024-03-04] MEDS: DOCUSATE SODIUM 100 MG CAPSULE PO ×2 (08:50→21:28)
[2024-03-04] MEDS: APIXABAN 5 MG TABLET PO ×2 (08:50→21:27)
[2024-03-04] MEDS: SOD HYPOCHLORITE 1/4 STRENGTH 473 ML 1 APPLIC TOPICAL (08:51)
[2024-03-04] MEDS: GABAPENTIN 100 MG CAPSULE PO ×3 (08:51→17:36)
--- NOTE | 2024-03-04 12:30 | P.PNIM_ITS ---
Progress Note: A&P Assessment and Plan (1) Pressure injury of sacral region, stage 4: Code(s): L89.154 - Pressure ulcer of sacral region, stage 4 Status: Acute Assessment and Plan: - CT abd/Pelvis: Subcutaneous soft tissue gas inferior to the coccyx. No evidence of osteomyelitis. - 03/01/24, s/p Sharp excisional debridement stage IV sacral decubitus ulcer measuring 15 cm x 10 cm including skin, subcutaneous fat, muscle and fascia. - Continue IV abx. -wound culture showing bacteroides thetaiotaomicro and pseudomonas aeruginosa. -blood culture no growth today - Pain meds PRN. - Wound care per surgery and nursing team. - Consider wound nurse consult. 03/04: Pressure wound prior to arrival was unstageable, mischarted as Stage 3 but was determined to be Stage 4 upon surgical debridement. Changed antibiotics to IV cefepime and IV metronidazole for above positive cultures as wound was worsening and no coverage for Pseudomonas was in place. Pending sensitivities, we chose cefepime as it has highest coverage on antibiogram. (2) GABRIELLE (acute kidney injury): Code(s): N17.9 - Acute kidney failure, unspecified Status: Acute Assessment and Plan: IV fluids hold lisinopril Avoid nephrotoxic medications Daily labs 03/04: GABRIELLE worsening, will consult nephrology and order Renal Ultrasound Likely made worse by time on Vanc/Zosyn (3) Physical deconditioning: Code(s): R53.81 - Other malaise Status: Acute Assessment and Plan: - PT/OT eval and treatment. - Will need a lot of encouragement considering prolonged bedrest. Patient is able to stand and turn herself When she was at that SNF she was extremely noncompliant with turning 03/04: Accepted to SNF in [place] when ready for discharge (4) Acute UTI: Code(s): N39.0 - Urinary tract infection, site not specified Status: Acute Assessment and Plan: - Urine culture growing Enterococcus. - Covered by current IV abx. - Continue to follow cultures for sensitivities. 03/04: Added oral Zyvox since patient no longer on vancomycin and taken off Augmentin due to need for cefepime for Pseudomonas coverage (5) History of atrial fibrillation: Code(s): Z86.79 - Personal history of other diseases of the circulatory system Status: Acute Assessment and Plan: - Pt went into A-Fib early 03/02 - Given IV Cardizem X1 dose and converted back to SR. - Currently in SR on telemetry. - Continue Metoprolol. - Apixaban restarted. - Continue tele monitoring. 03/04: DC tele, stable HR, sinus rhythm on monitor (6) Hyponatremia: Code(s): E87.1 - Hypo-osmolality and hyponatremia Status: Acute Assessment and Plan: - Stable and slowly improving. -IVF and monitor closely. Regular diet 03/04: Continue sodium tabs, trend labs daily, antibiotics changed so this may improve situation (7) Seizure: Code(s): R56.9 - Unspecified convulsions Status: Acute Assessment and Plan: - Continue Keppra. - Seizure precautions. (8) History of CVA (cerebrovascular accident): Code(s): Z86.73 - Personal history of transient ischemic attack (TIA), and cerebral infarction without residual deficits Status: Chronic Assessment and Plan: - Continue statin and resume apixaban when ok with general surgery. (9) Hyperlipidemia: Code(s): E78.5 - Hyperlipidemia, unspecified Status: Acute Assessment and Plan: - Continue statin. Plan Acute and principal conditions 1. Stage 4 sacral region/Left buttocks ulcer. 2. UTI 3. Hx of A-fib. on Metoprolol, Apixaban 4. Physical deconditioning IVFs; Urine cultures Vancomycin, Zosyn General surgery continues to follow post-debridement. Chronic and stable conditions 1. Physical deconditioning/Sedentary status 2. Hypertension. On Losartan 3. Seizures. on Levetiracetam Code status. Full Nutrition. Time Spent With Patient Time with patient: Greater than 35 minutes Subjective Date/time seen: 03/04/24 12:30 Interval history: Nursing staff stated sacral wound looking worse again, new photo added to record. Nursing to contact general surgery. Discussed antibiotics with Pharmacy and current orders not sufficient based on recent cultures. Urine growing Enterococcus but renal function bad so we ordered oral linezolid. Wound culture growing Bacteroides thetaiotaomicron and Pseudomonas aeruginosa without sensitivities yet. Changed Augmentin to IV cefepime and IV metronidazole. Renal function with significant decline since admission. Patient remains on IV fluids for GABRIELLE. Patient mentioned hospice care but did not understand what that meant. She clarified that she was looking for facility placement when she can discharge. She did state she did not want any further surgeries at this time. She has been accepted to facility in [place] but not medically ready for discharge. Review of Systems Review of Systems: All systems reviewed & are unremarkable except as noted in HPI and below Exam Narrative: General: Fair appearing, generalized muscle weakness. HEENT: Atraumatic, PERRL, moist mucosa, anicteric, EOM. NECK: Supple. Lungs: Coarse bases. On room air Heart: Irregularly irregular, no murmurs. Abdomen: Soft, non-tender, non-distended, Positive bowel sounds X4 quadrants. Extremities: Mild lower extremity edema, 2+ radial and pedal pulses. Skin: Warm and dry. Large sacral decubitus with surgical wound with yellowish fi lm and stool encroaching on part of wound Neuro: Well oriented, CN II-XII grossly intact. Psych: Calm and co-operative. Objective Data Vital Signs Vital Signs: Vital Signs - 24 hr 03/03/24 14:59 03/03/24 14:59 03/03/24 15:07 Temperature 36.6 C Pulse Rate 82 81 79 Respiratory Rate 18 19 18 Blood Pressure 103/49 L Pulse Oximetry 99 Oxygen Delivery 03/03/24 16:00 03/03/24 20:29 03/03/24 20:29 Temperature Pulse Rate 85 71 71 Respiratory Rate 18 Blood Pressure Pulse Oximetry 96 Oxygen Delivery Room Air 03/03/24 20:42 03/03/24 21:24 03/03/24 21:56 Temperature 36.6 C Pulse Rate 73 80 74 Respiratory Rate 18 18 Blood Pressure 117/43 L Pulse Oximetry 97 Oxygen Delivery 03/03/24 21:30 03/03/24 20:00 03/04/24 00:00 Temperature Pulse Rate 73 64 Respiratory Rate Blood Pressure Pulse Oximetry Oxygen Delivery Room Air 03/04/24 02:27 03/04/24 02:35 03/04/24 04:00 Temperature Pulse Rate 61 64 70 Respiratory Rate 18 18 Blood Pressure Pulse Oximetry Oxygen Delivery 03/04/24 06:00 03/04/24 08:18 03/04/24 08:18 Temperature 36.3 C L Pulse Rate 92 78 Respiratory Rate 18 20 Blood Pressure 140/84 Pulse Oximetry 96 95 Oxygen Delivery Room Air 03/04/24 08:29 03/04/24 08:49 Temperature Pulse Rate 82 80 Respiratory Rate 20 Blood Pressure Pulse Oximetry Oxygen Delivery Intake/Output Intake/Output: Intake & Output 03/01/24 03/02/24 03/03/24 03/04/24 23:59 23:59 23:59 23:59 Intake Total 2778.3 4864 2543.3 2356.7 Output Total 925 1010 750 500 Balance 1853.3 3854 1793.3 1856.7 Meds/Results Medications: Active Medications Generic Name Dose Route Start Last Admin Trade Name Freq PRN Reason Stop Dose Admin Acetaminophen 650 mg 03/03/24 12:20 03/04/24 05:47 Acetaminophen 325 Mg Tablet PO 650 mg Q6H SOFIYA Administration Hydrocodone Bitart/Acetaminophen 1 tab 03/01/24 18:54 03/02/24 09:37 Hydrocodone/Acetaminophen (*Crx) 5-325 Mg Tablet PO 1 tab Q4H PRN Administration Pain Rated 4-6 Hydrocodone Bitart/Acetaminophen 1 tab 03/01/24 18:54 03/04/24 10:58 Hydrocodone/Acetaminophen (*Crx) 7.5-325 Mg Tablet PO 1 tab Q4H PRN Administration Pain Rated 7-10 Albuterol 2.5 mg 03/01/24 16:03 Albuterol Sulfate Neb 2.5 Mg/3 Ml Inh INHALATION Q4H PRN sob Albuterol/Ipratropium 3 ml 03/03/24 14:00 03/04/24 08:18 Ipratropium 0.5 Mg/Albuterol Sulfate 2.5 Mg Ampul.Neb 3 Ml INHALATION 3 ml Q6HRT SOFIYA Administration Amoxicillin/Clavulanate Potassium 1 tablet 03/03/24 14:00 03/04/24 08:49 Amoxicillin/Clavulanate K 875-125 Mg Tab PO 1 tablet Q12HR SOFIYA Administration Apixaban 5 mg 03/02/24 21:00 03/04/24 08:50 Apixaban 5 Mg Tablet PO 5 mg Q12HR SOFIYA Administration Atorvastatin Calcium 60 mg 03/01/24 21:00 03/03/24 21:24 Atorvastatin 20 Mg Tablet PO 60 mg QHS SOFIYA Administration Bisacodyl 5 mg 02/29/24 21:00 Bisacodyl 5 Mg Tablet Ec PO DAILY PRN Constipation Bisacodyl 10 mg 03/01/24 16:03 Bisacodyl 10 Mg Suppository RECTAL DAILY PRN constipation Calcium Carbonate 500 mg 03/02/24 09:00 03/04/24 08:49 Calcium/Vitamin D 500 Mg/5 Mcg (200 I.U.) Tablet PO 500 mg DAILY SOFIYA Administration Docusate Sodium 100 mg 03/01/24 09:00 03/04/24 08:50 Docusate Sodium 100 Mg Capsule PO 100 mg Q12HR SOFIYA Administration Doxycycline Hyclate 100 mg 03/02/24 21:00 03/04/24 08:49 Doxycycline Hyclate 100 Mg Tablet PO 100 mg Q12HR SOFIYA Administration Ergocalciferol 50,000 units 03/02/24 09:00 03/02/24 09:37 Ergocalciferol 50,000 Units Capsule PO 50,000 units We@0900 SOFIYA Administration Gabapentin 100 mg 03/03/24 13:00 03/04/24 08:51 Gabapentin 100 Mg Capsule PO 100 mg TID SOFIYA Administration Sodium Chloride 1,000 mls @ 100 mls/hr 03/03/24 08:50 03/04/24 05:47 Normal Saline Iv IV CONT 100 mls/hr .Q10H SOFIYA Administration Levetiracetam 500 mg 03/01/24 09:00 03/04/24 08:49 Levetiracetam 500 Mg Tablet PO 500 mg Q12HR SOFIYA Administration Lisinopril 5 mg 03/01/24 09:00 03/02/24 09:37 Lisinopril 5 Mg Tablet PO 5 mg QAM SOFIYA Administration Magnesium Citrate 150 ml 03/01/24 16:03 Magnesium Citrate 300 Ml Btl PO DAILY PRN constipation Metoprolol Tartrate 50 mg 03/01/24 09:00 03/04/24 08:49 Metoprolol Tartrate 50 Mg Tab PO 50 mg Q12HR SOFIYA Administration Psyllium Hydrophilic Mucilloid 1 packet 03/02/24 09:00 03/04/24 08:51 Psyllium Powder Packet PO Not Given DAILY SOFIYA Sodium Chloride 1 gm 03/01/24 17:00 03/04/24 08:49 Sodium Chloride 1 Gm Tablet PO 1 gm BID SOFIYA Administration Sodium Hypochlorite 1 applic 03/01/24 09:00 03/04/24 08:51 Sod Hypochlorite 1/4 Strength 473 Ml TOPICAL 1 applic Q12HR SOFIYA Administration Umeclidinium Gilbert 1 puff 03/01/24 08:00 03/04/24 08:18 Umeclidinium [place] 62.5 Mcg Ellipta INHALATION 1 puff DAILYRT SOFIYA Administration Radiology Results: ITS Impressions Abdomen/Pelvis CT 02/29/24 15:55 IMPRESSION: 1. Subcutaneous soft tissue gas inferior to the coccyx. No evidence of osteomyelitis. Chest X-Ray 03/03/24 09:27 IMPRESSION: 1. No acute cardiopulmonary disease. Labs Labs: Laboratory Results - last 24 hr 03/04/24 05:32 WBC 9.8 RBC 3.03 L Hgb 9.8 L Hct 32.4 L MCV 106.9 H MCH 32.3 MCHC 30.2 L RDW 14.9 H Plt Count 279 MPV 10.6 H Immature Gran % (Auto) 1.3 H Neut % (Auto) 82.0 H Lymph % (Auto) 8.8 L [place] % (Auto) 6.4 Eos % (Auto) 1.1 Baso % (Auto) 0.4 Lymph # (Auto) 0.86 L [place] # (Auto) 0.6 Eos # (Auto) 0.1 Baso # (Auto) 0.0 Abs Immat Gran (auto) 0.13 H Absolute Neuts (auto) 8.0 H Absolute Nucleated RBC 0.000 Nucleated RBC % 0.0 Platelet Estimate Adequate Macrocytosis 1+ Schistocytes None seen Sodium 130 L Potassium 4.1 Chloride 101 Carbon Dioxide 24 Anion Gap 5 BUN 22 H Creatinine 2.70 H Estim Creat Clear Calc 19 Estimated GFR 18 L Glucose 100 Calcium 8.4 Total Bilirubin 0.6 AST 59 H ALT 28 Alkaline Phosphatase 83 Total Protein 6.0 L Albumin 2.6 L Pulse Oximetry SpO2 results: 95-97% on room air Attestation: I personally reviewed and interpreted this pulse oximetry as follows: Interpretation: No need for supplemental oxygenation at this time Quality VTE Prophylaxis VTE prophylaxis: mechanical ordered and pharmacologic ordered
--- NOTE | 2024-03-04 13:12 | PCOTNOTE ---
Attempted to see Patient this P.M. Patient refused, stated to much pain, I can not move from this bed, not today.
[2024-03-04] MEDS: LINEZOLID 600 MG TABLET PO ×2 (14:41→21:27)
[2024-03-04] MEDS: CEFEPIME 1 GM/NS 50 ML 1 GM/50 ML BAG IVPB (14:44)
--- NOTE | 2024-03-04 15:30 | P.CONNP_ITS ---
Assessment and Plan Assessment and plan (1) GABRIELLE (acute kidney injury): Code(s): N17.9 - Acute kidney failure, unspecified Status: Acute Assessment and Plan: * normal baseline creatinine * worsening noted on 03/03 with rise in creatinine to 1.9mg/dl * multifactorial etiology: * prerenal factors * antibiotics (combo of Vancomycin + Zosyn) * SABI-I use * contrast exposure (CT imaging on 02/28) * infection/early sepsis * other(?) * trial of IVFs ongoing * holding lisinopril * check renal ultrasound, urine studies, and CPK * follow trend of repeat labs and UOP (2) Hyponatremia: Code(s): E87.1 - Hypo-osmolality and hyponatremia Status: Acute Assessment and Plan: * probably related to Gabrielle/ARF and possibly pain * however, this was present on last hospitalization * on salt tabs already * follow trend (3) Pressure injury of sacral region, stage 4: Code(s): L89.154 - Pressure ulcer of sacral region, stage 4 Status: Acute Assessment and Plan: * as noted on admission * CT of abdomen/Pelvis revealed subcutaneous soft tissue gas inferior to the coccyx, but no evidence of osteomyelitis. * s/p sharp excisional debridement stage IV sacral decubitus ulcer measuring 15 cm x 10 cm [including skin, subcutaneous fat, muscle and fascia (on 03/01)]. * pain control * on antibiotics * follow culture data * blood cultures negative to date * wound culture - Bacteroides thetaiotaomicron and Pseudomonas aeruginosa * Surgery following (4) Acute UTI: Code(s): N39.0 - Urinary tract infection, site not specified Status: Acute Assessment and Plan: * admission UA suggestive: * showing 1+ urine protein, trace ketone, 3+ urine blood, 2+ leukocytes, greater than 100 urine RBC, 11-20 urine WBC, rare bacteria seen * urine culture with Enterococcus * on antibiotics (5) History of atrial fibrillation: Code(s): Z86.79 - Personal history of other diseases of the circulatory system Status: Acute Assessment and Plan: * rate control strategy * on anticoagulation (6) Physical deconditioning: Code(s): R53.81 - Other malaise Status: Acute Assessment and Plan: * continue PT/OT * will need SNF on discharge I will continue to follow the patient with you while she remains hospitalized an d make further recommendations as deemed necessary. Thank you for allowing me to participate in the care of this patient. History of Present Illness Reason for Consult Consult date: 03/04/24 Reason for consult: acute renal failure Chief Complaint Chief complaint: Unstageable sacral wound History of Present Illness Narrative: The patient is a 60-year-old female with extensive past medical history as outlined below who presented to [facility] Emergency Room from her nursing facility for further evaluation of a worsening sacral decubitus ulcer. The patient was just recently discharged from [facility] several weeks ago after being hospitalized here for atrial fibrillation with RVR. She was seen in consultation by Cardiology with efforts to rate control her heart rate and was subsequently started on anticoagulation. During that same hospitalization, she was reportedly noted to have a stage III pressure ulcer on her buttocks that was being treated with wound care. Following stabilization of her atrial fibrillation, she was subsequently discharged to a nursing facility. According to the patient, since her discharge to this nursing facility she has not been ambulatory at all as per he much laid in bed. Apparently, due to increasing pain in her buttocks area, the nursing staff assessed her sacral wound and thought it appeared to be significantly worse than on admission to her nursing facility. She was subsequently sent to the emergency room for further assessment. Workup and evaluation emergency room noted the patient to be tachycardic with relative hypotension but afebrile. Routine blood test demonstrated normal renal function but her cbc [place] [id number] in conjunction with the worsening appearance of her sacral decubitus ulcer / wound. A CT scan of the abdomen pelvis done which demonstrated subcutaneous soft tissue gas inferior to the coccyx but no evidence of osteomyelitis. She was fluid resuscitated with improvement in her blood pressure and after appropriate cultures were obtained, she was started on broad-spectrum IV antibiotics for treatment of her suspected sacral decubitus ulcer infection with surgery consultation for further evaluation. She was subsequently admitted to the hospital for further management. Since her admission to the hospital, she was seen by surgery and taking for op erative intervention on 03/01/24 and tolerated this reasonably well. Unfortunately, her renal function has deteriorated in the last 24-48 hours although she has no critical electrolyte abnormalities, metabolic acidosis, volume overload, or signs of uremia. Renal consultation was requested due to her acute kidney injury/ acute renal failure. As noted by labs on admissions as well as on her previous hospitalization, the patient has normal baseline renal function. However, yesterday, her creatinine wanda to 1.9 mg/dL and subsequently up to 2.1 mg/dL by labs done today. In spite of this rise in her creatinine, she continues to make reasonable urine output. Her major complaint is that of pain relating to dressing changes and laying on her back with regard to her sacral decubitus ulcer and recent operative intervention. As far she is aware, she has never had any issues or problems or kidneys in the past and has never seen a team psychologist prior to my visit with her today. Currently, at the time my evaluation, she is in mild distress secondary to pain. Review of Systems Review of Systems: As per HPI. [facility] Past Medical History Medical History (Updated 03/03/24 @ 08:45 by Nilda Wilson APRN) History of atrial fibrillation History of CVA (cerebrovascular accident) History of hypertension Hyperlipidemia Paroxysmal atrial fibrillation Surgical History Surgical History H/O right wrist surgery H/O tubal ligation Family History Family History Father Cancer Mother Cancer Grandparent Diabetes mellitus Social History Social History Social History: The patient is single. She has 1 child. Patient quit smoking many years ago. She does not use any alcohol marijuana or illicit drugs. The patient does not have a durable power assistant county attorney for healthcare. The patient stated that she has from [facility]. 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 Code status full code Smoking packs per day: 2 Smoking cigarettes per day: 40.0 Years smoked: 45 Smoking pack-years: 90.00 Smoking status: Former smoker Tobacco type: cigarettes Alcohol intake: never Substance use: never Substance use type: does not use Do You Feel Safe in your Home?: Yes Lack of Transportation: No Lack of Food: Never True Current Housing: I Have Housing Concerned About Future Housing: No Difficulty Paying Gas/Electric Bills: No Difficulty Paying for Meds: No Currently Unemployed: No Education: High School Diploma/GED Difficulty w/ Childcare or Family Care: No Spiritual care concerns: No Meds Home Medications and Allergies Home Medications Medication Instructions Recorded Confirmed Type levetiracetam 500 mg tablet 500 mg PO Q12HR #60 tabs 02/16/24 02/29/24 Rx (Keppra) umeclidinium 62.5 mcg/actuation 1 inh inhalation Q24H #30 ea 02/17/24 02/29/24 Rx blister powder for inhalation (Incruse Ellipta) albuterol sulfate 2.5 mg/3 mL 2.5 mg inhalation Q4H PRN sob 02/19/24 02/29/24 History (0.083 %) solution for nebulization bisacodyl 10 mg rectal suppository 10 mg RECTAL DAILY PRN constipation 02/19/24 02/29/24 History sodium phosphates 19 gram-7 118 ml RECTAL DAILY PRN 02/19/24 02/29/24 History gram/118 mL enema (Fleet Enema) Constipation acetaminophen 325 mg tablet 650 mg PO Q6H PRN Pain (Scale 02/29/24 02/29/24 History Score 1-3) hydroxyzine HCl 25 mg tablet 25 mg PO Q6H PRN Anxiety #20 tabs 03/07/24 Rx ipratropium 0.5 mg-albuterol 3 mg 3 ml inhalation Q6HRT #180 mL 03/07/24 Rx (2.5 mg base)/3 mL nebulization soln sodium hypochlorite 0.125 % 1 applic topical Q12HR #473 mL 03/07/24 Rx solution (Dakin's Solution) Allergies Allergy/AdvReac Type Severity Reaction Status Date / Time No Known Allergies Allergy Verified 03/01/24 16:15 Vital Signs Vital Signs Temp Pulse Resp BP Pulse Ox O2 Del Method 03/04/24 14:36 97.5 F L 82 17 125/74 98 03/04/24 14:27 71 20 03/04/24 14:27 97 Room Air 03/04/24 08:49 80 03/04/24 08:29 82 20 03/04/24 08:18 78 20 03/04/24 08:18 95 Room Air 03/04/24 06:00 97.3 F L 92 18 140/84 96 03/04/24 04:00 70 03/04/24 02:35 64 18 03/04/24 02:27 61 18 03/04/24 00:00 64 03/03/24 20:00 73 03/03/24 21:30 Room Air 03/03/24 21:56 97.9 F 74 18 117/43 L 97 03/03/24 21:24 80 03/03/24 20:42 73 18 03/03/24 20:29 71 18 03/03/24 20:29 71 96 Room Air Exam Narrative: GENERAL APPEARANCE: elderly but well developed well nourished female in no acute distress HEENT: normocephalic, atraumatic, normal conjunctiva and sclera, nares patient NECK: no lymphadenopathy, thyromegaly, or JVD MOUTH: normal lips, teeth, and gums CARDIOVASCULAR: IRRR, normal S1 and S2, no rub RESPIRATORY: coarse breath sounds ABDOMEN: soft, nontender, nondistended, positive bowel sounds present EXTREMITIES: no evidence of cyanosis, clubbing, or edema NEUROLOGICAL: alert and oriented x 3; CN II - XII intact bilaterally; no focal deficits noted Results Lab Results 03/06/24 06:23 03/06/24 06:23 Lab results: Most recent lab results Calcium 8.4 mg/dL (8.4-10.2) 03/04/24 05:32
[2024-03-04] MEDS: metroNIDAZOLE 500 MG/ISO 100ML 500 MG/100 ML BAG 100 MG IVPB ×2 (17:37→23:55)
[2024-03-04 18:03] LABS: Total Protein Urine Random 34 mg/dL
[2024-03-04 18:04] LABS: Total Protein Urine Random 34 mg/dL; Ur Ttl Prot Creatinine Ratio 2.13 mg/mg (0-0.20)
[2024-03-04 18:09] LABS: Urea Random Urine < 67 MG/DL
[2024-03-04 18:10] LABS: Sodium Urine Random 14 meq/L
[2024-03-04 18:51] LABS: Eosinophil Urine None Seen % (None Seen); Urine Eos QC 2nd Tech Confirmed
[2024-03-04] MEDS: hydrOXYzine HCL 25 MG TABLET PO (19:30)
[2024-03-04] MEDS: FAMOTIDINE 20 MG/2 ML VIAL IV PUSH (19:30)
[2024-03-04] MEDS: MAG HYDROX/AL HYDROX/SIMETH 30 ML UDC PO (19:30)
[2024-03-04] MEDS: ATORVASTATIN 20 MG TABLET 60 MG PO (21:27)
[2024-03-04] MEDS: traZODone HCL 50 MG TABLET PO (21:28)
[2024-03-05] VITALS (11 sets, daily range): BP systolic 123–132; BP diastolic 32–50; PULSE 60–88; RESP 16–18; TEMP 36.1–36.8; O2SAT 91–96
[2024-03-05] MEDS: metroNIDAZOLE 500 MG/ISO 100ML 500 MG/100 ML BAG 100 MG IVPB ×3 (05:21→18:26)
[2024-03-05] MEDS: ACETAMINOPHEN 325 MG TABLET 650 MG PO ×3 (05:22→18:25)
[2024-03-05] MEDS: HYDROcodone/acetaminophen (*CRX) 7.5-325 MG TABLET 1 TAB PO ×3 (05:22→15:09)
[2024-03-05] MEDS: SOD HYPOCHLORITE 1/4 STRENGTH 473 ML 1 APPLIC TOPICAL ×2 (05:32→09:06)
[2024-03-05 06:19] LABS: Basophils Percent Auto 0.2 % (0.2-1.2); Eosinophils Absolute Auto 0.1 K/mm3 (0-0.3); Eosinophils Percent Auto 0.5 % (0-4.4); Hematocrit 31.4 % (37.0-47.0); Hemoglobin 9.6 g/dL (12.0-15.0); Immature Granulocyte Percent A 0.8 % (0-0.5); Lymphocytes Absolute Auto 0.79 K/mm3 (0.9-3.2); Lymphocytes Percent Auto 6.2 % (18.3-44.2); Mean Corpuscular HGB Conc 30.6 g/dl (32-36); Mean Corpuscular Hemoglobin 32.5 pg (26-34); Mean Corpuscular Volume 106.4 fl (80-100); Mean Platelet Volume 10.6 fl (7.4-10.4); Monocytes Absolute Auto 0.7 K/mm3 (0.1-0.6); Monocytes Percent Auto 5.8 % (2.6-8.5); Neutrophils Absolute Auto 11.1 K/mm3 (1.3-6.7); Neutrophils Percent Auto 86.5 % (45.5-73.1); Platelet Count Result 257 k/mm3 (150-375); Red Blood Count 2.95 M/mm3 (4.2-5.4); Red Cell Distribution Width 14.6 % (11.5-14.5); White Blood Count 12.8 K/mm3 (4.5-10.0)
[2024-03-05 06:27] LABS: Alanine Aminotransferase 22 U/L (6-35); Albumin Level 2.3 g/dL (3.5-5.1); Alkaline Phosphatase 84 U/L (38-126); Anion Gap 4 mmol/L (4-12); Aspartate Amino Transferase 46 U/L (14-36); Bilirubin,Total 0.5 mg/dL (0.2-1.3); Blood Urea Nitrogen 28 mg/dL (7-17); Calcium 8.2 mg/dL (8.4-10.2); Carbon Dioxide 22 mmol/L (22-30); Chloride 105 mmol/L (98-107); Creatine Kinase 89 U/L (30-135); Estimated CRCL calculation 17 ml/min; Estimated Glomerular Filt Rate 15; Glucose 101 mg/dL (65-110); Potassium 4.4 mmol/L (3.4-5.0); Sodium 131 mmol/L (137-145)
[2024-03-05 07:19] LABS: Anisocytosis 1+; Platelet Estimate Adequate (Adequate); Schistocytes None Seen
[2024-03-05] MEDS: IPRATROPIUM 0.5 MG/ALBUTEROL SULFATE 2.5 MG AMPUL.NEB 3 ML INHALATION ×2 (07:33→20:55)
[2024-03-05] MEDS: UMECLIDINIUM BROMIDE 62.5 MCG ELLIPTA 1 PUFF INHALATION (07:45)
[2024-03-05] MEDS: GABAPENTIN 100 MG CAPSULE PO ×3 (09:03→18:26)
[2024-03-05] MEDS: DOCUSATE SODIUM 100 MG CAPSULE PO (09:03)
[2024-03-05] MEDS: LINEZOLID 600 MG TABLET PO ×2 (09:04→21:12)
[2024-03-05] MEDS: APIXABAN 5 MG TABLET PO ×2 (09:04→21:11)
[2024-03-05] MEDS: levETIRAcetam 500 MG TABLET PO ×2 (09:04→21:12)
[2024-03-05] MEDS: CALCIUM/VITAMIN D 500 MG/5 MCG (200 I.U.) TABLET PO (09:04)
[2024-03-05] MEDS: SODIUM CHLORIDE 1 GM TABLET PO ×2 (09:04→18:25)
[2024-03-05] MEDS: METOPROLOL TARTRATE 50 MG TAB PO ×2 (09:04→21:11)
[2024-03-05] MEDS: FAMOTIDINE 20 MG/2 ML VIAL IV PUSH ×2 (09:06→21:12)
--- NOTE | 2024-03-05 10:52 | P.PNNP_ITS ---
Progress Note: A&P Assessment and Plan (1) SYLVIA (acute kidney injury): Code(s): N17.9 - Acute kidney failure, unspecified Status: Acute Assessment and Plan: * normal baseline creatinine * worsening noted on 03/03 with rise in creatinine to 1.9mg/dl * multifactorial etiology: * prerenal factors * antibiotics (combo of Vancomycin + Zosyn) * SABI-I use * contrast exposure (CT imaging on 02/28) * infection/early sepsis * other(?) * no improvement with IVFs * holding lisinopril * evaluation to date noted: * renal ultrasound with obstruction * urine electrolytes prerenal * CPK normal * urine eosinophils negative * moderate proteinuria * follow trend of repeat labs and UOP (2) Hyponatremia: Code(s): E87.1 - Hypo-osmolality and hyponatremia Status: Acute Assessment and Plan: * probably related to Sylvia/ARF and possibly pain * on salt tabs already * follow trend (3) Pressure injury of sacral region, stage 4: Code(s): L89.154 - Pressure ulcer of sacral region, stage 4 Status: Acute Assessment and Plan: * as noted on admission * CT of abdomen/Pelvis revealed subcutaneous soft tissue gas inferior to the coccyx, but no evidence of osteomyelitis. * s/p sharp excisional debridement stage IV sacral decubitus ulcer measuring 15 cm x 10 cm [including skin, subcutaneous fat, muscle and fascia (on 03/01)]. * pain control * on antibiotics * follow culture data * blood cultures negative to date * wound culture - Bacteroides thetaiotaomicron and Pseudomonas aeruginosa * Surgery following (4) Acute UTI: Code(s): N39.0 - Urinary tract infection, site not specified Status: Acute Assessment and Plan: * admission UA suggestive: * showing 1+ urine protein, trace ketone, 3+ urine blood, 2+ leukocytes, greater than 100 urine RBC, 11-20 urine WBC, rare bacteria seen * urine culture with Enterococcus. * on antibiotics (5) History of atrial fibrillation: Code(s): Z86.79 - Personal history of other diseases of the circulatory system Status: Acute Assessment and Plan: * rate control strategy * on anticoagulation (6) Physical deconditioning: Code(s): R53.81 - Other malaise Status: Acute Assessment and Plan: * continue PT/OT * will need SNF on discharge Will continue to follow. Time Spent With Patient Time with patient: Greater than 35 minutes Subjective Date/time seen: 03/05/24 10:52 Interval history: Follow-up for acute kidney injury/acute renal failure. Renal function/creatinine a bit worse today but still making reasonable urine output (and rate of rise in creatinine has lessened as well); otherwise, no apparent distress voiced at the time of my visit; pain control seems adequate; no other issues/events overnight or earlier this morning. Exam Narrative: General: elderly but WD/WN female in NAD Heart: normal S1 and S2; no rub Lungs: clear to auscultation Abdomen: soft, nontender, nondistended, positive bowel sounds Extremities: no cyanosis or clubbing; no edema Skin: warm and dry; sacral wound dressings in place Objective Data Vital Signs Vital Signs: Vital Signs Temp Pulse Resp BP Pulse Ox O2 Del Method FiO2 03/05/24 10:35 98.2 F 84 16 132/50 L 96 03/05/24 09:04 78 03/05/24 07:45 78 18 03/05/24 07:33 76 18 03/05/24 07:33 93 Room Air 21 03/05/24 05:55 96.9 F L 78 18 125/33 L 91 03/04/24 21:26 88 03/04/24 21:00 97.6 F 88 20 96/78 L 95 03/04/24 21:02 79 20 03/04/24 20:56 96 Room Air 03/04/24 20:53 84 20 Intake/Output Intake/Output: Intake & Output 03/02/24 03/03/24 03/04/24 03/05/24 23:59 23:59 23:59 23:59 Intake Total 4864 2543.3 4264.7 1877 Output Total 0387 265 4303 900 Balance 3854 1793.3 3029.7 977 Meds/Results Medications: Active Medications Generic Name Dose Route Start Last Admin Trade Name Freq PRN Reason Stop Dose Admin Acetaminophen 650 mg 03/03/24 12:20 03/05/24 13:29 Acetaminophen 325 Mg Tablet PO 650 mg Q6H SOFIYA Administration Hydrocodone Bitart/Acetaminophen 1 tab 03/01/24 18:54 03/02/24 09:37 Hydrocodone/Acetaminophen (*Crx) 5-325 Mg Tablet PO 1 tab Q4H PRN Administration Pain Rated 4-6 Hydrocodone Bitart/Acetaminophen 1 tab 03/01/24 18:54 03/05/24 15:09 Hydrocodone/Acetaminophen (*Crx) 7.5-325 Mg Tablet PO 1 tab Q4H PRN Administration Pain Rated 7-10 Albuterol 2.5 mg 03/01/24 16:03 Albuterol Sulfate Neb 2.5 Mg/3 Ml Inh INHALATION Q4H PRN sob Albuterol/Ipratropium 3 ml 03/03/24 14:00 03/05/24 07:33 Ipratropium 0.5 Mg/Albuterol Sulfate 2.5 Mg Ampul.Neb 3 Ml INHALATION 3 ml Q6HRT SOFIYA Administration Apixaban 5 mg 03/02/24 21:00 03/05/24 09:04 Apixaban 5 Mg Tablet PO 5 mg Q12HR SOFIYA Administration Atorvastatin Calcium 60 mg 03/01/24 21:00 03/04/24 21:27 Atorvastatin 20 Mg Tablet PO 60 mg QHS SOFIYA Administration Bisacodyl 5 mg 02/29/24 21:00 Bisacodyl 5 Mg Tablet Ec PO DAILY PRN Constipation Bisacodyl 10 mg 03/01/24 16:03 Bisacodyl 10 Mg Suppository RECTAL DAILY PRN constipation Calcium Carbonate 500 mg 03/02/24 09:00 03/05/24 09:04 Calcium/Vitamin D 500 Mg/5 Mcg (200 I.U.) Tablet PO 500 mg DAILY SOFIYA Administration Docusate Sodium 100 mg 03/01/24 09:00 03/05/24 09:03 Docusate Sodium 100 Mg Capsule PO 100 mg Q12HR SOFIYA Administration Ergocalciferol 50,000 units 03/02/24 09:00 03/02/24 09:37 Ergocalciferol 50,000 Units Capsule PO 50,000 units We@0900 SOFIYA Administration Famotidine 20 mg 03/04/24 18:00 03/05/24 09:06 Famotidine 20 Mg/2 Ml Vial IV PUSH 20 mg Q12HR SOFIYA Administration Gabapentin 100 mg 03/03/24 13:00 03/05/24 13:29 Gabapentin 100 Mg Capsule PO 100 mg TID SOFIYA Administration Hydroxyzine HCl 25 mg 03/04/24 17:59 03/04/24 19:30 Hydroxyzine Hcl 25 Mg Tablet PO 25 mg Q6H PRN Administration Anxiety Cefepime HCl 1 gm in 50 mls @ 100 mls/hr 03/04/24 14:00 03/05/24 14:52 Maxipime 1 Gm/Ns 50 Ml IVPB 100 mls/hr Q24H SOFIYA Administration Metronidazole 500 mg in 100 mls @ 100 mls/hr 03/04/24 18:00 03/05/24 14:29 Flagyl 500 Mg/Iso Soln 100 Ml IVPB Infused Q6H SOFIYA Infusion Levetiracetam 500 mg 03/01/24 09:00 03/05/24 09:04 Levetiracetam 500 Mg Tablet PO 500 mg Q12HR SOFIYA Administration Linezolid 600 mg 03/04/24 13:30 03/05/24 09:04 Linezolid 600 Mg Tablet PO 600 mg Q12HR SOFIYA Administration Lisinopril 5 mg 03/01/24 09:00 03/02/24 09:37 Lisinopril 5 Mg Tablet PO 5 mg QAM [facility] Administration Magnesium Citrate 150 ml 03/01/24 16:03 Magnesium Citrate 300 Ml Btl PO DAILY PRN constipation Metoprolol Tartrate 50 mg 03/01/24 09:00 03/05/24 09:04 Metoprolol Tartrate 50 Mg Tab PO 50 mg Q12HR [facility] Administration Psyllium Hydrophilic Mucilloid 1 packet 03/02/24 09:00 03/05/24 09:06 Psyllium Powder Packet PO Not Given DAILY [facility] Sodium Chloride 1 gm 03/01/24 17:00 03/05/24 09:04 Sodium Chloride 1 Gm Tablet PO 1 gm BID [facility] Administration Sodium Hypochlorite 1 applic 03/01/24 09:00 03/05/24 09:06 Sod Hypochlorite 1/4 Strength 473 Ml TOPICAL 1 applic Q12HR [facility] Administration Trazodone HCl 50 mg 03/04/24 21:00 03/04/24 21:28 Trazodone Hcl 50 Mg Tablet PO 50 mg HS [facility] Administration Umeclidinium [place] 1 puff 03/01/24 08:00 03/05/24 07:45 Umeclidinium [place] 62.5 Mcg Ellipta INHALATION 1 puff DAILYRT SOFIYA Administration Radiology Results: ITS Impressions Abdomen/Pelvis CT 02/29/24 15:55 IMPRESSION: 1. Subcutaneous soft tissue gas inferior to the coccyx. No evidence of os teomyelitis. Chest X-Ray 03/03/24 09:27 IMPRESSION: 1. No acute cardiopulmonary disease. Renal Ultrasound 03/04/24 16:34 IMPRESSION: 1. Normal kidney sizes. No hydronephrosis. Labs Labs: Laboratory Tests 03/05/24 05:52 03/05/24 05:52 Calcium 8.2 L Total Bilirubin 0.5 AST 46 H ALT 22 Alkaline Phosphatase 84 Total Creatine Kinase 89 Total Protein 5.0 L Albumin 2.3 L Microbiology 03/01/24 17:19 Sacral Anaerobic Culture - Preliminary Bacteroides thetaiotaomicron 03/01/24 17:19 Sacral Aerobic Culture - Final Pseudomonas aeruginosa
--- NOTE | 2024-03-05 13:18 | P.PNIM_ITS ---
Progress Note: A&P Assessment and Plan (1) Pressure injury of sacral region, stage 4: Code(s): L89.154 - Pressure ulcer of sacral region, stage 4 Status: Acute Assessment and Plan: * CT of abdomen/Pelvis revealed subcutaneous soft tissue gas inferior to the coccyx, no evidence of osteomyelitis. * 03/01/24 s/p Sharp excisional debridement stage IV sacral decubitus ulcer measuring 15 cm x 10 cm including skin, subcutaneous fat, muscle and fascia. * - Continue IV Linezolid, Cefepime. * Continue oral Flagyl * Continue pain control * Wound culture showing bacteroides thetaiotaomicron and pseudomonas aeruginosa * Blood cultures still showing no growth to date on preliminary read * Will get pressure relieving mattress ordered today (2) GABRIELLE (acute kidney injury): Code(s): N17.9 - Acute kidney failure, unspecified Status: Acute Assessment and Plan: * Creatinine 3.10, eGFR 15 * Baseline creatinine 0.40-0.60, baseline eGFR >60 * Was on Vancomycin and Zosyn combo initially, likely a result of the GABRIELLE * stop IV fluids, encourage po intake * continue to hold lisinopril * Avoid nephrotoxic medications * Nephrology consulted * Renal US shown normal kidney size, no hydronephrosis * Last echo from 02/19/24 shown a normal LV systolic function with an estimated EF of 50-55% * Protein/creatinine ratio 2.13 (3) Physical deconditioning: Code(s): R53.81 - Other malaise Status: Acute Assessment and Plan: * Continue PT/OT * Accepted to [facility] in [place] when ready for discharge (4) Acute UTI: Code(s): N39.0 - Urinary tract infection, site not specified Status: Acute Assessment and Plan: * UA showing 1+ urine protein, trace ketone, 3+ urine blood, 2+ leukocytes, greater than 100 urine RBC, 11-20 urine WBC, rare bacteria seen. * Urine culture growing Enterococcus. * Currently on Zyvox and Cefepime (5) History of atrial fibrillation: Code(s): Z86.79 - Personal history of other diseases of the circulatory system Status: Acute Assessment and Plan: * - Pt went into A-Fib early 03/02 and was given Cardizem x1 dose and converted back to sinus rhythm * continue Eliquis and metoprolol (6) Hyponatremia: Code(s): E87.1 - Hypo-osmolality and hyponatremia Status: Acute Assessment and Plan: * sodium 131 * continue sodium tablets * DC IV fluids * nephrology following * continue to trend (7) Seizure: Code(s): R56.9 - Unspecified convulsions Status: Acute Assessment and Plan: * Continue Keppra. * continue Seizure precautions. (8) History of CVA (cerebrovascular accident): Code(s): Z86.73 - Personal history of transient ischemic attack (TIA), and cerebral infarction without residual deficits Status: Chronic Assessment and Plan: * continue atorvastatin Eliquis (9) Hyperlipidemia: Code(s): E78.5 - Hyperlipidemia, unspecified Status: Acute Assessment and Plan: * continue atorvastatin and Eliquis Time Spent With Patient Time with patient: Greater than 35 minutes Subjective Date/time seen: 03/05/24 13:18 Interval history: Interval history: This is a 68-year-old female who presented to the hospital on 02/29/2024 for evaluation of left buttock wound. Workup in the hospital included an abdomen/ pelvis CT which showed subcutaneous soft tissue gas inferior to the coccyx, no evidence of osteomyelitis. Chest x-ray which was negative. Renal ultrasound which showed normal kidney size, no hydronephrosis. Initial labs showed a white blood cell count of 22.3, sodium 125, chloride 90, creatinine 0.40, lactic acid was normal at 1.3, C reactive protein 33.8. A UA was obtained which shown 1+ urine protein, trace ketones, 3+ urine blood, 2+ leukocyte, greater than 100 urine RBC, 11-20 urine WBC, rare bacteria seen. Urine, blood, sacral wound cultures were obtained. Urine culture showing Enterococcus species on final read. Blood culture showing no growth to date on preliminary read. Sacral wound culture showing Pseudomonas aeruginosa and Bacteroides thetaiotaomicron. Patient was started on antibiotics Zosyn and Vancomycin, was switched to Doxycycline and Augmentin, and was transitioned over to Linezolid, Cefepime, and Flagyl once cultures were resulted. General surgery was consulted And took patient for a sharp excisional debridement of the stage IV sacral decubitus ulcer measuring 15 cm x 10 cm including skin, subcutaneous fat, muscle, and fascia. patient does have an GABRIELLE likely due to Zosyn and vancomycin that was given initially for her stage IV decubitus ulcer. Nephrology was consulted. Subjective: Patient denies any fever, chills, nausea, vomiting, diarrhea, abdominal pain, chest pain, shortness a breath, lightheadedness, dizziness, vision changes, headache. She did state that she thought she seen somebody in her room earlier today and was thought to be hallucinating by the RN. She did receive some pain medication for her chronic stage IV pressure injury on her coccyx. Labs and imaging reviewed. Review of Systems Review of Systems: All systems reviewed & are unremarkable except as noted in HPI and below Constitutional: Constitutional: Reports as per HPI and Reports no additional constitutional complaints Eyes: Eyes: Reports as per HPI and Reports no additional eye complaints ENT: Reports system reviewed and no additional complaints, except as documented and Reports as per HPI Cardiovascular: Cardiovascular: Reports as per HPI and Reports no additional cardiovascular complaints Respiratory: Respiratory: Reports as per HPI and Reports no additional respiratory complaints Gastrointestinal: Gastrointestinal: Reports as per HPI and Reports no additional gastrointestinal complaints Genitourinary: Genitourinary: Reports no additional female genitourinary complaints and Reports as per HPI Musculoskeletal: Musculoskeletal: Reports no additional musculoskeletal complaints and Reports as per HPI Integumentary/Breasts: Skin/Breast: Reports system reviewed and no additional complaints, except as docu and Reports as per HPI Neurologic: Reports system reviewed and no additional complaints, except as documented and Reports as per HPI Psychiatric: Psychiatric: Reports no additional psychiatric complaints and Reports as per HPI Exam Narrative: General: In no acute distress, well nourished Head: atraumatic, no encephalopathy Eyes: PERRLA, sclera clear ENT: moist mucous membranes, nasal passages clear Neck: supple, no JVD, no adenopathy, trachea midline Cardiac: Normal S1 and S2. RRR, No murmur, gallops or friction rubs, peripheral pulses intact. Respiratory: Lungs clear to auscultation, no adventitious lung sounds, currently on room air Gastrointestinal: soft, non-distended, non-tender, normoactive bowel sounds. : voiding without difficulty. Extremities: moves all extremities well, no edema, good ROM, strength 5/5 Skin: scabbed areas from scratching various places on legs and arms, stage IV wound on coccyx Neuro: Alert and oriented x2-3, cranial nerves intact, no neuro deficits. Psych:Stated she thought she seen someone in her room earlier today, hallucinations, interactive Objective Data Vital Signs Vital Signs: Vital Signs - 24 hr 03/04/24 14:27 03/04/24 14:27 03/04/24 14:36 Temperature Pulse Rate 71 75 Respiratory Rate 20 20 Blood Pressure Pulse Oximetry 97 Oxygen Delivery Room Air Fraction of Inspired Oxygen 03/04/24 14:00 03/04/24 20:53 03/04/24 20:56 Temperature 97.5 F L Pulse Rate 82 84 Respiratory Rate 17 20 Blood Pressure 125/74 Pulse Oximetry 98 96 Oxygen Delivery Room Air Fraction of Inspired Oxygen 03/04/24 21:02 03/04/24 21:00 03/04/24 21:26 Temperature 97.6 F Pulse Rate 79 88 88 Respiratory Rate 20 20 Blood Pressure 96/78 L Pulse Oximetry 95 Oxygen Delivery Fraction of Inspired Oxygen 03/05/24 05:55 03/05/24 07:33 03/05/24 07:33 Temperature 96.9 F L Pulse Rate 78 76 Respiratory Rate 18 18 Blood Pressure 125/33 L Pulse Oximetry 91 93 Oxygen Delivery Room Air Fraction of Inspired Oxygen 21 03/05/24 07:45 03/05/24 09:04 Temperature Pulse Rate 78 78 Respiratory Rate 18 Blood Pressure Pulse Oximetry Oxygen Delivery Fraction of Inspired Oxygen Intake/Output Intake/Output: Intake & Output 03/02/24 03/03/24 03/04/24 03/05/24 23:59 23:59 23:59 23:59 Intake Total 4864 2543.3 4214.7 1127 Output Total 0587 255 2939 900 Balance 3854 1793.3 2979.7 227 Meds/Results Medications: Active Medications Generic Name Dose Route Start Last Admin Trade Name Freq PRN Reason Stop Dose Admin Acetaminophen 650 mg 03/03/24 12:20 03/05/24 05:22 Acetaminophen 325 Mg Tablet PO 650 mg Q6H SOFIYA Administration Hydrocodone Bitart/Acetaminophen 1 tab 03/01/24 18:54 03/02/24 09:37 Hydrocodone/Acetaminophen (*Crx) 5-325 Mg Tablet PO 1 tab Q4H PRN Administration Pain Rated 4-6 Hydrocodone Bitart/Acetaminophen 1 tab 03/01/24 18:54 03/05/24 09:13 Hydrocodone/Acetaminophen (*Crx) 7.5-325 Mg Tablet PO 1 tab Q4H PRN Administration Pain Rated 7-10 Albuterol 2.5 mg 03/01/24 16:03 Albuterol Sulfate Neb 2.5 Mg/3 Ml Inh INHALATION Q4H PRN sob Albuterol/Ipratropium 3 ml 03/03/24 14:00 03/05/24 07:33 Ipratropium 0.5 Mg/Albuterol Sulfate 2.5 Mg Ampul.Neb 3 Ml INHALATION 3 ml Q6HRT SOFIYA Administration Apixaban 5 mg 03/02/24 21:00 03/05/24 09:04 Apixaban 5 Mg Tablet PO 5 mg Q12HR SOFIYA Administration Atorvastatin Calcium 60 mg 03/01/24 21:00 03/04/24 21:27 Atorvastatin 20 Mg Tablet PO 60 mg QHS SOFIYA Administration Bisacodyl 5 mg 02/29/24 21:00 Bisacodyl 5 Mg Tablet Ec PO DAILY PRN Constipation Bisacodyl 10 mg 03/01/24 16:03 Bisacodyl 10 Mg Suppository RECTAL DAILY PRN constipation Calcium Carbonate 500 mg 03/02/24 09:00 03/05/24 09:04 Calcium/Vitamin D 500 Mg/5 Mcg (200 I.U.) Tablet PO 500 mg DAILY SOFIYA Administration Docusate Sodium 100 mg 03/01/24 09:00 03/05/24 09:03 Docusate Sodium 100 Mg Capsule PO 100 mg Q12HR SOFIYA Administration Ergocalciferol 50,000 units 03/02/24 09:00 03/02/24 09:37 Ergocalciferol 50,000 Units Capsule PO 50,000 units We@0900 SOFIYA Administration Famotidine 20 mg 03/04/24 18:00 03/05/24 09:06 Famotidine 20 Mg/2 Ml Vial IV PUSH 20 mg Q12HR SOFIYA Administration Gabapentin 100 mg 03/03/24 13:00 03/05/24 09:03 Gabapentin 100 Mg Capsule PO 100 mg TID SOFIYA Administration Hydroxyzine HCl 25 mg 03/04/24 17:59 03/04/24 19:30 Hydroxyzine Hcl 25 Mg Tablet PO 25 mg Q6H PRN Administration Anxiety Sodium Chloride 1,000 mls @ 100 mls/hr 03/03/24 08:50 03/04/24 21:26 Normal Saline Iv IV CONT 100 mls/hr .Q10H SOFIYA Administration Cefepime HCl 1 gm in 50 mls @ 100 mls/hr 03/04/24 14:00 03/04/24 14:44 Maxipime 1 Gm/Ns 50 Ml IVPB 100 mls/hr Q24H SOFIYA Administration Metronidazole 500 mg in 100 mls @ 100 mls/hr 03/04/24 18:00 03/05/24 05:21 Flagyl 500 Mg/Iso Soln 100 Ml IVPB 100 mls/hr Q6H SOFIYA Administration Levetiracetam 500 mg 03/01/24 09:00 03/05/24 09:04 Levetiracetam 500 Mg Tablet PO 500 mg Q12HR SOFIYA Administration Linezolid 600 mg 03/04/24 13:30 03/05/24 09:04 Linezolid 600 Mg Tablet PO 600 mg Q12HR SOFIYA Administration Lisinopril 5 mg 03/01/24 09:00 03/02/24 09:37 Lisinopril 5 Mg Tablet PO 5 mg QAM SOFIYA Administration Magnesium Citrate 150 ml 03/01/24 16:03 Magnesium Citrate 300 Ml Btl PO DAILY PRN constipation Metoprolol Tartrate 50 mg 03/01/24 09:00 03/05/24 09:04 Metoprolol Tartrate 50 Mg Tab PO 50 mg Q12HR [facility] Administration Psyllium Hydrophilic Mucilloid 1 packet 03/02/24 09:00 03/05/24 09:06 Psyllium Powder Packet PO Not Given DAILY [facility] Sodium Chloride 1 gm 03/01/24 17:00 03/05/24 09:04 Sodium Chloride 1 Gm Tablet PO 1 gm BID SOFIYA Administration Sodium Hypochlorite 1 applic 03/01/24 09:00 03/05/24 09:06 Sod Hypochlorite 1/4 Strength 473 Ml TOPICAL 1 applic Q12HR SOFIYA Administration Trazodone HCl 50 mg 03/04/24 21:00 03/04/24 21:28 Trazodone Hcl 50 Mg Tablet PO 50 mg HS [facility] Administration Umeclidinium [place] 1 puff 03/01/24 08:00 03/05/24 07:45 Umeclidinium [place] 62.5 Mcg Ellipta INHALATION 1 puff DAILYRT SOFIYA Administration Radiology Results: ITS Impressions Abdomen/Pelvis CT 02/29/24 15:55 IMPRESSION: 1. Subcutaneous soft tissue gas inferior to the coccyx. No evidence of osteomyelitis. Chest X-Ray 03/03/24 09:27 IMPRESSION: 1. No acute cardiopulmonary disease. Renal Ultrasound 03/04/24 16:34 IMPRESSION: 1. Normal kidney sizes. No hydronephrosis. Labs Labs: Laboratory Results - last 24 hr 03/04/24 03/04/24 03/04/24 17:47 17:47 17:47 WBC RBC Hgb Hct MCV MCH MCHC RDW Plt Count MPV Immature Gran % (Auto) Neut % (Auto) Lymph % (Auto) [place] % (Auto) Eos % (Auto) Baso % (Auto) Lymph # (Auto) [place] # (Auto) Eos # (Auto) Baso # (Auto) Abs Immat Gran (auto) Absolute Neuts (auto) Absolute Nucleated RBC Nucleated RBC % Platelet Estimate Anisocytosis Schistocytes Sodium Potassium Chloride Carbon Dioxide Anion Gap BUN Creatinine Estim Creat Clear Calc Estimated GFR Glucose Calcium Total Bilirubin AST ALT Alkaline Phosphatase Total Creatine Kinase Total Protein Albumin Urine Eosinophils None seen U Random Total Protein 34 34 Ur Random Sodium 14 Ur Random Urea < 67 Urine Creatinine 16.0 17.0 Protein/Creat Ratio 2 2.13 H 03/05/24 05:52 WBC 12.8 H RBC 2.95 L Hgb 9.6 L Hct 31.4 L MCV 106.4 H MCH 32.5 MCHC 30.6 L RDW 14.6 H Plt Count 257 MPV 10.6 H Immature Gran % (Auto) 0.8 H Neut % (Auto) 86.5 H Lymph % (Auto) 6.2 L [place] % (Auto) 5.8 Eos % (Auto) 0.5 Baso % (Auto) 0.2 Lymph # (Auto) 0.79 L [place] # (Auto) 0.7 H Eos # (Auto) 0.1 Baso # (Auto) 0.0 Abs Immat Gran (auto) 0.10 H Absolute Neuts (auto) 11.1 H Absolute Nucleated RBC 0.000 Nucleated RBC % 0.0 Platelet Estimate Adequate Anisocytosis 1+ Schistocytes None seen Sodium 131 L Potassium 4.4 Chloride 105 Carbon Dioxide 22 Anion Gap 4 BUN 28 H Creatinine 3.10 H Estim Creat Clear Calc 17 Estimated GFR 15 L Glucose 101 Calcium 8.2 L Total Bilirubin 0.5 AST 46 H ALT 22 Alkaline Phosphatase 84 Total Creatine Kinase 89 Total Protein 5.0 L Albumin 2.3 L Urine Eosinophils U Random Total Protein Ur Random Sodium Ur Random Urea Urine Creatinine Protein/Creat Ratio 2 Quality VTE Prophylaxis VTE prophylaxis: mechanical ordered and pharmacologic ordered
[2024-03-05] MEDS: CEFEPIME 1 GM/NS 50 ML 1 GM/50 ML BAG IVPB (14:52)
[2024-03-05] MEDS: hydrOXYzine HCL 25 MG TABLET PO (18:26)
[2024-03-05] MEDS: ATORVASTATIN 20 MG TABLET 60 MG PO (21:11)
--- NOTE | 2024-03-05 21:12 | PC.NURSE ---
Grinder Chipper held colace as patient is having loose stools
[2024-03-06] VITALS (14 sets, daily range): BP systolic 108–131; BP diastolic 36–58; PULSE 61–88; RESP 16–18; TEMP 36.4–36.7; O2SAT 95–99
[2024-03-06] MEDS: ACETAMINOPHEN 325 MG TABLET 650 MG PO ×4 (00:36→17:20)
[2024-03-06] MEDS: metroNIDAZOLE 500 MG/ISO 100ML 500 MG/100 ML BAG 100 MG IVPB ×3 (00:36→12:46)
[2024-03-06] MEDS: SOD HYPOCHLORITE 1/4 STRENGTH 473 ML 1 APPLIC TOPICAL ×2 (00:37→09:45)
[2024-03-06] MEDS: IPRATROPIUM 0.5 MG/ALBUTEROL SULFATE 2.5 MG AMPUL.NEB 3 ML INHALATION ×5 (02:36→20:34)
[2024-03-06] MEDS: HYDROcodone/acetaminophen (*CRX) 7.5-325 MG TABLET 1 TAB PO ×2 (04:57→09:55)
[2024-03-06 06:40] LABS: Basophils Absolute Auto 0.1 K/mm3 (0.0-0.1); Basophils Percent Auto 0.4 % (0.2-1.2); Eosinophils Absolute Auto 0.1 K/mm3 (0-0.3); Eosinophils Percent Auto 1.1 % (0-4.4); Hematocrit 33.3 % (37.0-47.0); Immature Granulocyte Absolute 0.11 K/mm3 (0.00-0.031); Lymphocytes Absolute Auto 0.99 K/mm3 (0.9-3.2); Lymphocytes Percent Auto 8.6 % (18.3-44.2); Mean Corpuscular Hemoglobin 32.1 pg (26-34); Mean Corpuscular Volume 106.7 fl (80-100); Mean Platelet Volume 10.5 fl (7.4-10.4); Monocytes Absolute Auto 0.7 K/mm3 (0.1-0.6); Monocytes Percent Auto 6.4 % (2.6-8.5); Neutrophils Absolute Auto 9.5 K/mm3 (1.3-6.7); Neutrophils Percent Auto 82.5 % (45.5-73.1); Platelet Count Result 288 k/mm3 (150-375); Red Blood Count 3.12 M/mm3 (4.2-5.4); Red Cell Distribution Width 15.1 % (11.5-14.5); White Blood Count 11.5 K/mm3 (4.5-10.0)
[2024-03-06 06:45] LABS: Alanine Aminotransferase 24 U/L (6-35); Albumin Level 2.3 g/dL (3.5-5.1); Alkaline Phosphatase 75 U/L (38-126); Anion Gap 6 mmol/L (4-12); Aspartate Amino Transferase 38 U/L (14-36); Bilirubin,Total 0.6 mg/dL (0.2-1.3); Blood Urea Nitrogen 36 mg/dL (7-17); Calcium 8.4 mg/dL (8.4-10.2); Carbon Dioxide 20 mmol/L (22-30); Chloride 107 mmol/L (98-107); Estimated CRCL calculation 15 ml/min; Estimated Glomerular Filt Rate 13; Glucose 97 mg/dL (65-110); Potassium 4.2 mmol/L (3.4-5.0); Sodium 133 mmol/L (137-145)
[2024-03-06 07:03] LABS: Platelet Estimate Adequate (Adequate)
[2024-03-06 07:04] LABS: Anisocytosis 1+; Schistocytes None Seen
[2024-03-06] MEDS: UMECLIDINIUM BROMIDE 62.5 MCG ELLIPTA 1 PUFF INHALATION (08:22)
--- NOTE | 2024-03-06 08:53 | PM.IMPN ---
Progress Note: A&P Assessment and Plan (1) Pressure injury of sacral region, stage 4: Code(s): L89.154 - Pressure ulcer of sacral region, stage 4 Status: Acute Assessment and Plan: CT of abdomen/Pelvis revealed subcutaneous soft tissue gas inferior to the coccyx, no evidence of osteomyelitis. 03/01/24 s/p Sharp excisional debridement stage IV sacral decubitus ulcer measuring 15 cm x 10 cm including skin, subcutaneous fat, muscle and fascia. - Continue Cefepime at 0.5 g strength. Infectious Disease pharmacist consult put in for antibiotic review due to her rising creatinine Continue oral Flagyl and linezolid Continue pain control Currently on airflow bed Wound culture showing bacteroides thetaiotaomicron and pseudomonas aeruginosa Blood cultures still showing no growth to date on preliminary read General surgery following Case management coordination hospice referral. Patient and family would like to discuss option of hospice versus full treatment. I discussed these 2 options with her at length today. Patient is wanting more comfort focused care and just wants the pain relieved. Carmen the field nurse case manager informed and will be working on setting up this meeting. (2) GABRIELLE (acute kidney injury): Code(s): N17.9 - Acute kidney failure, unspecified Status: Acute Assessment and Plan: Creatinine 3.40 Baseline creatinine 0.40-0.60, baseline eGFR >60 Was on Vancomycin and Zosyn combo initially, likely a result of the GABRIELLE stop IV fluids, encourage po intake continue to hold lisinopril Avoid nephrotoxic medications, medication list reviewed today and Pepcid was put on renal dosing and we decreased her cefepime down to 500 mg dosing and placed and Infectious Disease pharmacy consult for review of medication tomorrow Nephrology following Renal US shown normal kidney size, no hydronephrosis Last echo from 02/19/24 shown a normal LV systolic function with an estimated EF of 50-55% Protein/creatinine ratio 2.13 (3) Physical deconditioning: Code(s): R53.81 - Other malaise Status: Acute Assessment and Plan: Continue PT/OT Accepted to [facility] when ready for discharge (4) Acute UTI: Code(s): N39.0 - Urinary tract infection, site not specified Status: Acute Assessment and Plan: UA showing 1+ urine protein, trace ketone, 3+ urine blood, 2+ leukocytes, greater than 100 urine RBC, 11-20 urine WBC, rare bacteria seen. Urine culture growing Enterococcus. Currently on Zyvox and Cefepime (5) History of atrial fibrillation: Code(s): Z86.79 - Personal history of other diseases of the circulatory system Status: Acute Assessment and Plan: - Pt went into A-Fib early 03/02 and was given Cardizem x1 dose and converted back to sinus rhythm continue Eliquis and metoprolol (6) Hyponatremia: Code(s): E87.1 - Hypo-osmolality and hyponatremia Status: Acute Assessment and Plan: sodium 131 continue sodium tablets DC IV fluids nephrology following continue to trend (7) Seizure: Code(s): R56.9 - Unspecified convulsions Status: Acute Assessment and Plan: Continue Keppra. continue Seizure precautions. (8) History of CVA (cerebrovascular accident): Code(s): Z86.73 - Personal history of transient ischemic attack (TIA), and cerebral infarction without residual deficits Status: Chronic Assessment and Plan: continue atorvastatin Eliquis (9) Hyperlipidemia: Code(s): E78.5 - Hyperlipidemia, unspecified Status: Acute Assessment and Plan: continue atorvastatin and Eliquis Time Spent With Patient Time: Greater than 60 minutes was spent at the bedside with family and with the patient discussing hospice versus full treatment. Time with patient: Greater than 35 minutes Subjective Date/time seen: 03/06/24 08:53 Interval history: Interval history: This is a 68-year-old female who presented to the hospital on 02/29/2024 for evaluation of left buttock wound. Workup in the hospital included an abdomen/ pelvis CT which showed subcutaneous soft tissue gas inferior to the coccyx, no evidence of osteomyelitis. Chest x-ray which was negative. Renal ultrasound which showed normal kidney size, no hydronephrosis. Initial labs showed a white blood cell count of 22.3, sodium 125, chloride 90, creatinine 0.40, lactic acid was normal at 1.3, C reactive protein 33.8. A UA was obtained which shown 1+ urine protein, trace ketones, 3+ urine blood, 2+ leukocyte, greater than 100 urine RBC, 11-20 urine WBC, rare bacteria seen. Urine, blood, sacral wound cultures were obtained. Urine culture showing Enterococcus species on final read. Blood culture showing no growth to date on preliminary read. Sacral wound culture showing Pseudomonas aeruginosa and Bacteroides thetaiotaomicron. Patient was started on antibiotics Zosyn and Vancomycin, was switched to Doxycycline and Augmentin, and was transitioned over to Linezolid, Cefepime, and Flagyl once cultures were resulted. General surgery was consulted And took patient for a sharp excisional debridement of the stage IV sacral decubitus ulcer measuring 15 cm x 10 cm including skin, subcutaneous fat, muscle, and fascia. patient does have an GABRIELLE likely due to Zosyn and vancomycin that was given initially for her stage IV decubitus ulcer. Nephrology was consulted. Subjective: Patient still reporting excruciating pain however she is in a new bed which has air flow and she states that this is more comfortable than the last med that she was on. I had a long lengthy talk with the patient and the sister about hospice versus full care and what that was entail. Patient voiced that she just wants to be out of pain and is leaning more towards comfort however they want to discuss these options with the rest of the family and with a hospice nurse before making any further decisions. Her labs today still show a rising creatinine however she was on vancomycin and Zosyn which likely caused her acute kidney injury. Nephrology is following her. She denies any other complaints today. Review of Systems Review of Systems: All systems reviewed & are unremarkable except as noted in HPI and below Constitutional: Constitutional: Reports as per HPI and Reports no additional constitutional complaints Eyes: Eyes: Reports as per HPI and Reports no additional eye complaints ENT: Reports system reviewed and no additional complaints, except as documented and Reports as per HPI Cardiovascular: Cardiovascular: Reports as per HPI and Reports no additional cardiovascular complaints Respiratory: Respiratory: Reports as per HPI and Reports no additional respiratory complaints Gastrointestinal: Gastrointestinal: Reports as per HPI and Reports no additional gastrointestinal complaints Genitourinary: Genitourinary: Reports no additional female genitourinary complaints and Reports as per HPI Musculoskeletal: Musculoskeletal: Reports no additional musculoskeletal complaints and Reports as per HPI Integumentary/Breasts: Skin/Breast: Reports system reviewed and no additional complaints, except as docu and Reports as per HPI Neurologic: Reports system reviewed and no additional complaints, except as documented and Reports as per HPI Psychiatric: Psychiatric: Reports no additional psychiatric complaints and Reports as per HPI Exam Narrative: General: In no acute distress, well nourished Cardiac: Normal S1 and S2. RRR, No murmur, gallops or friction rubs, peripheral pulses intact. Respiratory: Lungs clear to auscultation, mild expiratory wheezing otherwise no adventitious lung sounds, currently on room air, raspy cough Gastrointestinal: soft, non-distended, non-tender, normoactive bowel sounds. : voiding without difficulty. Skin: scabbed areas from scratching various places on legs and arms, stage IV wound on coccyx Neuro: Alert and oriented x 3, interactive Objective Data Vital Signs Vital Signs: Vital Signs - 24 hr 03/05/24 09:04 03/05/24 13:51 03/05/24 14:02 Temperature Pulse Rate 78 80 82 Respiratory Rate 18 18 Blood Pressure Pulse Oximetry Oxygen Delivery 03/05/24 14:35 03/05/24 20:55 03/05/24 20:55 Temperature 98.2 F Pulse Rate 84 83 Respiratory Rate 16 16 Blood Pressure 132/50 L Pulse Oximetry 96 95 Oxygen Delivery Room Air 03/05/24 21:01 03/05/24 21:11 03/05/24 22:00 Temperature 97.8 F Pulse Rate 88 60 78 Respiratory Rate 16 18 Blood Pressure 123/32 L Pulse Oximetry 96 Oxygen Delivery 03/06/24 02:36 03/06/24 02:43 03/06/24 05:34 Temperature 97.6 F Pulse Rate 70 73 78 Respiratory Rate 16 16 18 Blood Pressure 108/36 L Pulse Oximetry 96 Oxygen Delivery 03/06/24 08:22 03/06/24 08:22 03/06/24 08:36 Temperature Pulse Rate 78 74 Respiratory Rate 16 16 Blood Pressure Pulse Oximetry 95 Oxygen Delivery Room Air Intake/Output Intake/Output: Intake & Output 03/03/24 03/04/24 03/05/24 03/06/24 23:59 23:59 23:59 23:59 Intake Total 2543.3 4264.7 2177 400 Output Total 750 1235 1500 850 Balance 1793.3 3029.7 677 -450 Meds/Results Medications: Active Medications Generic Name Dose Route Start Last Admin Trade Name Freq PRN Reason Stop Dose Admin Acetaminophen 650 mg 03/03/24 12:20 03/06/24 05:28 Acetaminophen 325 Mg Tablet PO 650 mg Q6H SOFIYA Administration Hydrocodone Bitart/Acetaminophen 1 tab 03/01/24 18:54 03/02/24 09:37 Hydrocodone/Acetaminophen (*Crx) 5-325 Mg Tablet PO 1 tab Q4H PRN Administration Pain Rated 4-6 Hydrocodone Bitart/Acetaminophen 1 tab 03/01/24 18:54 03/06/24 04:57 Hydrocodone/Acetaminophen (*Crx) 7.5-325 Mg Tablet PO 1 tab Q4H PRN Administration Pain Rated 7-10 Albuterol 2.5 mg 03/01/24 16:03 Albuterol Sulfate Neb 2.5 Mg/3 Ml Inh INHALATION Q4H PRN sob Albuterol/Ipratropium 3 ml 03/03/24 14:00 03/06/24 08:29 Ipratropium 0.5 Mg/Albuterol Sulfate 2.5 Mg Ampul.Neb 3 Ml INHALATION 3 ml Q6HRT SOFIYA Administration Apixaban 5 mg 03/02/24 21:00 03/05/24 21:11 Apixaban 5 Mg Tablet PO 5 mg Q12HR SOFIYA Administration Atorvastatin Calcium 60 mg 03/01/24 21:00 03/05/24 21:11 Atorvastatin 20 Mg Tablet PO 60 mg QHS SOFIYA Administration Bisacodyl 5 mg 02/29/24 21:00 Bisacodyl 5 Mg Tablet Ec PO DAILY PRN Constipation Bisacodyl 10 mg 03/01/24 16:03 Bisacodyl 10 Mg Suppository RECTAL DAILY PRN constipation Calcium Carbonate 500 mg 03/02/24 09:00 03/05/24 09:04 Calcium/Vitamin D 500 Mg/5 Mcg (200 I.U.) Tablet PO 500 mg DAILY SOFIYA Administration Docusate Sodium 100 mg 03/01/24 09:00 03/05/24 21:12 Docusate Sodium 100 Mg Capsule PO Not Given Q12HR [facility] Ergocalciferol 50,000 units 03/02/24 09:00 03/02/24 09:37 Ergocalciferol 50,000 Units Capsule PO 50,000 units We@0900 [facility] Administration Famotidine 20 mg 03/04/24 18:00 03/05/24 21:12 Famotidine 20 Mg/2 Ml Vial IV PUSH 20 mg Q12HR SOFIYA Administration Gabapentin 100 mg 03/03/24 13:00 03/05/24 18:26 Gabapentin 100 Mg Capsule PO 100 mg TID [facility] Administration Hydroxyzine HCl 25 mg 03/04/24 17:59 03/05/24 18:26 Hydroxyzine Hcl 25 Mg Tablet PO 25 mg Q6H PRN Administration Anxiety Cefepime HCl 1 gm in 50 mls @ 100 mls/hr 03/04/24 14:00 03/05/24 14:52 Maxipime 1 Gm/Ns 50 Ml IVPB 100 mls/hr Q24H SOFI[facility] Administration Metronidazole 500 mg in 100 mls @ 100 mls/hr 03/04/24 18:00 03/06/24 06:04 Flagyl 500 Mg/Iso Soln 100 Ml IVPB Infused Q6H SOFIYA Infusion Levetiracetam 500 mg 03/01/24 09:00 03/05/24 21:12 Levetiracetam 500 Mg Tablet PO 500 mg Q12HR SO[facility] Administration Linezolid 600 mg 03/04/24 13:30 03/05/24 21:12 Linezolid 600 Mg Tablet PO 600 mg Q12HR SOFIYA Administration Lisinopril 5 mg 03/01/24 09:00 03/02/24 09:37 Lisinopril 5 Mg Tablet PO 5 mg QAM [facility] Administration Magnesium Citrate 150 ml 03/01/24 16:03 Magnesium Citrate 300 Ml Btl PO DAILY PRN constipation Metoprolol Tartrate 50 mg 03/01/24 09:00 03/05/24 21:11 Metoprolol Tartrate 50 Mg Tab PO 50 mg Q12HR [facility] Administration Psyllium Hydrophilic Mucilloid 1 packet 03/02/24 09:00 03/05/24 09:06 Psyllium Powder Packet PO Not Given DAILY [facility] Sodium Chloride 1 gm 03/01/24 17:00 03/05/24 18:25 Sodium Chloride 1 Gm Tablet PO 1 gm BID [facility] Administration Sodium Hypochlorite 1 applic 03/01/24 09:00 03/06/24 00:37 Sod Hypochlorite 1/4 Strength 473 Ml TOPICAL 1 applic Q12HR [facility] Administration Umeclidinium [place] 1 puff 03/01/24 08:00 03/06/24 08:22 Umeclidinium [place] 62.5 Mcg Ellipta INHALATION 1 puff DAILYRT SOFI[facility] Administration Radiology Results: ITS Impressions Abdomen/Pelvis CT 02/29/24 15:55 IMPRESSION: 1. Subcutaneous soft tissue gas inferior to the coccyx. No evidence of osteomyelitis. Chest X-Ray 03/03/24 09:27 IMPRESSION: 1. No acute cardiopulmonary disease. Renal Ultrasound 03/04/24 16:34 IMPRESSION: 1. Normal kidney sizes. No hydronephrosis. Labs Labs: Laboratory Results - last 24 hr 03/06/24 06:23 WBC 11.5 H RBC 3.12 L Hgb 10.0 L Hct 33.3 L MCV 106.7 H MCH 32.1 MCHC 30.0 L RDW 15.1 H Plt Count 288 MPV 10.5 H Immature Gran % (Auto) 1.0 H Neut % (Auto) 82.5 H Lymph % (Auto) 8.6 L [place] % (Auto) 6.4 Eos % (Auto) 1.1 Baso % (Auto) 0.4 Lymph # (Auto) 0.99 [place] # (Auto) 0.7 H Eos # (Auto) 0.1 Baso # (Auto) 0.1 Abs Immat Gran (auto) 0.11 H Absolute Neuts (auto) 9.5 H Absolute Nucleated RBC 0.000 Nucleated RBC % 0.0 Platelet Estimate Adequate Anisocytosis 1+ Schistocytes None seen Sodium 133 L Potassium 4.2 Chloride 107 Carbon Dioxide 20 L Anion Gap 6 BUN 36 H Creatinine 3.40 H Estim Creat Clear Calc 15 Estimated GFR 13 L Glucose 97 Calcium 8.4 Total Bilirubin 0.6 AST 38 H ALT 24 Alkaline Phosphatase 75 Total Protein 5.0 L Albumin 2.3 L Quality VTE Prophylaxis VTE prophylaxis: mechanical ordered and pharmacologic ordered
[2024-03-06] MEDS: SODIUM CHLORIDE 1 GM TABLET PO ×2 (09:42→17:19)
[2024-03-06] MEDS: PSYLLIUM POWDER PACKET 1 PACKET PO (09:42)
[2024-03-06] MEDS: APIXABAN 5 MG TABLET PO ×2 (09:42→20:16)
[2024-03-06] MEDS: CALCIUM/VITAMIN D 500 MG/5 MCG (200 I.U.) TABLET PO (09:42)
[2024-03-06] MEDS: levETIRAcetam 500 MG TABLET PO ×2 (09:43→20:15)
[2024-03-06] MEDS: METOPROLOL TARTRATE 50 MG TAB PO ×2 (09:43→20:16)
[2024-03-06] MEDS: DOCUSATE SODIUM 100 MG CAPSULE PO (09:43)
[2024-03-06] MEDS: LINEZOLID 600 MG TABLET PO ×2 (09:43→20:15)
[2024-03-06] MEDS: FAMOTIDINE 20 MG/2 ML VIAL IV PUSH (09:44)
[2024-03-06] MEDS: GABAPENTIN 100 MG CAPSULE PO ×3 (09:47→17:19)
--- NOTE | 2024-03-06 10:53 | P.PNNP_ITS ---
Progress Note: A&P Assessment and Plan (1) GABRIELLE (acute kidney injury): Code(s): N17.9 - Acute kidney failure, unspecified Status: Acute Assessment and Plan: * normal baseline creatinine * worsening noted on 03/03 with rise in creatinine to 1.9mg/dl * multifactorial etiology: * prerenal factors * antibiotics (combo of Vancomycin + Zosyn) * SABI-I use * contrast exposure (CT imaging on 02/28) * infection/early sepsis * other(?) * no improvement with IVFs * holding lisinopril * evaluation to date noted: * renal ultrasound with obstruction * urine electrolytes prerenal * CPK normal * urine eosinophils negative * moderate proteinuria * follow trend of repeat labs and UOP (2) Hyponatremia: Code(s): E87.1 - Hypo-osmolality and hyponatremia Status: Acute Assessment and Plan: * stable if not improving * probably related to Gabrielle/ARF and possibly pain * on salt tabs already * follow trend (3) Pressure injury of sacral region, stage 4: Code(s): L89.154 - Pressure ulcer of sacral region, stage 4 Status: Acute Assessment and Plan: * as noted on admission * CT of abdomen/Pelvis revealed subcutaneous soft tissue gas inferior to the coccyx, but no evidence of osteomyelitis. * s/p sharp excisional debridement stage IV sacral decubitus ulcer measuring 15 cm x 10 cm [including skin, subcutaneous fat, muscle and fascia (on 03/01)]. * pain control * on antibiotics * follow culture data * blood cultures negative to date * wound culture - Bacteroides thetaiotaomicron and Pseudomonas aeruginosa * Surgery following (4) Acute UTI: Code(s): N39.0 - Urinary tract infection, site not specified Status: Acute Assessment and Plan: * admission UA suggestive: * showing 1+ urine protein, trace ketone, 3+ urine blood, 2+ leukocytes, greater than 100 urine RBC, 11-20 urine WBC, rare bacteria seen * urine culture with Enterococcus * on antibiotics (5) History of atrial fibrillation: Code(s): Z86.79 - Personal history of other diseases of the circulatory system Status: Acute Assessment and Plan: * rate control strategy * on anticoagulation (6) Physical deconditioning: Code(s): R53.81 - Other malaise Status: Acute Assessment and Plan: * continue PT/OT * will need SNF on discharge Will continue to follow. Subjective Date/time seen: 03/06/24 10:53 Interval history: Follow-up for acute kidney injury/acute renal failure. Major issue/complaint is that of pain in the area of her sacral ulcer -- however, with new airflow mattress, the pain is a bit better controlled; noted hospitalist discussion regarding goals of therapy and plan of care given wilian mingo's focus is pain control; renal function/creatinine a bit worse but continues to make reasonable urine output (and rate of rise in creatinine as lessened); no other acute complaints voiced at the time of my visit. Exam Narrative: General: elderly but WD/WN female in NAD Heart: normal S1 and S2; no rub Lungs: clear to auscultation Abdomen: soft, nontender, nondistended, positive bowel sounds Extremities: no cyanosis or clubbing; no edema Skin: warm and intact; sacral wound dressings in place Objective Data Vital Signs Vital Signs: Vital Signs Temp Pulse Resp BP Pulse Ox O2 Del Method 03/06/24 10:32 98.1 F 88 16 131/58 L 99 03/06/24 09:43 61 03/06/24 08:36 74 16 03/06/24 08:22 78 16 03/06/24 08:22 95 Room Air 03/06/24 05:34 97.6 F 78 18 108/36 L 96 03/06/24 02:43 73 16 03/06/24 02:36 70 16 03/05/24 22:00 97.8 F 78 18 123/32 L 96 03/05/24 21:11 60 03/05/24 21:01 88 16 03/05/24 20:55 83 16 03/05/24 20:55 95 Room Air Intake/Output Intake/Output: Intake & Output 03/03/24 03/04/24 03/05/24 03/06/24 23:59 23:59 23:59 23:59 Intake Total 2543.3 4264.7 2177 1360 Output Total 750 1235 1500 850 Balance 1793.3 3029.7 677 510 Meds/Results Medications: Active Medications Generic Name Dose Route Start Last Admin Trade Name Freq PRN Reason Stop Dose Admin Acetaminophen 650 mg 03/03/24 12:20 03/06/24 12:45 Acetaminophen 325 Mg Tablet PO 650 mg Q6H SOFIYA Administration Hydrocodone Bitart/Acetaminophen 1 tab 03/01/24 18:54 03/02/24 09:37 Hydrocodone/Acetaminophen (*Crx) 5-325 Mg Tablet PO 1 tab Q4H PRN Administration Pain Rated 4-6 Hydrocodone Bitart/Acetaminophen 1 tab 03/01/24 18:54 03/06/24 09:55 Hydrocodone/Acetaminophen (*Crx) 7.5-325 Mg Tablet PO 1 tab Q4H PRN Administration Pain Rated 7-10 Albuterol 2.5 mg 03/01/24 16:03 Albuterol Sulfate Neb 2.5 Mg/3 Ml Inh INHALATION Q4H PRN sob Albuterol/Ipratropium 3 ml 03/03/24 14:00 03/06/24 14:21 Ipratropium 0.5 Mg/Albuterol Sulfate 2.5 Mg Ampul.Neb 3 Ml INHALATION 3 ml Q6HRT SOFIYA Administration Apixaban 5 mg 03/02/24 21:00 03/06/24 09:42 Apixaban 5 Mg Tablet PO 5 mg Q12HR [facility] Administration Atorvastatin Calcium 60 mg 03/01/24 21:00 03/05/24 21:11 Atorvastatin 20 Mg Tablet PO 60 mg QHS SOFIYA Administration Bisacodyl 5 mg 02/29/24 21:00 Bisacodyl 5 Mg Tablet Ec PO DAILY PRN Constipation Bisacodyl 10 mg 03/01/24 16:03 Bisacodyl 10 Mg Suppository RECTAL DAILY PRN constipation Calcium Carbonate 500 mg 03/02/24 09:00 03/06/24 09:42 Calcium/Vitamin D 500 Mg/5 Mcg (200 I.U.) Tablet PO 500 mg DAILY SOFIYA Administration Docusate Sodium 100 mg 03/01/24 09:00 03/06/24 09:43 Docusate Sodium 100 Mg Capsule PO 100 mg Q12HR [facility] Administration Ergocalciferol 50,000 units 03/02/24 09:00 03/02/24 09:37 Ergocalciferol 50,000 Units Capsule PO 50,000 units We@0900 [facility] Administration Famotidine 20 mg 03/07/24 09:00 Famotidine 20 Mg/2 Ml Vial IV PUSH QAM SOFIYA Gabapentin 100 mg 03/03/24 13:00 03/06/24 12:45 Gabapentin 100 Mg Capsule PO 100 mg TID [facility] Administration Hydroxyzine HCl 25 mg 03/04/24 17:59 03/05/24 18:26 Hydroxyzine Hcl 25 Mg Tablet PO 25 mg Q6H PRN Administration Anxiety Cefepime HCl 0.5 gm/ Dextrose 50 mls @ 100 mls/hr 03/06/24 15:00 03/06/24 15:42 IVPB 100 mls/hr Q24H [facility] Administration Levetiracetam 500 mg 03/01/24 09:00 03/06/24 09:43 Levetiracetam 500 Mg Tablet PO 500 mg Q12HR [facility] Administration Linezolid 600 mg 03/06/24 21:00 Linezolid 600 Mg Tablet PO Q12HR [facility] Lisinopril 5 mg 03/01/24 09:00 03/02/24 09:37 Lisinopril 5 Mg Tablet PO 5 mg QAM [facility] Administration Magnesium Citrate 150 ml 03/01/24 16:03 Magnesium Citrate 300 Ml Btl PO DAILY PRN constipation Metoprolol Tartrate 50 mg 03/01/24 09:00 03/06/24 09:43 Metoprolol Tartrate 50 Mg Tab PO 50 mg Q12HR [facility] Administration Metronidazole 500 mg 03/06/24 22:00 Metronidazole 500 Mg Tablet PO Q8HR [facility] Psyllium Hydrophilic Mucilloid 1 packet 03/02/24 09:00 03/06/24 09:42 Psyllium Powder Packet PO 1 packet DAILY [facility] Administration Sodium Chloride 1 gm 03/01/24 17:00 03/06/24 09:42 Sodium Chloride 1 Gm Tablet PO 1 gm BID [facility] Administration Sodium Hypochlorite 1 applic 03/01/24 09:00 03/06/24 09:45 Sod Hypochlorite 1/4 Strength 473 Ml TOPICAL 1 applic Q12HR [facility] Administration Umeclidinium [place] 1 puff 03/01/24 08:00 03/06/24 08:22 Umeclidinium [place] 62.5 Mcg Ellipta INHALATION 1 puff DAILYRT [facility] Administration Radiology Results: ITS Impressions Abdomen/Pelvis CT 02/29/24 15:55 IMPRESSION: 1. Subcutaneous soft tissue gas inferior to the coccyx. No evidence of osteomyelitis. Chest X-Ray 03/03/24 09:27 IMPRESSION: 1. No acute cardiopulmonary disease. Renal Ultrasound 03/04/24 16:34 IMPRESSION: 1. Normal kidney sizes. No hydronephrosis. Labs Labs: Laboratory Tests 03/06/24 06:23 03/06/24 06:23 Calcium 8.4 Total Bilirubin 0.6 AST 38 H ALT 24 Alkaline Phosphatase 75 Total Protein 5.0 L Albumin 2.3 L Microbiology 02/29/24 14:57 Blood Blood Culture - Final 02/29/24 15:01 Blood Blood Culture - Final
[2024-03-06] MEDS: CEFEPIME 0.5 GM in DEXTROSE 5% IN WATER 50 ML IVPB (15:42)
[2024-03-06] MEDS: ATORVASTATIN 20 MG TABLET 60 MG PO (20:15)
[2024-03-06] MEDS: metroNIDAZOLE 500 MG TABLET PO (22:24)
[2024-03-07] VITALS (8 sets, daily range): BP systolic 138–139; BP diastolic 48–49; PULSE 70–89; RESP 16–18; TEMP 36.4–36.6; O2SAT 96–98
[2024-03-07] MEDS: ACETAMINOPHEN 325 MG TABLET 650 MG PO ×3 (00:36→12:36)
[2024-03-07] MEDS: IPRATROPIUM 0.5 MG/ALBUTEROL SULFATE 2.5 MG AMPUL.NEB 3 ML INHALATION ×2 (02:45→07:36)
[2024-03-07] MEDS: metroNIDAZOLE 500 MG TABLET PO (05:27)
[2024-03-07] MEDS: SOD HYPOCHLORITE 1/4 STRENGTH 473 ML 1 APPLIC TOPICAL (05:28)
[2024-03-07] MEDS: UMECLIDINIUM BROMIDE 62.5 MCG ELLIPTA 1 PUFF INHALATION (07:37)
[2024-03-07] MEDS: levETIRAcetam 500 MG TABLET PO (10:05)
[2024-03-07] MEDS: SODIUM CHLORIDE 1 GM TABLET PO (10:05)
[2024-03-07] MEDS: CALCIUM/VITAMIN D 500 MG/5 MCG (200 I.U.) TABLET PO (10:05)
[2024-03-07] MEDS: DOCUSATE SODIUM 100 MG CAPSULE PO (10:05)
[2024-03-07] MEDS: APIXABAN 5 MG TABLET PO (10:05)
[2024-03-07] MEDS: GABAPENTIN 100 MG CAPSULE PO ×2 (10:06→12:36)
[2024-03-07] MEDS: LINEZOLID 600 MG TABLET PO (10:06)
[2024-03-07] MEDS: METOPROLOL TARTRATE 50 MG TAB PO (10:06)
[2024-03-07] MEDS: PSYLLIUM POWDER PACKET 1 PACKET PO (10:07)
--- NOTE | 2024-03-07 11:10 | P.PNNP_ITS ---
Progress Note: A&P Assessment and Plan (1) SYLVIA (acute kidney injury): Code(s): N17.9 - Acute kidney failure, unspecified Status: Acute Assessment and Plan: * normal baseline creatinine * worsening noted on 03/03 with rise in creatinine to 1.9mg/dl * multifactorial etiology: * prerenal factors * antibiotics (combo of Vancomycin + Zosyn) * SABI-I use * contrast exposure (CT imaging on 02/28) * infection/early sepsis * other(?) * no improvement with IVFs * holding lisinopril * evaluation to date noted: * renal ultrasound with obstruction * urine electrolytes prerenal * CPK normal * urine eosinophils negative * moderate proteinuria * follow trend of repeat labs and UOP (2) Hyponatremia: Code(s): E87.1 - Hypo-osmolality and hyponatremia Status: Acute Assessment and Plan: * stable if not improving * probably related to Sylvia/ARF and possibly pain * on salt tabs already * follow trend (3) Pressure injury of sacral region, stage 4: Code(s): L89.154 - Pressure ulcer of sacral region, stage 4 Status: Acute Assessment and Plan: * as noted on admission * CT of abdomen/Pelvis revealed subcutaneous soft tissue gas inferior to the coccyx, but no evidence of osteomyelitis. * s/p sharp excisional debridement stage IV sacral decubitus ulcer measuring 15 cm x 10 cm [including skin, subcutaneous fat, muscle and fascia (on 03/01)]. * pain control * on antibiotics * follow culture data * blood cultures negative to date * wound culture - Bacteroides thetaiotaomicron and Pseudomonas aeruginosa * Surgery following (4) Acute UTI: Code(s): N39.0 - Urinary tract infection, site not specified Status: Acute Assessment and Plan: * admission UA suggestive: * showing 1+ urine protein, trace ketone, 3+ urine blood, 2+ leukocytes, greater than 100 urine RBC, 11-20 urine WBC, rare bacteria seen * urine culture with Enterococcus * on antibiotics (5) History of atrial fibrillation: Code(s): Z86.79 - Personal history of other diseases of the circulatory system Status: Acute Assessment and Plan: * rate control strategy * on anticoagulation (6) Physical deconditioning: Code(s): R53.81 - Other malaise Status: Acute Assessment and Plan: * continue PT/OT * will need SNF on discharge Will continue to follow. Subjective Date/time seen: 03/07/24 11:10 Interval history: Follow-up for acute kidney injury/acute renal failure. No testing today available to review kidney function; per my discussion with nursing, family to meet with hospice today to discuss goals of therapy/plan of care given her extensive sacral wound, pain associated with dressing changes, and the likely need for further surgical procedures in the future as the patient seems to be more focused on comfort/pain control as this time. Exam Narrative: General: elderly but WD/WN female in NAD Heart: normal S1 and S2; no rub Lungs: clear to auscultation Abdomen: soft, nontender, nondistended, positive bowel sounds Extremities: no cyanosis or clubbing; no edema Skin: no rashes; sacral wound dressings in place Objective Data Vital Signs Vital Signs: Vital Signs Temp Pulse Resp BP Pulse Ox O2 Del Method FiO2 03/07/24 10:00 70 96 Room Air 03/07/24 10:06 70 03/07/24 07:46 82 18 03/07/24 07:36 84 18 03/07/24 07:36 96 Room Air 21 03/07/24 05:10 97.6 F 80 18 139/48 L 96 03/07/24 02:51 71 16 03/07/24 02:45 74 16 03/06/24 21:00 97.7 F 77 18 127/54 L 96 03/06/24 20:40 85 16 03/06/24 20:35 84 16 03/06/24 20:35 95 Room Air 03/06/24 20:16 76 03/06/24 14:00 98.1 F 88 16 131/58 L 99 03/06/24 14:32 83 16 03/06/24 14:24 88 16 Intake/Output Intake/Output: Intake & Output 03/04/24 03/05/24 03/06/24 03/07/24 23:59 23:59 23:59 23:59 Intake Total 4264.7 2177 1460 527 Output Total 1235 1500 2050 600 Balance 3029.7 677 -590 -73 Meds/Results Medications: Active Medications Generic Name Dose Route Start Last Admin Trade Name Freq PRN Reason Stop Dose Admin Acetaminophen 650 mg 03/03/24 12:20 03/07/24 05:27 Acetaminophen 325 Mg Tablet PO 650 mg Q6H SOFIYA Administration Hydrocodone Bitart/Acetaminophen 1 tab 03/01/24 18:54 03/02/24 09:37 Hydrocodone/Acetaminophen (*Crx) 5-325 Mg Tablet PO 1 tab Q4H PRN Administration Pain Rated 4-6 Hydrocodone Bitart/Acetaminophen 1 tab 03/01/24 18:54 03/06/24 09:55 Hydrocodone/Acetaminophen (*Crx) 7.5-325 Mg Tablet PO 1 tab Q4H PRN Administration Pain Rated 7-10 Albuterol 2.5 mg 03/01/24 16:03 Albuterol Sulfate Neb 2.5 Mg/3 Ml Inh INHALATION Q4H PRN sob Albuterol/Ipratropium 3 ml 03/03/24 14:00 03/07/24 07:36 Ipratropium 0.5 Mg/Albuterol Sulfate 2.5 Mg Ampul.Neb 3 Ml INHALATION 3 ml Q6HRT SOFIYA Administration Apixaban 5 mg 03/02/24 21:00 03/07/24 10:05 Apixaban 5 Mg Tablet PO 5 mg Q12HR SOFIYA Administration Atorvastatin Calcium 60 mg 03/01/24 21:00 03/06/24 20:15 Atorvastatin 20 Mg Tablet PO 60 mg QHS SOFIYA Administration Bisacodyl 5 mg 02/29/24 21:00 Bisacodyl 5 Mg Tablet Ec PO DAILY PRN Constipation Bisacodyl 10 mg 03/01/24 16:03 Bisacodyl 10 Mg Suppository RECTAL DAILY PRN constipation Calcium Carbonate 500 mg 03/02/24 09:00 03/07/24 10:05 Calcium/Vitamin D 500 Mg/5 Mcg (200 I.U.) Tablet PO 500 mg DAILY SOFIYA Administration Docusate Sodium 100 mg 03/01/24 09:00 03/07/24 10:05 Docusate Sodium 100 Mg Capsule PO 100 mg Q12HR SOFIYA Administration Ergocalciferol 50,000 units 03/02/24 09:00 03/02/24 09:37 Ergocalciferol 50,000 Units Capsule PO 50,000 units We@0900 SOFIYA Administration Gabapentin 100 mg 03/03/24 13:00 03/07/24 10:06 Gabapentin 100 Mg Capsule PO 100 mg TID SOFIYA Administration Hydroxyzine HCl 25 mg 03/04/24 17:59 03/05/24 18:26 Hydroxyzine Hcl 25 Mg Tablet PO 25 mg Q6H PRN Administration Anxiety Cefepime HCl 0.5 gm/ Dextrose 50 mls @ 100 mls/hr 03/06/24 15:00 03/06/24 15:42 IVPB 100 mls/hr Q24H SOFIYA Administration Levetiracetam 500 mg 03/01/24 09:00 03/07/24 10:05 Levetiracetam 500 Mg Tablet PO 500 mg Q12HR SOFIYA Administration Linezolid 600 mg 03/06/24 21:00 03/07/24 10:06 Linezolid 600 Mg Tablet PO 600 mg Q12HR SOFIYA Administration Lisinopril 5 mg 03/01/24 09:00 03/02/24 09:37 Lisinopril 5 Mg Tablet PO 5 mg QAM SOFIYA Administration Magnesium Citrate 150 ml 03/01/24 16:03 Magnesium Citrate 300 Ml Btl PO DAILY PRN constipation Metoprolol Tartrate 50 mg 03/01/24 09:00 03/07/24 10:06 Metoprolol Tartrate 50 Mg Tab PO 50 mg Q12HR SOFIYA Administration Metronidazole 500 mg 03/06/24 22:00 03/07/24 05:27 Metronidazole 500 Mg Tablet PO 500 mg Q8HR SOFIYA Administration Psyllium Hydrophilic Mucilloid 1 packet 03/02/24 09:00 03/07/24 10:07 Psyllium Powder Packet PO 1 packet DAILY SOFIYA Administration Sodium Chloride 1 gm 03/01/24 17:00 03/07/24 10:05 Sodium Chloride 1 Gm Tablet PO 1 gm BID SOFIYA Administration Sodium Hypochlorite 1 applic 03/01/24 09:00 03/07/24 05:28 Sod Hypochlorite 1/4 Strength 473 Ml TOPICAL 1 applic Q12HR SOFIYA Administration Umeclidinium [place] 1 puff 03/01/24 08:00 03/07/24 07:37 Umeclidinium [place] 62.5 Mcg Ellipta INHALATION 1 puff DAILYRT SOFIYA Administration Radiology Results: ITS Impressions Abdomen/Pelvis CT 02/29/24 15:55 IMPRESSION: 1. Subcutaneous soft tissue gas inferior to the coccyx. No evidence of osteomyelitis. Chest X-Ray 03/03/24 09:27 IMPRESSION: 1. No acute cardiopulmonary disease. Renal Ultrasound 03/04/24 16:34 IMPRESSION: 1. Normal kidney sizes. No hydronephrosis.
--- NOTE | 2024-03-07 12:50 | P.PNGS_ITS ---
Progress Note: A&P Assessment and Plan (1) Pressure injury of sacral region, stage 4: Code(s): L89.154 - Pressure ulcer of sacral region, stage 4 Status: Acute Assessment and Plan: * S/p surgical debridement. Continue daily dressing changes with Dakin's soaked gauze. Antifungal cream/powder to other areas of skin breakdown. * Hospice consult being placed today for the patient and her sisters to further discuss this option. * We discussed at length the extent of her sacral wound and her overall prognosis and future care for this wound. The wound extends to the sacrum and is extremely painful with dressing changes and anytime she is cleaned up. She is having stool incontinence with soiling of the wound, and would likely need to consider a diverting colostomy if she wanted to continue with full treat ment. She would also need a combination of adequate nutrition, routine wound care, pressure offloading and frequent turning or mobilization to care for this wound moving forward, which even in the best circumstances this extensive of a wound may never completely heal. We also discussed the option of considering a diverting colostomy for stool diversion to prevent future complications/infections with her wound. The patient and her sisters are going to speak with Hospice and have a conversation regarding her wishes today. They will let us know when they reach a decision. We will continue to follow along. (2) Physical deconditioning: Code(s): R53.81 - Other malaise Status: Acute (3) Atrial fibrillation with RVR: Code(s): I48.91 - Unspecified atrial fibrillation Status: Acute Plan I have discussed the patient's case and plan of care with Dr. Leblanc. Subjective Subjective Date/Time Seen: 03/07/24 12:50 Post Op day: 6 (Sharp excisional debridement stage IV sacral decubitus ulcer measuring 15 cm x 10 cm including skin, subcutaneous fat, muscle and fascia) Interval history: Patient seen today with 2 of her sisters at the bedside. Nursing also at the bedside to help with turning. Per the nurse, hospice will be consulted today for discussion with the family and patient. They have discussed this with the hospitalist and have decided to get more information from hospice. Per staff, the patient is having frequent loose stools with stool incontinence. They reports stool soiling the dressing every time they have to change the patient and stool is getting into the sacral wound. When she was turned during my exam, stool had soiled the dressing and she had a BM without any knowledge of this. Exam Narrative: Large stage IV sacral decubitus ulcer with the sacrum exposed at the base of the wound. No purulence drainage. Some small areas of necrotic tissue at the edges of the wound. There is also maceration of the perianal skin and small superficial wounds scattered along the perineum and up to the groin. She is very tender when cleaning her and doing the dressing change. Objective Data Vital Signs Vital Signs: Vital Signs - 24 hr 03/06/24 14:24 03/06/24 14:32 03/06/24 14:00 Temperature 98.1 F Pulse Rate 88 83 88 Respiratory Rate 16 16 16 Blood Pressure 131/58 L Pulse Oximetry 99 Oxygen Delivery Fraction of Inspired Oxygen 03/06/24 20:16 03/06/24 20:35 03/06/24 20:35 Temperature Pulse Rate 76 84 Respiratory Rate 16 Blood Pressure Pulse Oximetry 95 Oxygen Delivery Room Air Fraction of Inspired Oxygen 03/06/24 20:40 03/06/24 21:00 03/07/24 02:45 Temperature 97.7 F Pulse Rate 85 77 74 Respiratory Rate 16 18 16 Blood Pressure 127/54 L Pulse Oximetry 96 Oxygen Delivery Fraction of Inspired Oxygen 03/07/24 02:51 03/07/24 05:10 03/07/24 07:36 Temperature 97.6 F Pulse Rate 71 80 Respiratory Rate 16 18 Blood Pressure 139/48 L Pulse Oximetry 96 96 Oxygen Delivery Room Air Fraction of Inspired Oxygen 21 03/07/24 07:36 03/07/24 07:46 03/07/24 10:06 Temperature Pulse Rate 84 82 70 Respiratory Rate 18 18 Blood Pressure Pulse Oximetry Oxygen Delivery Fraction of Inspired Oxygen 03/07/24 10:00 Temperature Pulse Rate 70 Respiratory Rate Blood Pressure Pulse Oximetry 96 Oxygen Delivery Room Air Fraction of Inspired Oxygen Intake/Output Intake/Output: Intake & Output 03/04/24 03/05/24 03/06/24 03/07/24 23:59 23:59 23:59 23:59 Intake Total 4264.7 2177 1460 527 Output Total 1235 1500 2050 600 Balance 3029.7 677 -590 -73 Meds/Results Medications: Active Medications Generic Name Dose Route Start Last Admin Trade Name Freq PRN Reason Stop Dose Admin Acetaminophen 650 mg 03/03/24 12:20 03/07/24 12:36 Acetaminophen 325 Mg Tablet PO 650 mg Q6H SOFIYA Administration Hydrocodone Bitart/Acetaminophen 1 tab 03/01/24 18:54 03/02/24 09:37 Hydrocodone/Acetaminophen (*Crx) 5-325 Mg Tablet PO 1 tab Q4H PRN Administration Pain Rated 4-6 Hydrocodone Bitart/Acetaminophen 1 tab 03/01/24 18:54 03/06/24 09:55 Hydrocodone/Acetaminophen (*Crx) 7.5-325 Mg Tablet PO 1 tab Q4H PRN Administration Pain Rated 7-10 Albuterol 2.5 mg 03/01/24 16:03 Albuterol Sulfate Neb 2.5 Mg/3 Ml Inh INHALATION Q4H PRN sob Albuterol/Ipratropium 3 ml 03/03/24 14:00 03/07/24 07:36 Ipratropium 0.5 Mg/Albuterol Sulfate 2.5 Mg Ampul.Neb 3 Ml INHALATION 3 ml Q6HRT SOFIYA Administration Apixaban 5 mg 03/02/24 21:00 03/07/24 10:05 Apixaban 5 Mg Tablet PO 5 mg Q12HR SOFIYA Administration Atorvastatin Calcium 60 mg 03/01/24 21:00 03/06/24 20:15 Atorvastatin 20 Mg Tablet PO 60 mg QHS SOFIYA Administration Bisacodyl 5 mg 02/29/24 21:00 Bisacodyl 5 Mg Tablet Ec PO DAILY PRN Constipation Bisacodyl 10 mg 03/01/24 16:03 Bisacodyl 10 Mg Suppository RECTAL DAILY PRN constipation Calcium Carbonate 500 mg 03/02/24 09:00 03/07/24 10:05 Calcium/Vitamin D 500 Mg/5 Mcg (200 I.U.) Tablet PO 500 mg DAILY SOFIYA Administration Docusate Sodium 100 mg 03/01/24 09:00 03/07/24 10:05 Docusate Sodium 100 Mg Capsule PO 100 mg Q12HR SOFIYA Administration Ergocalciferol 50,000 units 03/02/24 09:00 03/02/24 09:37 Ergocalciferol 50,000 Units Capsule PO 50,000 units We@0900 SOFIYA Administration Gabapentin 100 mg 03/03/24 13:00 03/07/24 12:36 Gabapentin 100 Mg Capsule PO 100 mg TID SOFIYA Administration Hydroxyzine HCl 25 mg 03/04/24 17:59 03/05/24 18:26 Hydroxyzine Hcl 25 Mg Tablet PO 25 mg Q6H PRN Administration Anxiety Cefepime HCl 0.5 gm/ Dextrose 50 mls @ 100 mls/hr 03/06/24 15:00 03/06/24 15:42 IVPB 100 mls/hr Q24H SOFIYA Administration Levetiracetam 500 mg 03/01/24 09:00 03/07/24 10:05 Levetiracetam 500 Mg Tablet PO 500 mg Q12HR SOFIYA Administration Linezolid 600 mg 03/06/24 21:00 03/07/24 10:06 Linezolid 600 Mg Tablet PO 600 mg Q12HR SOFIYA Administration Lisinopril 5 mg 03/01/24 09:00 03/02/24 09:37 Lisinopril 5 Mg Tablet PO 5 mg QAM SOFIYA Administration Magnesium Citrate 150 ml 03/01/24 16:03 Magnesium Citrate 300 Ml Btl PO DAILY PRN constipation Metoprolol Tartrate 50 mg 03/01/24 09:00 03/07/24 10:06 Metoprolol Tartrate 50 Mg Tab PO 50 mg Q12HR SOFIYA Administration Metronidazole 500 mg 03/06/24 22:00 03/07/24 05:27 Metronidazole 500 Mg Tablet PO 500 mg Q8HR SOFIYA Administration Psyllium Hydrophilic Mucilloid 1 packet 03/02/24 09:00 03/07/24 10:07 Psyllium Powder Packet PO 1 packet DAILY SOFIYA Administration Sodium Chloride 1 gm 03/01/24 17:00 03/07/24 10:05 Sodium Chloride 1 Gm Tablet PO 1 gm BID SOFIYA Administration Sodium Hypochlorite 1 applic 03/01/24 09:00 03/07/24 05:28 Sod Hypochlorite 1/4 Strength 473 Ml TOPICAL 1 applic Q12HR SOFIYA Administration Umeclidinium [place] 1 puff 03/01/24 08:00 03/07/24 07:37 Umeclidinium [place] 62.5 Mcg Ellipta INHALATION 1 puff DAILYRT SOFIYA Administration Radiology Results: ITS Impressions Abdomen/Pelvis CT 02/29/24 15:55 IMPRESSION: 1. Subcutaneous soft tissue gas inferior to the coccyx. No evidence of osteomyelitis. Chest X-Ray 03/03/24 09:27 IMPRESSION: 1. No acute cardiopulmonary disease. Renal Ultrasound 03/04/24 16:34 IMPRESSION: 1. Normal kidney sizes. No hydronephrosis.
--- NOTE | 2024-03-07 12:59 | PM.DS ---
DS: Admitting Diagnosis Discharge Date 03/07/2024 Admitting Diagnosis Sacral decubitus ulcer GABRIELLE DS: Discharge Diagnosis Discharge Diagnosis (1) GABRIELLE (acute kidney injury): Code(s): N17.9 - Acute kidney failure, unspecified Status: Acute (2) Pressure injury of sacral region, stage 4: Code(s): L89.154 - Pressure ulcer of sacral region, stage 4 Status: Acute DS: Summary Hospital Course Reason for hospitalization: 68 yo F with a mHx significant for obesity, A-fib, physical deconditioning, UTI, Seizures, A resident of [facility] [place], where she was discharged to after an inpatient evaluation and management of UTI and A-fib with a sacral region pressure ulcer stemming from prolong immobility for physical rehabilitation. she was transferred back to the [facility] for expert evaluation after an evaluation of the wound at the [facility] uncovered a worsening picture. Except for pain, she denies fevers, chills, nausea, vomiting, chest pain or changes in her bowel habits. Hospital Course: Samantha Rojas is a 68-year-old female who presented to the hospital on 02/29/2024 for evaluation of left buttock wound. Surgery was consulted and a debridement was done. Nephrology was consulted for acute renal failure, etiology not entirely clear. Given multiple chronic and acute medical problems and pain, patient decided to enroll in hospice, comfort care. Acute on chronic pain Treated with scheduled tylenol and Vicodin 5-7.5/325 q4 prn after acute pain resolved post op Hospice will manage meds for comfort and pain medications after arrival to the facility Decubitous ulcer--s/p debridement. Workup in the hospital included an abdomen/ pelvis CT which showed subcutaneous soft tissue gas inferior to the coccyx, no evidence of osteomyelitis. Surgery had discussed a diverting colostomy with her, would likely be required for healing --Local wound care to sacral wound. --Stopped antibiotics since comfort care after hospice discussion with family Leukocytosis Initial labs showed a white blood cell count of 22.3, sodium 125, chloride 90, creatinine 0.40, lactic acid was normal at 1.3, C reactive protein 33.8. A UA was obtained which shown 1+ urine protein, trace ketones, 3+ urine blood, 2+ leukocyte, greater than 100 urine RBC, 11-20 urine WBC, rare bacteria seen. Urine, blood, sacral wound cultures were obtained. Urine culture showing Enterococcus species on final read. Blood culture showing no growth to date on preliminary read. Sacral wound culture showing Pseudomonas aeruginosa and Bacteroides thetaiotaomicron. Patient was started on antibiotics Zosyn and Vancomycin, was switched to Doxycycline and Augmentin, and was transitioned over to Linezolid, Cefepime, and Flagyl once cultures were resulted. General surgery was consulted And took patient for a sharp excisional debridement of the stage IV sacral decubitus ulcer measuring 15 cm x 10 cm including skin, subcutaneous fat, muscle, and fascia. GABRIELLE Renal ultrasound which showed normal kidney size, no hydronephrosis. Unclear cause of GABRIELLE, differential includes medication related vs ATN in the setting of infection. Changed Zosyn and vancomycin that was given initially for her stage IV decubitus ulcer to Cefepime, Flagyl, Zyvox. Nephrology was consulted. Hx seizures several years ago Continued Keppra Hx Afib Stopped apixaban at discharge to minimize medications. Status at Discharge Cognitive/behavioral status at discharge: A&Ox3 Time Spent with Patient Time attestation: Total time spent providing and/or coordinating discharge services: Exam Narrative: General: In no acute distress, well nourished Cardiac: Normal S1 and S2. RRR, No murmur, gallops or friction rubs, peripheral pulses intact. Respiratory: Slightly coarse, currently on room air, raspy cough Gastrointestinal: soft, non-distended, non-tender, normoactive bowel sounds. : voiding without difficulty. Skin: scabbed areas from scratching various places on legs and arms, Patient asked not to assess stage IV wound on coccyx due to pain Neuro: Alert and oriented x 3, interactive Discharge Plan Discharge Attending physician on discharge: Purnima Lucas Consulting providers: Dario Leblanc; Adolfo Wilson; Madelin Sykes Discharging Clinician: Purnima Lucas Anticipated Discharge Date/Time: 03/07/24 12:52 Patient Disposition: Hospice - Medical Facility Activity: as tolerated Diet: as tolerated and regular Wound Care Instructions: change dressing daily and other - see discharge instructions Discharge Instructions: Sodium hypochlorite 1/4 daily for twice a day wet to dry dressing changes as tolerated Hospice will follow at the facility for medications Patient Instructions: Pain Management (DC) Stand Alone Forms: General Discharge Information Discharge Medications: New Dakin's Solution 0.125 % Solution 1 applic topical Q12HR Qty: 473 0RF hydroxyzine HCl 25 mg Tablet 25 mg PO Q6H PRN (Reason: Anxiety) Qty: 20 0RF ipratropium-albuterol 0.5 mg-3 mg(2.5 mg base)/3 mL Solution For Nebulization 3 ml inhalation Q6HRT Qty: 180 0RF Continued levetiracetam [Keppra] 500 mg tablet 500 mg PO Q12HR Qty: 60 0RF acetaminophen 325 mg tablet 650 mg PO Q6H PRN (Reason: Pain (Scale Score 1-3)) albuterol sulfate 2.5 mg /3 mL (0.083 %) Solution For Nebulization 2.5 mg INHALATION Q4H PRN (Reason: sob) bisacodyl 10 mg Suppository 10 mg RECTAL DAILY PRN (Reason: constipation) Fleet Enema 19-7 gram/118 mL Enema 118 ml RECTAL DAILY PRN (Reason: Constipation) Incruse Ellipta 62.5 mcg/actuation blister with device 1 inh inhalation Q24H Qty: 30 0RF Discontinued calcium carbonate-vitamin D3 [Caltrate with Vitamin D3] 600 mg-20 mcg (800 unit) tablet 1 tablet PO DAILY Qty: 30 0RF ergocalciferol (vitamin D2) [Vitamin D2] 1,250 mcg (50,000 unit) capsule 1 unit PO WEEKLY Qty: 7 0RF Rx Instructions: take every thursday atorvastatin 80 mg tablet 60 mg PO QHS psyllium Packet 1 packet PO DAILY Rx Instructions: mix into at least 8 oz of water or juice before administering pseudoephedrine-guaifenesin [Mucinex D] 60-600 mg Tablet Extended Release 12 Hr 1 tablet PO Q12H PRN (Reason: congestion) magnesium citrate Solution 150 ml PO DAILY PRN (Reason: constipation) Patient Comments: if no results from enema hydrocortisone acetate [Anusol-HC] 25 mg Suppository 25 mg RECTAL DAILY PRN (Reason: hemmorids) Eliquis 5 mg Tablet 5 mg PO Q12HR 30 Days Qty: 60 1RF metoprolol tartrate 50 mg Tablet 50 mg PO Q12HR 30 Days Qty: 60 0RF lisinopril 5 mg Tablet 5 mg PO QAM 30 Days Qty: 30 0RF sodium chloride 1,000 mg Tablet,Soluble 1,000 mg PO BID 3 Days Qty: 6 0RF Date of admission: 03/01/24 07:48 Primary Care Provider: Royce Day Admitting Provider: Kevin Martínez Attending physician on admission: Purnima Lucas Condition: Serious Hospitalist MIPS Heart Failure (Exclusion) Patient has history of Heart Transplant or Left Ventricular Assistive Device?: No IF YES, STOP HERE Heart Failure (Qualifier) Patient has current or prior documentation of LVEF less than or equal to 40%, or mod/servere depressed LVSF?: No IF NO, STOP HERE If Yes, Heart Failure (Qualifier) Patient was prescribed or already taking an Angiotensin-Converting Enzyme (SABI) Inhibitor, or Antiotensin Receptor Ninfa (ARB): No If Medications not prescribed/taking Reason patient not prescribed/taking SABI or ARB: Medical reasons: allergy, intolerance, contraindication or other
== END 2024-03-07 17:00 | disposition hospice, inpatient (51) | DRG 580 ==
LOC: ANHED 20:40 → ANH3MED 20:48
PROVIDERS: Internal Medicine; Internal Medicine Nephrology; Surgery; Admitting Provider Internal Medicine; Emergency Provider Emergency Medicine; PCP Family Medicine; Visit Provider Nurse Practitioner Acute Care
PROC: 0KBP0ZZ Excision of Left Hip Muscle, Open Approach (ICD-10-PCS; principal; 2024-03-01 16:00)
DX: L89.154 Pressure ulcer of sacral region, stage 4 (principal); E87.1 Hypo-osmolality and hyponatremia; N39.0 Urinary tract infection, site not specified; N17.9 Acute kidney failure, unspecified; R65.10 Systemic inflammatory response syndrome (SIRS) of non-infectious origin without acute organ dysfunction; I48.91 Unspecified atrial fibrillation; I10 Essential (primary) hypertension; B95.2 Enterococcus as the cause of diseases classified elsewhere; B96.5 Pseudomonas (aeruginosa) (mallei) (pseudomallei) as the cause of diseases classified elsewhere; E78.5 Hyperlipidemia, unspecified; R56.9 Unspecified convulsions; Z79.01 Long term (current) use of anticoagulants; Z86.73 Personal history of transient ischemic attack (TIA), and cerebral infarction without residual deficits; Z87.891 Personal history of nicotine dependence; Z99.81 Dependence on supplemental oxygen; E66.9 Obesity, unspecified; Z68.37 Body mass index [BMI] 37.0-37.9, adult; R53.81 Other malaise
CPT/HCPCS: 36415; 71045; 74177; 76775; 80053; 81001; 81050; 82550; 82570; 83605; 84156; 84300; 84540; 85025; 85610; 85730; 85999; 86140; 87040; 87070; 87075; 87077; 87086; 87088; 87181; 87186; 87205; 93005; 94640; 96361; 96365; 96372; 96375; 96376; 97110; 97161; 97166; 97530; 97535; 99285; A9270; G0378; J0692; J1644; J1650; J1836; J2003; J2250; J2270; J2371; J2405; J2543; J2704; J3010; J3370; J7030; J7120; Q9967